=== PATIENT | female | born 1950 | race Caucasian/White ===

== ENCOUNTER 2017-03-13 02:26 | Inpatient (IN) ==
[2017-03-13] MEDS ORDERED: *HR* Labetalol 20 MG/4 ML SYRINGE IVP ONE (03:21)
[2017-03-13] MEDS ORDERED: 0.9 % Sodium Chloride 2,000 ML ONE (04:29)
[2017-03-13] MEDS ORDERED: Insulin Human Regular 10 UNIT in 0.9 % Sodium Chloride 10 ML IV ONE (06:40)
[2017-03-13 06:48] LABS: Activated Partial Thrombo Time 33.1 Seconds (26.0-36.0); Hematocrit 42.7 % (35.3-44.9); Immature Granulocytes % 0.3 % (0-4); Lymphocytes # 1.2 K/mcL (0.6-4.6); Lymphocytes % 32.6 %; Mean Corpuscular HGB Conc 32.8 g/dL (31.6-35.5); Mean Corpuscular Hemoglobin 26.9 pg (28.0-33.3); Mean Platelet Volume 9.3 fL (9.4-12.4); Monocytes # 0.3 K/mcL (0.0-1.3); Monocytes % 8.4 %; Neutrophils # 2.2 K/mcL (1.6-8.9); Platelet Count 154 K/mcL (140-400); Prothrombin Time 11.1 Seconds (9.4-12.1); Red Blood Count 5.21 M/mcL (3.82-4.97); Red Cell Distribution Width 12.8 % (11.5-14.5); Segmented Neutrophils % 58.7 %
[2017-03-13] MEDS ORDERED: Naloxone 0.4 MG/ML INJ IVP PRN (07:32)
[2017-03-13] MEDS ORDERED: Acetaminophen 325 MG TABLET PO PRN (07:32)
[2017-03-13] MEDS ORDERED: Ondansetron ODT 4 MG TAB.RAPDIS SL PRN (07:32)
[2017-03-13] MEDS ORDERED: *HR* HYDROcodone/Acet 5/325 mg TABLET PO PRN (07:32)
[2017-03-13 07:52] LABS: Bilirubin,Urine Negative (Negative); Blood,Urine Large (Negative); Clarity,Urine Cloudy (Clear); Color,Urine Yellow (Yellow); Glucose,Urine (UA) >=1000 mg/dL (Normal); Ketones,Urine Negative (Negative)
[2017-03-13 07:53] LABS: Leukocyte Esterase,Urine Trace (Negative); Nitrite,Urine Negative (Negative); Protein,Urine 30 mg/dL (Neg-Trace); RBC,Urine TNTC per hpf (0-3); Urobilinogen,Urine Normal (Normal); WBC,Urine 0-3 per hpf (0-3)
[2017-03-13 07:54] LABS: Squamous Epithelial Cell,Urine Few per lpf (None-Few)
[2017-03-13] MEDS ORDERED: hydrALAZINE 25 MG TABLET PO PRN (08:08)
[2017-03-13] MEDS ORDERED: D5% in Water 1,000 ML IVC PRN (08:09)
[2017-03-13] MEDS ORDERED: *HR* Dextrose 50 % in Water (Syg) 50 ML SYRINGE IVP PRN (08:09)
[2017-03-13] MEDS ORDERED: Dextrose Gel 15 GM PO PRN ×2 (08:09)
--- NOTE | 2017-03-13 08:12 | Internal Med History&Physical ---
Date of Encounter: 03/13/17 Time of Encounter: 07:45 Assessment and Plan (1) Acute ischemic stroke Current visit: Yes Status: Suspected By midnight, her woke her up while she was sleeping on her recliner and told her to go to bed. Patient noticed her right side of her body was weak and she was unable to stand up on her own. Her helped her and she walked to her kitchen. She was very wobbly and unsteady. Her daughter noticed some slurred speech and left-sided facial droop. Her symptoms started to improve an hour after arriving to our ED. At this time, she reports mild right-sided weakness. CT head showed no acute intracranial process, chronic small vessel ischemic changes. CTA of neck and head showed no acute vascular abnormality, moderate to severe multilevel cervical spondylosis, left thyroid lobe 1 cm nodule. High suspicion for acute ischemic stroke given presentation. Check MRI brain, lipid profile and echocardiogram. Consult neurology. Neurovascular assessment per protocol. Fall precautions. Patient reports an allergy to aspirin. Start Plavix and Lipitor. Better control of blood sugars. Permissive high blood pressure, will treat blood pressure if systolic blood pressure above 240 and diastolic blood pressure above 120. Consult PT and OT (2) Hypertensive urgency Current visit: Yes Status: Acute Permissive high blood pressure, will treat blood pressure if systolic blood pressure above 240 and diastolic blood pressure above 120 (3) Diabetes mellitus Current visit: Yes Status: Chronic Check A1c. Patient reports blood sugars levels are in the 300 range home. Start Levemir 10 units twice a day. Insulin sliding scale. Diabetic diet. Qualifiers: Diabetes mellitus type: type 2 Diabetes mellitus complication status: with hyperglycemia Diabetes mellitus terminal worker insulin use: without terminal worker use Qualified Code(s): E11.65 - Type 2 diabetes mellitus with hyperglycemia (4) Hypothyroidism Current visit: Yes Status: Chronic Check TSH, free T4. Resume home dose of levothyroxine. Qualifiers: Hypothyroidism type: unspecified Qualified Code(s): E03.9 - Hypothyroidism , unspecified Internal Medicine - H&P: HPI Chief complaint: Right-sided weakness since midnight Admitted From: Home Plans for Post Hospital Care: Home History of present illness: Ms. Walter is a 67 year old female with past medical history hypertension, poorly controlled diabetes mellitus and prior ophthalmic shingles. Patient reports dealing with some epigastric discomfort for the past few weeks due to an adverse reaction from Ciprofloxacillin and Januvia. Yesterday, she was some epigastric discomfort for in the afternoon but this resolved and she continued working without any issues. By midnight, her woke her up while she was sleeping on her recliner and told her to go to bed. She noticed her right side of her body was weak and she was unable to stand up on her own. Her helped her and she walked to her kitchen. She was very wobbly and unsteady. Her daughter noticed some slurred speech and left-sided facial droop. Her symptoms started to improve an hour after arriving to our ED. At this time, she reports mild right-sided weakness. No chest pain, no headache, no syncope, no shortness of breath, no fever, no abdominal pain, no cough, no upper respiratory symptoms, no change in bowel movements, no lower extremity edema. She reports episodes of hematuria for the past few days. No dysuria or frequency. Unable to review records from ED due to technical issues with our EMR system [employer] 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 She had intraocular injection to her right eye last week at [facility] and she developed conjunctival hemorrhage. She had an MRI 3 years ago for a right shoulder fracture. Family medical history: Mother had brain aneurysm. Past Med Surg Social Fam HX - Past Medical History Medical history: arthritis, diabetes, hypertension - Social History Smoking Status: Never smoker Smokeless Tobacco Status: No Alcohol use: none Drug use: none - Family History Mother History Unknown: Yes Family Member Ethnicity: Non- Twin of Family Member: Yes, Fraternal Living Status: Hx Family Cardiac Disorders: Yes Hx Family Neurologic Disorders: Yes Internal Medicine - H&P: Meds Acetaminophen [Tylenol] 1,000 mg PO Q6HR PRN 03/13/17 [History] Bisoprolol Fumarate [Zebeta] 10 mg PO DAILY 03/13/17 [History] Calcium Carb,Cit/D3/Phytostrol [Citracal D + Heart Health Tab] 1 tab PO DAILY [History] Fexofenadine HCl 60 mg PO HS 03/13/17 [History] Levothyroxine Sodium [Levoxyl] 75 mcg PO DAILY 03/13/17 [History] Vit#98/Ferrous Fum/FA [Kpn Tablet] 1 tab PO DAILY 03/13/17 [ History] Tramadol HCl [Ultram] 50 mg PO TID PRN 03/13/17 [History] Valsartan [Diovan] 80 mg PO DAILY 03/13/17 [History] cloNIDine HCl [Clonidine HCl] 0.2 mg PO BID 03/13/17 [History] clonazePAM [Klonopin] 0.5 mg PO BID 03/13/17 [History] Allergies Erythromycin Base Allergy (Verified 12/08/16 12:23) Nausea levofloxacin [From Levaquin] Allergy (Verified 12/08/16 12:23) Nausea All Systems PM: A 10-system review of systems was performed and is negative for pertinent findings except as documented above in the HPI. - Constitutional Vitals: Temp Pulse Resp BP Pulse Ox 98.1 F 82 18 185/95 97 03/13/17 07:25 03/13/17 07:25 03/13/17 07:25 03/13/17 07:25 03/13/17 07:25 General appearance: Present: A&O X 3, pleasant, no acute distress, answers questions appropriately - Eye Eye exam: Present: conjunctival injection (right eye), PERRL - Respiratory Respiratory exam: Present: CTAB - Cardiovascular Cardiovascular exam: Present: RRR - GI/Abdominal GI/Abdominal exam: Present: normal bowel sounds, soft. Absent: distended, tenderness - Extremities Exam Extremities exam: Absent: pedal edema - Back Exam Back exam: Absent: CVA tenderness (L), CVA tenderness (R) - Neurological Exam Neurological exam: Present: alert, CN II-XII intact, oriented X3. Absent: strengths equal and symetr throughout (strenght is 4/5 on right leg, rest is 5/ 5. patient is able to stand up but she feels very unsteady. Not able to perform toe or heel standing or ambulation. ), pronater drift, facial droop, speech deficit - Skin Skin exam: Present: rash (there are small macular lesions on her chest, chronic for the past few days) Internal Med - H&P Results - Labs CBC & Chem 7: 03/13/17 02:55
[2017-03-13 08:37] LABS: Alanine Aminotransferase 14 Units/L (0-55); Albumin 4.1 g/dL (3.5-5.0); Alkaline Phosphatase 86 Units/L (38-126); Aspartate Amino Transferase 15 Units/L (5-34); BUN/Creatinine Ratio 15 (6-26); Bilirubin,Total 0.8 mg/dL (0.2-1.2); Blood Urea Nitrogen 15 mg/dL (7-20); Calcium 9.8 mg/dL (8.6-10.8); Carbon Dioxide 25 mEq/L (19-29); Chloride 99 mEq/L (98-109); Globulin 4.2 g/dL (2.4-3.5); Glucose 497 mg/dL (70-99); Osmolality,Calculated 303 (280-300); Potassium 4.5 mEq/L (3.5-4.5); Sodium 135 mEq/L (136-145); Total Protein 8.3 g/dL (6.0-8.3); eGFR For African Americans > 60 (> 60); eGFR For Non-African Americans 57 (> 60)
[2017-03-13 08:58] LABS: Beta-Hydroxybutyric Acid 0.33 mmol/L (0.02-0.27)
[2017-03-13] MEDS ORDERED: Insulin DETEMIR 100 UNIT/ML X5UNITS SQ SCH (09:00)
[2017-03-13] MEDS: Pantoprazole 40 MG VIAL IVP SCH (12:19)
[2017-03-13] MEDS: Insulin LISPRO 300 UNITS/3 ML VIAL SQ SCH ×3 (12:20→21:42)
[2017-03-13] MEDS: BISOPROLOL 10 MG PO SCH (15:42)
[2017-03-13] MEDS: *HR* Heparin 5,000 UNIT/ML VIAL SQ SCH (17:42)
--- NOTE | 2017-03-13 17:48 | Neurology - Consult Note ---
Date of Encounter: 03/13/17 Time of Encounter: 17:33 Assessment and Plan (1) Acute ischemic stroke Current Visit: Yes Status: Suspected Small lacunar pure motor thalamic infarct, likely secondary to small vessel etiology. Stroke work up is essentially complete. CTA of brain and neck echocardiography completed. No significant pathology noted. Agree with Plavix 75mg daily and continue statin therapy. PT/OT evaluation. Will sign off at this time, please call if any questions History of Present Illness Chief complaint: left sided weakness HPI: Ms. Walter is a 67 year old female 67 year old woman with PH significant for HTN, DM and hyperlipidemia who developed acute onset of left sided weakness. Onset of symptoms likely before 10pm last night. she was watching TV i sitting position and then fall asleep. After waking up by her she was found to have weakness to her right side, unable to walk. The right sided weakness gradually improved by the time she went to ER. MRI of brain showed acute left thalamic infarct, no edema and no midline shift noted. Currently, patient is feeling better, able to feed her self. The right sided weakness is still present but much improved. CTA of neck and brain, echocardiography all completed and showed no significant pathology. Echo showed normal LVEF 60%, no regional wall motion abnormality, no PFO and valvular disease found. Patient has no prior history of atrial fribrillation Past Med Surg Social Fam HX - Past Medical History Medical history: arthritis, diabetes, hypertension - Social History Smoking Status: Never smoker Smokeless Tobacco Status: No Alcohol use: none Drug use: none - Family History Mother History Unknown: Yes Family Member Ethnicity: Non- Twin of Family Member: Yes, Fraternal Living Status: Hx Family Cardiac Disorders: Yes Hx Family Neurologic Disorders: Yes Medications and Allergies Acetaminophen [Tylenol] 1,000 mg PO Q6HR PRN 03/13/17 [History] Bisoprolol Fumarate [Zebeta] 10 mg PO DAILY 03/13/17 [History] Calcium Carb,Cit/D3/Phytostrol [Citracal D + Heart Health Tab] 1 tab PO DAILY [History] Fexofenadine HCl 60 mg PO HS 03/13/17 [History] Levothyroxine Sodium [Levoxyl] 75 mcg PO DAILY 03/13/17 [History] Vit#98/Ferrous Fum/FA [Kpn Tablet] 1 tab PO DAILY 03/13/17 [ History] Tramadol HCl [Ultram] 50 mg PO TID PRN 03/13/17 [History] Valsartan [Diovan] 80 mg PO DAILY 03/13/17 [History] cloNIDine HCl [Clonidine HCl] 0.2 mg PO BID 03/13/17 [History] clonazePAM [Klonopin] 0.5 mg PO BID 03/13/17 [History] Allergies Erythromycin Base Allergy (Verified 12/08/16 12:23) Nausea levofloxacin [From Levaquin] Allergy (Verified 12/08/16 12:23) Nausea All Systems: A 10-system review of systems was performed and is negative for pertinent findings except as documented above in the HPI. Physical Examination - Vital Signs Vital Signs: Initial Vital Signs Temp Pulse Resp BP Pulse Ox 98.1 F 82 18 185/95 97 03/13/17 07:25 03/13/17 07:25 03/13/17 07:25 03/13/17 07:25 03/13/17 07:25 - Constitutional General appearance: comfortable - Neurologic Sensorimotor examination: intact Detailed motor examination: other (Mild right pronator drift noted. Hand custodian athletic equipment are strong) Motor examination - right side: 4/5: deltoids, biceps, triceps, wrist flexion, wrist extension, museum guide, hip flexors, tibialis Anterior, quadriceps, toe extension (EHL), plantarflexion Motor examination - left side: 5/5: deltoids, biceps, triceps, wrist flexion, wrist extension, hip flexors, museum guide, quadriceps, tibialis Anterior, toe extension (EHL), plantarflexion Detailed sensory examination: intact Posture: other (None) Reflexes: Biceps: 1+, Triceps: 1+, Brachioradialis: 1+, Patella: 1+, Achilles: 1 + Mental Status Examination: awake, alert, oriented to person, oriented to place, oriented to time, follows commands appropriately, answers questions appropriately, no agnosia, no aphasia, no aproxia Cranial nerve examination: PERRL, EOMI, visual rueda intact (Unable to test, due to left eye cataract), corneal reflexes brisk symmetrically, sensory to face intact, mastication intact, no facial asymmetry is present, no dysarthria, hearing is intact symmetrically, soft palate elevates bilaterally upon phonation , gag reflex intact, flexes SCM and trapezius muscles symmetrically with full power, tongue protrudes midline Results - Laboratory Findings CBC and BMP: 03/13/17 02:55 03/13/17 02:55 Abnormal lab findings: Abnormal lab results WBC 3.7 K/mcL (4.3-11.1) L 03/13/17 02:55 RBC 5.21 M/mcL (3.82-4.97) H 03/13/17 02:55 MCV 82.0 fL (83.0-100.0) L 03/13/17 02:55 MCH 26.9 pg (28.0-33.3) L 03/13/17 02:55 MPV 9.3 fL (9.4-12.4) L 03/13/17 02:55 Sodium 135 mEq/L (136-145) L 03/13/17 02:55 Est GFR (Non-Af Amer) 57 (> 60) L 03/13/17 02:55 Glucose 497 mg/dL (70-99) H 03/13/17 02:55 POC Glucose 270 (58-89) H 03/13/17 08:13 Calculated Osmolality 303 (280-300) H 03/13/17 02:55 Globulin 4.2 g/dL (2.4-3.5) H 03/13/17 02:55 Albumin/Globulin Ratio 1.0 (1.1-2.2) L 03/13/17 02:55 Beta-Hydroxybutyric Acd 0.33 mmol/L (0.02-0.27) H 03/13/17 02:55 Urine Clarity Cloudy (Clear) A 03/13/17 02:55 Urine Protein 30 mg/dL (Neg-Trace) H 03/13/17 02:55 Urine Glucose (UA) >=1000 mg/dL (Normal) H 03/13/17 02:55 Urine Blood Large (Negative) H 03/13/17 02:55 Ur Leukocyte Esterase Trace (Negative) H 03/13/17 02:55 Urine Microscopic RBC TNTC per hpf (0-3) H 03/13/17 02:55 Ur Culture Indicated? YES (NO) A 03/13/17 02:55 Consult Discharge Plan - Plan Referrals: Willam Mckeon DO [Primary Care Provider] - 03/26/17 12:30 pm
[2017-03-13] MEDS ORDERED: ALPRAZolam 0.25 MG TABLET PO SCH (21:00)
[2017-03-13] MEDS: clonazePAM 0.5 MG TABLET PO PRN (23:21)
[2017-03-14] MEDS: *HR* Heparin 5,000 UNIT/ML VIAL SQ SCH ×2 (05:25→18:13)
[2017-03-14] MEDS ORDERED: Loratadine 10 MG TABLET PO ONE (05:53)
[2017-03-14 06:04] LABS: Hematocrit 40.8 % (35.3-44.9); Hemoglobin 13.4 g/dL (11.5-15.4); Immature Granulocytes % 0.3 % (0-4); Lymphocytes # 1.8 K/mcL (0.6-4.6); Lymphocytes % 48.1 %; Mean Corpuscular HGB Conc 32.8 g/dL (31.6-35.5); Mean Corpuscular Hemoglobin 27.3 pg (28.0-33.3); Mean Corpuscular Volume 83.1 fL (83.0-100.0); Mean Platelet Volume 10.1 fL (9.4-12.4); Monocytes # 0.3 K/mcL (0.0-1.3); Neutrophils # 1.6 K/mcL (1.6-8.9); Platelet Count 165 K/mcL (140-400); Red Blood Count 4.91 M/mcL (3.82-4.97); Red Cell Distribution Width 12.9 % (11.5-14.5); Segmented Neutrophils % 42.6 %
[2017-03-14 06:14] LABS: Hemoglobin A1C 11.6 %
[2017-03-14 06:18] LABS: BUN/Creatinine Ratio 15 (6-26); Blood Urea Nitrogen 12 mg/dL (7-20); Calcium 9.4 mg/dL (8.6-10.8); Carbon Dioxide 29 mEq/L (19-29); Chloride 102 mEq/L (98-109); Chol/HDL Ratio 7.4 (0-4.9); Cholesterol 244 mg/dL (< 200); Glucose 315 mg/dL (70-99); HDL Cholesterol 33 mg/dL (40-59); Magnesium 1.9 mg/dL (1.6-2.6); Osmolality,Calculated 296 (280-300); Potassium 3.6 mEq/L (3.5-4.5); Sodium 137 mEq/L (136-145); Triglycerides 586 mg/dL (< 150); eGFR For African Americans > 60 (> 60); eGFR For Non-African Americans > 60 (> 60)
[2017-03-14] MEDS: Insulin LISPRO 300 UNITS/3 ML VIAL SQ SCH ×4 (08:25→21:08)
[2017-03-14] MEDS: cloNIDine HCl 0.1 MG TABLET PO SCH (08:25)
[2017-03-14] MEDS: BISOPROLOL 10 MG PO SCH (08:25)
[2017-03-14] MEDS: Pantoprazole 40 MG VIAL IVP SCH (08:25)
[2017-03-14] MEDS ORDERED: Loratadine 10 MG TABLET PO SCH (09:00)
[2017-03-14] MEDS: Insulin DETEMIR 100 UNIT/ML X5UNITS SQ SCH ×2 (09:01→21:08)
[2017-03-14] MEDS: Valsartan 80 MG TABLET PO SCH (09:01)
--- NOTE | 2017-03-14 11:49 | Internal Med Progress Note ---
Date of Encounter: 03/14/17 Time of Encounter: 11:15 - Assessment and plan (1) Acute ischemic stroke Current Visit: Yes Status: Acute Assessment and plan: The night of admission, her woke her up while she was sleeping on her recliner and told her to go to bed. Patient noticed her right side of her body was weak and she was unable to stand up on her own. Her helped her and she walked to her kitchen. She was very wobbly and unsteady. Her daughter noticed some slurred speech and left-sided facial droop. Her symptoms started to improve an hour after arriving to our ED. At this time, she reports mild right-sided weakness. CT head showed no acute intracranial process, chronic small vessel ischemic changes. CTA of neck and head showed no acute vascular abnormality, moderate to severe multilevel cervical spondylosis, left thyroid lobe 1 cm nodule. MRI brain showed Small acute infarct within the left thalamus. Echocardiogram showed LVEF 65%, mild concentric LVH, mild LV diastolic dysfunction, moderately dilated left atrium, no intracardiac shunting, no significant valvular dysfunction. Lipid profile showed triglycerides 586 and LDL TNP. Hemoglobin A1c is 11.6. Appreciate neurology input. Patient reports an allergy to aspirin. continue Plavix. Patient is thinking about starting on Lipitor. PT and OT consulted. Resume home dose of valsartan and change home dose of clonidine to 0.1 mg daily. Close monitor of blood pressure and glucose levels. (2) Hypertensive emergency Current Visit: Yes Status: Acute Assessment and plan: Resume home dose of valsartan, decrease home dose of clonidine, continue bisoprolol. close monitor. (3) Diabetes mellitus Current Visit: Yes Status: Chronic Assessment and plan: Poorly controlled diabetes mellitus with a hemoglobin A1c of 11.6. Patient admits glucose levels runs in the 300s at home. Increase Levemir to 12 units twice a day. Continue insulin sliding scale. Diabetic diet. Qualifiers: Diabetes mellitus type: type 2 Diabetes mellitus complication status: with hyperglycemia Diabetes mellitus custodial insulin use: without custodial use Qualified Code(s): E11.65 - Type 2 diabetes mellitus with hyperglycemia (4) Hypothyroidism Current Visit: Yes Status: Chronic Qualifiers: Hypothyroidism type: unspecified Qualified Code(s): E03.9 - Hypothyroidism , unspecified - Subjective Interval history: patient denies any headaches or shortness of breath. she has mild lightheadedness. - Constitutional Vitals: Temp Pulse Resp BP Pulse Ox 98.6 F 73 16 159/91 96 03/14/17 07:49 03/14/17 08:00 03/14/17 07:49 03/14/17 07:49 03/14/17 08:00 General appearance: Present: cooperative, A&O X 3, pleasant, no acute distress, answers questions appropriately - Neck Neck exam general surgery: Present: supple, trachea midline. Absent: lymphadenopathy - Respiratory Respiratory exam: Present: CTAB - Cardiovascular Cardiovascular exam: Present: RRR - GI/Abdominal GI/Abdominal exam: Present: normal bowel sounds, soft. Absent: distended, tenderness - Back Exam Back exam: Absent: CVA tenderness (L), CVA tenderness (R) - Neurological Exam Neurological exam: Present: alert, oriented X3. Absent: strengths equal and symetr throughout (rigth leg strength is 4/5, rest is 5/5.), facial droop, speech deficit - Skin Skin exam: Absent: rash Internal Medicine: Result - Labs CBC & Chem 7: 03/14/17 05:28 03/14/17 05:28 Labs: Short CBC 03/14/17 Range/Units 05:28 WBC 3.8 L (4.3-11.1) K/mcL Hgb 13.4 (11.5-15.4) g/dL Hct 40.8 (35.3-44.9) % Plt Count 165 (140-400) K/mcL Neutrophils # 1.6 (1.6-8.9) K/mcL BMP 03/14/17 05:28 Sodium 137 Potassium 3.6 Chloride 102 Carbon Dioxide 29 BUN 12 Creatinine 0.78 Glucose 315 H Calcium 9.4 - ABG Interpretation ABG results: PT/INR, D-dimer PT 11.1 Seconds (9.4-12.1) 03/13/17 02:55 Consult Discharge Plan - Plan Referrals: Willam Mckeon DO [Primary Care Provider] - 03/26/17 12:30 pm
[2017-03-14] MEDS: amLODIPine 5 MG TABLET PO SCH (12:08)
--- NOTE | 2017-03-14 13:07 | Neurology Progress Note ---
Date of Encounter: 03/14/17 Time of Encounter: 13:05 Assessment and Plan (1) Acute ischemic stroke Current Visit: Yes Status: Acute Pure motor lacunar infarct involving the left thalamus. Likely small vessel etiology. Stroke work up completed. no source of emboli and no evidence of carotid artery disease or intracranial atherosclerosis. Will continue plavix 75mg and treat hyperlipidemia accordingly. PT may benefit. Will sign off and please call if any questions Subjective Principal diagnosis: CVA Interval history: Patient seen and examined. She is feeling well, right sided weakness also improved. No speech difficulty. CTA neck and head showed no acute vascular abnormality. Echocardiogrpaphy showed normal LVEF, no valvular dysfunction, no PFO or shunting. Patient is taking Plavix 75mg daily. On statin therapy. Objective - Constitutional Vitals: Temp Pulse Resp BP Pulse Ox 97.9 F 81 16 177/91 97 03/14/17 11:50 03/14/17 11:50 03/14/17 11:50 03/14/17 11:50 03/14/17 11:50 - Neurological Exam Sensorimotor examination: Present: intact Motor Examination: Present: other (Mild right pronator drift noted. Hand x ray nurse are strong) Motor examination - right side: 4/5: deltoids, biceps, triceps, wrist flexion, wrist extension, supply chain specialist, hip flexors, tibialis Anterior, quadriceps, toe extension (EHL), plantarflexion Motor examination - left side: 5/5: deltoids, biceps, triceps, wrist flexion, wrist extension, hip flexors, supply chain specialist, quadriceps, tibialis Anterior, toe extension (EHL), plantarflexion Sensation intact: Present: intact Posture: Present: other (None) Mental Status Examination: Present: awake, alert, oriented to person, oriented to place, oriented to time, follows commands appropriately, answers questions appropriately, no agnosia, no aphasia, no aproxia Cranial nerve examination: Present: PERRL, EOMI, visual rueda intact (Unable to test, due to left eye cataract), corneal reflexes brisk symmetrically, sensory to face intact, mastication intact, no facial asymmetry is present, no dysarthria, hearing is intact symmetrically, soft palate elevates bilaterally upon phonation, gag reflex intact, flexes SCM and trapezius muscles symmetrically with full power, tongue protrudes midline Results - Laboratory Findings CBC and BMP: 03/14/17 05:28 03/14/17 05:28 Abnormal lab findings: Abnormal lab results WBC 3.8 K/mcL (4.3-11.1) L 03/14/17 05:28 MCH 27.3 pg (28.0-33.3) L 03/14/17 05:28 Glucose 315 mg/dL (70-99) H 03/14/17 05:28 POC Glucose 273 (58-89) H 03/13/17 20:44 Hemoglobin A1c 11.6 % (-5.6) H 03/14/17 05:28 B-Natriuretic Peptide 153 pg/mL (0-100) H 03/14/17 05:28 Globulin 4.2 g/dL (2.4-3.5) H 03/13/17 02:55 Albumin/Globulin Ratio 1.0 (1.1-2.2) L 03/13/17 02:55 Triglycerides 586 mg/dL (< 150) H 03/14/17 05:28 Cholesterol 244 mg/dL (< 200) H 03/14/17 05:28 HDL Cholesterol 33 mg/dL (40-59) L 03/14/17 05:28 Cholesterol/HDL Ratio 7.4 (0-4.9) H 03/14/17 05:28 Beta-Hydroxybutyric Acd 0.33 mmol/L (0.02-0.27) H 03/13/17 02:55 Urine Clarity Cloudy (Clear) A 03/13/17 02:55 Urine Protein 30 mg/dL (Neg-Trace) H 03/13/17 02:55 Urine Glucose (UA) >=1000 mg/dL (Normal) H 03/13/17 02:55 Urine Blood Large (Negative) H 03/13/17 02:55 Ur Leukocyte Esterase Trace (Negative) H 03/13/17 02:55 Urine Microscopic RBC TNTC per hpf (0-3) H 03/13/17 02:55 Ur Culture Indicated? YES (NO) A 03/13/17 02:55 Consult Discharge Plan - Plan Referrals: Willam Mckeon DO [Primary Care Provider] - 03/26/17 12:30 pm
[2017-03-14] MEDS ORDERED: hydrALAZINE 25 MG TABLET PO PRN (15:15)
[2017-03-14] MEDS: clonazePAM 0.5 MG TABLET PO PRN (23:37)
[2017-03-15 05:12] LABS: Hematocrit 41.9 % (35.3-44.9); Hemoglobin 13.3 g/dL (11.5-15.4); Immature Granulocytes % 0.3 % (0-4); Lymphocytes # 1.9 K/mcL (0.6-4.6); Mean Corpuscular HGB Conc 31.7 g/dL (31.6-35.5); Mean Corpuscular Hemoglobin 26.6 pg (28.0-33.3); Mean Corpuscular Volume 83.8 fL (83.0-100.0); Mean Platelet Volume 10.1 fL (9.4-12.4); Monocytes # 0.4 K/mcL (0.0-1.3); Monocytes % 9.3 %; Neutrophils # 1.6 K/mcL (1.6-8.9); Platelet Count 172 K/mcL (140-400); Red Cell Distribution Width 12.7 % (11.5-14.5); Segmented Neutrophils % 41.4 %
[2017-03-15 05:25] LABS: BUN/Creatinine Ratio 21 (6-26); Blood Urea Nitrogen 15 mg/dL (7-20); Calcium 9.5 mg/dL (8.6-10.8); Carbon Dioxide 28 mEq/L (19-29); Chloride 101 mEq/L (98-109); Glucose 250 mg/dL (70-99); Osmolality,Calculated 293 (280-300); Potassium 4.2 mEq/L (3.5-4.5); Sodium 137 mEq/L (136-145); eGFR For African Americans > 60 (> 60); eGFR For Non-African Americans > 60 (> 60)
[2017-03-15] MEDS: *HR* Heparin 5,000 UNIT/ML VIAL SQ SCH (05:56)
[2017-03-15 07:49] VITALS: BP 145/97
[2017-03-15] MEDS: Insulin LISPRO 300 UNITS/3 ML VIAL SQ SCH (08:00)
--- NOTE | 2017-03-15 08:13 | Discharge Summary ---
Date of Encounter: 03/15/17 Time of Encounter: 08:12 - Discharge Diagnosis (1) Acute ischemic stroke Priority: Primary Status: Acute (2) Hypertensive emergency Priority: Primary Status: Acute (3) Diabetes mellitus Priority: Primary Status: Acute Qualifiers: Diabetes mellitus type: type 2 Diabetes mellitus complication status: with hyperglycemia Diabetes mellitus skilled nursing insulin use: without terminal press operator use Qualified Code(s): E11.65 - Type 2 diabetes mellitus with hyperglycemia (4) Hypothyroidism Priority: Secondary Status: Chronic Qualifiers: Hypothyroidism type: unspecified Qualified Code(s): E03.9 - Hypothyroidism , unspecified - Discharge Medications Prescriptions: amLODIPine [Norvasc] 10 mg PO DAILY #30 tab Atorvastatin [Lipitor] 40 mg PO HS #30 tab Blood Pressure Test Kit [Blood Pressure Monitor] 1 each [facility] BID #1 kit Blood Sugar Diagnostic [Glucose Test Strip] 1 each [facility] ACHS #120 strip Blood-Glucose Meter [Blood Glucose Monitoring] 1 each MC ACHS #1 each Clopidogrel [Plavix] 75 mg PO DAILY #30 tab GlipiZIDE [Glipizide ER] 5 mg PO DAILY #30 tab.er.24 Insulin Glargine [Lantus] 15 unit SQ QPM #6 mls Lancets [Blood Lancets] 1 each ACHS #120 each Home Medications: Acetaminophen [Tylenol] 1,000 mg PO Q6HR PRN 03/13/17 [History] Bisoprolol Fumarate [Zebeta] 10 mg PO DAILY 03/13/17 [History] Calcium Carb,Cit/D3/Phytostrol [Citracal D + Heart Health Tab] 1 tab PO DAILY [History] Fexofenadine HCl 60 mg PO HS 03/13/17 [History] Levothyroxine Sodium [Levoxyl] 75 mcg PO DAILY 03/13/17 [History] Vit#98/Ferrous Fum/FA [Kpn Tablet] 1 tab PO DAILY 03/13/17 [ History] Tramadol HCl [Ultram] 50 mg PO TID PRN 03/13/17 [History] Valsartan [Diovan] 80 mg PO DAILY 03/13/17 [History] Atorvastatin [Lipitor] 40 mg PO HS #30 tab 03/15/17 [Rx] Blood Pressure Test Kit [Blood Pressure Monitor] 1 each MC BID #1 kit 03/15/17 [ Rx] Blood Sugar Diagnostic [Glucose Test Strip] 1 each [facility] #120 strip 03/15/17 [ Rx] Blood-Glucose Meter [Blood Glucose Monitoring] 1 each [facility] #1 each 03/15/17 [ Rx] Clopidogrel [Plavix] 75 mg PO DAILY #30 tab 03/15/17 [Rx] GlipiZIDE [Glipizide ER] 5 mg PO DAILY #30 tab.er.24 03/15/17 [Rx] Insulin Glargine [Lantus] 15 unit SQ QPM #6 mls 03/15/17 [Rx] Lancets [Blood Lancets] 1 each [facility] #120 each 03/15/17 [Rx] amLODIPine [Norvasc] 10 mg PO DAILY #30 tab 03/15/17 [Rx] cloNIDine HCl [CloNIDine HCl] 0.1 mg PO DAILY tab 03/15/17 [Rx] clonazePAM [Klonopin] 0.5 mg PO BID PRN #0 03/15/17 [Rx] Allergies/Adverse Reactions: Allergies Erythromycin Base Allergy (Verified 12/08/16 12:23) Nausea levofloxacin [From Levaquin] Allergy (Verified 12/08/16 12:23) Nausea Date of admission: 03/13/17 15:59 Primary care physician: Willam Mckeon, - Patient Status Disposition: Home, Self-Care Condition: Good Functional capacity at discharge: uses cane/walker Overall status at discharge: patient is progressing back to baseline - Ambulatory Orders Ambulatory Orders: Consult to Physical Therapy [CONS] Time Frame: 03/17/17, Facility: [facility], Location: [facility] - Discharge Instructions Instructions: Insulin Glargine (Injection), Diabetes Mellitus Type 2 in Adults (DC), Ischemic Stroke (DC), Chronic Hypertension (DC) Follow Up With: Willam Mckeon, [Primary Care Provider] - 03/26/17 12:30 pm Additional Instructions: Check your blood pressure twice daily, same time in the morning and in the evening. write down the numbers and bring record to doctor's appointment. Check your blood sugars before meals and at bedtime. write down the numbers and bring record to doctor's appointment. Follow-up with her primary care physician next week. - Diet and Activity Activity: as per physical therapy Diet: diabetic diet, low salt diet Interval History: patient has no complaints. she is eager to go home. Hospital course: Ms. Walter is a 67 year old female with past medical history of DM, HTN and hypothyroidism who presents with right-sided hemiparesis. CT head showed no acute intracranial process, chronic small vessel ischemic changes. CTA of neck and head showed no acute vascular abnormality, moderate to severe multilevel cervical spondylosis, left thyroid lobe 1 cm nodule. MRI brain showed Small acute infarct within the left thalamus. Echocardiogram showed LVEF 65%, mild concentric LVH, mild LV diastolic dysfunction, moderately dilated left atrium, no intracardiac shunting, no significant valvular dysfunction. Lipid profile showed triglycerides 586 and LDL TNP. Hemoglobin A1c is 11.6. PLAN: Plavix, lipitor. PT and OT as outpatient. daily monitor of blood pressure and glucose levels. - Time Spent with Patient Total time spent providing and/or coordinating discharge services: - Constitutional Vitals: Temp Pulse Resp BP Pulse Ox 98.0 F 81 84 145/97 97 03/15/17 07:40 03/15/17 07:40 03/15/17 07:53 03/15/17 07:53 03/15/17 07:53 General appearance: Present: cooperative, A&O X 3, pleasant, no acute distress, answers questions appropriately - Eye Eye exam: Present: PERRL, sclera anicteric - Neck Neck exam general surgery: Present: supple, trachea midline. Absent: lymphadenopathy - Respiratory Respiratory exam: Present: CTAB - GI/Abdominal GI/Abdominal exam: Present: normal bowel sounds, soft. Absent: distended, tenderness - Extremities Exam Extremities exam: Absent: pedal edema - Back Exam Back exam: Absent: CVA tenderness (L), CVA tenderness (R) - Neurological Exam Neurological exam: Present: alert, oriented X3, no focal deficits, strengths equal and symetr throughout. Absent: facial droop, speech deficit - Skin Skin exam: Absent: rash
[2017-03-15] MEDS: amLODIPine 5 MG TABLET PO SCH (09:29)
[2017-03-15] MEDS: Valsartan 80 MG TABLET PO SCH (09:29)
[2017-03-15] MEDS: cloNIDine HCl 0.1 MG TABLET PO SCH (09:30)
[2017-03-15] MEDS: Insulin DETEMIR 100 UNIT/ML X5UNITS SQ SCH (09:30)
[2017-03-15] MEDS: BISOPROLOL 10 MG PO SCH (09:31)
[2017-03-15] MEDS: Pantoprazole 40 MG VIAL IVP SCH (09:31)
== END 2017-03-15 12:01 | disposition home or self-care (01) | DRG 65 ==
LOC: 2NNU 05:08 → EMEROO 05:08 → 2NNU 07:05
PROVIDERS: ADMIT Internal Medicine; ATTEND Internal Medicine

== ENCOUNTER 2018-01-27 06:09 | Inpatient (IN) ==
[2018-01-27] MEDS: Ringers Solution, Lactated 1,000 ML IVC SCH ×2 (06:45→10:04)
[2018-01-27] MEDS ORDERED: Clindamycin 900 MG/50 ML 900 MG/50 ML IV.SOLN IVPB ONE (06:56)
--- NOTE | 2018-01-27 06:56 | Anesthesia Evaluation PreOp ---
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 ANALYST History: TIA, Other (Anxiety) Other Medical History: Diabetes Type II, Thyroid (Hypo) Anesthesia History: No Prior Anesthetic Complications, Past Anesthesia (LIZETTE, D&C , EGD/Colonoscopy) : No (LIZETTE) Alcohol Use: none Drug use: none Medications and Allergies Bisoprolol Fumarate [Zebeta] 10 mg PO DAILY 03/13/17 [History] Levothyroxine Sodium [Levoxyl] 75 mcg PO DAILY 03/13/17 [History] Aspirin [Lo-Dose Aspirin EC] 81 mg PO DAILY 10/25/17 [History] Insulin Glargine,Hum.rec.anlog [Lantus Solostar] 15 unit SQ HS 10/25/17 [History ] Valsartan [Diovan] 80 mg PO DAILY 10/25/17 [History] cloNIDine HCl [CloNIDine HCl] 0.2 mg PO DAILY 10/25/17 [History] clonazePAM [Klonopin] 0.5 - 1 mg PO HS 10/25/17 [History] Citalopram [CeleXA] 20 mg PO DAILY 30 Days #30 tablet 10/27/17 [Rx] traZODone [TraZODone] 50 mg PO HS 11/17/17 [History] amLODIPine [Norvasc] 10 mg PO HS 01/27/18 [History] 3 Allergy/AdvReac Type Severity Reaction Status Date / Time bacitracin Allergy See Verified 01/27/18 07:22 [From Triple Antibiotic] Comments ciprofloxacin AdvReac Mild Gastrointestinal Verified 01/27/18 07:22 Upset acetaminophen AdvReac Confusion Verified 01/27/18 07:22 [From Darvocet-N] codeine AdvReac Nightmare Verified 01/27/18 07:22 Erythromycin Base AdvReac Nausea Verified 01/27/18 07:22 glipizide AdvReac Nausea Verified 01/27/18 07:22 levofloxacin [From Levaquin] AdvReac Nausea Verified 01/27/18 07:22 Neomycin AdvReac See Verified 01/27/18 07:22 [From Triple Antibiotic] Comments Oxycodone [From Percocet] AdvReac Gastrointestinal Verified 01/27/18 07:22 Upset Penicillins [PCN] AdvReac See Verified 01/27/18 07:22 Comments polymyxin B AdvReac See Verified 01/27/18 07:22 [From Triple Antibiotic] Comments propoxyphene AdvReac Confusion Verified 01/27/18 07:22 [From Darvocet-N] Sulfa (Sulfonamide AdvReac Nausea Verified 01/27/18 07:22 Antibiotics) - Meds/Allergy Pre-op Review Medications Reviewed: Yes Allergies Reviewed: Yes Beta Blockers on Current Med List: Yes If Beta Blockers taken, Date/Time (Last Dose taken): 05:00 01/27/2018 Anesthesia Results - Labs Laboratory Tests 10/25/17 01/02/18 01/02/18 00:48 13:18 13:18 WBC 3.9 L Hgb Hct 31.4 L Plt Count 126 L INR 1.0 Sodium 139 Potassium 4.0 Chloride 104 Carbon Dioxide 30 H BUN 15 Creatinine 0.48 L 01/08/18 14:20 WBC Hgb 9.4 L Hct Plt Count INR Sodium Potassium Chloride Carbon Dioxide BUN Creatinine Echo with Saline Contrast Name: Yris Walter Date of Study: 10/26/2017 [id number]^ProVation^FT^PDF EV/EV echocardiogram Impressions: LVEF 55%. Mild concentric left ventricular hypertrophy. Mild left ventricular diastolic dysfunction. Normal right ventricular structure and function. Mild mitral regurgitation. No evidence of PFO with agitated saline contrast. No pulmonary hypertension. - Imaging EKG: report reviewed (SR) Anesthesia Exam O2 Sat Height 1.55 m Height 1.55 m Weight 61.235 kg Weight 61.235 kg O2 Sat by Pulse Oximetry 100 Vital Signs Temp Pulse Resp BP Pulse Ox 98.4 F 70 18 152/73 100 01/27/18 06:41 01/27/18 06:41 01/27/18 06:41 01/27/18 06:41 01/27/18 06:41 NPO (# of Hours): > 8 hrs Pain Scale: 0 Pain Scale Used: Numeric (1 - 10) - HEENT Pupil (Motor): Pupils equal, EOMI Mallampati: III Teeth: Normal Oral Opening: Greater than 3 - MATERIALS ANALYST LOC: Oriented MATERIALS ANALYST Motor: Normal RUE, Normal LUE, Normal RLE, Normal LLE, Normal Face MATERIALS ANALYST Sensory: Normal: RUE, LUE, RLE, LLE, Face - Cardiac Rhythm: Regular Murmur: None JVD: No Carotid Bruit: No - Pulmonary Breath Sounds: bilateral Clear Respiratory Effort: Symmetrical Anesthesia Assess/Plan ASA Score: 3 Modified Christelle Scale for Level of Consciousness: Cooperative, oriented, and tranquil Anesthetic Plan: General, Regional (Duramorph Spinal for pain control) Autologous Blood: Yes Monitoring Plan: Standard Monitors Recovery Plan: PACU
[2018-01-27] MEDS ORDERED: Lidocaine -MPF 4% 5 ML AMPUL ONE (07:04)
[2018-01-27] MEDS ORDERED: Dexamethasone 4 MG/ML VIAL ONE (07:04)
[2018-01-27] MEDS ORDERED: Ondansetron 4 MG/2 ML VIAL ONE (07:04)
[2018-01-27] MEDS ORDERED: *HR* Rocuronium Bromide 50 MG/5 ML VIAL ONE (07:04)
[2018-01-27] MEDS ORDERED: Lidocaine -MPF 2% 2 ML VIAL ONE (07:04)
[2018-01-27] MEDS ORDERED: *HR* Midazolam HCl 2 MG/2 ML VIAL ONE (07:06)
[2018-01-27] MEDS ORDERED: *HR* FentaNYL (PF) 100 MCG/2 ML VIAL ONE (07:06)
[2018-01-27] MEDS ORDERED: *HR* Propofol 200 MG/20 ML VIAL IVP ONE (07:06)
--- NOTE | 2018-01-27 07:23 | History & Physical Report ---
Date of Encounter: 01/27/18 Time of Encounter: 07:21 24 Hour HP Update - Instructions Instructions: If the History and Physical is less than 30 days old and was completed prior to A.M. admission and or procedure and has NOT been updated on calendar day of procedure please complete this update prior to performing procedure. - Update Patient reports changes in Medical Condition: No Changes in examination, assessment, or condition: No Changes in Medication: No Preop tests/diagnostics Reviewed: Yes Surgery Remains Indicated: Yes Consent for Planned Operative Procedure(s) Verified: Yes Additions to current History and Physical: proceed with ureter stent placement. dw pt - Pre-Operative Checklist Preoperative Checklist Indicated: Yes Prophylactic Antibiotic Ordered: Yes Home Medications Include Beta Rohit: Yes Beta Rohit Taken Today (Day of Surgery): Yes Beta Rohit Taken Yesterday (Day Prior to Surgery): Yes Is VTE Prophylaxis Indicated?: Yes
--- NOTE | 2018-01-27 07:32 | History & Physical Report ---
Date of Encounter: 01/27/18 Time of Encounter: 07:31 24 Hour HP Update - Instructions Instructions: If the History and Physical is less than 30 days old and was completed prior to A.M. admission and or procedure and has NOT been updated on calendar day of procedure please complete this update prior to performing procedure. - Update Patient reports changes in Medical Condition: No Changes in examination, assessment, or condition: No Changes in Medication: No Preop tests/diagnostics Reviewed: Yes Pre-Op MRSA Screen: Negative Surgery Remains Indicated: Yes Consent for Planned Operative Procedure(s) Verified: Yes - Pre-Operative Checklist Preoperative Checklist Indicated: No Prophylactic Antibiotic Ordered: Yes Home Medications Include Beta Rohit: No Beta Rohit Taken Today (Day of Surgery): No Beta Rohit Taken Yesterday (Day Prior to Surgery): No Is VTE Prophylaxis Indicated?: NO
[2018-01-27] MEDS ORDERED: Bupivacaine/EPI 1:200k 0.5%PF 10 ML VIAL ONE (07:34)
[2018-01-27] MEDS ORDERED: Morphine Sulfate/PF 5mg/10mL Vial ONE (07:44)
[2018-01-27] MEDS ORDERED: Water for inj. (sterile) 10 ML IV ONE (07:49)
[2018-01-27] MEDS ORDERED: *HR* Succinylcholine 200 MG/10 ML VIAL IVP ONE (07:50)
[2018-01-27] MEDS ORDERED: Lacri-Lube 3.5 GM TUBE ONE (08:16)
[2018-01-27] MEDS ORDERED: Acetaminophen IV 1,000 MG/100 ML INFUS..BTL ONE (08:52)
--- NOTE | 2018-01-27 08:59 | Anesthesia Procedures ---
Date of Encounter: 01/27/18 Time of Encounter: 07:56 Procedures: Anesthesia - Epidural/Spinal Patient ID/Chart reviewed: Yes Patient examined: Yes Consent Obtained: Yes Supplemental Oxygen: None/Room Air Sedation: Versed (mg): 2 (documented on anesthesia record) Site Prep: Sterile prep and drape, Povidone-Iodine 1% Patient position: upright Local Anesthetic: Lidocaine 1% Amount of Local Anesthetic used: 2 (cc to L3-4) Loading Dose: Other: 250mcg duramorph in 1cc sterile water Interspace Used: L3-L4 CSF: Yes (clear, free flow) Paresthesia: No Spinal Needle Gauge: 22 Spinal Dose: 1.5cc total volume Procedure: pt tolerated well, naac. GETA to follow.
[2018-01-27] MEDS ORDERED: Dexamethasone 4 MG/ML VIAL IVP ONE (09:01)
[2018-01-27] MEDS ORDERED: *HR* Labetalol 20 MG/4 ML SYRINGE IVP PRN (09:01)
[2018-01-27] MEDS ORDERED: Naloxone 0.4 MG/ML INJ IVP PRN ×2 (09:01→13:10)
[2018-01-27] MEDS ORDERED: *HR* Promethazine 25 MG/ML VIAL IVP PRN (09:01)
[2018-01-27] MEDS ORDERED: Ondansetron 4 MG/2 ML VIAL IVP ONE (09:01)
[2018-01-27] MEDS ORDERED: *HR* Morphine 2 MG/ML SYRINGE IVP PRN (09:01)
--- NOTE | 2018-01-27 09:24 | Operative Note ---
Date of procedure: 01/27/18 Pre-op diagnosis: need for stents for low anterior resection. Post-op diagnosis: same Procedure: cystoscopy with placement of bilateral temporary ureteral stents. Anesthesia: GETA Surgeon: Neel Harris Was there an occupational therapist assistant present: No Estimated blood loss (cc): 0 Specimen: none Condition: stable Disposition: PACU Procedure in Detail: PROCEDURE IN DETAIL: Patient was taken back to the operating room, positioned supine on the operating table. Anesthesia was applied without complication. They were moved into dorsal lithotomy. Careful attention was maintained to cushion all pressure points for patient's safety. They were prepped and draped in sterile fashion. Time-out was performed with the proper patient and procedure. A 21-Ukrainian rigid cystoscope was inserted into the bladder without difficulty. Systematic examination of bladder revealed no abnormalities. The left ureteral orifice was cannulated first using a 5-Ukrainian ureteral Catheter and it passed without resistance. The same was performed on the right side. Ureteral stent passed without resistance. I placed a Vann catheter and threaded the ends of the ureteral catheters into the Vann tubing using the adapter. The procedure was turned back over to Dr. Madrid.
[2018-01-27] MEDS ORDERED: Neostigmine Methylsulfate 3 MG/3 ML SYRINGE ONE ×2 (09:47→12:18)
[2018-01-27] MEDS ORDERED: Ketorolac 30 MG/ML VIAL ONE (09:47)
[2018-01-27] MEDS ORDERED: Albumin Human 5% 25.0 GM/500 ML VIAL ONE (10:26)
[2018-01-27] MEDS ORDERED: EPHEDrine 50 MG/ML VIAL ONE (10:39)
--- NOTE | 2018-01-27 12:25 | Operative Note ---
Date of procedure: 01/27/18 Pre-op diagnosis: Recto-sigmoid cancer Post-op diagnosis: same Procedure: 1. Low anterior resection 2. Appendectomy Anesthesia: GETA Surgeon: Kenneth Madrid Was there an visitor services assistant present: Yes Sew Out Operator: Yamile Parson Estimated blood loss (cc): 1,000 Specimen: appendix, recto-sigmoid, anastomotic rings Condition: stable Disposition: PACU Procedure in Detail: Date of surgery: 01/27/18 After properly identifying the patient, the patient was noted to be intubated from her prior procedure (ureteral stent placement). A timeout has already been performed noting the patient's name and type of procedure to be performed. A 10 blade scalpel was used to make an incision several centimeters above the level of the umbilicus extending inferiorly along the midline down to the pubic symphysis. Bovie cauterization was used to dissected the subcutaneous tissue until the rectus fascia was encountered and opened along the course of the midline incision. There were noted adhesions to the abdominal wall in the pelvis mainly consisting of omentum which were taken down with a combination of Bovie cauterization and utilization of the handheld LigaSure. Once this was performed further dissection along the lateral aspects of the inner abdominal wall were performed to free the adhesions to allow for placement of a Bookwalter. Once this was performed omental adhesions were dissected free and there was evidence of small bowel and the right colon adherent to the deep pelvis. The small bowel adhesions were taken down sharply with Metzenbaum scissors and inspection demonstrated no evidence of a serosal injury. The appendix was also adherent to the pelvis and was taken down with a combination of Bovie cauterization and sharp dissection. Once this was dissected free the appendix appeared to be somewhat thickened and the decision was made to go ahead and perform an appendectomy to prevent any issues in the future. The base of the appendix was dissected away from the mesentery of the appendix and a KARISHMA stapler was used to transect across the appendix. The mesentery was transected with a handheld LigaSure and this was submitted to pathology. The sigmoid colon was identified and the sidewall attachments were transected with Bovie cauterization and blunt dissection this dissection was carried up superiorly up towards the splenic flexure and the splenic flexure was likewise taken down with Bovie cauterization and sharp dissection. This allowed for further lengthening of the descending colon. The sigmoid colon was then transected with a KARISHMA stapler and the mesentery was dissected with a handheld LigaSure down to the sacral prominence. Dissection was then carried down posteriorly around the rectosigmoid. There was a significant amount of scarring and thickening in this region secondary to the patient's previous pelvic radiation. Careful dissection with Bovie cauterization and utilization of the handheld LigaSure was performed. The right and left ureters were easily identified due to the stents placed and were spared. Further dissection was made to carefully remove the left ureter away from the dissection field. Further dissection was then carried posteriorly around the rectum where a large mass and thickness was noted. This thickness was also noted anteriorly along the rectum. This made further dissection very challenging. The peritoneum was scored on the left and right side of the rectum well below the location of the bladder in the region of the presumed vaginal cuff. An attempt at further retraction was performed circumferentially but again dense adhesions were present making identification of normal structures challenging. Dissection with Bovie cauterization and Metzenbaum scissors were performed. There was also oozing/bleeding that was carefully controlled with Bovie cauterization as well as placement of sponges. At one point a 3-0 silk suture was used to maintain hemostasis within the pelvis. Careful teasing of the rectum along the left and right lateral sides were attempted bluntly and with further sharp dissection. The anterior surface of the peritoneum was further dissected and retracted but there was evidence of what appeared to be a near perforation or perforation with possible tumor present. Additionally, there was an inability to identify normal rectum below the level of the tumor or mass involvement. All of this was secondary to the thickening of the pelvis and scar tissue because of radiation therapy. There was some spillage of the remaining/residual colonic contents from area of perforation which was immediately suctioned. There was no evidence of enlarged lymph nodes or other masses or peritoneal studding anywhere within the pelvis or the abdomen. Further retraction and dissection did finally identify the region of what appeared to be thickened but normal bowel below the level of the palpated mass. A contour stapler was then placed along this region of the rectum and the rectum was then transected and placed on a separate field. The pelvis was irrigated and the descending colon staple line was transected with Bovie cauterization. Sizers were then placed and a 29-Nicaraguan EEA stapler was brought onto the operative field. The anvil was placed through the opening after a 2-0 Prolene suture was used to create a pursestring. The pursestring was then tied on the anvil without difficulty. The EEA stapler was then placed through the anus from below and the male and was extruded above the rectal staple line. The anvil was then connected to the male hub and the anvil was retracted to the EEA stapler followed by completion of the staple line. Two intact anastomotic rings were identified and the pelvis was filled with normal saline solution. Air was placed in the rectum after the distal colon above the level of the anastomosis was clamped by hand; with evidence of "bubbling" noted consistent with a leak. The fluid was then suctioned and the location of this leak was identified. Interrupted 3-0 silk sutures were used to imbricate the staple line along the posterior and right lateral side. Repeat insufflation demonstrated no evidence of bubbling and the pelvis and abdomen were irrigated with normal saline solution. Once this was performed a 19-Nicaraguan Yuri drain was placed within the pelvis and secured with a 2-0 nylon suture and the retractors were then removed without difficulty. Seprafilm was placed within the abdomen and the midline incision was reapproximated with a running #1 looped PDS suture 2. The subcutaneous tissue was reapproximated with 2-0 Vicryl sutures and the epidermal and dermal layers were reapproximated with luis. Needle, sponge, and instrument counts were correct 2 and the incision was covered with 4 x 4's. The patient was aroused from IV sedation, extubated in the operating room without complication, and transported to the recovery room stable condition.
--- NOTE | 2018-01-27 13:02 | Anesthesia Evaluation Post Op ---
Date of Encounter: 01/27/18 Time of Encounter: 13:01 - Vital Signs Vital Signs: Vital Signs/O2 Sat, Most Current Temp Pulse Resp BP Pulse Ox 97.1 F L 60 14 108/60 94 01/27/18 12:29 01/27/18 12:49 01/27/18 12:49 01/27/18 12:49 01/27/18 12:49 - Lungs Lungs: Clear Ascult./Percussion - Airway Airway: Non-obstructed - Cardiovascular Regular Rate - Mental Status Mental Status: Alert & Oriented, Answers Appropriately - Pain Pain Scale: 0 Pain Scale used: Numeric (1 - 10) - Nausea Vomiting Nausea Vomiting: Not Present - Hydration Hydration: NPO, Vann catheter - Discharge PostOp Status: Transfer Patient to floor
[2018-01-27] MEDS: 0.9 % Sodium Chloride 1,000 ML IVC SCH ×2 (14:12→23:50)
[2018-01-27] MEDS: MetroNIDAZOLE 500 MG/100 ML 500 MG/100 ML BAG IVPB SCH ×2 (15:51→23:51)
[2018-01-27] MEDS: Ketorolac 15 MG/ML VIAL IVP SCH ×2 (17:33→23:51)
[2018-01-27] MEDS: Ondansetron 4 MG/2 ML VIAL IVP PRN (17:33)
[2018-01-27] MEDS ORDERED: Dextrose Gel 15 GM/37.5 ML TUBE PO PRN ×2 (20:36)
[2018-01-27] MEDS ORDERED: D5% in Water 1,000 ML IVC PRN (20:36)
[2018-01-27] MEDS ORDERED: *HR* Dextrose 50 % in Water (Syg) 50 ML SYRINGE IVP PRN (20:36)
[2018-01-28] MEDS: Insulin LISPRO 300 UNITS/3 ML VIAL SQ SCH ×4 (00:01→18:18)
[2018-01-28] MEDS: Ketorolac 15 MG/ML VIAL IVP SCH ×3 (05:15→20:52)
[2018-01-28 06:28] LABS: Basophils % 0.1 %; Hematocrit 25.3 % (35.3-44.9); Hemoglobin 7.8 g/dL (11.5-15.4); Immature Granulocytes % 0.4 % (0-4); Lymphocytes # 0.7 K/mcL (0.6-4.6); Lymphocytes % 7.2 %; Mean Corpuscular HGB Conc 30.8 g/dL (31.6-35.5); Mean Corpuscular Hemoglobin 24.9 pg (28.0-33.3); Mean Corpuscular Volume 80.8 fL (83.0-100.0); Mean Platelet Volume 9.2 fL (9.4-12.4); Monocytes # 0.7 K/mcL (0.0-1.3); Monocytes % 7.2 %; Neutrophils # 8.2 K/mcL (1.6-8.9); Platelet Count 138 K/mcL (140-400); Red Blood Count 3.13 M/mcL (3.82-4.97); Red Cell Distribution Width 16.2 % (11.5-14.5); Segmented Neutrophils % 85.1 %
[2018-01-28 06:45] LABS: BUN/Creatinine Ratio 27 (6-26); Blood Urea Nitrogen 24 mg/dL (8-23); Calcium 7.9 mg/dL (8.6-10.3); Carbon Dioxide 24 mEq/L (23-29); Chloride 110 mEq/L (98-107); Glucose 159 mg/dL (70-105); Magnesium 1.7 mg/dL (1.6-2.6); Osmolality,Calculated 297 (280-300); Sodium 140 mEq/L (136-145); eGFR For African Americans > 60 (> 60); eGFR For Non-African Americans > 60 (> 60)
[2018-01-28] MEDS: OXYCODONE Oral CONC 10 MG/0.5 ML ORAL.SYG SL PRN ×2 (07:50→13:51)
--- NOTE | 2018-01-28 07:53 | General Surgery Progress Note ---
Date of Encounter: 01/28/18 Time of Encounter: 07:53 - Assessment and Plan (1) Rectal cancer Current Visit: No Status: Chronic Patient is status post low anterior resection postop day 1. Will and he with NG tube decompression. Patient written for pain medication as her spinal will start tomorrow this afternoon. Up and out of bed to chair. Continue with Vann catheter for accurate I's and O's given her intraoperative blood loss. Hemoglobin is 7.8. We will watch closely. (2) Anemia Current Visit: Yes Status: Acute 7.8. Noted blood loss of approximately 1 L. Patient is order see the blood transfusion (2 units of packed red blood cells in (. Her preoperative hemoglobin was approximately 9. We will watch closely. Qualifiers: Anemia type: other cause Other causes of anemia: acute posthemorrhagic Qualified Code(s): D62 - Acute posthemorrhagic anemia Subjective Patient reports: no new complaints (Patient admits to a BM. No flatus. No abdominal pain. No nausea or vomiting. NGT in place.) Objective Vital Signs - Last 8 Hours Temp Pulse Resp BP Pulse Ox 01/28/18 07:11 98.5 F 82 16 104/62 94 01/28/18 05:11 98.8 F 85 16 106/62 92 01/27/18 23:48 98.5 F 79 16 107/60 97 Intake and Output 01/27/18 01/27/18 01/28/18 15:59 23:59 07:59 Intake Total 1500 / 1500 1160 / 1160 150 / 150 Output Total 1325 / 1325 295 / 295 430 / 430 Balance 175 / 175 865 / 865 -280 / -280 Intake: IV Fluids 1500 / 1500 1100 / 1100 100 / 100 0.9 % Sodium Chloride 1,000 ML 200 / 200 1000 / 1000 @ 110 mls/hr IVC .Q9H6M [facility] Rx# :[id number] Lactated Ringers 1,000 ML @ 25 1000 / 1000 mls/hr IVC .Q24H [facility] Rx#: [id number] Cleocin Premix 900 MG/50 ML 900 50 / 50 mg In 50 ml @ 100 mls/hr IVPB PREOP ONE Rx#:[id number] Flagyl Premix 500 MG/100 ML 500 100 / 100 100 / 100 mg In 100 ml @ 100 mls/hr IVPB Q8HR [facility] Rx#:[id number] Vancocin 1,000 MG In 0.9 % 250 / 250 Sodium Chloride 250 ML @ 167 mls/hr IVPB ONCE ONE Rx#: [id number] Oral 0 / 0 60 / 60 50 / 50 Output: Gastric Tube Lavage Amount 250 / 250 Left Nare 250 / 250 Estimated Blood Loss 1000 / 1000 Urine Amount (Catheter) 175 / 175 Catheter 150 / 150 100 / 100 Wound Drainage 150 / 150 145 / 145 80 / 80 Right Lower Abdomen 100 / 100 145 / 145 80 / 80 Other: Stool Size Copious Stool Consistency soft Stool Characteristics Pasty Stool Color Brown Black Blood Glucose* 232 256 230 - General physical appearance well nourished, no distress - Respiratory normal expansion, normal respiratory effort - Abdomen Abdomen: Present: soft, non tender (No bowel sounds. Dressing CDI. ) - Labs 01/29/18 05:47 01/29/18 05:47 Diabetes panel 01/28/18 Range/Units 06:02 Sodium 140 (136-145) mEq/L Potassium 4.0 (3.5-5.1) mEq/L Chloride 110 H (98-107) mEq/L Carbon Dioxide 24 (23-29) mEq/L BUN 24 H (8-23) mg/dL Creatinine 0.88 (0.60-1.20) mg/dL Glucose 159 H (70-105) mg/dL Calcium 7.9 L (8.6-10.3) mg/dL Calcium panel 01/28/18 Range/Units 06:02 Calcium 7.9 L (8.6-10.3) mg/dL Pituitary panel 01/28/18 Range/Units 06:02 Sodium 140 (136-145) mEq/L Potassium 4.0 (3.5-5.1) mEq/L Chloride 110 H (98-107) mEq/L Carbon Dioxide 24 (23-29) mEq/L BUN 24 H (8-23) mg/dL Creatinine 0.88 (0.60-1.20) mg/dL Glucose 159 H (70-105) mg/dL Calcium 7.9 L (8.6-10.3) mg/dL Adrenal panel 01/28/18 Range/Units 06:02 Sodium 140 (136-145) mEq/L Potassium 4.0 (3.5-5.1) mEq/L Chloride 110 H (98-107) mEq/L Carbon Dioxide 24 (23-29) mEq/L BUN 24 H (8-23) mg/dL Creatinine 0.88 (0.60-1.20) mg/dL Glucose 159 H (70-105) mg/dL Calcium 7.9 L (8.6-10.3) mg/dL - Stroke Is the patient on any antithrombotics?: Yes Are there any contradictions to antithrombotics?: No Onset of Symptoms Date: 01/28/18 - VTE Documentation of Mechanical Device: Intermittent pneumatic compression device Consult Discharge Plan - Plan Referrals: Kenneth Madrid MD [Partnered Physician] - 02/11/18 11:40 am
[2018-01-28] MEDS: Pantoprazole 40 MG VIAL IVP SCH (07:55)
[2018-01-28] MEDS: MetroNIDAZOLE 500 MG/100 ML 500 MG/100 ML BAG IVPB SCH ×2 (07:58→16:43)
[2018-01-28] MEDS: *HR* LORazepam 2 MG/ML VIAL IVP PRN ×2 (13:48→21:03)
[2018-01-28] MEDS: 0.9 % Sodium Chloride 1,000 ML IVC SCH ×2 (13:50→23:51)
[2018-01-28] MEDS: *HR* Heparin 5,000 UNIT/ML VIAL SQ SCH ×2 (13:56→23:46)
[2018-01-28] MEDS: Ondansetron 4 MG/2 ML VIAL IVP PRN (15:35)
[2018-01-29] MEDS: Ketorolac 15 MG/ML VIAL IVP SCH ×4 (00:58→18:35)
[2018-01-29] MEDS: Ondansetron 4 MG/2 ML VIAL IVP PRN ×2 (01:09→06:12)
[2018-01-29] MEDS: Insulin LISPRO 300 UNITS/3 ML VIAL SQ SCH ×4 (01:21→18:34)
[2018-01-29] MEDS: OXYCODONE Oral CONC 10 MG/0.5 ML ORAL.SYG SL PRN ×2 (03:57→10:01)
[2018-01-29] MEDS: *HR* LORazepam 2 MG/ML VIAL IVP PRN (05:39)
[2018-01-29] MEDS: *HR* Heparin 5,000 UNIT/ML VIAL SQ SCH ×2 (06:25→18:35)
[2018-01-29 06:41] LABS: Hematocrit 24.6 % (35.3-44.9); Hemoglobin 7.5 g/dL (11.5-15.4); Lymphocytes # 0.6 K/mcL (0.6-4.6); Mean Corpuscular HGB Conc 30.5 g/dL (31.6-35.5); Mean Corpuscular Hemoglobin 24.8 pg (28.0-33.3); Mean Corpuscular Volume 81.5 fL (83.0-100.0); Mean Platelet Volume 10.2 fL (9.4-12.4); Monocytes # 0.6 K/mcL (0.0-1.3); Monocytes % 5.6 %; Neutrophils # 8.9 K/mcL (1.6-8.9); Platelet Count 189 K/mcL (140-400); Red Blood Count 3.02 M/mcL (3.82-4.97); Red Cell Distribution Width 16.7 % (11.5-14.5); Segmented Neutrophils % 87.4 %
[2018-01-29 06:51] LABS: BUN/Creatinine Ratio 62 (6-26); Blood Urea Nitrogen 28 mg/dL (8-23); Calcium 8.1 mg/dL (8.6-10.3); Carbon Dioxide 20 mEq/L (23-29); Chloride 112 mEq/L (98-107); Glucose 136 mg/dL (70-105); Osmolality,Calculated 302 (280-300); Potassium 3.8 mEq/L (3.5-5.1); Sodium 142 mEq/L (136-145); eGFR For African Americans > 60 (> 60); eGFR For Non-African Americans > 60 (> 60)
[2018-01-29] MEDS ORDERED: *HR* Promethazine 25 MG/ML VIAL IVP ONE (09:07)
[2018-01-29] MEDS ORDERED: Scopolamine Patch 1.5 MG PATCH.TD72 TD SCH (09:15)
[2018-01-29] MEDS: 0.9 % Sodium Chloride 1,000 ML IVC SCH (09:47)
[2018-01-29] MEDS: Pantoprazole 40 MG VIAL IVP SCH (09:47)
--- NOTE | 2018-01-29 10:16 | General Surgery Progress Note ---
<Gabriela Chand - Last Filed: 01/29/18 11:24> Date of Encounter: 01/29/18 Time of Encounter: 10:16 - Assessment and Plan (1) Rectal cancer Current Visit: Yes Status: Acute Date of procedure: 01/27/18 Pre-op diagnosis: Recto-sigmoid cancer Post-op diagnosis: same Procedure: 1. Low anterior resection; 2. Appendectomy Anesthesia: GETA Surgeon: Kenneth Madrid Estimated blood loss 1,000 ml POD#2 as above. Pathology pending. Pt reports BMs x2 today, but has increased nausea. She reports significant nausea reaction to pain medications. She has been medicated with Oxycodone and has scheduled Toradol. She has not been out of bed. Her NG has been advanced and is noted to have correct placement at this time. We will attempt to control her nausea. Plan: continue supportive care and discomfort management -stop Oxycodone, add fentanyl IV Q4 hours PRN for breakthrough pain -continue scheduled Toradol -add scopolamine patch and Phenergan x1 dose -Increase Zofran to Q4H -continue G.I. and DVT prophylaxis -out of bed to chair and ambulate at least TID. May clamp IV fluids and NG for ambulation. -Continue NG to low intermittent wall suction given that patient was vomiting this a.m. If we are able to get her nausea under control, will consider clamping NG and advancing to clear liquids. -Continue Mcguire catheter -continue pulmonary toileting -wound and CHATO care per orders. -Repeat a.m. labs (2) Fluid overload Current Visit: Yes Status: Acute Pt with JVD, S3, bounding pulse, and BL crackles. Net positive 2L this admission. Will decrease fluids and treat with IV furosemide x1 dose. Continue mcguire in the interm. Qualifiers: Hypervolemia type: unspecified Qualified Code(s): E87.70 - Fluid overload, unspecified (3) Nausea Current Visit: Yes Status: Acute See a/p above (4) Anemia Current Visit: Yes Status: Acute No overt sigs of bleeding. hgb stable at 7.5 (down from 7.8 yesterday). s/p transfusion 2 UPRBCs. Vss. slightly hypertensive (see fluid overload above). Bedside RN reports no evidence of bloody BMs. Will continue to closely monitor. Qualifiers: Anemia type: other cause Other causes of anemia: acute posthemorrhagic Qualified Code(s): D62 - Acute posthemorrhagic anemia (5) Diabetes mellitus Current Visit: No Status: Chronic Continue SSI and NPO Qualifiers: Diabetes mellitus type: type 2 Diabetes mellitus superintendent terminal insulin use: without superintendent terminal use Diabetes mellitus complication status: with hyperglycemia Qualified Code(s): E11.65 - Type 2 diabetes mellitus with hyperglycemia Subjective Patient reports: still having pain, voiding w/o difficulty (per mcguire), flatus, bowel movement, afebrile Narrative: Yris reports feeling nauseated and vomiting, but requests liquids to drink. She endores BMs and flatus. She denies worsening discomfort, SOB, wound drainage, or fever. She has not gotten out of bed. Her family is at bedside and has no complaints. Objective Vital Signs - Last 8 Hours Temp Pulse Resp BP Pulse Ox 01/29/18 07:41 98.3 F 87 18 154/74 94 01/29/18 03:55 99.3 F 90 16 133/72 91 Intake and Output 01/28/18 01/29/18 01/29/18 23:59 07:59 15:59 Intake Total 1100 / 1100 60 / 60 1000 / 1000 Output Total 610 / 610 1050 / 1050 Balance 490 / 490 -990 / -990 1000 / 1000 Intake: IV Fluids 1100 / 1100 1000 / 1000 0.9 % Sodium Chloride 1,000 ML 1000 / 1000 1000 / 1000 @ 110 mls/hr IVC .Q9H6M [facility] Rx# :[id number] Flagyl Premix 500 MG/100 ML 500 100 / 100 mg In 100 ml @ 100 mls/hr IVPB Q8HR [facility] Rx#:[id number] Oral 0 / 0 60 / 60 0 / 0 Output: Catheter 500 / 500 850 / 850 Gastric Drainage 150 / 150 Wound Drainage 110 / 110 50 / 50 Right Lower Abdomen 110 / 110 50 / 50 Other: Meal NPO Breakfast Stool Size Small Moderate Stool Consistency soft soft Stool Color Brown Brown # Bowel Movement Diapers 1 Weight 60.95 kg Blood Glucose* 160 153 Patient Weight 01/29/18 23:59 Weight 60.95 kg VITAL SIGNS: Reviewed. See [facility] GENERAL: In no apparent distress. She is drowsy S/P promethazine administration HEENT: Normocephalic, atraumatic, pupils are equal and reactive, extraocular motions intact, oropharynx is pink and moist, there is no neck adenopathy noted. There is some JVD noted. CHEST/RESPIRATORY: The thorax is free from signs of trauma. Lung sounds: decreased inspiratory effort. Bilateral basilar crackles. CARDIAC: Regular rate and rhythm. Normal S1 and S2, S3 is noted (likely d/t fluid overload) 2/6 systolic murmur RSB. VASCULAR: No Edema. bounding peripheral pulses. ABDOMEN: Soft, expected postoperative tenderness, hypoactive bowel sounds. NG in place advanced. LIWS INCISION: Surgical incision is clean, dry, and intact. There are no signs of cellulitis or infection noted. WOUNDS/DRAINS: RLQ CHATO site grossly WNL. small amount of SS drainage. MUSCULOSKELETAL: Good range of motion of all major joints. Extremities without clubbing, cyanosis or edema. NEUROLOGIC EXAM: Alert and oriented x 3. Speech normal. Follows commands. PSYCHIATRIC: Mood normal. SKIN: No rash or lesions. - Labs 01/29/18 05:47 01/29/18 05:47 Diabetes panel 01/29/18 Range/Units 05:47 Sodium 142 (136-145) mEq/L Potassium 3.8 (3.5-5.1) mEq/L Chloride 112 H (98-107) mEq/L Carbon Dioxide 20 L (23-29) mEq/L BUN 28 H (8-23) mg/dL Creatinine 0.45 L (0.60-1.20) mg/dL Glucose 136 H (70-105) mg/dL Calcium 8.1 L (8.6-10.3) mg/dL Calcium panel 01/29/18 Range/Units 05:47 Calcium 8.1 L (8.6-10.3) mg/dL Pituitary panel 01/29/18 Range/Units 05:47 Sodium 142 (136-145) mEq/L Potassium 3.8 (3.5-5.1) mEq/L Chloride 112 H (98-107) mEq/L Carbon Dioxide 20 L (23-29) mEq/L BUN 28 H (8-23) mg/dL Creatinine 0.45 L (0.60-1.20) mg/dL Glucose 136 H (70-105) mg/dL Calcium 8.1 L (8.6-10.3) mg/dL Adrenal panel 01/29/18 Range/Units 05:47 Sodium 142 (136-145) mEq/L Potassium 3.8 (3.5-5.1) mEq/L Chloride 112 H (98-107) mEq/L Carbon Dioxide 20 L (23-29) mEq/L BUN 28 H (8-23) mg/dL Creatinine 0.45 L (0.60-1.20) mg/dL Glucose 136 H (70-105) mg/dL Calcium 8.1 L (8.6-10.3) mg/dL - Stroke Is the patient on any antithrombotics?: Yes Are there any contradictions to antithrombotics?: Yes Contraindication Antithromb by Day Two: Not Indicated - Due to Bleeding Disorder or Risk of Bleeding - VTE Documentation of Mechanical Device: Intermittent pneumatic compression device Consult Discharge Plan - Plan Referrals: Kenneth Madrid MD [Partnered Physician] - 02/11/18 11:40 am <Kenneth Madrid - Last Filed: 01/30/18 06:46> Date of Encounter: 01/29/18 - Assessment and Plan (1) Rectal cancer Current Visit: Yes Status: Acute (2) Anemia Current Visit: Yes Status: Acute Qualifiers: Anemia type: other cause Other causes of anemia: acute posthemorrhagic Qualified Code(s): D62 - Acute posthemorrhagic anemia Objective Vital Signs - Last 8 Hours Temp Pulse Resp BP Pulse Ox 01/30/18 02:34 98.9 F 97 16 153/81 95 Intake and Output 01/29/18 01/29/18 01/30/18 15:59 23:59 07:59 Intake Total 1100 / 1100 0 / 0 1130 / 1130 Output Total 2580 / 2580 600 / 600 290 / 290 Balance -1480 / -1480 -600 / -600 840 / 840 Intake: IV Fluids 1100 / 1100 1100 / 1100 0.9 % Sodium Chloride 1,000 ML 1000 / 1000 @ 110 mls/hr IVC .Q9H6M [facility] Rx# :[id number] Ofirmev 1,000 mg/100 ml 1,000 100 / 100 100 / 100 mg In 100 ml @ 400 mls/hr IVPB Q6H [facility] Rx#:[id number] Oral 0 / 0 0 / 0 30 / 30 Output: Catheter 2550 / 2550 600 / 600 200 / 200 Wound Drainage Right Lower Abdomen Other: Meal NPO Lunch NPO Percent of Meal Consumed 0% Stool Size Moderate Small Stool Consistency soft formed Stool Color Brown Brown # Bowel Movements 2 0 # Bowel Movement Diapers 1 Weight 61.4 kg Blood Glucose* 248 167 113 Patient Weight 01/30/18 23:59 Weight 61.4 kg - Labs 01/30/18 05:01 01/30/18 05:01 Diabetes panel 01/29/18 01/30/18 Range/Units 05:47 05:01 Sodium 142 142 (136-145) mEq/L Potassium 3.8 3.4 L (3.5-5.1) mEq/L Chloride 112 H 108 H (98-107) mEq/L Carbon Dioxide 20 L 19 L (23-29) mEq/L BUN 28 H 20 (8-23) mg/dL Creatinine 0.45 L 0.79 (0.60-1.20) mg/dL Glucose 136 H 196 H (70-105) mg/dL Calcium 8.1 L 8.6 (8.6-10.3) mg/dL Calcium panel 01/29/18 01/30/18 Range/Units 05:47 05:01 Calcium 8.1 L 8.6 (8.6-10.3) mg/dL Phosphorus 2.1 L (2.7-4.5) mg/dL Pituitary panel 01/29/18 01/30/18 Range/Units 05:47 05:01 Sodium 142 142 (136-145) mEq/L Potassium 3.8 3.4 L (3.5-5.1) mEq/L Chloride 112 H 108 H (98-107) mEq/L Carbon Dioxide 20 L 19 L (23-29) mEq/L BUN 28 H 20 (8-23) mg/dL Creatinine 0.45 L 0.79 (0.60-1.20) mg/dL Glucose 136 H 196 H (70-105) mg/dL Calcium 8.1 L 8.6 (8.6-10.3) mg/dL Adrenal panel 01/29/18 01/30/18 Range/Units 05:47 05:01 Sodium 142 142 (136-145) mEq/L Potassium 3.8 3.4 L (3.5-5.1) mEq/L Chloride 112 H 108 H (98-107) mEq/L Carbon Dioxide 20 L 19 L (23-29) mEq/L BUN 28 H 20 (8-23) mg/dL Creatinine 0.45 L 0.79 (0.60-1.20) mg/dL Glucose 136 H 196 H (70-105) mg/dL Calcium 8.1 L 8.6 (8.6-10.3) mg/dL - Attending Attestation I have personally performed a face to face evaluation on this patient. I have reviewed and agree with the care plan. History and Exam by me shows: I reviewed the above assessment and evaluation and agree with the above plan. Will start sips of liquids and keep NG tube for now due to the patient's nausea. Will address nausea 05 and repeating some for medications and possibly adding phenytoin and a scopolamine patch. Start dressing changes today.
[2018-01-29] MEDS ORDERED: Furosemide 20 MG/2 ML VIAL IVP ONE (10:31)
[2018-01-29] MEDS ORDERED: *HR* FentaNYL (PF) 100 MCG/2 ML VIAL IVP PRN (10:43)
[2018-01-29] MEDS ORDERED: Metoclopramide 10 MG/2 ML VIAL IVP SCH (12:00)
[2018-01-29] MEDS: Ondansetron 4 MG/2 ML VIAL IVP SCH ×3 (12:01→20:55)
[2018-01-29] MEDS: Acetaminophen IV 1,000 MG/100 ML INFUS..BTL IVPB SCH ×2 (14:55→21:22)
[2018-01-30] MEDS: Ondansetron 4 MG/2 ML VIAL IVP SCH ×5 (00:51→17:20)
[2018-01-30] MEDS: Ketorolac 15 MG/ML VIAL IVP SCH ×4 (00:55→20:19)
[2018-01-30] MEDS: 0.9 % Sodium Chloride 1,000 ML IVC SCH ×2 (02:05→09:57)
[2018-01-30] MEDS: Insulin LISPRO 300 UNITS/3 ML VIAL SQ SCH ×4 (02:06→14:50)
[2018-01-30] MEDS: Acetaminophen IV 1,000 MG/100 ML INFUS..BTL IVPB SCH ×4 (02:28→23:53)
[2018-01-30] MEDS ORDERED: *HR* Promethazine 25 MG/ML VIAL IVP ONE (02:52)
[2018-01-30] MEDS: *HR* Heparin 5,000 UNIT/ML VIAL SQ SCH ×2 (05:18→20:28)
[2018-01-30 05:20] LABS: Basophils % 0.1 %; Hematocrit 26.4 % (35.3-44.9); Immature Granulocytes % 1.2 % (0-4); Lymphocytes # 0.4 K/mcL (0.6-4.6); Lymphocytes % 3.7 %; Mean Corpuscular HGB Conc 30.3 g/dL (31.6-35.5); Mean Corpuscular Hemoglobin 24.3 pg (28.0-33.3); Mean Corpuscular Volume 80.2 fL (83.0-100.0); Mean Platelet Volume 9.1 fL (9.4-12.4); Monocytes # 0.4 K/mcL (0.0-1.3); Monocytes % 4.5 %; Neutrophils # 8.5 K/mcL (1.6-8.9); Platelet Count 192 K/mcL (140-400); Red Blood Count 3.29 M/mcL (3.82-4.97); Red Cell Distribution Width 16.4 % (11.5-14.5); Segmented Neutrophils % 90.5 %
[2018-01-30 05:40] LABS: BUN/Creatinine Ratio 25 (6-26); Blood Urea Nitrogen 20 mg/dL (8-23); Calcium 8.6 mg/dL (8.6-10.3); Carbon Dioxide 19 mEq/L (23-29); Chloride 108 mEq/L (98-107); Glucose 196 mg/dL (70-105); Magnesium 1.9 mg/dL (1.6-2.6); Osmolality,Calculated 302 (280-300); Phosphorous 2.1 mg/dL (2.7-4.5); Potassium 3.4 mEq/L (3.5-5.1); Sodium 142 mEq/L (136-145); eGFR For African Americans > 60 (> 60); eGFR For Non-African Americans > 60 (> 60)
[2018-01-30] MEDS: Pantoprazole 40 MG VIAL IVP SCH (09:58)
--- NOTE | 2018-01-30 11:05 | General Surgery Progress Note ---
<Anusha Wick Brian - Last Filed: 01/30/18 11:03> Date of Encounter: 01/30/18 Time of Encounter: 10:30 - Assessment and Plan (1) Rectal cancer Current Visit: Yes Status: Acute POD #3 LAR and appendectomy with Dr. Madrid Pathology pending NPO NG tube to LIWS Consider PICC and TPN IV fluids Add antibiotics- Zosyn Supportive care and pain control CHATO drain with brown succous noted today- Dr. Madrid aware and will await assessment for recommendations PPI therapy daily Incentive Spirometer every 1 hour while awake Continue mcguire catheter for strict I&Os Repeat am labs (2) Anemia Current Visit: Yes Status: Acute Hgb- 7.8>7.5>8.0 Stable 2 Units PRBC transfused 01/27/18 Continue to monitor Hgb/Hct Qualifiers: Anemia type: other cause Other causes of anemia: acute posthemorrhagic Qualified Code(s): D62 - Acute posthemorrhagic anemia (3) Essential (primary) hypertension Current Visit: No Status: Chronic Add Metoprolol 5mg IV every 6 hours Will continue to monitor and adjust as necessary (4) Diabetes mellitus Current Visit: No Status: Chronic Blood sugar 206 this morning Will change to High scale every 4 hours Continue to monitor and adjust as necessary Qualifiers: Diabetes mellitus type: type 2 Diabetes mellitus mcfp insulin use: without longshore equipment operator use Diabetes mellitus complication status: with hyperglycemia Qualified Code(s): E11.65 - Type 2 diabetes mellitus with hyperglycemia (5) Hypothyroidism Current Visit: No Status: Chronic Start IV levothyroxine Qualifiers: Hypothyroidism type: unspecified Qualified Code(s): E03.9 - Hypothyroidism , unspecified (6) DVT prophylaxis Current Visit: Yes Status: Acute Continue heparin 5,000 units SQ twice daily for DVT prophylaxis Subjective Patient reports: still having pain (unchanged), no flatus, bowel movement, nausea (uncontrolled with medications), afebrile, other (Patient states that if we do not allow her to eat or drink that she will be leaving to go home today) Objective Vital Signs - Last 8 Hours Temp Pulse Resp BP Pulse Ox 01/30/18 07:06 98.3 F 95 14 167/79 93 Intake and Output 01/29/18 01/30/18 01/30/18 23:59 07:59 15:59 Intake Total 0 / 0 1130 / 1130 460 / 460 Output Total 600 / 600 1080 / 1080 200 / 200 Balance -600 / -600 50 / 50 260 / 260 Intake: IV Fluids 1100 / 1100 100 / 100 Ofirmev 1,000 mg/100 ml 1,000 100 / 100 100 / 100 mg In 100 ml @ 400 mls/hr IVPB Q6H [facility] Rx#:[id number] Oral 0 / 0 30 / 30 360 / 360 Output: Urine 200 / 200 Catheter 600 / 600 850 / 850 Gastric Drainage 100 / 100 Wound Drainage 130 / 130 Right Lower Abdomen 130 / 130 Other: Meal NPO NPO BREAKFAST Percent of Meal Consumed 0% 100% Stool Size Small Stool Consistency formed Stool Color Brown # Bowel Movements 0 # Bowel Movement Diapers 1 Weight 61.4 kg Blood Glucose* 167 206 Patient Weight 01/30/18 23:59 Weight 61.4 kg - General physical appearance well developed, moderate distress, moderate pain - Eyes normal ocular movement - ENT dry mucosa, atraumatic, normocephalic - Neck Neck exam: trachea midline - Respiratory normal respiratory effort, clear to auscultation, other (dimiminished bibasilar bases) - Cardiovascular Cardiovascular exam: Present: RRR - Abdomen Abdomen: Present: soft, tender (expected post-operative tenderness), wound (CHATO drain to bulb suction with brown succous noted (155ml noted since midnight); NG tube to LIWS with minimal drainage noted) - Incision Incision: Present: clean and dry, intact - Genitourinary other (mcguire catheter to SD with clear, yellow urine noted) - Neurologic CN 2-12 grossly intact - Psychiatric oriented to time, oriented to person, oriented to place, speech is normal, memory intact, other (Patient is agitated today) - Labs 01/30/18 05:01 01/30/18 05:01 Diabetes panel 01/30/18 Range/Units 05:01 Sodium 142 (136-145) mEq/L Potassium 3.4 L (3.5-5.1) mEq/L Chloride 108 H (98-107) mEq/L Carbon Dioxide 19 L (23-29) mEq/L BUN 20 (8-23) mg/dL Creatinine 0.79 (0.60-1.20) mg/dL Glucose 196 H (70-105) mg/dL Calcium 8.6 (8.6-10.3) mg/dL Calcium panel 01/30/18 Range/Units 05:01 Calcium 8.6 (8.6-10.3) mg/dL Phosphorus 2.1 L (2.7-4.5) mg/dL Pituitary panel 01/30/18 Range/Units 05:01 Sodium 142 (136-145) mEq/L Potassium 3.4 L (3.5-5.1) mEq/L Chloride 108 H (98-107) mEq/L Carbon Dioxide 19 L (23-29) mEq/L BUN 20 (8-23) mg/dL Creatinine 0.79 (0.60-1.20) mg/dL Glucose 196 H (70-105) mg/dL Calcium 8.6 (8.6-10.3) mg/dL Adrenal panel 01/30/18 Range/Units 05:01 Sodium 142 (136-145) mEq/L Potassium 3.4 L (3.5-5.1) mEq/L Chloride 108 H (98-107) mEq/L Carbon Dioxide 19 L (23-29) mEq/L BUN 20 (8-23) mg/dL Creatinine 0.79 (0.60-1.20) mg/dL Glucose 196 H (70-105) mg/dL Calcium 8.6 (8.6-10.3) mg/dL - Stroke Contraindication Antithromb by Day Two: Not Indicated - Due to Bleeding Disorder or Risk of Bleeding - VTE Documentation of Mechanical Device: Intermittent pneumatic compression device Consult Discharge Plan - Plan Referrals: Kenneth Madrid MD [Partnered Physician] - 02/11/18 11:40 am - Attending Attestation For this encounter, I have reviewed the MECHANICAL TEST ENGINEER or PA documentation, treatment plan, and medical decision making; and I have had face to face time with this patient. <Kenneth Madrid - Last Filed: 02/03/18 07:00> Date of Encounter: 01/30/18 - Assessment and Plan (1) Rectal cancer Current Visit: Yes Status: Acute (2) Anemia Current Visit: Yes Status: Acute Qualifiers: Anemia type: other cause Other causes of anemia: acute posthemorrhagic Qualified Code(s): D62 - Acute posthemorrhagic anemia Objective Vital Signs - Last 8 Hours Temp Pulse Resp BP Pulse Ox 02/03/18 04:00 99.7 F H 121 22 133/71 98 06/05/18 03:36 98.4 F 02/03/18 02:00 108 16 97 02/03/18 00:00 98 24 140/86 98 02/02/18 23:15 90 20 140/96 96 Intake and Output 02/02/18 02/02/18 02/03/18 15:59 23:59 07:59 Intake Total 200 / 200 2700 / 2700 450 / 450 Output Total 390 / 390 410 / 410 620 / 620 Balance -190 / -190 2290 / 2290 -170 / -170 Intake: IV Fluids 200 / 200 1810 / 1810 450 / 450 Clinimix E 5%-15% SOLUTION 2, 1000 / 1000 000 ML @ 70 mls/hr IVC .Q24H [facility] with M.v.i. Adult 10 ml Rx# :[id number] Ofirmev 1,000 mg/100 ml 1,000 100 / 100 200 / 200 100 / 100 mg In 100 ml @ 400 mls/hr IVPB Q6H [facility] Rx#:[id number] Intralipid 20% 250 ML @ 21 mls/ 250 / 250 hr IVPB DAILY@1700 [facility] Rx#: [id number] Flagyl Premix 500 MG/100 ML 500 100 / 100 100 / 100 mg In 100 ml @ 100 mls/hr IVPB Q8HR [facility] Rx#:[id number] Zosyn 3.375 GM In 0.9 % Sodium 100 / 100 Chloride (Mini-Bag +) 100 ML @ 25 mls/hr IVPB Q8HR [facility] Rx#: [id number] Potassium Phosphate 44 MEQ In 0 260 / 260 .9 % Sodium Chloride 250 ML @ 40 mls/hr IVPB Q10H [facility] Rx#: [id number] Vancocin 1,250 MG In 0.9 % 250 / 250 Sodium Chloride 250 ML @ 166. 667 mls/hr IVPB Q12H [facility] Rx#: [id number] Oral 240 / 240 Blood Product 0 / 0 650 / 650 Rbcs Leuko Poor As-1 Unit 300 / 300 [id number] Rbcs Leuko Poor As-1 Unit 0 / 0 350 / 350 [id number] Output: Stool 0 / 0 0 / 0 0 / 0 Catheter 300 / 300 350 / 350 550 / 550 Gastric Drainage 0 / 0 0 / 0 0 / 0 Wound Drainage 90 / 60 / 60 70 / 70 Right Lower Abdomen 90 / 90 60 / 60 70 / 70 Other: Meal Dinner Weight 65.7 kg Blood Glucose* 191 203 133 Patient Weight 02/03/18 23:59 Weight 65.7 kg - Labs 02/03/18 03:15 02/03/18 03:15 Diabetes panel 02/02/18 02/02/18 02/03/18 Range/Units 06:22 19:45 03:15 Sodium 135 L 132 L 131 L (136-145) mEq/L Potassium 3.9 3.9 3.8 (3.5-5.1) mEq/L Chloride 105 102 101 (98-107) mEq/L Carbon Dioxide 26 24 26 (23-29) mEq/L BUN 18 13 11 (8-23) mg/dL Creatinine 0.29 L 0.34 L 0.32 L (0.60-1.20) mg/dL Glucose 188 H 193 H 151 H (70-105) mg/dL Calcium 7.5 L 7.1 L 7.1 L (8.6-10.3) mg/dL Triglycerides 140 (< 150) mg/dL Calcium panel 02/02/18 02/02/18 02/03/18 Range/Units 06:22 19:45 03:15 Calcium 7.5 L 7.1 L 7.1 L (8.6-10.3) mg/dL Phosphorus 1.8 L 2.1 L (2.7-4.5) mg/dL Pituitary panel 02/02/18 02/02/18 02/03/18 Range/Units 06:22 19:45 03:15 Sodium 135 L 132 L 131 L (136-145) mEq/L Potassium 3.9 3.9 3.8 (3.5-5.1) mEq/L Chloride 105 102 101 (98-107) mEq/L Carbon Dioxide 26 24 26 (23-29) mEq/L BUN 18 13 11 (8-23) mg/dL Creatinine 0.29 L 0.34 L 0.32 L (0.60-1.20) mg/dL Glucose 188 H 193 H 151 H (70-105) mg/dL Calcium 7.5 L 7.1 L 7.1 L (8.6-10.3) mg/dL Adrenal panel 02/02/18 02/02/18 02/03/18 Range/Units 06:22 19:45 03:15 Sodium 135 L 132 L 131 L (136-145) mEq/L Potassium 3.9 3.9 3.8 (3.5-5.1) mEq/L Chloride 105 102 101 (98-107) mEq/L Carbon Dioxide 26 24 26 (23-29) mEq/L BUN 18 13 11 (8-23) mg/dL Creatinine 0.29 L 0.34 L 0.32 L (0.60-1.20) mg/dL Glucose 188 H 193 H 151 H (70-105) mg/dL Calcium 7.5 L 7.1 L 7.1 L (8.6-10.3) mg/dL - Stroke Is the patient on any antithrombotics?: Yes - Attending Attestation Review the above assessment and evaluation. Noted brown material with a CHATO drain concerning for anastomotic leak. Discussed with patient and family that we will need to perform an exploration and possible transection of the anastomosis this afternoon. I am not certain whether or not we will be able to do a reanastomosis versus performing a colostomy. Patient and family agree with the above plan.
[2018-01-30] MEDS ORDERED: Lidocaine -MPF 1% 5 ML AMPUL INFILT ONE (11:38)
[2018-01-30] MEDS ORDERED: 0.9 % Sodium Chloride 1,000 ML IVC SCH (11:41)
[2018-01-30] MEDS ORDERED: Levothyroxine Sodium 100 MCG VIAL IVP SCH (11:45)
[2018-01-30] MEDS: *HR* Metoprolol 5 MG/5 ML VIAL IVP SCH ×3 (12:42→23:59)
[2018-01-30] MEDS ORDERED: D10% in Water 500 ML IVC PRN ×2 (13:22→20:33)
[2018-01-30] MEDS ORDERED: Ondansetron 4 MG/2 ML VIAL ONE (14:51)
[2018-01-30] MEDS ORDERED: Dexamethasone 4 MG/ML VIAL ONE (14:51)
[2018-01-30] MEDS ORDERED: *HR* Midazolam HCl 2 MG/2 ML VIAL ONE ×2 (14:51→17:09)
[2018-01-30] MEDS ORDERED: *HR* FentaNYL (PF) 100 MCG/2 ML VIAL ONE ×2 (14:51→17:10)
[2018-01-30] MEDS ORDERED: Lidocaine -MPF 2% 2 ML VIAL ONE (14:51)
[2018-01-30] MEDS ORDERED: *HR* Propofol 200 MG/20 ML VIAL IVP ONE (14:51)
[2018-01-30] MEDS ORDERED: *HR* Rocuronium Bromide 50 MG/5 ML VIAL ONE (14:51)
[2018-01-30] MEDS ORDERED: Lidocaine -MPF 4% 5 ML AMPUL ONE (14:57)
[2018-01-30] MEDS ORDERED: CefOXitin 1,000 MG VIAL ONE (15:09)
[2018-01-30] MEDS ORDERED: MetroNIDAZOLE 500 MG/100 ML 500 MG/100 ML BAG IVPB ONE (16:22)
[2018-01-30] MEDS ORDERED: Vancomycin 1,000 MG VIAL ONE (16:22)
[2018-01-30] MEDS ORDERED: 0.9 % Sodium Chloride 250 ML ONE (16:26)
[2018-01-30] MEDS ORDERED: Clinimix E 5%-15% SOLUTION 2,000 ML with MVI, adult with vitamin K 10 ML IVC SCH ×2 (17:00→20:33)
[2018-01-30] MEDS ORDERED: Albuterol 2.5 MG/3 ML NEBULIZER IH PRN ×2 (17:35→20:33)
[2018-01-30] MEDS ORDERED: *HR* Promethazine 25 MG/ML VIAL IVP PRN (17:35)
[2018-01-30] MEDS ORDERED: *HR* HYDROmorphone (PF) 1 MG/ML SYRINGE IVP PRN (17:35)
[2018-01-30] MEDS ORDERED: Neostigmine Methylsulfate 3 MG/3 ML SYRINGE ONE (18:00)
--- NOTE | 2018-01-30 18:26 | Operative Note ---
Date of procedure: 01/30/18 Pre-op diagnosis: Anastamotic leak Post-op diagnosis: same Procedure: 1. Exploratory celiotomy. 2. Takedown of procto-colo anastamosis with colostomy. Anesthesia: MINAL Surgeon: Kenneth Madrid Was there an certified medical technician assistant present: No Estimated blood loss (cc): 10 Specimen: anastamosis Condition: stable Disposition: PACU Procedure in Detail: Date of surgery: 01/30/18 After properly identifying the patient, the patient was brought to the operating room and placed in the supine position. After proper IV sedation was achieved followed by general endotracheal the patient the patient was placed in a low lithotomy position and the patient's abdomen and perineum were prepped and draped in a normal sterile fashion. A timeout was performed noting the patient's name and type of procedure to be performed. Brody from the midline incision were removed as well as the sutures. The abdomen was opened along the course of its previous midline incision and a Bookwalter was brought to the operative field. There was some evidence of a film like substance that was consistent with the evidence of anastomotic leak and the CHATO bulb. The small bowel was examined and run from the ligament of Treitz down to the right colon and there was no evidence of a leak . Of note there was a segment of the small bowel within the pelvis which was bluntly dissected away from that position and examined which showed no evidence of an injury. The small bowel was retracted superiorly and the anastomosis was then examined. There was no gross evidence of an abscess collection or fluid collection within the pelvis. The CHATO drain was noted in pelvis as well. The CHATO bulb was cut and removed from the operative field. The pelvis was filled with normal saline solution above the level of the staple line and the distal/ descending colon was clamped by hand. Air was insufflated from below through the anus with evidence of bubbling noted, consistent with a leak. Further retraction of the pelvis was performed and visualization did show evidence of stool near the anastomosis consistent with a leak. This was suctioned but the stool was thick and pasty and the descending colon was noted to be filled with the same type of thickened semisolid material/stool. 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 This is likely due to inadequate prep and also inability to evacuate all of the stool because of the near obstructing colon mass/cancer. A 3-0 silk suture was placed along the area of the leak to help control the spillage and the decision was then made to go ahead and transect at the level of the anastomosis with a contour stapler. This was performed and the descending colonic stump was retracted out of the pelvis. The stump was transected with a KARISHMA stapler and the "anastomosis" was submitted to pathology. The pelvis was copiously irrigated with normal saline solution and the decision was made to irrigate the rectum or rectal stump with Betadine to see if there is any evidence of further leak. During this maneuver there was a small area of bubbling near the staple line which was imbricated with interrupted 2-0 Vicryl suture. The decision was made not to perform any type of re-anastomosis/loop ileostomy diversion. The plan was to go ahead and perform a colostomy do to the copious amount of stool still present within the colon for fear of another anastomotic leak. A 2-0 Prolene suture was used to tag the rectal stump for possible future re- anastomosis. The pelvis was again irrigated with normal saline solution and the left side of the abdominal wall fascia was examined for eventual colostomy placement. The epidermis in this vicinity near the level of the umbilicus was examined and transected with a 10 blade scalpel. Bovie cauterization was used to dissect the subcutaneous tissue and remove this area and the rectus fascia was incised with Bovie cauterization. The rectus abdominis muscles were split with a Freya clamp and the posterior sheath was opened with Bovie cauterization. The descending colonic stump was then extruded through this opening without difficulty. Seprafilm was placed within the abdomen after the abdomen was once again copiously irrigated with normal saline solution and the abdominal wall fascia was reapproximated with looped PDS sutures 2. Subcutaneous tissue was used to reapproximate the deep subcutaneous tissue and brody were used to close portions of the epidermal and dermal layer leaving 5 areas open for packing. The wound was packed with 1 inch plain Nu Gauze and cover with a towel. The ostomy was then matured by transecting the staple line with Bovie cauterization and maturing at the level of the dermis with 3-0 Vicryl sutures. Needle, sponge, instrument counts were correct 2 and the midline incision was covered with 4 x 4's and an ostomy appliance was placed over the ostomy. The patient was aroused IV sedation, extubated in the operating room without complication, and transported to the recovery room in stable condition.
[2018-01-30] MEDS ORDERED: Dextrose Gel 15 GM/37.5 ML TUBE PO PRN ×2 (20:33)
[2018-01-30] MEDS ORDERED: *HR* Dextrose 50 % in Water (Syg) 50 ML SYRINGE IVP PRN (20:33)
[2018-01-30] MEDS ORDERED: D5% in Water 1,000 ML IVC PRN (20:33)
[2018-01-30] MEDS ORDERED: Naloxone 0.4 MG/ML INJ IVP PRN (20:33)
[2018-01-30] MEDS: *HR* LORazepam 2 MG/ML VIAL IVP PRN (23:56)
[2018-01-31] MEDS: MetroNIDAZOLE 500 MG/100 ML 500 MG/100 ML BAG IVPB SCH ×3 (00:07→16:49)
[2018-01-31] MEDS: Insulin LISPRO 300 UNITS/3 ML VIAL SQ SCH ×7 (03:27→21:09)
[2018-01-31] MEDS: Acetaminophen IV 1,000 MG/100 ML INFUS..BTL IVPB SCH ×4 (03:29→21:31)
[2018-01-31] MEDS: Ondansetron 4 MG/2 ML VIAL IVP SCH ×7 (03:50→21:08)
[2018-01-31 05:36] LABS: Basophils % 0.1 %; Hematocrit 24.7 % (35.3-44.9); Hemoglobin 7.6 g/dL (11.5-15.4); Immature Granulocytes % 0.4 % (0-4); Lymphocytes # 0.2 K/mcL (0.6-4.6); Lymphocytes % 2.2 %; Mean Corpuscular HGB Conc 30.8 g/dL (31.6-35.5); Mean Corpuscular Hemoglobin 25.1 pg (28.0-33.3); Mean Corpuscular Volume 81.5 fL (83.0-100.0); Mean Platelet Volume 10.2 fL (9.4-12.4); Monocytes # 0.5 K/mcL (0.0-1.3); Monocytes % 5.6 %; Neutrophils # 8.1 K/mcL (1.6-8.9); Platelet Count 204 K/mcL (140-400); Red Blood Count 3.03 M/mcL (3.82-4.97); Red Cell Distribution Width 16.5 % (11.5-14.5); Segmented Neutrophils % 91.7 %
[2018-01-31 05:55] LABS: BUN/Creatinine Ratio 38 (6-26); Blood Urea Nitrogen 18 mg/dL (8-23); Calcium 8.4 mg/dL (8.6-10.3); Carbon Dioxide 20 mEq/L (23-29); Chloride 107 mEq/L (98-107); Glucose 313 mg/dL (70-105); Magnesium 1.7 mg/dL (1.6-2.6); Osmolality,Calculated 300 (280-300); Phosphorous 2.2 mg/dL (2.7-4.5); Potassium 3.3 mEq/L (3.5-5.1); Sodium 138 mEq/L (136-145); eGFR For African Americans > 60 (> 60); eGFR For Non-African Americans > 60 (> 60)
[2018-01-31] MEDS ORDERED: Pantoprazole 40 MG VIAL IVP SCH (06:30)
[2018-01-31] MEDS: *HR* Metoprolol 5 MG/5 ML VIAL IVP SCH ×3 (06:38→16:42)
[2018-01-31] MEDS: *HR* FentaNYL (PF) 100 MCG/2 ML VIAL IVP PRN ×4 (08:32→21:09)
[2018-01-31] MEDS ORDERED: Levothyroxine Sodium 100 MCG VIAL IVP SCH (09:00)
[2018-01-31] MEDS: *HR* LORazepam 2 MG/ML VIAL IVP PRN (12:41)
[2018-01-31] MEDS ORDERED: Potassium Chloride 40 MEQ, Lidocaine 1% 2 ML in D5% in Water 500 ML IVPB ONE (12:48)
--- NOTE | 2018-01-31 12:59 | General Surgery Progress Note ---
Date of Encounter: 01/31/18 Time of Encounter: 08:50 - Assessment and Plan (1) Rectal cancer Current Visit: Yes Status: Acute POD # 1 s/p exploratory celiotomy and takedown of procto-colo anastamosis with colostomy secondary to anastamotic leak. POD # 4 low anterior resection and appendectomy secondary to recto-sigmoid cancer. WBC dropped from 9.4 down to 8.9 since yesterday. Hgb dropped from 8 to 7.6. Total input of 675. Urinary output from catheter of 2375. 375 ml gastric drainage. 317 from wound drainage. Creatinine at 0.47. - Pathology pending. - Continue clear liquids. - NG tube to LIWS. - Supportive and pain control. - PPI therapy daily. - Incentive Spirometer every 1 hour while awake - Continue mcguire catheter for strict I&Os - Continue vancomycin - Repeat am labs (2) Anemia Current Visit: Yes Status: Acute Hemoglobin dropped from 8 yesterday down to 7.6. 2 Units PRBC transfused 01/27/18 - Continue to trend H/H. Qualifiers: Anemia type: other cause Other causes of anemia: acute posthemorrhagic Qualified Code(s): D62 - Acute posthemorrhagic anemia (3) Colostomy in place Current Visit: Yes Status: Acute (4) Essential (primary) hypertension Current Visit: No Status: Chronic (5) Diabetes mellitus Current Visit: No Status: Chronic Blood sugar 313 today (was 196 yesterday). Patient normally takes 15 U levemir BID at home. - Continue high dose sliding scale insulin. - Added 10 U Levemir BID to. 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 (7) Hypophosphatemia Current Visit: Yes Status: Acute Phosphorus at 2.2. - Given 1 pack of K-phos. (8) Hypothyroidism Current Visit: No Status: Chronic - Continue IV levothyroxine. Qualifiers: Hypothyroidism type: unspecified Qualified Code(s): E03.9 - Hypothyroidism , unspecified (9) DVT prophylaxis Current Visit: Yes Status: Acute Continue heparin 5,000 units SQ twice daily for DVT prophylaxis Subjective Narrative: Patient still complains of weakness, however she attests that it has been better since yesterday. Her nausea has also decreased from yesterday. She denies any vomiting. She denies any fever or chills. Denies any chest pain or shortness of breath. Objective VITAL SIGNS: Reviewed. See [facility] GENERAL: no apparent distress. HEENT: [Normocephalic, PER, EOMi, oropharynx pink/moist, no JVD noted.] CV: b/l rad pulses 2+, RRR, no murmurs or gallops, no JVD RESPIRATORY: CTAB without wheezes, rales, or rhonchi ABD: soft, minor tenderness with deep palpation, no rebound/guarding/rigidity, no peritoneal signs. Normal bowel sounds. INCISION: clean, dry, intact without purulence/bleeding/edema/rubor/calor. Minor serosanguinous drainage. OSTOMY: fecal output evident. DRAINS: R CHATO site without signs of infection; bulb contains sersosanguinous fluid. EXTREMITY: grossly normal motor function, no pedal edema, peripheral pulses 2+ b /l NEUROLOGIC EXAM: AOx3, obeys commands, no speech deficits. PSYCHIATRIC: normal mood and affect SKIN: no gross lesions, rashes, or skin changes Vital Signs - Last 8 Hours Temp Pulse Resp BP Pulse Ox 01/31/18 10:58 98.6 F 92 16 171/74 98 01/31/18 07:30 98.7 F 89 16 174/76 98 Intake and Output 01/30/18 01/31/18 01/31/18 23:59 07:59 15:59 Intake Total 735 / 735 0 / 0 Output Total 153 / 153 1862 / 1862 805 / 805 Balance -153 / -153 -1127 / -1127 -805 / -805 Intake: IV Fluids 555 / 555 Ofirmev 1,000 mg/100 ml 1,000 200 / 200 mg In 100 ml @ 400 mls/hr IVPB Q6H RUTHY Rx#:[id number] Flagyl Premix 500 MG/100 ML 500 100 / 100 mg In 100 ml @ 100 mls/hr IVPB Q8HR RUTHY Rx#:[id number] Potassium Phosphate 22 MEQ In 0 255 / 255 .9 % Sodium Chloride 250 ML @ 40 mls/hr IVPB ONCE ONE Rx#: [id number] Oral 180 / 180 0 / 0 Output: Stool 0 / 0 0 / 0 Estimated Blood Loss Catheter 1675 / 1675 300 / 300 Gastric Drainage 375 / 375 Wound Drainage 143 / 143 187 / 187 130 / 130 Right Lower Abdomen 143 / 143 187 / 187 130 / 130 Other: Meal ice chips NPO Weight 64.1 kg Blood Glucose* 158 284 Patient Weight 01/31/18 23:59 Weight 64.1 kg - Labs 01/31/18 04:00 01/31/18 04:00 Diabetes panel 01/31/18 Range/Units 04:00 Sodium 138 (136-145) mEq/L Potassium 3.3 L (3.5-5.1) mEq/L Chloride 107 (98-107) mEq/L Carbon Dioxide 20 L (23-29) mEq/L BUN 18 (8-23) mg/dL Creatinine 0.47 L (0.60-1.20) mg/dL Glucose 313 H (70-105) mg/dL Calcium 8.4 L (8.6-10.3) mg/dL Calcium panel 01/31/18 Range/Units 04:00 Calcium 8.4 L (8.6-10.3) mg/dL Phosphorus 2.2 L (2.7-4.5) mg/dL Pituitary panel 01/31/18 Range/Units 04:00 Sodium 138 (136-145) mEq/L Potassium 3.3 L (3.5-5.1) mEq/L Chloride 107 (98-107) mEq/L Carbon Dioxide 20 L (23-29) mEq/L BUN 18 (8-23) mg/dL Creatinine 0.47 L (0.60-1.20) mg/dL Glucose 313 H (70-105) mg/dL Calcium 8.4 L (8.6-10.3) mg/dL Adrenal panel 01/31/18 Range/Units 04:00 Sodium 138 (136-145) mEq/L Potassium 3.3 L (3.5-5.1) mEq/L Chloride 107 (98-107) mEq/L Carbon Dioxide 20 L (23-29) mEq/L BUN 18 (8-23) mg/dL Creatinine 0.47 L (0.60-1.20) mg/dL Glucose 313 H (70-105) mg/dL Calcium 8.4 L (8.6-10.3) mg/dL - Stroke Is the patient on any antithrombotics?: Yes Contraindication Antithromb by Day Two: Not Indicated - Due to Bleeding Disorder or Risk of Bleeding - VTE Documentation of Mechanical Device: Intermittent pneumatic compression device Consult Discharge Plan - Plan Referrals: Kenneth Madrid MD [Partnered Physician] - 02/11/18 11:40 am
[2018-01-31] MEDS ORDERED: Insulin DETEMIR 100 UNIT/ML X5UNITS SQ SCH (13:00)
[2018-01-31] MEDS ORDERED: Clinimix E 5%-15% SOLUTION 2,000 ML with MVI, adult with vitamin K 10 ML IVC SCH ×3 (17:00→19:38)
[2018-01-31] MEDS ORDERED: *HR* Heparin 5,000 UNIT/ML VIAL SQ SCH (18:00)
--- NOTE | 2018-01-31 18:36 | Event Note ---
Date of Encounter: 01/31/18 Time of Encounter: 17:00 Patient suddenly began to develop heart palpitations. Heart rate was around 160. EKG was ordered which showed A-Fib RVR. I gave her 5 mg lopressor and patient continued to be in A-fib RVR. I next gave her 15 mg of cardizem IV push. She temporarily began to convert back to a NSR but eventually came back to A-Fib RVR. I will now place the patient on a cardizem drip starting at 5 mg/ hr. Attempted to transfer patient to where they could start drip, however 2N was full. Will transfer patient temporarily to the ICU until a bed can become free at . I also put in a consult order to medicine to manage the patient's A- Fib RVR. Spoke to hospitalist Dr. Heard who agreed to see the patient.
[2018-01-31] MEDS ORDERED: Dextrose Gel 15 GM/37.5 ML TUBE PO PRN ×2 (19:38)
[2018-01-31] MEDS ORDERED: D5% in Water 1,000 ML IVC PRN (19:38)
[2018-01-31] MEDS ORDERED: Naloxone 0.4 MG/ML INJ IVP PRN (19:38)
[2018-01-31] MEDS ORDERED: D10% in Water 500 ML IVC PRN (19:38)
[2018-01-31] MEDS ORDERED: Albuterol 2.5 MG/3 ML NEBULIZER IH PRN (19:38)
[2018-01-31] MEDS ORDERED: *HR* Dextrose 50 % in Water (Syg) 50 ML SYRINGE IVP PRN (19:38)
[2018-01-31] MEDS ORDERED: *HR* LORazepam 2 MG/ML VIAL IVP ONE (19:40)
--- NOTE | 2018-01-31 19:46 | Internal Medicine Consult Note ---
Date of Encounter: 01/31/18 Time of Encounter: 19:43 - Assessment and plan (1) Atrial fibrillation with RVR Current Visit: Yes Status: Acute Assessment and plan: Patient was started on a Cardizem drip. I see that her electrolytes are abnormal from the morning. Some of those were repleted. I will repeat her labs including TSH and magnesium and phosphorus and replete what needs to be repleted. We will monitor the patient throughout the night. She is not the best candidate for anticoagulation and I would not start that now as she is postop and is anemic. If her blood pressure becomes an issue we will switch to amiodarone drip. An echo done back in October showed an EF of 55%, mild diastolic dysfunction, with no valvular abnormalities. (2) Hypokalemia Current Visit: Yes Status: Acute Assessment and plan: Plan will be as above. We will put the patient on electrolytes protocol. (3) Hypophosphatemia Current Visit: Yes Status: Acute Assessment and plan: Plan will be as above. We will put the patient on electrolytes protocol. (4) Anemia Current Visit: Yes Status: Acute Assessment and plan: Acute blood loss anemia postoperatively. Hemoglobin 7.6. We will transfuse if less than 7. Repeating a CBC. Qualifiers: Anemia type: other cause Other causes of anemia: acute posthemorrhagic Qualified Code(s): D62 - Acute posthemorrhagic anemia (5) Rectal cancer Current Visit: Yes Status: Acute Assessment and plan: Status post resection and anastomosis. Patient is on TPN. NG tube is in place. Management per primary team. (6) Diabetes mellitus Current Visit: No Status: Chronic Assessment and plan: Continue with insulin sliding scale. Continue with basal insulin 10 units of Levemir twice a day. Accu-Cheks. 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 (8) DVT prophylaxis Current Visit: Yes Status: Acute Assessment and plan: Heparin subcutaneous - Time Spent With Patient Total time spent is greater than 50% in coordination of care (as documented) at patient's floor/unit and/or counseling patient: Internal Medicine - CN: HPI - Data of Consult Patient: known to practice within the last 3 years Requesting Physician: Kenneth Madrid MD - Consult Narrative Reason for consult: Atrial fibrillation History of present illness: Ms. Walter is a 67 year old female with history of diabetes mellitus, hypertension , hypothyroidism, anxiety disorder, TIA who is status post a couple of surgeries by the surgery team for rectal cancer and ended up with a colostomy. Her last surgery for colostomy was yesterday. She is been admitted since 01/27. Was diagnosed with rectal cancer earlier this year and finished chemotherapy. Today she went into atrial fibrillation with RVR with rates up to the 160s. She was given IV Cardizem as well as IV Lopressor and she went into sinus for only a brief period before converting back to atrial fibrillation. She was transferred to the ICU by the surgery team has a 2 N overflow. I went and evaluated the patient and she is very anxious and has no history of atrial fibrillation. She was hemodynamically stable other than the heart rate. She remains nothing by mouth with only ice chips allowed. She has an NG tube. Denies any fever, chills, vomiting, chest pain, shortness of breath, abdominal pain, urinary symptoms, or neurological symptoms. Past Med Surg Social Fam HX - Past Medical History Medical history: arthritis, diabetes, hypertension, TIA Additional medical history: Rectal Cancer-chemotherapy. Ocular shingles. PRBC transfusion 2 weeks ago Psychiatric history: anxiety - Past Surgical History Surgical History: other Additional surgical history: D&C, hysterectomy - Social History Smoking Status: Former smoker Smokeless Tobacco Status: No Alcohol use: none Drug use: none - Family History Mother Family Member Ethnicity: Non- Twin of Family Member: Yes, Fraternal Living Status: Hx Family Cardiac Disorders: Yes Hx Family Neurologic Disorders: Yes Review of systems: All systems reviewed are negative except as mentioned above Internal Medicine - CN: Meds Bisoprolol Fumarate [Zebeta] 10 mg PO DAILY 03/13/17 [History] Levothyroxine Sodium [Levoxyl] 75 mcg PO DAILY 03/13/17 [History] Aspirin [Lo-Dose Aspirin EC] 81 mg PO DAILY 10/25/17 [History] Insulin Glargine,Hum.rec.anlog [Lantus Solostar] 15 unit SQ HS 10/25/17 [History ] Valsartan [Diovan] 80 mg PO DAILY 10/25/17 [History] cloNIDine HCl [CloNIDine HCl] 0.2 mg PO DAILY 10/25/17 [History] clonazePAM [Klonopin] 0.5 - 1 mg PO HS 10/25/17 [History] Citalopram [CeleXA] 20 mg PO DAILY 30 Days #30 tablet 10/27/17 [Rx] traZODone [TraZODone] 50 mg PO HS 11/17/17 [History] amLODIPine [Norvasc] 10 mg PO HS 01/27/18 [History] 3 Allergy/AdvReac Type Severity Reaction Status Date / Time bacitracin Allergy See Verified 01/27/18 07:22 [From Triple Antibiotic] Comments ciprofloxacin AdvReac Mild Gastrointestinal Verified 01/27/18 07:22 Upset codeine AdvReac Nightmare Verified 01/27/18 07:22 Erythromycin Base AdvReac Nausea Verified 01/27/18 07:22 glipizide AdvReac Nausea Verified 01/27/18 07:22 levofloxacin [From Levaquin] AdvReac Nausea Verified 01/27/18 07:22 Neomycin AdvReac See Verified 01/27/18 07:22 [From Triple Antibiotic] Comments polymyxin B AdvReac See Verified 01/27/18 07:22 [From Triple Antibiotic] Comments Sulfa (Sulfonamide AdvReac Nausea Verified 01/27/18 07:22 Antibiotics) Internal Medicine - CN: Exam - Constitutional Vitals: Temp Pulse Resp BP Pulse Ox 99.0 F 160 18 152/73 100 01/31/18 18:50 01/31/18 16:03 01/31/18 16:03 01/31/18 16:03 01/31/18 16:03 Exam: GEN: NAD HEENT: AT, NC, No cyanosis, oral mucosa is moist, No JVD Lymphatics: No lymphadenoapthy Eyes: Extrocular muscles intact, anicteric CVS: Tachycardic and irregular. S1, S2, No m/r/g RESP: CTAB ABD: Soft, NT, ND, hypoactive bowel sounds, colostomy noted EXT: No edema, No rashes, 2+ DP NEURO: Nonfocal, CN II-XII intact, No focal motor or sensory deficits Psych: Cooperative, Not anxious or depressed Internal Medicine - CN: Reslt - Labs CBC & Chem 7: 01/31/18 04:00 01/31/18 04:00 Labs: Short CBC 01/31/18 Range/Units 04:00 WBC 8.9 (4.3-11.1) K/mcL Hgb 7.6 L (11.5-15.4) g/dL Hct 24.7 L (35.3-44.9) % Plt Count 204 (140-400) K/mcL Neutrophils # 8.1 (1.6-8.9) K/mcL BMP 01/31/18 04:00 Sodium 138 Potassium 3.3 L Chloride 107 Carbon Dioxide 20 L BUN 18 Creatinine 0.47 L Glucose 313 H Calcium 8.4 L - Impressions Impressions KUB X-Ray 01/29/18 10:40 IMPRESSION: Enteric tube has been advanced. The tip projects over the left lower quadrant and may still be within the gastric body. The proximal side port appears to be projected over the stomach. D/ / 01/29/2018 11:54:00 Mary Landers MD / Dorene Vaz Interpreting Provider: Mary Landers MD Consult Discharge Plan - Plan Referrals: Kenneth Madrid MD [Partnered Physician] - 02/11/18 11:40 am
[2018-01-31 20:36] LABS: VBG Ionized Calcium 1.19 mmol/L (1.15-1.35)
[2018-01-31 20:44] LABS: Hemoglobin 7.5 g/dL (11.5-15.4); Immature Granulocytes % 0.6 % (0-4); Lymphocytes # 0.4 K/mcL (0.6-4.6); Lymphocytes % 4.3 %; Mean Corpuscular HGB Conc 31.3 g/dL (31.6-35.5); Mean Corpuscular Hemoglobin 25.1 pg (28.0-33.3); Mean Corpuscular Volume 80.3 fL (83.0-100.0); Mean Platelet Volume 10.1 fL (9.4-12.4); Monocytes # 0.7 K/mcL (0.0-1.3); Monocytes % 6.7 %; Neutrophils # 8.6 K/mcL (1.6-8.9); Platelet Count 202 K/mcL (140-400); Red Blood Count 2.99 M/mcL (3.82-4.97); Red Cell Distribution Width 16.2 % (11.5-14.5); Segmented Neutrophils % 88.4 %
[2018-01-31 21:11] LABS: BUN/Creatinine Ratio 41 (6-26); Blood Urea Nitrogen 16 mg/dL (8-23); Calcium 8.2 mg/dL (8.6-10.3); Carbon Dioxide 26 mEq/L (23-29); Chloride 106 mEq/L (98-107); Glucose 272 mg/dL (70-105); Magnesium 1.6 mg/dL (1.6-2.6); Osmolality,Calculated 295 (280-300); Potassium 3.4 mEq/L (3.5-5.1); Sodium 137 mEq/L (136-145); eGFR For African Americans > 60 (> 60); eGFR For Non-African Americans > 60 (> 60)
[2018-01-31] MEDS: Insulin DETEMIR 100 UNIT/ML X5UNITS SQ SCH (21:11)
[2018-01-31 21:15] LABS: Thyroid Stimulating Hormone 0.644 mcIU/mL (0.340-5.600)
[2018-01-31] MEDS: Potassium Chloride 40 MEQ/200 ML BAG IVPB PRN (21:25)
[2018-01-31] MEDS: Potassium Phosphate 44 MEQ in 0.9 % Sodium Chloride 250 ML IVPB PRN (21:44)
[2018-02-01] MEDS: MetroNIDAZOLE 500 MG/100 ML 500 MG/100 ML BAG IVPB SCH ×4 (00:44→23:08)
[2018-02-01] MEDS: Ondansetron 4 MG/2 ML VIAL IVP SCH ×6 (00:45→21:49)
[2018-02-01] MEDS: *HR* Metoprolol 5 MG/5 ML VIAL IVP SCH ×5 (00:46→23:09)
[2018-02-01] MEDS: Insulin LISPRO 300 UNITS/3 ML VIAL SQ SCH ×6 (00:46→21:52)
[2018-02-01] MEDS: Acetaminophen IV 1,000 MG/100 ML INFUS..BTL IVPB SCH ×4 (03:49→21:49)
[2018-02-01 04:08] LABS: VBG Ionized Calcium 1.15 mmol/L (1.15-1.35)
[2018-02-01 04:23] LABS: BUN/Creatinine Ratio 48 (6-26); Blood Urea Nitrogen 16 mg/dL (8-23); Carbon Dioxide 26 mEq/L (23-29); Chloride 109 mEq/L (98-107); Glucose 212 mg/dL (70-105); Magnesium 1.9 mg/dL (1.6-2.6); Osmolality,Calculated 295 (280-300); Phosphorous 2.2 mg/dL (2.7-4.5); Potassium 3.9 mEq/L (3.5-5.1); Sodium 139 mEq/L (136-145); eGFR For African Americans > 60 (> 60); eGFR For Non-African Americans > 60 (> 60)
[2018-02-01] MEDS: Pantoprazole 40 MG VIAL IVP SCH (05:05)
[2018-02-01] MEDS: *HR* Heparin 5,000 UNIT/ML VIAL SQ SCH ×2 (05:05→17:02)
[2018-02-01] MEDS: Potassium Phosphate 44 MEQ in 0.9 % Sodium Chloride 250 ML IVPB PRN (05:18)
[2018-02-01] MEDS: Levothyroxine Sodium 100 MCG VIAL IVP SCH (07:46)
[2018-02-01] MEDS: Scopolamine Patch 1.5 MG PATCH.TD72 TD SCH (07:47)
[2018-02-01] MEDS: Insulin DETEMIR 100 UNIT/ML X5UNITS SQ SCH ×2 (07:52→21:51)
[2018-02-01 08:05] LABS: Hematocrit 23.2 % (35.3-44.9); Hemoglobin 6.9 g/dL (11.5-15.4); Immature Granulocytes % 0.5 % (0-4); Lymphocytes # 0.5 K/mcL (0.6-4.6); Lymphocytes % 5.5 %; Mean Corpuscular HGB Conc 29.7 g/dL (31.6-35.5); Mean Corpuscular Hemoglobin 24.1 pg (28.0-33.3); Mean Corpuscular Volume 81.1 fL (83.0-100.0); Mean Platelet Volume 10.4 fL (9.4-12.4); Monocytes # 0.5 K/mcL (0.0-1.3); Neutrophils # 8.3 K/mcL (1.6-8.9); Platelet Count 183 K/mcL (140-400); Red Blood Count 2.86 M/mcL (3.82-4.97); Red Cell Distribution Width 16.6 % (11.5-14.5)
[2018-02-01] MEDS: *HR* LORazepam 2 MG/ML VIAL IVP PRN ×3 (08:12→22:17)
[2018-02-01] MEDS ORDERED: Scopolamine Patch 1.5 MG PATCH.TD72 TD SCH (09:15)
--- NOTE | 2018-02-01 09:44 | General Surgery Progress Note ---
Date of Encounter: 02/01/18 Time of Encounter: 07:00 - Assessment and Plan (1) Atrial fibrillation with RVR Current Visit: Yes Status: Acute Patient current has atrial fibrillation. Rate controlled at 89. She had irregular heart rhythm on exam. Patient was given 5 mg metoprolol yesterday for which she was unresponsive. Given 15 mg cardizem IV push which was unsuccessful. Patient was put on a cardizem drip protocol starting at 5 mg. Blood pressure is currently stable at 136/83. An echo done back in October showed an EF of 55%, mild diastolic dysfunction, with no valvular abnormalities. CHADSVASC2 score of 4. A consult to medicine was put in to manage her atrial fibrillation. - Per management of internal medicine team. - On cardizem drip. (2) Rectal cancer Current Visit: Yes Status: Acute POD # 2 s/p exploratory celiotomy and takedown of procto-colo anastamosis with colostomy secondary to anastamotic leak. POD # 5 low anterior resection and appendectomy secondary to recto-sigmoid cancer. WBC at 9.4 (yesterday at 9.8). Hgb dropped from 7.5 to 6.9. . Total input of 635 yesterday and 485 today so far. Urinary output from catheter of 2475 yesterday and 375 today so far. 392 from L CHATO yesterday and 150 today so far. 375 ml of gastric drainage yesterday and 150 ml today so far. Creatinine at 0.33. - Pathology pending. - Continue clear liquids. - NG tube to gravity. - Supportive and pain control. - PPI therapy daily. - Incentive Spirometer every 1 hour while awake - Continue mcguire catheter for strict I&Os - Continue vancomycin - Repeat am labs (3) Anemia Current Visit: Yes Status: Acute Hemoglobin dropped from 7.5 yesterday down to 6.9. 2 Units PRBC transfused - Continue to trend H/H. - Ordered 1 unit PRBC. Qualifiers: Anemia type: other cause Other causes of anemia: acute posthemorrhagic Qualified Code(s): D62 - Acute posthemorrhagic anemia (4) Colostomy in place Current Visit: Yes Status: Acute (5) Essential (primary) hypertension Current Visit: Yes Status: Chronic (6) Diabetes mellitus Current Visit: Yes Status: Chronic Blood sugar 212 today (was 272 yesterday). Patient normally takes 15 U levemir BID at home. - Continue high dose sliding scale insulin. - Continue 10 U Levemir BID to. Qualifiers: Diabetes mellitus type: type 2 Diabetes mellitus fpc insulin use: without fpc use Diabetes mellitus complication status: with hyperglycemia Qualified Code(s): E11.65 - Type 2 diabetes mellitus with hyperglycemia (7) Hypophosphatemia Current Visit: Yes Status: Acute Phosphorus at 2.2. - PRN potassium chloride IV. (8) Hypothyroidism Current Visit: No Status: Chronic - Continue IV levothyroxine. Qualifiers: Hypothyroidism type: unspecified Qualified Code(s): E03.9 - Hypothyroidism , unspecified (9) DVT prophylaxis Current Visit: Yes Status: Acute Continue heparin 5,000 units SQ twice daily for DVT prophylaxis Subjective Narrative: Patient currently denies any heart palpitations. She denies any chest pain or shortness of breath. Denies any nausea or vomiting. Denies any fever or chills. She says she continues to feel RUQ pressure but says this has been a chronic issue for the past year. Objective VITAL SIGNS: Reviewed. See [facility] GENERAL: no apparent distress. HEENT: [Normocephalic, PER, EOMI, oropharynx pink/moist, no JVD noted.] CV: b/l rad pulses 2+, irregular rhythm, no murmurs or gallops, no JVD RESPIRATORY: CTAB without wheezes, rales, or rhonchi ABD: soft, non-tender, no rebound/guarding/rigidity, no peritoneal signs INCISION: clean, dry, intact without purulence/bleeding/edema/rubor/calor. Minor serosanguinous drainage. DRAINS: CHATO site without signs of infection; bulb contains serosanguinous fluid. OSTOMY: Fecal output evident. Ostomy pink, moist, with no evidence of bleeding, pus, or infection. EXTREMITY: grossly normal motor function, no pedal edema, peripheral pulses 2+ b /l NEUROLOGIC EXAM: AOx3, obeys commands, no speech deficits. PSYCHIATRIC: normal mood and affect SKIN: no gross lesions, rashes, or skin changes Vital Signs - Last 8 Hours Temp Pulse Resp BP Pulse Ox 02/01/18 07:29 90 12 136/83 100 02/01/18 06:00 89 18 143/86 98 02/01/18 05:00 105 14 140/84 97 02/01/18 04:00 98 14 119/78 98 02/01/18 03:56 99.0 F 02/01/18 03:00 79 14 136/82 99 02/01/18 02:00 96 14 110/62 98 Intake and Output 01/31/18 02/01/18 02/01/18 23:59 07:59 15:59 Intake Total 900 / 900 485 / 485 Output Total 555 / 555 675 / 675 Balance 345 / 345 -190 / -190 Intake: IV Fluids 900 / 900 485 / 485 Cardizem 125 MG In 0.9 % Sodium 125 / 125 Chloride 100 ML @ 5 MG/HR 5 mls/hr IVC .Q24H [facility] Rx#: [id number] Ofirmev 1,000 mg/100 ml 1,000 300 / 300 mg In 100 ml @ 400 mls/hr IVPB Q6H [facility] Rx#:[id number] Magnesium Sulfate Premix 2gm/ 50 / 50 50mL 2 gm In 50 ml @ 50 mls/hr IVPB Q6H PRN Rx#:[id number] Flagyl Premix 500 MG/100 ML 500 100 / 100 100 / 100 mg In 100 ml @ 100 mls/hr IVPB Q8HR [facility] Rx#:[id number] Potassium Chloride 20 mEq/100 200 / 200 mL 40 meq In 200 ml @ 100 mls/ hr IVPB Q1H PRN Rx#:[id number] Potassium Phosphate 44 MEQ In 0 260 / 260 .9 % Sodium Chloride 250 ML @ 40 mls/hr IVPB Q10H PRN Rx#: [id number] Vancocin 1,000 MG In 0.9 % 250 / 250 Sodium Chloride 250 ML @ 167 mls/hr IVPB Q12H [facility] Rx#: [id number] Oral 0 / 0 Output: Stool 0 / 0 Catheter 500 / 500 375 / 375 Gastric Drainage 150 / 150 Wound Drainage 55 / 55 150 / 150 Right Lower Abdomen 55 / 55 150 / 150 Other: Meal Dinner Percent of Meal Consumed 0% Stool Consistency liquid Stool Color Brown Weight 59 kg 60.2 kg Blood Glucose* 297 214 Patient Weight 02/01/18 23:59 Weight 60.2 kg - Labs 02/01/18 07:02 02/01/18 03:45 Diabetes panel 01/31/18 02/01/18 Range/Units 19:39 03:45 Sodium 137 139 (136-145) mEq/L Potassium 3.4 L 3.9 (3.5-5.1) mEq/L Chloride 106 109 H (98-107) mEq/L Carbon Dioxide 26 26 (23-29) mEq/L BUN 16 16 (8-23) mg/dL Creatinine 0.39 L 0.33 L (0.60-1.20) mg/dL Glucose 272 H 212 H (70-105) mg/dL Calcium 8.2 L 8.0 L (8.6-10.3) mg/dL Thyroid panel 01/31/18 Range/Units 19:39 TSH 0.644 (0.340-5.600) mcIU/mL Calcium panel 01/31/18 02/01/18 Range/Units 19:39 03:45 Calcium 8.2 L 8.0 L (8.6-10.3) mg/dL Phosphorus 1.0 L* 2.2 L (2.7-4.5) mg/dL Pituitary panel 01/31/18 02/01/18 Range/Units 19:39 03:45 Sodium 137 139 (136-145) mEq/L Potassium 3.4 L 3.9 (3.5-5.1) mEq/L Chloride 106 109 H (98-107) mEq/L Carbon Dioxide 26 26 (23-29) mEq/L BUN 16 16 (8-23) mg/dL Creatinine 0.39 L 0.33 L (0.60-1.20) mg/dL Glucose 272 H 212 H (70-105) mg/dL Calcium 8.2 L 8.0 L (8.6-10.3) mg/dL TSH 0.644 (0.340-5.600) mcIU/mL Adrenal panel 01/31/18 02/01/18 Range/Units 19:39 03:45 Sodium 137 139 (136-145) mEq/L Potassium 3.4 L 3.9 (3.5-5.1) mEq/L Chloride 106 109 H (98-107) mEq/L Carbon Dioxide 26 26 (23-29) mEq/L BUN 16 16 (8-23) mg/dL Creatinine 0.39 L 0.33 L (0.60-1.20) mg/dL Glucose 272 H 212 H (70-105) mg/dL Calcium 8.2 L 8.0 L (8.6-10.3) mg/dL - Stroke Is the patient on any antithrombotics?: Yes Contraindication Antithromb by Day Two: Not Indicated - Due to Bleeding Disorder or Risk of Bleeding - VTE Documentation of Mechanical Device: Intermittent pneumatic compression device Consult Discharge Plan - Plan Referrals: Kenneth Madrid MD [Partnered Physician] - 02/11/18 11:40 am
--- NOTE | 2018-02-01 11:40 | Internal Med Progress Note ---
Date of Encounter: 02/01/18 Time of Encounter: 11:37 - Assessment and plan (1) Atrial fibrillation with RVR Current Visit: Yes Status: Acute Assessment and plan: Doing well now on cardizem drip; will continue for now and monitor closely. Electrolytes improved this AM; will defer management to primary. Hgb lower this AM; will defer transfusion to primary team. I do think improvement of Hgb would help treat Afib. She is not the best candidate for anticoagulation at this time because she is postop and anemic. BP improved today. If her blood pressure becomes an issue, we will switch to amiodarone drip. An ECHO done back in October showed an EF of 55%, mild diastolic dysfunction, with no valvular abnormalities. (2) Anemia Current Visit: Yes Status: Acute Assessment and plan: Acute blood loss anemia postoperatively. Hemoglobin 6.9. Will defer transfusion to primary team at this time. Repeat CBC in AM. Qualifiers: Anemia type: other cause Other causes of anemia: acute posthemorrhagic Qualified Code(s): D62 - Acute posthemorrhagic anemia (3) Rectal cancer Current Visit: Yes Status: Acute Assessment and plan: Status post resection and anastomosis. Patient is on TPN. NG tube is in place. Management per primary team. (4) Diabetes mellitus Current Visit: Yes Status: Chronic Assessment and plan: Continue with insulin sliding scale. Continue with basal insulin 10 units of Levemir twice a day. Accu-Cheks. Qualifiers: Diabetes mellitus type: type 2 Diabetes mellitus customer service advisor insulin use: without fci use Diabetes mellitus complication status: with hyperglycemia Qualified Code(s): E11.65 - Type 2 diabetes mellitus with hyperglycemia (5) Essential (primary) hypertension Current Visit: Yes Status: Chronic Assessment and plan: Hypotension improved today. Continue to hold antihypertensives for now as her blood pressure is borderline after starting the Cardizem drip. (6) Hypokalemia Current Visit: Yes Status: Resolved Assessment and plan: Resolved. We will continue on electrolytes protocol. Recheck BMP in AM. (7) Hypophosphatemia Current Visit: Yes Status: Acute Assessment and plan: Improved. Continue on electrolytes protocol. (8) DVT prophylaxis Current Visit: Yes Status: Acute Assessment and plan: Continue SQ heparin. - Time Spent With Patient Total time spent is greater than 50% in coordination of care (as documented) at patient's floor/unit and/or counseling patient: - Subjective Interval history: Patient had no acute events overnight. She states that she feels "good" at this time. Daughter is in room and we discussed plan of care. Some anemia this AM; will defer transfusion to primary team. HR is in high 90s/low 100s and NSR on telemetry while I'm in room today. She is currently on 10 of cardizem drip at this time. She denies chest pain, SOB, or palpitations at this time. She denies fever, chills, nausea, vomiting, or abdominal. She has no complaints at this time. - Constitutional Vitals: Temp Pulse Resp BP Pulse Ox 99.0 F 100 12 135/78 100 02/01/18 03:56 02/01/18 09:46 02/01/18 09:46 02/01/18 09:46 02/01/18 09:46 General appearance: Present: cooperative, A&O X 3, pleasant, no acute distress, answers questions appropriately - Respiratory Respiratory exam: Present: CTAB. Absent: accessory muscle use, rales, rhonchi, wheezes Additional comments: Normal WOB - Cardiovascular Cardiovascular exam: Present: RRR, +S1, +S2. Absent: diastolic murmur, gallop, rubs, systolic murmur Additional comments: No BLE edema - GI/Abdominal GI/Abdominal exam: Present: normal bowel sounds, soft, tenderness (mild TTP diffusely across abdomen). Absent: distended, hepatomegaly, mass, splenomegaly - Psychiatric Psychiatric exam: Present: normal affect, normal mood. Absent: agitated, anxious, depressed - Skin Skin exam: Present: dry, intact, warm. Absent: cyanosis, rash Internal Medicine: Result - Labs CBC & Chem 7: 02/01/18 07:02 02/01/18 03:45 Labs: Short CBC 01/31/18 02/01/18 Range/Units 19:40 07:02 WBC 9.8 9.4 (4.3-11.1) K/mcL Hgb 7.5 L 6.9 L (11.5-15.4) g/dL Hct 24.0 L 23.2 L (35.3-44.9) % Plt Count 202 183 (140-400) K/mcL Neutrophils # 8.6 8.3 (1.6-8.9) K/mcL BMP 01/31/18 02/01/18 19:39 03:45 Sodium 137 139 Potassium 3.4 L 3.9 Chloride 106 109 H Carbon Dioxide 26 26 BUN 16 16 Creatinine 0.39 L 0.33 L Glucose 272 H 212 H Calcium 8.2 L 8.0 L - Stroke Is the patient on any antithrombotics?: No Are there any contradictions to antithrombotics?: Yes Contraindication Antithromb by Day Two: Not Indicated - Due to Bleeding Disorder or Risk of Bleeding Consult Discharge Plan - Plan Referrals: Kenneth Madrid MD [Partnered Physician] - 02/11/18 11:40 am
[2018-02-01] MEDS: *HR* FentaNYL (PF) 100 MCG/2 ML VIAL IVP PRN ×2 (15:42→22:17)
[2018-02-01] MEDS: Clinimix E 5%-15% SOLUTION 2,000 ML with MVI, adult with vitamin K 10 ML IVC SCH (16:58)
[2018-02-01] MEDS ORDERED: Clinimix E 5%-15% SOLUTION 2,000 ML with MVI, adult with vitamin K 10 ML IVC SCH ×2 (17:00)
[2018-02-01 21:08] LABS: BUN/Creatinine Ratio 56 (6-26); Blood Urea Nitrogen 19 mg/dL (8-23); Calcium 7.8 mg/dL (8.6-10.3); Carbon Dioxide 26 mEq/L (23-29); Chloride 105 mEq/L (98-107); Glucose 223 mg/dL (70-105); Osmolality,Calculated 291 (280-300); Potassium 3.5 mEq/L (3.5-5.1); Sodium 136 mEq/L (136-145); Vancomycin,Trough 8 mcg/mL (5-10); eGFR For African Americans > 60 (> 60); eGFR For Non-African Americans > 60 (> 60)
[2018-02-01] MEDS: Potassium Chloride 40 MEQ/200 ML BAG IVPB PRN (21:51)
[2018-02-01] MEDS ORDERED: 0.9 % Sodium Chloride 250 ML ONE (22:41)
[2018-02-01 23:08] LABS: Magnesium 1.7 mg/dL (1.6-2.6)
[2018-02-02] MEDS: Ondansetron 4 MG/2 ML VIAL IVP SCH ×7 (00:50→23:53)
[2018-02-02] MEDS: Insulin LISPRO 300 UNITS/3 ML VIAL SQ SCH ×7 (00:50→23:53)
[2018-02-02] MEDS: Acetaminophen IV 1,000 MG/100 ML INFUS..BTL IVPB SCH ×4 (03:51→21:23)
[2018-02-02] MEDS: Pantoprazole 40 MG VIAL IVP SCH (05:20)
[2018-02-02] MEDS: *HR* Heparin 5,000 UNIT/ML VIAL SQ SCH ×2 (05:20→16:30)
[2018-02-02] MEDS: *HR* Metoprolol 5 MG/5 ML VIAL IVP SCH ×4 (05:20→23:16)
[2018-02-02] MEDS: *HR* FentaNYL (PF) 100 MCG/2 ML VIAL IVP PRN ×4 (05:20→23:06)
[2018-02-02] MEDS: *HR* LORazepam 2 MG/ML VIAL IVP PRN ×3 (05:20→23:06)
[2018-02-02 05:27] LABS: Basophils % 0.1 %; Hematocrit 25.4 % (35.3-44.9); Hemoglobin 7.1 g/dL (11.5-15.4); Immature Granulocytes % 1.2 % (0-4); Lymphocytes # 0.6 K/mcL (0.6-4.6); Lymphocytes % 7.7 %; Mean Corpuscular Hemoglobin 24.7 pg (28.0-33.3); Mean Corpuscular Volume 88.2 fL (83.0-100.0); Mean Platelet Volume 10.5 fL (9.4-12.4); Monocytes # 0.4 K/mcL (0.0-1.3); Monocytes % 5.3 %; Platelet Count 154 K/mcL (140-400); Red Blood Count 2.88 M/mcL (3.82-4.97); Red Cell Distribution Width 17.7 % (11.5-14.5); Segmented Neutrophils % 85.7 %
[2018-02-02 05:29] LABS: Neutrophils # 6.4 K/mcL (1.6-8.9)
[2018-02-02 05:57] LABS: Anisocytosis 1+ (Not Present); Hypochromasia Present (Not Present); Platelet Estimate Normal (Normal)
[2018-02-02] MEDS ORDERED: Aminoglycoside Consult 1 EACH MC ONE (07:06)
[2018-02-02 07:11] LABS: BUN/Creatinine Ratio 62 (6-26); Blood Urea Nitrogen 18 mg/dL (8-23); Calcium 7.5 mg/dL (8.6-10.3); Carbon Dioxide 26 mEq/L (23-29); Chloride 105 mEq/L (98-107); Glucose 188 mg/dL (70-105); Osmolality,Calculated 287 (280-300); Potassium 3.9 mEq/L (3.5-5.1); Sodium 135 mEq/L (136-145); eGFR For African Americans > 60 (> 60); eGFR For Non-African Americans > 60 (> 60)
[2018-02-02 07:24] LABS: Magnesium 2.1 mg/dL (1.6-2.6); Phosphorous 1.8 mg/dL (2.7-4.5)
[2018-02-02] MEDS: Levothyroxine Sodium 100 MCG VIAL IVP SCH (08:45)
[2018-02-02] MEDS: MetroNIDAZOLE 500 MG/100 ML 500 MG/100 ML BAG IVPB SCH ×2 (08:46→16:27)
[2018-02-02] MEDS: Insulin DETEMIR 100 UNIT/ML X5UNITS SQ SCH ×2 (08:48→21:17)
[2018-02-02] MEDS ORDERED: Furosemide 20 MG/2 ML VIAL IVP ONE (09:21)
--- NOTE | 2018-02-02 09:26 | General Surgery Progress Note ---
<Al Mckeon - Last Filed: 02/02/18 12:26> Date of Encounter: 02/02/18 Time of Encounter: 09:24 - Assessment and Plan (1) Atrial fibrillation with RVR Current Visit: Yes Status: Acute Continued A. fib with RVR - HR is 110's this AM on Cardizem drip No prior history of A. fib TTE in Oct with EF 55%, mild diastolic dysfunction Ideally would be on IV cardizem - ok to trial PO cardizem while NG tube is clamped - if NG unclamped, need to transition back to IV cardizem CHADSVASc = 4 (age, HTN, DM, female) - will need anticoagulation in the future once more stable (2) Rectal cancer Current Visit: Yes Status: Acute POD #3 s/p exploratory celiotomy and takedown of procto-colo anastomosis with colostomy secondary to anastomatic leak POD #6 low anterior resection and appendectomy secondary to recto-sigmoid cancer I/O's: -245ml yesterday, +180ml today. CHATO drain -450ml yesterday and -70 ml today. Gastric -350ml yesterday Pathology without lymph node involvement - final report still pending Continue clears as tolerated and TPN NG tube - clamp now, check residual tomorrow - if develops N/V, may unclamp and section as needed Continue PPI, pain control, and supportive therapy Continue mcguire, strict I&O's, and electrolyte replacement Continue vancomycin - day #4 Repeat AM labs Wound consult for osteomy teaching PT/OT consult (3) Anemia Current Visit: Yes Status: Acute Hgb 7.1 this AM after 1 U PRBCs yesterday - transfuse 2 U today with Lasix Resolution of anemia will also help with her A. fib Recheck H/H after transfusion Qualifiers: Anemia type: other cause Other causes of anemia: acute posthemorrhagic Qualified Code(s): D62 - Acute posthemorrhagic anemia (4) Colostomy in place Current Visit: Yes Status: Acute (5) Hypophosphatemia Current Visit: Yes Status: Acute Replacement protocol (6) Essential (primary) hypertension Current Visit: Yes Status: Chronic (7) Diabetes mellitus Current Visit: Yes Status: Chronic Continue Levemir 10 U BID and High dose SS - on 15 U BID at home Blood sugar has been 136-331 - continue to monitor and may need to increase dose Qualifiers: Diabetes mellitus type: type 2 Diabetes mellitus terminal carman insulin use: without senior care use Diabetes mellitus complication status: with hyperglycemia Qualified Code(s): E11.65 - Type 2 diabetes mellitus with hyperglycemia (8) Hypothyroidism Current Visit: Yes Status: Chronic Heparin Qualifiers: Hypothyroidism type: unspecified Qualified Code(s): E03.9 - Hypothyroidism , unspecified (9) DVT prophylaxis Current Visit: Yes Status: Acute ICDs Subjective Narrative: Patient reports mild abdominal soreness, but states it is improving. Denies N/ V. Denies chest pain, palpitations, dyspnea, or chills. Objective Vital Signs - Last 8 Hours Temp Pulse Resp BP Pulse Ox 02/02/18 09:05 97.8 F 02/02/18 05:00 89 14 129/87 97 02/02/18 04:00 106 02/02/18 03:50 106 16 128/70 97 02/02/18 03:20 98.9 F 02/02/18 01:30 98.8 F 98 16 123/74 93 Intake and Output 02/01/18 02/02/18 02/02/18 23:59 07:59 15:59 Intake Total 645 / 645 600 / 600 Output Total 735 / 735 220 / 220 200 / 200 Balance -90 / -90 380 / 380 -200 / -200 Intake: IV Fluids 525 / 525 250 / 250 Cardizem 125 MG In 0.9 % Sodium 125 / 125 Chloride 100 ML @ 5 MG/HR 5 mls/hr IVC .Q24H [facility] Rx#: [id number] Ofirmev 1,000 mg/100 ml 1,000 100 / 100 100 / 100 mg In 100 ml @ 400 mls/hr IVPB Q6H [facility] Rx#:[id number] Magnesium Sulfate Premix 2gm/ 50 / 50 50mL 2 gm In 50 ml @ 50 mls/hr IVPB Q6H PRN Rx#:[id number] Flagyl Premix 500 MG/100 ML 500 100 / 100 100 / 100 mg In 100 ml @ 100 mls/hr IVPB Q8HR [facility] Rx#:[id number] Potassium Chloride 20 mEq/100 200 / 200 mL 40 meq In 200 ml @ 100 mls/ hr IVPB Q1H PRN Rx#:[id number] Oral 120 / 120 Blood Product 0 / 0 350 / 350 Rbcs Leuko Poor As-1 Unit 0 / 0 350 / 350 [id number] Output: Stool 0 / 0 0 / 0 0 / 0 Catheter 525 / 525 200 / 200 150 / 150 Gastric Drainage 50 / 50 0 / 0 0 / 0 Wound Drainage 160 / 160 20 / 20 50 / 50 Right Lower Abdomen 160 / 160 20 / 20 50 / 50 Other: Weight 61.4 kg Blood Glucose* 261 219 192 - Additional Exam VITAL SIGNS: [facility]ed. [facility] GENERAL: no apparent distress. HEENT: Normocephalic, PER, EOMI, oropharynx pink/moist, no JVD noted. CV: b/l rad pulses 2+, irregular rhythm, no murmurs or gallops RESPIRATORY: CTAB without wheezes, rales, or rhonchi ABD: soft, non-tender, no rebound/guarding/rigidity, no peritoneal signs INCISION: bandage clean, dry, intact without purulence/bleeding/edema/rubor/ calor DRAINS: CHATO site without signs of infection; bulb contains serosanguinous fluid. OSTOMY: Fecal output evident. Ostomy pink, moist, with no evidence of bleeding, pus, or infection. EXTREMITY: grossly normal motor function, no pedal edema, peripheral pulses 2+ b /l NEUROLOGIC EXAM: AOx3, obeys commands, no speech deficits. PSYCHIATRIC: normal mood and affect SKIN: no gross lesions, rashes, or skin changes - Labs 02/02/18 05:10 02/02/18 06:22 Diabetes panel 02/01/18 02/02/18 Range/Units 19:45 06:22 Sodium 136 135 L (136-145) mEq/L Potassium 3.5 3.9 (3.5-5.1) mEq/L Chloride 105 105 (98-107) mEq/L Carbon Dioxide 26 26 (23-29) mEq/L BUN 19 18 (8-23) mg/dL Creatinine 0.34 L 0.29 L (0.60-1.20) mg/dL Glucose 223 H 188 H (70-105) mg/dL Calcium 7.8 L 7.5 L (8.6-10.3) mg/dL Calcium panel 02/01/18 02/02/18 Range/Units 19:45 06:22 Calcium 7.8 L 7.5 L (8.6-10.3) mg/dL Phosphorus 1.8 L (2.7-4.5) mg/dL Pituitary panel 02/01/18 02/02/18 Range/Units 19:45 06:22 Sodium 136 135 L (136-145) mEq/L Potassium 3.5 3.9 (3.5-5.1) mEq/L Chloride 105 105 (98-107) mEq/L Carbon Dioxide 26 26 (23-29) mEq/L BUN 19 18 (8-23) mg/dL Creatinine 0.34 L 0.29 L (0.60-1.20) mg/dL Glucose 223 H 188 H (70-105) mg/dL Calcium 7.8 L 7.5 L (8.6-10.3) mg/dL Adrenal panel 18 02/02/18 Range/Units 19:45 06:22 Sodium 136 135 L (136-145) mEq/L Potassium 3.5 3.9 (3.5-5.1) mEq/L Chloride 105 105 (98-107) mEq/L Carbon Dioxide 26 26 (23-29) mEq/L BUN 19 18 (8-23) mg/dL Creatinine 0.34 L 0.29 L (0.60-1.20) mg/dL Glucose 223 H 188 H (70-105) mg/dL Calcium 7.8 L 7.5 L (8.6-10.3) mg/dL - Stroke Is the patient on any antithrombotics?: No Are there any contradictions to antithrombotics?: Yes Contraindication Antithromb by Day Two: Not Indicated - Due to Bleeding Disorder or Risk of Bleeding - VTE Documentation of Mechanical Device: Intermittent pneumatic compression device Consult Discharge Plan - Plan Referrals: Kenneth Madrid MD [Partnered Physician] - 02/11/18 11:40 am <Kenneth Madrid - Last Filed: 02/03/18 06:56> Date of Encounter: 02/02/18 - Assessment and Plan (1) Rectal cancer Current Visit: Yes Status: Acute (2) Anemia Current Visit: Yes Status: Acute Qualifiers: Anemia type: other cause Other causes of anemia: acute posthemorrhagic Qualified Code(s): D62 - Acute posthemorrhagic anemia Objective Vital Signs - Last 8 Hours Temp Pulse Resp BP Pulse Ox 02/03/18 04:00 99.7 F H 121 22 133/71 98 02/03/18 03:36 98.4 F 02/03/18 02:00 108 16 97 02/03/18 00:00 98 24 140/86 98 02/02/18 23:15 90 20 140/96 96 Intake and Output 02/02/18 02/02/18 02/03/18 15:59 23:59 07:59 Intake Total 200 / 200 2700 / 2700 450 / 450 Output Total 390 / 390 410 / 410 620 / 620 Balance -190 / -190 2290 / 2290 -170 / -170 Intake: IV Fluids 200 / 200 1810 / 1810 450 / 450 Clinimix E 5%-15% SOLUTION 2, 1000 / 1000 000 ML @ 70 mls/hr IVC .Q24H [facility] with M.v.i. Adult 10 ml Rx# :[id number] Ofirmev 1,000 mg/100 ml 1,000 100 / 100 200 / 200 100 / 100 mg In 100 ml @ 400 mls/hr IVPB Q6H [facility] Rx#:[id number] Intralipid 20% 250 ML @ 21 mls/ 250 / 250 hr IVPB DAILY@1700 [facility] Rx#: [id number] Flagyl Premix 500 MG/100 ML 500 100 / 100 100 / 100 mg In 100 ml @ 100 mls/hr IVPB Q8HR [facility] Rx#:[id number] Zosyn 3.375 GM In 0.9 % Sodium 100 / 100 Chloride (Mini-Bag +) 100 ML @ 25 mls/hr IVPB Q8HR [facility] Rx#: [id number] Potassium Phosphate 44 MEQ In 0 260 / 260 .9 % Sodium Chloride 250 ML @ 40 mls/hr IVPB Q10H [facility]N Rx#: [id number] Vancocin 1,250 MG In 0.9 % 250 / 250 Sodium Chloride 250 ML @ 166. 667 mls/hr IVPB Q12H [facility] Rx#: [id number] Oral 240 / 240 Blood Product 0 / 0 650 / 650 Rbcs Leuko Poor As-1 Unit 300 / 300 [id number] Rbcs Leuko Poor As-1 Unit 0 / 0 350 / 350 [id number] Output: Stool 0 / 0 0 / 0 0 / 0 Catheter 300 / 300 350 / 350 550 / 550 Gastric Drainage 0 / 0 0 / 0 0 / 0 Wound Drainage 90 / 90 60 / 60 70 / 70 Right Lower Abdomen 90 / 90 60 / 60 70 / 70 Other: Meal Dinner Weight 65.7 kg Blood Glucose* 191 203 133 Patient Weight 02/03/18 23:59 Weight 65.7 kg - Labs 02/03/18 03:15 02/03/18 03:15 Diabetes panel 02/02/18 02/02/18 02/03/18 Range/Units 06:22 19:45 03:15 Sodium 135 L 132 L 131 L (136-145) mEq/L Potassium 3.9 3.9 3.8 (3.5-5.1) mEq/L Chloride 105 102 101 (98-107) mEq/L Carbon Dioxide 26 24 26 (23-29) mEq/L BUN 18 13 11 (8-23) mg/dL Creatinine 0.29 L 0.34 L 0.32 L (0.60-1.20) mg/dL Glucose 188 H 193 H 151 H (70-105) mg/dL Calcium 7.5 L 7.1 L 7.1 L (8.6-10.3) mg/dL Triglycerides 140 (< 150) mg/dL Calcium panel 02/02/18 02/02/18 02/03/18 Range/Units 06:22 19:45 03:15 Calcium 7.5 L 7.1 L 7.1 L (8.6-10.3) mg/dL Phosphorus 1.8 L 2.1 L (2.7-4.5) mg/dL Pituitary panel 02/02/18 02/02/18 02/03/18 Range/Units 06:22 19:45 03:15 Sodium 135 L 132 L 131 L (136-145) mEq/L Potassium 3.9 3.9 3.8 (3.5-5.1) mEq/L Chloride 105 102 101 (98-107) mEq/L Carbon Dioxide 26 24 26 (23-29) mEq/L BUN 18 13 11 (8-23) mg/dL Creatinine 0.29 L 0.34 L 0.32 L (0.60-1.20) mg/dL Glucose 188 H 193 H 151 H (70-105) mg/dL Calcium 7.5 L 7.1 L 7.1 L (8.6-10.3) mg/dL Adrenal panel 02/02/18 02/02/18 02/03/18 Range/Units 06:22 19:45 03:15 Sodium 135 L 132 L 131 L (136-145) mEq/L Potassium 3.9 3.9 3.8 (3.5-5.1) mEq/L Chloride 105 102 101 (98-107) mEq/L Carbon Dioxide 26 24 26 (23-29) mEq/L BUN 18 13 11 (8-23) mg/dL Creatinine 0.29 L 0.34 L 0.32 L (0.60-1.20) mg/dL Glucose 188 H 193 H 151 H (70-105) mg/dL Calcium 7.5 L 7.1 L 7.1 L (8.6-10.3) mg/dL - Attending Attestation I examined this patient and my medical decision-making was reviewed with the Resident Physician. I agree with the documented findings, disposition and treatment plan as described except to the extent set forth below. I reviewed the above assessment and evaluation and agree with the above plan. Will adjust antibiotics now that the allergies have been updated. We will likely change to Zosyn and DC Vanco and Flagyl.
--- NOTE | 2018-02-02 12:12 | Internal Med Progress Note ---
Date of Encounter: 02/02/18 Time of Encounter: 12:09 - Assessment and plan (1) Atrial fibrillation with RVR Current Visit: Yes Status: Acute Assessment and plan: Doing well now on cardizem drip; has now been tapered down to rate of 5 per nursing staff. Pharmacist recommends switching to PO cardizem as IV cardizem is on shortage. I am agreeable with this since she has responded well to cardizem drip with wean; now with HR high 90s/low 100s while I'm in room. Spoke with Gabriela with surgery, they are planning to clamp NG tube today. If she is tolerating PO medication after this, we will discontinue IV cardizem and start cardizem 30 mg PO Q6H. Electrolytes improved this AM; will defer management to primary. Hgb about the same this AM; primary team transfusing 2 units PRBC. I do think improvement of Hgb would help with Afib. She is on prophylactic heparin; will defer discontinuation to surgery since still anemic. BP improved again today. An ECHO done back in October showed an EF of 55%, mild diastolic dysfunction, with no valvular abnormalities. (2) Anemia Current Visit: Yes Status: Acute Assessment and plan: Acute blood loss anemia postoperatively. Hemoglobin 7.1. Primary team transfusing 2 units PRBC today. Repeat CBC in AM. Consider holding prophylactic heparin if dropping. Qualifiers: Anemia type: other cause Other causes of anemia: acute posthemorrhagic Qualified Code(s): D62 - Acute posthemorrhagic anemia (3) Rectal cancer Current Visit: Yes Status: Acute Assessment and plan: Status post resection and anastomosis. Patient is on TPN. NG tube is in place. Management per primary team. (4) Diabetes mellitus Current Visit: Yes Status: Chronic Assessment and plan: Continue with insulin sliding scale. Continue with basal insulin 10 units of Levemir twice a day. Accu-Cheks. 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 Continue to hold antihypertensives for now as her blood pressure is borderline with cardizem. (6) Hypokalemia Current Visit: Yes Status: Resolved Assessment and plan: Resolved. We will continue on electrolytes protocol. Recheck BMP in AM. (7) Hypophosphatemia Current Visit: Yes Status: Acute Assessment and plan: Down slightly today. Continue on electrolytes protocol. Recheck phosphorous in AM. (8) DVT prophylaxis Current Visit: Yes Status: Acute Assessment and plan: Continue SQ heparin. - Time Spent With Patient Total time spent is greater than 50% in coordination of care (as documented) at patient's floor/unit and/or counseling patient: - Subjective Interval history: Patient had no acute events overnight. She states that she is doing "OK." She still has significant abdominal tenderness. She denies any chest pain, SOB, or palpitations. Some anemia again this AM; she received 1 unit PRBC yesterday and primary team is transfusing 2 more units of PRBC today. HR is in high 90s/ low 100s and NSR on telemetry while I'm in room today on 5 of cardizem drip. Nursing staff reports that IV cardizem is in shortage, so pharmacist wondering if we can try PO cardizem. She denies fever, chills, nausea, vomiting, or abdominal. She has no other complaints at this time. - Constitutional Vitals: Temp Pulse Resp BP Pulse Ox 97.8 F 112 20 133/71 99 02/02/18 09:05 02/02/18 08:42 02/02/18 08:42 02/02/18 08:42 02/02/18 08:42 General appearance: Present: cooperative, A&O X 3, pleasant, no acute distress, answers questions appropriately - Respiratory Respiratory exam: Present: CTAB. Absent: accessory muscle use, rales, rhonchi, wheezes Additional comments: Normal WOB - Cardiovascular Cardiovascular exam: Present: RRR, +S1, +S2. Absent: diastolic murmur, gallop, rubs, systolic murmur Additional comments: No BLE edema - GI/Abdominal GI/Abdominal exam: Present: hypoactive bowel sounds, soft, tenderness ( significant TTP diffusely across abdomen). Absent: distended, hepatomegaly, mass, splenomegaly - Psychiatric Psychiatric exam: Present: normal affect, normal mood. Absent: agitated, anxious, depressed - Skin Skin exam: Present: dry, warm. Absent: cyanosis, erythema, rash Internal Medicine: Result - Labs CBC & Chem 7: 02/02/18 05:10 02/02/18 06:22 Labs: Short CBC 02/02/18 Range/Units 05:10 WBC 7.5 (4.3-11.1) K/mcL Hgb 7.1 L (11.5-15.4) g/dL Hct 25.4 L (35.3-44.9) % Plt Count 154 (140-400) K/mcL Neutrophils # 6.4 (1.6-8.9) K/mcL BMP 02/01/18 02/02/18 19:45 06:22 Sodium 136 135 L Potassium 3.5 3.9 Chloride 105 105 Carbon Dioxide 26 26 BUN 19 18 Creatinine 0.34 L 0.29 L Glucose 223 H 188 H Calcium 7.8 L 7.5 L - Stroke Is the patient on any antithrombotics?: No Are there any contradictions to antithrombotics?: Yes Contraindication Antithromb by Day Two: Not Indicated - Due to Bleeding Disorder or Risk of Bleeding Consult Discharge Plan - Plan Referrals: Kenneth Madrid MD [Partnered Physician] - 02/11/18 11:40 am
[2018-02-02] MEDS ORDERED: 0.9 % Sodium Chloride 500 ML ONE (14:21)
[2018-02-02] MEDS ORDERED: Clinimix E 5%-15% SOLUTION 2,000 ML with MVI, adult with vitamin K 10 ML IVC SCH (17:00)
[2018-02-02] MEDS: Clinimix E 5%-15% SOLUTION 2,000 ML with MVI, adult with vitamin K 10 ML IVC SCH (17:31)
[2018-02-02] MEDS: Piperacillin/Tazobactam 3.375 GM in 0.9 % Sodium Chloride Mini Bag 100 ML IVPB SCH (23:15)
[2018-02-02 23:22] LABS: BUN/Creatinine Ratio 38 (6-26); Blood Urea Nitrogen 13 mg/dL (8-23); Calcium 7.1 mg/dL (8.6-10.3); Carbon Dioxide 24 mEq/L (23-29); Chloride 102 mEq/L (98-107); Glucose 193 mg/dL (70-105); Osmolality,Calculated 279 (280-300); Potassium 3.9 mEq/L (3.5-5.1); Sodium 132 mEq/L (136-145); eGFR For African Americans > 60 (> 60); eGFR For Non-African Americans > 60 (> 60)
[2018-02-03] MEDS: Acetaminophen IV 1,000 MG/100 ML INFUS..BTL IVPB SCH ×4 (02:52→21:08)
[2018-02-03] MEDS: Ondansetron 4 MG/2 ML VIAL IVP SCH ×5 (02:55→21:07)
[2018-02-03] MEDS: *HR* FentaNYL (PF) 100 MCG/2 ML VIAL IVP PRN ×5 (02:56→20:49)
[2018-02-03 03:34] LABS: Basophils % 0.1 %; Hematocrit 31.9 % (35.3-44.9); Immature Granulocytes % 2.5 % (0-4); Lymphocytes # 0.7 K/mcL (0.6-4.6); Lymphocytes % 8.4 %; Mean Corpuscular HGB Conc 33.2 g/dL (31.6-35.5); Mean Corpuscular Hemoglobin 26.8 pg (28.0-33.3); Mean Platelet Volume 10.2 fL (9.4-12.4); Monocytes # 0.6 K/mcL (0.0-1.3); Monocytes % 6.7 %; Platelet Count 149 K/mcL (140-400); Red Blood Count 3.96 M/mcL (3.82-4.97); Segmented Neutrophils % 82.3 %
[2018-02-03 03:38] LABS: VBG Ionized Calcium 1.02 mmol/L (1.15-1.35)
[2018-02-03 03:49] LABS: Hemoglobin 10.6 g/dL (11.5-15.4); Mean Corpuscular Volume 80.6 fL (83.0-100.0)
[2018-02-03 03:52] LABS: BUN/Creatinine Ratio 34 (6-26); Blood Urea Nitrogen 11 mg/dL (8-23); Calcium 7.1 mg/dL (8.6-10.3); Carbon Dioxide 26 mEq/L (23-29); Chloride 101 mEq/L (98-107); Glucose 151 mg/dL (70-105); Osmolality,Calculated 274 (280-300); Phosphorous 2.1 mg/dL (2.7-4.5); Potassium 3.8 mEq/L (3.5-5.1); Sodium 131 mEq/L (136-145); Triglycerides 140 mg/dL (< 150); eGFR For African Americans > 60 (> 60); eGFR For Non-African Americans > 60 (> 60)
[2018-02-03] MEDS: Insulin LISPRO 300 UNITS/3 ML VIAL SQ SCH ×5 (03:52→21:07)
[2018-02-03 04:36] LABS: Magnesium 1.8 mg/dL (1.6-2.6)
[2018-02-03] MEDS: Potassium Chloride 40 MEQ/200 ML BAG IVPB PRN (04:36)
[2018-02-03] MEDS: Potassium Phosphate 44 MEQ in 0.9 % Sodium Chloride 250 ML IVPB PRN (04:46)
[2018-02-03] MEDS: Pantoprazole 40 MG VIAL IVP SCH (05:26)
[2018-02-03] MEDS: *HR* Metoprolol 5 MG/5 ML VIAL IVP SCH ×4 (05:28→17:05)
[2018-02-03] MEDS: *HR* Heparin 5,000 UNIT/ML VIAL SQ SCH ×2 (05:31→17:06)
[2018-02-03] MEDS: Piperacillin/Tazobactam 3.375 GM in 0.9 % Sodium Chloride Mini Bag 100 ML IVPB SCH ×2 (08:27→17:05)
[2018-02-03] MEDS: Levothyroxine Sodium 100 MCG VIAL IVP SCH (08:27)
[2018-02-03] MEDS: Insulin DETEMIR 100 UNIT/ML X5UNITS SQ SCH ×2 (10:04→21:08)
--- NOTE | 2018-02-03 10:18 | General Surgery Progress Note ---
<Al Mckeon - Last Filed: 02/03/18 16:37> Date of Encounter: 02/03/18 Time of Encounter: 10:16 - Assessment and Plan (1) Atrial fibrillation with RVR Current Visit: Yes Status: Acute Continued A. fib with RVR - HR is 90-121 on Cardizem PO No prior history of A. fib TTE in Fe with EF 55%, mild diastolic dysfunction Ideally would be on IV cardizem - ok to trial PO cardizem while NG tube is clamped - if NG unclamped, need to transition back to IV cardizem CHADSVASc = 4 (age, HTN, DM, female) - will need anticoagulation in the future once more stable (2) Rectal cancer Current Visit: Yes Status: Acute POD #4 s/p exploratory celiotomy and takedown of procto-colo anastomosis with colostomy secondary to anastomatic leak POD #7 low anterior resection and appendectomy secondary to recto-sigmoid cancer Pathology stage IIA without lymph node involvement I/O's: +2730 ml yesterday, - 795 ml today. CHATO drain -450ml yesterday and -70 ml today. Gastric -350ml yesterday, clamped today Continue clears as tolerated and TPN until adequate calorie intake - only 1.2 of 2L given due to refeeding - PO4 increased in TPN. Appreciate Dietary assistance NG tube - was clamped, developed some nausea, unclamped briefly with 10ml out - place to suction to check residual - about 200 ml out, will continue with NG tube Continue PPI, pain control, and supportive therapy Continue mcguire, strict I&O's, and electrolyte replacement ATB switched to Zosyn Repeat AM labs Wound consult for osteomy teaching PT/OT consult (3) Anemia Current Visit: Yes Status: Acute Hgb 10.6 this AM after transfusion - 5U total this admission Resolution of anemia will also hopefully help with her A. fib Continue to monitor Qualifiers: Anemia type: other cause Other causes of anemia: acute posthemorrhagic Qualified Code(s): D62 - Acute posthemorrhagic anemia (4) Colostomy in place Current Visit: Yes Status: Acute Wound consult for ostomy teaching (5) Hypophosphatemia Current Visit: Yes Status: Acute Replaced this AM - continue to monitor (6) Essential (primary) hypertension Current Visit: Yes Status: Chronic (7) Diabetes mellitus Current Visit: Yes Status: Chronic Continue Levemir 10 U BID and High dose SS - on 15 U BID at home Blood sugar has been 150-251 - continue to monitor and may need to increase dose in the future Qualifiers: Diabetes mellitus type: type 2 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 She did have a low grad temp to 100.1 this AM. No concerning signs or symptoms. Reports abdominal pain continues to improve. No N/V, chest pain, dyspnea, or dysuria. Objective Vital Signs - Last 8 Hours Temp Pulse Resp BP Pulse Ox 02/03/18 10:08 98.0 F 93 16 106/79 95 02/03/18 07:05 100.1 F H 105 18 129/92 95 02/03/18 04:00 99.7 F H 121 22 133/71 98 02/03/18 03:36 98.4 F Intake and Output 02/02/18 02/03/18 02/03/18 23:59 07:59 15:59 Intake Total 2700 / 2700 450 / 450 Output Total 410 / 410 620 / 620 50 / 50 Balance 2290 / 2290 -170 / -170 -50 / -50 Intake: IV Fluids 1810 / 1810 450 / 450 Clinimix E 5%-15% SOLUTION 2, 1000 / 1000 000 ML @ 70 mls/hr IVC .Q24H [facility] with M.v.i. Adult 10 ml Rx# :[id number] Ofirmev 1,000 mg/100 ml 1,000 200 / 200 100 / 100 mg In 100 ml @ 400 mls/hr IVPB Q6H [facility] Rx#:[id number] Intralipid 20% 250 ML @ 21 mls/ 250 / 250 hr IVPB DAILY@1700 [facility] Rx#: [id number] Flagyl Premix 500 MG/100 ML 500 100 / 100 mg In 100 ml @ 100 mls/hr IVPB Q8HR [facility] Rx#:[id number] Zosyn 3.375 GM In 0.9 % Sodium 100 / 100 Chloride (Mini-Bag +) 100 ML @ 25 mls/hr IVPB Q8HR [facility] Rx#: [id number] Potassium Phosphate 44 MEQ In 0 260 / 260 .9 % Sodium Chloride 250 ML @ 40 mls/hr IVPB Q10H PRN Rx#: [id number] Vancocin 1,250 MG In 0.9 % 250 / 250 Sodium Chloride 250 ML @ 166. 667 mls/hr IVPB Q12H [facility] Rx#: [id number] Oral 240 / 240 Blood Product 650 / 650 Rbcs Leuko Poor As-1 Unit 300 / 300 [id number] Rbcs Leuko Poor As-1 Unit 350 / 350 [id number] Output: Stool 0 / 0 0 / 0 Catheter 350 / 350 550 / 550 Gastric Drainage 0 / 0 0 / 0 Wound Drainage 60 / 60 70 / 70 50 / 50 Right Lower Abdomen 60 / 60 70 / 70 50 / 50 Other: Meal Dinner Weight 66.3 kg Blood Glucose* 203 133 212 Patient Weight 02/03/18 23:59 Weight 66.3 kg - Additional Exam VITAL SIGNS: [facility]. [facility] GENERAL: No apparent distress. HEENT: Normocephalic, PER, EOMI, oropharynx pink/moist, no JVD noted. CV: b/l rad pulses 2+, irregular rhythm, no murmurs or gallops RESPIRATORY: CTAB without wheezes, rales, or rhonchi ABD: soft, non-tender, no rebound/guarding/rigidity, no peritoneal signs INCISION: bandage clean, dry, intact without purulence/bleeding/edema/rubor/ calor DRAINS: CHATO site without signs of infection; bulb contains serosanguinous fluid OSTOMY: Fecal output evident, pink tinged colored. Ostomy pink, moist, with no evidence of pus, or infection EXTREMITY: grossly normal motor function, no pedal edema, peripheral pulses 2+ b /l NEUROLOGIC EXAM: AOx3, obeys commands, no speech deficits. PSYCHIATRIC: normal mood and affect SKIN: no gross lesions, rashes, or skin changes - Labs 02/03/18 03:15 02/03/18 03:15 Diabetes panel 02/02/18 02/03/18 Range/Units 19:45 03:15 Sodium 132 L 131 L (136-145) mEq/L Potassium 3.9 3.8 (3.5-5.1) mEq/L Chloride 102 101 (98-107) mEq/L Carbon Dioxide 24 26 (23-29) mEq/L BUN 13 11 (8-23) mg/dL Creatinine 0.34 L 0.32 L (0.60-1.20) mg/dL Glucose 193 H 151 H (70-105) mg/dL Calcium 7.1 L 7.1 L (8.6-10.3) mg/dL Triglycerides 140 (< 150) mg/dL Calcium panel 02/02/18 02/03/18 Range/Units 19:45 03:15 Calcium 7.1 L 7.1 L (8.6-10.3) mg/dL Phosphorus 2.1 L (2.7-4.5) mg/dL Pituitary panel 02/02/18 02/03/18 Range/Units 19:45 03:15 Sodium 132 L 131 L (136-145) mEq/L Potassium 3.9 3.8 (3.5-5.1) mEq/L Chloride 102 101 (98-107) mEq/L Carbon Dioxide 24 26 (23-29) mEq/L BUN 13 11 (8-23) mg/dL Creatinine 0.34 L 0.32 L (0.60-1.20) mg/dL Glucose 193 H 151 H (70-105) mg/dL Calcium 7.1 L 7.1 L (8.6-10.3) mg/dL Adrenal panel 02/02/18 02/03/18 Range/Units 19:45 03:15 Sodium 132 L 131 L (136-145) mEq/L Potassium 3.9 3.8 (3.5-5.1) mEq/L Chloride 102 101 (98-107) mEq/L Carbon Dioxide 24 26 (23-29) mEq/L BUN 13 11 (8-23) mg/dL Creatinine 0.34 L 0.32 L (0.60-1.20) mg/dL Glucose 193 H 151 H (70-105) mg/dL Calcium 7.1 L 7.1 L (8.6-10.3) mg/dL - Stroke Is the patient on any antithrombotics?: No Are there any contradictions to antithrombotics?: Yes Contraindication Antithromb by Day Two: Not Indicated - Due to Bleeding Disorder or Risk of Bleeding - VTE Documentation of Mechanical Device: Intermittent pneumatic compression device Consult Discharge Plan - Plan Referrals: Kenneth Madrid MD [Partnered Physician] - 02/11/18 11:40 am Ngoc Gil CNP [Advanced Practice Nurse] - 02/13/18 1:30 pm <Kenneth Madrid - Last Filed: 02/04/18 06:46> Date of Encounter: 02/03/18 - Assessment and Plan (1) Rectal cancer Current Visit: Yes Status: Acute (2) Anemia Current Visit: Yes Status: Acute Qualifiers: Anemia type: other cause Other causes of anemia: acute posthemorrhagic Qualified Code(s): D62 - Acute posthemorrhagic anemia Objective Vital Signs - Last 8 Hours Temp Pulse Resp BP Pulse Ox 02/04/18 03:12 99.3 F 145 16 118/86 94 02/04/18 00:04 100.4 F H 156 18 122/92 90 Intake and Output 02/03/18 02/03/18 02/04/18 15:59 23:59 07:59 Intake Total 200 / 200 200 / 200 200 / 200 Output Total 845 / 845 350 / 350 450 / 450 Balance -645 / -645 -150 / -150 -250 / -250 Intake: IV Fluids 200 / 200 200 / 200 200 / 200 Amiodarone Drip Premix 360mg/ 200 / 200 200mL 360 mg In 200 ml @ 1 MG/ MIN 33.333 mls/hr IVC ONCE ONE Rx#:[id number] Ofirmev 1,000 mg/100 ml 1,000 100 / 100 100 / 100 mg In 100 ml @ 400 mls/hr IVPB Q6H [facility] Rx#:[id number] Zosyn 3.375 GM In 0.9 % Sodium 100 / 100 100 / 100 Chloride (Mini-Bag +) 100 ML @ 25 mls/hr IVPB Q8HR [facility] Rx#: [id number] Oral 0 / 0 Output: Urine 575 / 575 0 / 0 Gastric Tube Lavage Amount 250 / 250 0 / 0 Left Nare 250 / 250 0 / 0 Catheter 220 / 220 0 / 0 450 / 450 Urethral (Mcguire) 0 / 0 0 / 0 Wound Drainage 50 / 50 100 / 100 0 / 0 Right Lower Abdomen 50 / 50 100 / 100 0 / 0 Other: Weight 70.6 kg Blood Glucose* 212 227 281 Patient Weight 02/04/18 23:59 Weight 70.6 kg - Labs 02/04/18 06:00 02/04/18 06:00 Diabetes panel 02/04/18 Range/Units 06:00 Sodium 130 L (136-145) mEq/L Potassium 4.3 (3.5-5.1) mEq/L Chloride 99 (98-107) mEq/L Carbon Dioxide 27 (23-29) mEq/L BUN 13 (8-23) mg/dL Creatinine 0.36 L (0.60-1.20) mg/dL Glucose 303 H (70-105) mg/dL Calcium 7.1 L (8.6-10.3) mg/dL Calcium panel 02/04/18 Range/Units 06:00 Calcium 7.1 L (8.6-10.3) mg/dL Phosphorus 2.7 (2.7-4.5) mg/dL Pituitary panel 02/04/18 Range/Units 06:00 Sodium 130 L (136-145) mEq/L Potassium 4.3 (3.5-5.1) mEq/L Chloride 99 (98-107) mEq/L Carbon Dioxide 27 (23-29) mEq/L BUN 13 (8-23) mg/dL Creatinine 0.36 L (0.60-1.20) mg/dL Glucose 303 H (70-105) mg/dL Calcium 7.1 L (8.6-10.3) mg/dL Adrenal panel 02/04/18 Range/Units 06:00 Sodium 130 L (136-145) mEq/L Potassium 4.3 (3.5-5.1) mEq/L Chloride 99 (98-107) mEq/L Carbon Dioxide 27 (23-29) mEq/L BUN 13 (8-23) mg/dL Creatinine 0.36 L (0.60-1.20) mg/dL Glucose 303 H (70-105) mg/dL Calcium 7.1 L (8.6-10.3) mg/dL - Attending Attestation I examined this patient and my medical decision-making was reviewed with the Resident Physician. I agree with the documented findings, disposition and treatment plan as described except to the extent set forth below. I reviewed the above assessment and evaluation agree with the above plan. NG tube has been connected back to suction due to no true ostomy output and still present nausea. Awaiting for return of bowel.. Monitor drainage output. Urine color seems to be clearing up some and will continue to monitor. Continue with strict I's and O's and Mcguire catheterization. Continue with TPN.
[2018-02-03] MEDS ORDERED: D10% in Water 500 ML IVC PRN (11:49)
[2018-02-03] MEDS ORDERED: *HR* Metoprolol 5 MG/5 ML VIAL IVP PRN (14:49)
[2018-02-03] MEDS: Metoclopramide 10 MG/2 ML VIAL IVP SCH ×2 (15:00→20:42)
--- NOTE | 2018-02-03 15:23 | Internal Med Progress Note ---
Date of Encounter: 02/03/18 Time of Encounter: 15:18 - Assessment and plan (1) Atrial fibrillation with RVR Current Visit: Yes Status: Acute Assessment and plan: Doing well now on cardizem drip; has now been tapered down to rate of 5 per nursing staff. Pharmacist recommends switching to PO cardizem as IV cardizem is on shortage. I am agreeable with this since she has responded well to cardizem drip with wean; now with HR high 90s/low 100s while I'm in room. Spoke with Gabriela with surgery, they are planning to clamp NG tube today. If she is tolerating PO medication after this, we will discontinue IV cardizem and start cardizem 30 mg PO Q6H. Electrolytes improved this AM; will defer management to primary. Hgb about the same this AM; primary team transfusing 2 units PRBC. I do think improvement of Hgb would help with Afib. She is on prophylactic heparin; will defer discontinuation to surgery since still anemic. BP improved again today. An ECHO done back in October showed an EF of 55%, mild diastolic dysfunction, with no valvular abnormalities. 02/03: HR still increased 110-140s range. Increase Cardizem PO to 60 mg Q8H and monitor. (2) Rectal cancer Current Visit: Yes Status: Acute Assessment and plan: Status post resection and anastomosis. Patient is on TPN. NG tube is in place. Management per primary team. (3) Diabetes mellitus Current Visit: Yes Status: Chronic Assessment and plan: Continue with insulin sliding scale. Continue with basal insulin 10 units of Levemir twice a day. 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 Hemoglobin 7.1. Repeat CBC in AM. Consider holding prophylactic heparin if dropping. Managemewnt per primary team Qualifiers: Anemia type: other cause Other causes of anemia: acute posthemorrhagic Qualified Code(s): D62 - Acute posthemorrhagic anemia (5) Essential (primary) hypertension Current Visit: Yes Status: Chronic Assessment and plan: Hypotension improved. May continue Cardizem PO for rate control, BP now ranging 113-133/71-91 (6) DVT prophylaxis Current Visit: Yes Status: Acute Assessment and plan: Continue SQ heparin. (7) Hypokalemia Current Visit: Yes Status: Resolved Assessment and plan: Continue electrolyte protocol (8) Hypophosphatemia Current Visit: Yes Status: Acute Assessment and plan: on electrolyte protocol - Time Spent With Patient Total time spent is greater than 50% in coordination of care (as documented) at patient's floor/unit and/or counseling patient: - Subjective Interval history: Patient denies chest pain, SOB, palpitations. She has required NG to be tried on low intermittent suction. HR today has been as high as 140s - Constitutional Vitals: Temp Pulse Resp BP Pulse Ox 98.0 F 143 16 113/91 95 02/03/18 10:08 02/03/18 15:03 02/03/18 10:08 02/03/18 15:03 02/03/18 10:08 General appearance: Present: cooperative, A&O X 3, pleasant, no acute distress, answers questions appropriately Exam: - Respiratory Respiratory exam: Present: CTAB. Absent: accessory muscle use, rales, rhonchi, wheezes - Cardiovascular Cardiovascular exam: Present: tachycardic, +S1, +S2. Absent: diastolic murmur, gallop, rubs, systolic murmur - GI/Abdominal GI/Abdominal exam: Present: hypoactive bowel sounds, soft, tenderness. Absent: distended, hepatomegaly, mass, splenomegaly - Psychiatric Psychiatric exam: Present: normal affect, normal mood. Absent: agitated, anxious, depressed - Skin Skin exam: Present: dry, warm. Absent: cyanosis, erythema, rash NG tube in place. Internal Medicine: Result - Labs CBC & Chem 7: 02/03/18 03:15 02/03/18 03:15 Labs: Short CBC 02/03/18 Range/Units 03:15 WBC 8.5 (4.3-11.1) K/mcL Hgb 10.6 L D (11.5-15.4) g/dL Hct 31.9 L (35.3-44.9) % Plt Count 149 (140-400) K/mcL Neutrophils # 7.0 (1.6-8.9) K/mcL BMP 02/02/18 02/03/18 19:45 03:15 Sodium 132 L 131 L Potassium 3.9 3.8 Chloride 102 101 Carbon Dioxide 24 26 BUN 13 11 Creatinine 0.34 L 0.32 L Glucose 193 H 151 H Calcium 7.1 L 7.1 L - Stroke Is the patient on any antithrombotics?: No Are there any contradictions to antithrombotics?: No Contraindication Antithromb by Day Two: Not Indicated - Due to Bleeding Disorder or Risk of Bleeding (Please disregard these questions. EMR not allowing to skip this section.) Reason for No Antithrombin at DC: Not Indicated - Due to Bleeding Disorder or Risk of Bleeding Reason for No Anticoagulant at DC: Not Indicated - Due to Bleeding Disorder or Risk of Bleeding - VTE Documentation of Mechanical Device: Intermittent pneumatic compression device Consult Discharge Plan - Plan Referrals: Kenneth Madrid MD [Partnered Physician] - 02/11/18 11:40 am Ngoc Gil CNP [Advanced Practice Nurse] - 02/13/18 1:30 pm
--- NOTE | 2018-02-03 16:45 | Electrocardiograph Report ---
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
[2018-02-03] MEDS ORDERED: Clinimix E 5%-15% SOLUTION 2,000 ML with MVI, adult with vitamin K 10 ML, Sodium Phos... IVC SCH (17:00)
[2018-02-03] MEDS: Amiodarone Premix 360 MG/200 ML BAG IVC ONE (20:04)
[2018-02-03] MEDS: *HR* LORazepam 2 MG/ML VIAL IVP PRN (20:42)
[2018-02-04] MEDS: Insulin LISPRO 300 UNITS/3 ML VIAL SQ SCH ×6 (00:11→20:48)
[2018-02-04] MEDS: *HR* Metoprolol 5 MG/5 ML VIAL IVP SCH ×3 (00:12→12:06)
[2018-02-04] MEDS: Ondansetron 4 MG/2 ML VIAL IVP SCH ×6 (00:13→20:33)
[2018-02-04] MEDS: Piperacillin/Tazobactam 3.375 GM in 0.9 % Sodium Chloride Mini Bag 100 ML IVPB SCH ×3 (00:26→15:43)
[2018-02-04] MEDS: *HR* FentaNYL (PF) 100 MCG/2 ML VIAL IVP PRN ×2 (00:27→06:06)
[2018-02-04] MEDS ORDERED: Amiodarone Premix 360 MG/200 ML BAG IVC ONE ×3 (00:35→10:43)
[2018-02-04] MEDS: Amiodarone Premix 360 MG/200 ML BAG IVC ONE ×2 (02:10→10:16)
[2018-02-04] MEDS: *HR* LORazepam 2 MG/ML VIAL IVP PRN ×3 (03:44→20:33)
[2018-02-04] MEDS: Pantoprazole 40 MG VIAL IVP SCH (03:44)
[2018-02-04] MEDS: *HR* Heparin 5,000 UNIT/ML VIAL SQ SCH (03:44)
[2018-02-04] MEDS: Acetaminophen IV 1,000 MG/100 ML INFUS..BTL IVPB SCH ×4 (04:09→20:33)
[2018-02-04 06:12] LABS: Hematocrit 32.4 % (35.3-44.9); Hemoglobin 10.2 g/dL (11.5-15.4); Mean Corpuscular HGB Conc 31.5 g/dL (31.6-35.5); Mean Corpuscular Hemoglobin 25.4 pg (28.0-33.3); Mean Corpuscular Volume 80.6 fL (83.0-100.0); Mean Platelet Volume 10.8 fL (9.4-12.4); Platelet Count 173 K/mcL (140-400); Red Blood Count 4.02 M/mcL (3.82-4.97); Red Cell Distribution Width 16.5 % (11.5-14.5)
[2018-02-04 06:32] LABS: BUN/Creatinine Ratio 36 (6-26); Blood Urea Nitrogen 13 mg/dL (8-23); Calcium 7.1 mg/dL (8.6-10.3); Carbon Dioxide 27 mEq/L (23-29); Chloride 99 mEq/L (98-107); Glucose 303 mg/dL (70-105); Magnesium 2.1 mg/dL (1.6-2.6); Osmolality,Calculated 281 (280-300); Phosphorous 2.7 mg/dL (2.7-4.5); Potassium 4.3 mEq/L (3.5-5.1); Sodium 130 mEq/L (136-145); eGFR For African Americans > 60 (> 60); eGFR For Non-African Americans > 60 (> 60)
[2018-02-04] MEDS ORDERED: Insulin DETEMIR 100 UNIT/ML X5UNITS SQ ONE (08:14)
--- NOTE | 2018-02-04 09:06 | General Surgery Progress Note ---
<Al Mckeon - Last Filed: 02/04/18 09:03> Date of Encounter: 02/04/18 Time of Encounter: 09:03 - Assessment and Plan (1) Atrial fibrillation with RVR Current Visit: Yes Status: Acute Continued A. fib with RVR - switched to Amio last night. Cardio to evaluate today No prior history of A. fib TTE in Oct with EF 55%, mild diastolic dysfunction CHADSVASc = 4 (age, HTN, DM, female) - will need anticoagulation in the future once more stable (2) Rectal cancer Current Visit: Yes Status: Acute POD #5 s/p exploratory celiotomy and takedown of procto-colo anastomosis with colostomy secondary to anastomatic leak POD #8 low anterior resection and appendectomy secondary to recto-sigmoid cancer Pathology stage IIA without lymph node involvement I/O's: -855 ml yesterday, -190 ml today. CHATO drain 220ml yesterday. Gastric 250ml yesterday & 60ml today so far Monitor for return of bowel function - improvement today with flatus and abdominal cramping Continue TPN until adequate calorie intake - PO4 increased in TPN. Appreciate Dietary assistance NG tube currently on suction - final recommendations pending attending evaluation - Reassess diet pending attending evaluation Continue PPI, pain control, and supportive therapy. Continue Reglan Continue mcguire, strict I&O's, and electrolyte replacement Continue Zosyn Repeat AM labs (3) Anemia Current Visit: Yes Status: Acute Hgb stable 10.2 - 5U total this admission Continue to monitor Qualifiers: Anemia type: other cause Other causes of anemia: acute posthemorrhagic Qualified Code(s): D62 - Acute posthemorrhagic anemia (4) Colostomy in place Current Visit: Yes Status: Acute Wound consult for ostomy teaching (5) Hypophosphatemia Current Visit: Yes Status: Acute Monitor and replace as needed (6) Essential (primary) hypertension Current Visit: Yes Status: Chronic (7) Diabetes mellitus Current Visit: Yes Status: Chronic Continue Levemir 10 U BID and High dose SS - on 15 U BID at home Blood sugar has been 150-303 - continue to monitor and may need to increase dose in the future Qualifiers: Diabetes mellitus type: type 2 Diabetes mellitus custodial insulin use: without custodial use Diabetes mellitus complication status: with hyperglycemia Qualified Code(s): E11.65 - Type 2 diabetes mellitus with hyperglycemia (8) Hypothyroidism Current Visit: Yes Status: Chronic Heparin Qualifiers: Hypothyroidism type: unspecified Qualified Code(s): E03.9 - Hypothyroidism , unspecified (9) DVT prophylaxis Current Visit: Yes Status: Acute ICDs Subjective Patient reports: no new complaints Narrative: Patient continues with mild improvement. Today reporting some crampy abdominal pain and flatus. Still on minimal liquid in colostomy bag and no obvious gas present. Reporting some mild nausea. Denies vomiting, chest pain, dyspnea, or dysuria. Low grad fever overnight up to 100.6, but now normal. No new concerning symptoms. Objective Vital Signs - Last 8 Hours Temp Pulse Resp BP Pulse Ox 02/04/18 07:54 99.9 F H 127 18 111/63 94 02/04/18 06:00 101 112/78 02/04/18 05:00 103 139/77 02/04/18 04:00 97 115/72 02/04/18 03:12 99.3 F 145 16 118/86 94 02/04/18 03:00 108 81/64 02/04/18 02:00 95 96/66 Intake and Output 02/03/18 02/04/18 02/04/18 23:59 07:59 15:59 Intake Total 200 / 200 200 / 200 60 / 60 Output Total 350 / 350 450 / 450 Balance -150 / -150 -250 / -250 60 / 60 Intake: IV Fluids 200 / 200 200 / 200 Amiodarone Drip Premix 360mg/ 200 / 200 200mL 360 mg In 200 ml @ 1 MG/ MIN 33.333 mls/hr IVC ONCE ONE Rx#:[id number] Ofirmev 1,000 mg/100 ml 1,000 100 / 100 mg In 100 ml @ 400 mls/hr IVPB Q6H [facility] Rx#:[id number] Zosyn 3.375 GM In 0.9 % Sodium 100 / 100 Chloride (Mini-Bag +) 100 ML @ 25 mls/hr IVPB Q8HR [facility] Rx#: [id number] Oral 0 / 0 60 / 60 Output: Urine 0 / 0 Gastric Tube Lavage Amount 250 / 250 0 / 0 Left Nare 250 / 250 0 / 0 Catheter 0 / 0 450 / 450 Urethral (Mcguire) 0 / 0 0 / 0 Wound Drainage 100 / 100 0 / 0 Right Lower Abdomen 100 / 100 0 / 0 Other: Meal Breakfast Percent of Meal Consumed 20% Weight 70.6 kg Blood Glucose* 227 284 Patient Weight 02/04/18 23:59 Weight 70.6 kg - Additional Exam VITAL SIGNS: Reviewed. See [facility] GENERAL: No apparent distress. HEENT: Normocephalic, PER, EOMI, oropharynx pink/moist, no JVD noted. CV: b/l rad pulses 2+, irregular rhythm, no murmurs or gallops RESPIRATORY: CTAB without wheezes, rales, or rhonchi ABD: soft, non-tender, no rebound/guarding/rigidity, no peritoneal signs. Hypoactive bowel sounds present INCISION: bandage clean, dry, intact without purulence/bleeding/edema/rubor/ calor DRAINS: CHATO site without signs of infection; bulb contains serosanguinous fluid OSTOMY: Minimal liquid present. Ostomy pink, moist, with no evidence of pus, or infection EXTREMITY: grossly normal motor function, no pedal edema, peripheral pulses 2+ b /l NEUROLOGIC EXAM: AOx3, obeys commands, no speech deficits. PSYCHIATRIC: normal mood and affect SKIN: no gross lesions, rashes, or skin changes - Labs 02/04/18 06:00 02/04/18 06:00 Diabetes panel 02/04/18 Range/Units 06:00 Sodium 130 L (136-145) mEq/L Potassium 4.3 (3.5-5.1) mEq/L Chloride 99 (98-107) mEq/L Carbon Dioxide 27 (23-29) mEq/L BUN 13 (8-23) mg/dL Creatinine 0.36 L (0.60-1.20) mg/dL Glucose 303 H (70-105) mg/dL Calcium 7.1 L (8.6-10.3) mg/dL Calcium panel 02/04/18 Range/Units 06:00 Calcium 7.1 L (8.6-10.3) mg/dL Phosphorus 2.7 (2.7-4.5) mg/dL Pituitary panel 02/04/18 Range/Units 06:00 Sodium 130 L (136-145) mEq/L Potassium 4.3 (3.5-5.1) mEq/L Chloride 99 (98-107) mEq/L Carbon Dioxide 27 (23-29) mEq/L BUN 13 (8-23) mg/dL Creatinine 0.36 L (0.60-1.20) mg/dL Glucose 303 H (70-105) mg/dL Calcium 7.1 L (8.6-10.3) mg/dL Adrenal panel 02/04/18 Range/Units 06:00 Sodium 130 L (136-145) mEq/L Potassium 4.3 (3.5-5.1) mEq/L Chloride 99 (98-107) mEq/L Carbon Dioxide 27 (23-29) mEq/L BUN 13 (8-23) mg/dL Creatinine 0.36 L (0.60-1.20) mg/dL Glucose 303 H (70-105) mg/dL Calcium 7.1 L (8.6-10.3) mg/dL - Stroke Is the patient on any antithrombotics?: No Are there any contradictions to antithrombotics?: Yes Contraindication Antithromb by Day Two: Not Indicated - Due to Bleeding Disorder or Risk of Bleeding Reason for No Antithrombin at DC: Not Indicated - Due to Bleeding Disorder or Risk of Bleeding Reason for No Anticoagulant at DC: Not Indicated - Due to Bleeding Disorder or Risk of Bleeding - VTE Documentation of Mechanical Device: Intermittent pneumatic compression device Consult Discharge Plan - Plan Referrals: Kenneth Madrid MD [Partnered Physician] - 02/11/18 11:40 am Ngoc Gil CNP [Advanced Practice Nurse] - 02/13/18 1:30 pm <Kenneth Madrid - Last Filed: 02/05/18 17:43> Date of Encounter: 02/04/18 - Assessment and Plan (1) Rectal cancer Current Visit: Yes Status: Acute (2) Anemia Current Visit: Yes Status: Chronic Qualifiers: Anemia type: other cause Other causes of anemia: acute posthemorrhagic Qualified Code(s): D62 - Acute posthemorrhagic anemia Objective Vital Signs - Last 8 Hours Temp Pulse Resp BP Pulse Ox 02/05/18 16:04 99.0 F 126 20 107/79 97 02/05/18 12:40 99.6 F 105 17 109/62 98 02/05/18 11:17 99.6 F 105 17 109/62 98 Intake and Output 02/05/18 02/05/18 02/05/18 07:59 15:59 23:59 Intake Total 840 / 840 1520 / 1520 100 / 100 Output Total 1450 / 1450 940 / 940 770 / 770 Balance -610 / -610 580 / 580 -670 / -670 Intake: IV Fluids 600 / 600 760 / 760 100 / 100 Amiodarone Drip Premix 360mg/ 200 / 200 200mL 360 mg In 200 ml @ 0.5 MG /MIN 16.667 mls/hr IVC CONT RUTHY Rx#:[id number] Heparin 25,000 UNIT/500 ML D5W 150 / 150 160 / 160 25,000 unit In 500 ml @ 12 UNIT /KG/HR 16.944 mls/hr IVC .Q24H [facility] Rx#:[id number] Ofirmev 1,000 mg/100 ml 1,000 100 / 100 100 / 100 100 / 100 mg In 100 ml @ 400 mls/hr IVPB Q6H [facility] Rx#:[id number] Intralipid 20% 250 ML @ 21 mls/ 250 / 250 hr IVPB DAILY@1700 [facility] Rx#: [id number] Zosyn 3.375 GM In 0.9 % Sodium 100 / 100 100 / 100 Chloride (Mini-Bag +) 100 ML @ 25 mls/hr IVPB Q8HR [facility] Rx#: [id number] Potassium Chloride 20 mEq/100 200 / 200 mL 40 meq In 200 ml @ 100 mls/ hr IVPB Q1H PRN Rx#:[id number] Oral 240 / 240 760 / 760 Output: Stool 100 / 100 200 / 200 Catheter 1450 / 1450 810 / 810 520 / 520 Urethral (Mcguire) 300 / 300 Wound Drainage 30 / 30 50 / 50 Right Lower Abdomen 30 / 30 50 / 50 Other: Meal Lunch Stool Consistency loose loose liquid Stool Characteristics Normal for Patient Stool Color Brown Brown Weight 71.8 kg Blood Glucose* 183 215 214 Patient Weight 02/05/18 23:59 Weight 71.8 kg - Labs 02/05/18 14:00 02/05/18 14:00 Diabetes panel 02/05/18 02/05/18 Range/Units 04:20 14:00 Sodium 133 L (136-145) mEq/L Potassium 3.8 4.5 (3.5-5.1) mEq/L Chloride 97 L (98-107) mEq/L Carbon Dioxide 27 (23-29) mEq/L BUN 12 (8-23) mg/dL Creatinine 0.34 L (0.60-1.20) mg/dL Glucose 334 H (70-105) mg/dL Calcium 6.8 L (8.6-10.3) mg/dL Calcium panel 02/05/18 Range/Units 04:20 Calcium 6.8 L (8.6-10.3) mg/dL Phosphorus 2.7 (2.7-4.5) mg/dL Pituitary panel 02/05/18 02/05/18 Range/Units 04:20 14:00 Sodium 133 L (136-145) mEq/L Potassium 3.8 4.5 (3.5-5.1) mEq/L Chloride 97 L (98-107) mEq/L Carbon Dioxide 27 (23-29) mEq/L BUN 12 (8-23) mg/dL Creatinine 0.34 L (0.60-1.20) mg/dL Glucose 334 H (70-105) mg/dL Calcium 6.8 L (8.6-10.3) mg/dL Adrenal panel 02/05/18 02/05/18 Range/Units 04:20 14:00 Sodium 133 L (136-145) mEq/L Potassium 3.8 4.5 (3.5-5.1) mEq/L Chloride 97 L (98-107) mEq/L Carbon Dioxide 27 (23-29) mEq/L BUN 12 (8-23) mg/dL Creatinine 0.34 L (0.60-1.20) mg/dL Glucose 334 H (70-105) mg/dL Calcium 6.8 L (8.6-10.3) mg/dL - Attending Attestation I examined this patient and my medical decision-making was reviewed with the Resident Physician. I agree with the documented findings, disposition and treatment plan as described except to the extent set forth below. I reviewed the above and agree with the above-mentioned plan.
--- NOTE | 2018-02-04 09:35 | Cardiology Consult Note ---
Date of Encounter: 02/04/18 Time of Encounter: 09:35 Assessment and Plan (1) Atrial fibrillation with RVR Current Visit: Yes Status: Acute - AFib RVR on EKG likely secondary to increased stress as well as anemia following surgery - No prior history of arrythmia or cardiac disease however does have a Hx of DM2 , CVA, HTN - Has been getting metoprolol 5 mg IV RUTHY and 5 mg PRN in addition to amiodarone gtt - Hr most recently 127 on chart - CHADVASC 6 (age, sex, CVA, DM2, HTN), HASBLED 2 - Pt not on AC due to recent surgery Plan - Recommend starting oral BB once able to take medications by surgery - Start Metrpolol Tartarate 25 mg Qday with 5mg IV PRN - Attempt to transition to oral and wean amiodarone gtt as able. - Plan to increase BB as BP tolerates. - Will likely need AC pending approval from surgery standpoint given CHADVASC with Hx of CVA - Also recommend restarting home ASA. (2) History of CVA (cerebrovascular accident) Current Visit: Yes Status: Chronic - Recommend restart home ASA, anticoagulation as above. -Carotid studies in October 26 show minimal non stenotic plaque (3) Anemia Current Visit: Yes Status: Chronic - H/H stable at 10.2/32.4 - S/p 5 units PRBC - Possible etiology of AFib - Further management per surgery and primary team Qualifiers: Anemia type: other cause Other causes of anemia: acute posthemorrhagic Qualified Code(s): D62 - Acute posthemorrhagic anemia (4) Diabetes mellitus Current Visit: Yes Status: Chronic - Uncontrolled - further management per primary Qualifiers: Diabetes mellitus type: type 2 Diabetes mellitus nursing home insulin use: without manager long term care use Diabetes mellitus complication status: with hyperglycemia Qualified Code(s): E11.65 - Type 2 diabetes mellitus with hyperglycemia (5) Essential (primary) hypertension Current Visit: Yes Status: Chronic - Well controlled at 111/63 - Increase BB as tolerated. Discussion w patient/family: The assessment and plan as outlined above was discussed with the patient and/or family members who expressed understanding and agreement. All questions were answered. Thank you for involving us in the care of your patient. Please call with any questions. History of Present Illness Consult date: 02/04/18 Requesting physician: Amita Mars Consult reason: AFib RVR Chief complaint: Rectal cancer History of present illness: Ms. Walter is a 67 year old female with a PMhx of Anemia, HTN, CVA, DM2, Hypothyroidism, and rectal cancer s/p resection. She presented to hospital with a for surgical resection of known rectal cancer. She is POD #4 for low anterior resection and reanastamosis wth appendectomy. Cardiology was consulted during course of recovery for new onset AFib with RVR. Patient reports no previous history of arrythmia but is familiar with AFib as her father had AFib. She also reports no previous cardiac history including CAD, chest pain, CHF, vascular disease (aside from known CVA in thalamus found on MRI on 03/17/17). Patient has had post op complication of anemia requiring transfusion of 5 units PRBCs. Lowest Hgb of 6.9. Patient states she is asymptomatic at this time with no complaints of palpitations, chest pain, SOB, nausea, vomiting, fevers, chills. Previous cardiac workup includes echocardiogram on 10/26/17 showing EF 55% with mild diastolic dysfunction. Carotid US at that time showed minimal plaque. Reports no previous stress test or LHC. Past Med Surg Social Fam HX - Past Medical History Medical history: arthritis, diabetes, hypertension, TIA Additional medical history: Rectal Cancer-chemotherapy. Ocular shingles. PRBC transfusion 2 weeks ago Psychiatric history: anxiety - Past Surgical History Surgical History: other Additional surgical history: D&C, hysterectomy - Social History Smoking Status: Former smoker Smokeless Tobacco Status: No Alcohol use: none Drug use: none - Family History Mother Family Member Ethnicity: Non- Twin of Family Member: Yes, Fraternal Living Status: Hx Family Cardiac Disorders: Yes Hx Family Neurologic Disorders: Yes Medications and Allergies Bisoprolol Fumarate [Zebeta] 10 mg PO DAILY 03/13/17 [History] Levothyroxine Sodium [Levoxyl] 75 mcg PO DAILY 03/13/17 [History] Aspirin [Lo-Dose Aspirin EC] 81 mg PO DAILY 10/25/17 [History] Insulin Glargine,Hum.rec.anlog [Lantus Solostar] 15 unit SQ HS 10/25/17 [History ] Valsartan [Diovan] 80 mg PO DAILY 10/25/17 [History] cloNIDine HCl [CloNIDine HCl] 0.2 mg PO DAILY 10/25/17 [History] clonazePAM [Klonopin] 0.5 - 1 mg PO HS 10/25/17 [History] Citalopram [CeleXA] 20 mg PO DAILY 30 Days #30 tablet 10/27/17 [Rx] traZODone [TraZODone] 50 mg PO HS 11/17/17 [History] amLODIPine [Norvasc] 10 mg PO HS 01/27/18 [History] 3 Allergy/AdvReac Type Severity Reaction Status Date / Time bacitracin Allergy See Verified 01/27/18 07:22 [From Triple Antibiotic] Comments ciprofloxacin AdvReac Mild Gastrointestinal Verified 01/27/18 07:22 Upset codeine AdvReac Nightmare Verified 01/27/18 07:22 Erythromycin Base AdvReac Nausea Verified 01/27/18 07:22 glipizide AdvReac Nausea Verified 01/27/18 07:22 levofloxacin [From Levaquin] AdvReac Nausea Verified 01/27/18 07:22 Neomycin AdvReac See Verified 01/27/18 07:22 [From Triple Antibiotic] Comments polymyxin B AdvReac See Verified 01/27/18 07:22 [From Triple Antibiotic] Comments Sulfa (Sulfonamide AdvReac Nausea Verified 01/27/18 07:22 Antibiotics) All Systems Review: The remainder of the systems were reviewed and are negative - Constitutional Constitutional: no chills, no fatigue, no fever(s) - Cardiovascular Cardiovascular: as per HPI, no chest pain at rest, no chest pain with exertion, no diaphoresis, no dyspnea at rest, no dyspnea on exertion, no irregular heart rhythm, no lightheadedness, no palpitations - Respiratory Respiratory: no cough, no dyspnea, no hemoptysis, no wheezing - Gastrointestinal Gastrointestinal: other (post operative pain) - Neurological Neurological: no abnormal speech, no focal weakness Physical Examination Vital Signs, Last 4 Hours Temp Pulse Resp BP Pulse Ox 02/04/18 07:54 99.9 F H 127 18 111/63 94 02/04/18 06:00 101 112/78 General: Conversant, No Apparent Distress HEENT: Atraumatic, Normocephaly, Mucus Membranes Moist Neck: No JVD, Normal carotid pulses Cardiac: Normal S1 and S2, No Murmur, Other (Irregular rhythm, tachycardic ) Lungs: Normal Breath Sounds, No Wheeze, Rales, Rhonchi, Other Neuro: Alert and responsive, No focal deficits noted Skin: No rashes noted on visualized skin Musculoskeletal: No Chest Wall Tenderness Extremities: No Clubbing, No Cyanosis, No Edema, Normal Pulses Results 02/04/18 06:00 02/04/18 06:00 Lab Results 02/04/18 02/04/18 06:00 06:00 WBC 9.8 Hgb 10.2 L Hct 32.4 L Plt Count 173 Sodium 130 L Potassium 4.3 Chloride 99 Carbon Dioxide 27 BUN 13 Creatinine 0.36 L Glucose 303 H Calcium 7.1 L Magnesium 2.1 Consult Discharge Plan - Plan Referrals: Kenneth Madrid MD [Partnered Physician] - 02/11/18 11:40 am Ngoc Gil CNP [Advanced Practice Nurse] - 02/13/18 1:30 pm
[2018-02-04] MEDS: Levothyroxine Sodium 100 MCG VIAL IVP SCH (09:36)
[2018-02-04] MEDS: Scopolamine Patch 1.5 MG PATCH.TD72 TD SCH (09:36)
[2018-02-04] MEDS: Metoclopramide 10 MG/2 ML VIAL IVP SCH ×4 (09:37→22:16)
[2018-02-04] MEDS: Insulin DETEMIR 100 UNIT/ML X5UNITS SQ SCH ×2 (09:52→20:34)
--- NOTE | 2018-02-04 10:29 | Internal Med Progress Note ---
Date of Encounter: 02/04/18 Time of Encounter: 10:28 - Assessment and plan (1) Atrial fibrillation with RVR Current Visit: Yes Status: Acute Assessment and plan: Doing well now on cardizem drip; has now been tapered down to rate of 5 per nursing staff. Pharmacist recommends switching to PO cardizem as IV cardizem is on shortage. I am agreeable with this since she has responded well to cardizem drip with wean; now with HR high 90s/low 100s while I'm in room. Spoke with Gabriela with surgery, they are planning to clamp NG tube today. If she is tolerating PO medication after this, we will discontinue IV cardizem and start cardizem 30 mg PO Q6H. Electrolytes improved this AM; will defer management to primary. Hgb about the same this AM; primary team transfusing 2 units PRBC. I do think improvement of Hgb would help with Afib. She is on prophylactic heparin; will defer discontinuation to surgery since still anemic. BP improved again today. An ECHO done back in October showed an EF of 55%, mild diastolic dysfunction, with no valvular abnormalities. 02/03: HR still increased 110-140s range. Was started on amiodarone drip and cardiology consulted 02/04: Patient HR fluctuating 90s-120s, for me 110-120s at bedside. Cardiology making final recommendations, will follow-up. NG tube out, and she is bring tried on diet. (2) Diabetes mellitus Current Visit: Yes Status: Chronic Assessment and plan: Insulin overnight was temporarily held but glucose increased as patient is on TPN Will resume Levemir 10 units SQ BID Continue ISS Qualifiers: Diabetes mellitus type: type 2 Diabetes mellitus bus steward insulin use: without bus steward use Diabetes mellitus complication status: with hyperglycemia Qualified Code(s): E11.65 - Type 2 diabetes mellitus with hyperglycemia (3) Anemia Current Visit: Yes Status: Acute Assessment and plan: Acute blood loss anemia postoperatively. Now stable. Management per primary team Qualifiers: Anemia type: other cause Other causes of anemia: acute posthemorrhagic Qualified Code(s): D62 - Acute posthemorrhagic anemia (4) Essential (primary) hypertension Current Visit: Yes Status: Chronic Assessment and plan: Hypotension improved. Withheld Cardizem drip yesterday and went with amiodarone to avoid further hypotensive episodes. Today is normotensive. (5) History of CVA (cerebrovascular accident) Current Visit: Yes Status: Acute - Time Spent With Patient Total time spent is greater than 50% in coordination of care (as documented) at patient's floor/unit and/or counseling patient: - Subjective Interval history: Patient denies chest pain, SOB, palpitations. NG tube out today. Her diet is being advanced. - Constitutional Vitals: Temp Pulse Resp BP Pulse Ox 99.9 F H 127 18 111/63 94 02/04/18 07:54 02/04/18 07:54 02/04/18 07:54 02/04/18 07:54 02/04/18 07:54 General appearance: Present: cooperative, A&O X 3, pleasant, no acute distress, answers questions appropriately - Respiratory Respiratory exam: Present: CTAB. Absent: accessory muscle use, rales, rhonchi, wheezes - Cardiovascular Cardiovascular exam: Present: irregular rhythm, +S1, +S2, tachycardia - GI/Abdominal GI/Abdominal exam: Present: normal bowel sounds, soft, no peritoneal signs. Absent: distended, tenderness - Skin Skin exam: Present: dry, intact Internal Medicine: Result - Labs CBC & Chem 7: 02/04/18 06:00 02/04/18 06:00 Labs: Short CBC 02/04/18 Range/Units 06:00 WBC 9.8 (4.3-11.1) K/mcL Hgb 10.2 L (11.5-15.4) g/dL Hct 32.4 L (35.3-44.9) % Plt Count 173 (140-400) K/mcL BMP 02/04/18 06:00 Sodium 130 L Potassium 4.3 Chloride 99 Carbon Dioxide 27 BUN 13 Creatinine 0.36 L Glucose 303 H Calcium 7.1 L - Stroke Is the patient on any antithrombotics?: No Are there any contradictions to antithrombotics?: Yes Contraindication Antithromb by Day Two: Not Indicated - Due to Bleeding Disorder or Risk of Bleeding Reason for No Antithrombin at DC: Not Indicated - Due to Bleeding Disorder or Risk of Bleeding Reason for No Anticoagulant at DC: Not Indicated - Due to Bleeding Disorder or Risk of Bleeding - VTE Documentation of Mechanical Device: Intermittent pneumatic compression device Consult Discharge Plan - Plan Referrals: Kenneth Madrid MD [Partnered Physician] - 02/11/18 11:40 am Ngoc Gil, REINSTATEMENT CLERK [Advanced Practice Nurse] - 02/13/18 1:30 pm
[2018-02-04] MEDS ORDERED: *HR* Metoprolol 5 MG/5 ML VIAL IVP ONE (11:36)
[2018-02-04] MEDS: Metoprolol XL (24 HR) Succ 25 MG TAB.ER.24H PO SCH (12:02)
[2018-02-04] MEDS ORDERED: *HR* Heparin 5,000 UNIT/ML VIAL IVP PRN (13:09)
[2018-02-04] MEDS ORDERED: *HR* Heparin 5,000 UNIT/ML VIAL IVP ONE (13:09)
--- NOTE | 2018-02-04 13:13 | Event Note ---
Date of Encounter: 02/04/18 Time of Encounter: 13:11 Spoke with surgery team regarding anticoagulation as patient is in AFib with a CHADVASC score of 6. Surgery team is OK for aspirin and/or anticoagulation at this time. We will start a low dose heparin gtt and transition to oral anticoagulation if H/H remains stable. Will continue to monitor with daily labs.
[2018-02-04 14:53] LABS: INR 1.1
[2018-02-04] MEDS: Amiodarone Premix 360 MG/200 ML BAG IVC SCH ×2 (15:45→20:32)
[2018-02-04] MEDS: Heparin 25,000 UNIT/500 ML D5W 25,000 UNIT/500 ML BAG IVC SCH (15:46)
[2018-02-04] MEDS ORDERED: Clinimix E 5%-15% SOLUTION 2,000 ML with MVI, adult with vitamin K 10 ML IVC SCH (17:00)
[2018-02-05] MEDS: Piperacillin/Tazobactam 3.375 GM in 0.9 % Sodium Chloride Mini Bag 100 ML IVPB SCH ×3 (00:45→16:00)
[2018-02-05] MEDS: Ondansetron 4 MG/2 ML VIAL IVP SCH ×6 (00:46→20:38)
[2018-02-05] MEDS: *HR* Heparin 5,000 UNIT/ML VIAL IVP PRN ×2 (00:46→19:05)
[2018-02-05] MEDS: Insulin LISPRO 300 UNITS/3 ML VIAL SQ SCH ×6 (00:51→20:40)
[2018-02-05] MEDS: Acetaminophen IV 1,000 MG/100 ML INFUS..BTL IVPB SCH ×4 (04:17→20:39)
[2018-02-05] MEDS: *HR* LORazepam 2 MG/ML VIAL IVP PRN ×3 (04:36→18:03)
[2018-02-05 04:50] LABS: Hematocrit 28.5 % (35.3-44.9); Hemoglobin 8.9 g/dL (11.5-15.4); Mean Corpuscular HGB Conc 31.2 g/dL (31.6-35.5); Mean Corpuscular Hemoglobin 25.2 pg (28.0-33.3); Mean Corpuscular Volume 80.7 fL (83.0-100.0); Platelet Count 179 K/mcL (140-400); Red Blood Count 3.53 M/mcL (3.82-4.97); Red Cell Distribution Width 16.5 % (11.5-14.5)
[2018-02-05 05:10] LABS: BUN/Creatinine Ratio 35 (6-26); Blood Urea Nitrogen 12 mg/dL (8-23); Calcium 6.8 mg/dL (8.6-10.3); Carbon Dioxide 27 mEq/L (23-29); Chloride 97 mEq/L (98-107); Glucose 334 mg/dL (70-105); Magnesium 2.1 mg/dL (1.6-2.6); Osmolality,Calculated 289 (280-300); Phosphorous 2.7 mg/dL (2.7-4.5); Potassium 3.8 mEq/L (3.5-5.1); Sodium 133 mEq/L (136-145); eGFR For African Americans > 60 (> 60); eGFR For Non-African Americans > 60 (> 60)
[2018-02-05] MEDS: Pantoprazole 40 MG VIAL IVP SCH (06:49)
[2018-02-05] MEDS: Metoclopramide 10 MG/2 ML VIAL IVP SCH ×4 (06:49→20:38)
[2018-02-05] MEDS: Amiodarone Premix 360 MG/200 ML BAG IVC SCH ×2 (08:46→20:39)
[2018-02-05] MEDS: Levothyroxine Sodium 100 MCG VIAL IVP SCH (08:49)
[2018-02-05] MEDS: Potassium Chloride 40 MEQ/200 ML BAG IVPB PRN (08:49)
[2018-02-05] MEDS: Insulin DETEMIR 100 UNIT/ML X5UNITS SQ SCH ×2 (09:08→20:41)
[2018-02-05] MEDS: Metoprolol XL (24 HR) Succ 25 MG TAB.ER.24H PO SCH ×2 (09:09→12:01)
--- NOTE | 2018-02-05 09:21 | Cardiology Progress Note ---
Date of Encounter: 02/05/18 Time of Encounter: 10:35 Assessment and Plan (1) Atrial fibrillation with RVR Current Visit: Yes Status: Acute - AFib RVR on EKG likely secondary to increased stress as well as anemia following surgery - No prior history of arrythmia or cardiac disease however does have a Hx of DM2 , CVA, HTN - Has been getting metoprolol 5 mg IV RUTHY and 5 mg PRN in addition to amiodarone gtt - Hr most recently 127 on chart - CHADVASC 6 (age, sex, CVA, DM2, HTN), HASBLED 2 - Pt not on AC due to recent surgery Plan - Recommend incerasing metoprolol tartarate from 25 to 50 mg Qday - Start Metrpolol 5mg IV PRN - Attempt to transition to oral and wean amiodarone gtt as able. - Plan to increase BB as BP tolerates. - Started on heparin gtt yesterday for thrombus prophylaxis. H/H mildly decreased from 10.2 to 8.9 - Repeat H/H this afternoon to monitor on anticoagulation (2) History of CVA (cerebrovascular accident) Current Visit: Yes Status: Chronic - Recommend anticoagulation as above. -Carotid studies in October 26 show minimal non stenotic plaque (3) Anemia Current Visit: Yes Status: Chronic - H/H stable at 8.9/28.5 - S/p 5 units PRBC - Possible etiology of Recent surgery - Further management per surgery and primary team - Repeat H/H this afternoon Qualifiers: Anemia type: other cause Other causes of anemia: acute posthemorrhagic Qualified Code(s): D62 - Acute posthemorrhagic anemia (4) Diabetes mellitus Current Visit: Yes Status: Chronic - Uncontrolled - further management per primary Qualifiers: Diabetes mellitus type: type 2 Diabetes mellitus moth exterminator insulin use: without moth exterminator use Diabetes mellitus complication status: with hyperglycemia Qualified Code(s): E11.65 - Type 2 diabetes mellitus with hyperglycemia (5) Essential (primary) hypertension Current Visit: Yes Status: Chronic - Well controlled at 110/61 - Increase BB as tolerated. Discussion w patient/family: The assessment and plan as outlined above was discussed with the patient and/or family members who expressed understanding and agreement. All questions were answered. Thank you for involving us in the care of your patient. Please call with any questions. Subjective Principal diagnosis: Rectal cancer, AFib RVR Interval history: Patient was seen and examined this morning at bedside. She states that overall she is doing well with only complaint of back pain secondary to lying in bed all day. She has no complaints of chest pain, SOB, palpitations, lightheadedness. She also thinks she may have heard bowel sounds this morning but no bowel movements. Objective Vital Signs, Last 4 Hours Temp Pulse Resp BP Pulse Ox 02/05/18 07:54 98.6 F 118 19 110/61 98 02/05/18 06:00 95 112/60 General: Conversant, No Apparent Distress HEENT: Atraumatic, Normocephaly, Mucus Membranes Moist Neck: No JVD, Normal carotid pulses Cardiac: Normal S1 and S2, No Murmur, Other (irregular rhythm, tachycardic) Lungs: Normal Breath Sounds, No Wheeze, Rales, Rhonchi Neuro: Alert and responsive, No focal deficits noted Abdomen: Soft, Other (surgical incision clean and dry) Musculoskeletal: No Chest Wall Tenderness Extremities: No Clubbing, No Cyanosis, No Edema, Normal Pulses Results 02/05/18 04:20 02/05/18 04:20 Lab Results 02/04/18 02/04/18 02/05/18 13:54 22:10 04:20 WBC 8.3 Hgb 8.9 L Hct 28.5 L Plt Count 179 INR 1.1 APTT 29.0 43.8 H D Sodium Potassium Chloride Carbon Dioxide BUN Creatinine Glucose Calcium Magnesium 02/05/18 02/05/18 04:20 06:45 WBC Hgb Hct Plt Count INR APTT 33.1 Sodium 133 L Potassium 3.8 Chloride 97 L Carbon Dioxide 27 BUN 12 Creatinine 0.34 L Glucose 334 H Calcium 6.8 L Magnesium 2.1 - Stroke Is the patient on any antithrombotics?: Yes Contraindication Antithromb by Day Two: Not Indicated - Due to Bleeding Disorder or Risk of Bleeding Reason for No Antithrombin at DC: Not Indicated - Due to Bleeding Disorder or Risk of Bleeding Reason for No Anticoagulant at DC: Not Indicated - Due to Bleeding Disorder or Risk of Bleeding - VTE Documentation of Mechanical Device: Intermittent pneumatic compression device Consult Discharge Plan - Plan Referrals: Kenneth Madrid MD [Partnered Physician] - 02/11/18 11:40 am Ngoc Gil CNP [Advanced Practice Nurse] - 02/13/18 1:30 pm
--- NOTE | 2018-02-05 13:32 | General Surgery Progress Note ---
<MannieGabriela Garland - Last Filed: 02/05/18 14:11> Date of Encounter: 02/05/18 Time of Encounter: 10:30 - Assessment and Plan (1) Rectal cancer Current Visit: Yes Status: Acute Date of procedure: 01/27/18 Pre-op diagnosis: Recto-sigmoid cancer Post-op diagnosis: same Procedure: 1. Low anterior resection; 2. Appendectomy Anesthesia: GETA Surgeon: Kenneth Madrid Estimated blood loss 1,000 ml POD#9 as above. Pathology stage IIA without lymph node involvement POD# 6 s/p exploratory celiotomy and takedown of procto-colo anastomosis with colostomy secondary to anastomotic leak She is having output in her colostomy and reports flatus. She states her abdominal discomfort is improving each day. Midline is overall intact with areas with packing. There is a moderate amount of cloudy malodorous drainage ( smells of yeast). Her abdominal fold is noted to be moist and slightly erythematous. Given that her abdominal incision remains open and has packing this limits the ability to use a topical antifungal. For this reason I will go ahead and initiate systemic antifungal (pending ok with cardiology given amiodarone use). Plan: continue supportive care and discomfort management continue TPN until adequate PO/caloric intake. Continue G.I. and DVT prophylaxis continue Mcguire, strict intake and output, and electrolyte replacement as indicated continue CHATO to bulb suction Hgb 8.9, no overt signs of bleeding. s/p 5u PRBCs this admission; will continue to monitor (2) Nausea Current Visit: Yes Status: Acute See a/p above (3) Anemia Current Visit: Yes Status: Chronic See a/p above Will continue to closely monitor. Qualifiers: Anemia type: other cause Other causes of anemia: acute posthemorrhagic Qualified Code(s): D62 - Acute posthemorrhagic anemia (4) Diabetes mellitus Current Visit: Yes Status: Chronic Continue current management Qualifiers: Diabetes mellitus type: type 2 Diabetes mellitus skilled nursing insulin use: without skilled nursing use Diabetes mellitus complication status: with hyperglycemia Qualified Code(s): E11.65 - Type 2 diabetes mellitus with hyperglycemia (5) Atrial fibrillation with RVR Current Visit: Yes Status: Acute Management per cardiology. Will continue to follow Noted recommendation to transition to p.o. BB and wean amiodarone to po when able. (6) Essential (primary) hypertension Current Visit: Yes Status: Chronic Currently controlled. Will continue to monitor. Subjective Patient reports: no new complaints, feels better, still having pain, pain is less, voiding w/o difficulty (per mcguire), flatus, bowel movement, afebrile Objective Vital Signs - Last 8 Hours Temp Pulse Resp BP Pulse Ox 02/05/18 12:40 99.6 F 105 17 109/62 98 02/05/18 11:17 99.6 F 105 17 109/62 98 02/05/18 08:45 98.6 F 118 19 110/61 98 02/05/18 07:54 98.6 F 118 19 110/61 98 02/05/18 06:00 95 112/60 Intake and Output 02/04/18 02/05/18 02/05/18 23:59 07:59 15:59 Intake Total 400 / 400 590 / 590 1220 / 1220 Output Total 950 / 950 1450 / 1450 940 / 940 Balance -550 / -550 -860 / -860 280 / 280 Intake: IV Fluids 200 / 200 350 / 350 460 / 460 Amiodarone Drip Premix 360mg/ 200 / 200 200mL 360 mg In 200 ml @ 0.5 MG /MIN 16.667 mls/hr IVC CONT RUTHY Rx#:[id number] Heparin 25,000 UNIT/500 ML D5W 150 / 150 160 / 160 25,000 unit In 500 ml @ 12 UNIT /KG/HR 16.944 mls/hr IVC .Q24H RUTHY Rx#:[id number] Ofirmev 1,000 mg/100 ml 1,000 100 / 100 100 / 100 100 / 100 mg In 100 ml @ 400 mls/hr IVPB Q6H RUTHY Rx#:[id number] Zosyn 3.375 GM In 0.9 % Sodium 100 / 100 100 / 100 Chloride (Mini-Bag +) 100 ML @ 25 mls/hr IVPB Q8HR RUTHY Rx#: [id number] Oral 200 / 200 240 / 240 760 / 760 Output: Stool 220 / 220 100 / 100 Catheter 710 / 710 1450 / 1450 810 / 810 Urethral (Mcguire) 150 / 150 300 / 300 Wound Drainage 20 / 20 30 / 30 Right Lower Abdomen 20 / 20 30 / 30 Other: Meal Lunch Stool Consistency liquid loose liquid Stool Color Dark Red Blood Brown Weight 71.8 kg Blood Glucose* 239 183 215 Patient Weight 02/05/18 23:59 Weight 71.8 kg VITAL SIGNS: Reviewed. See [facility] GENERAL: In no apparent distress. HEENT: Normocephalic, atraumatic, pupils are equal and reactive, extraocular motions intact, oropharynx is pink and moist, there is no neck adenopathy or JVD noted. CHEST/RESPIRATORY: The thorax is free from signs of trauma. Lung sounds: clear to auscultation, normal respiratory effort CARDIAC: irregularly irregular. VASCULAR: 2+ peripheral pulses. ABDOMEN: soft, tender, active bowel sounds INCISION: Surgical incision is overall intact. There are areas that are open and with packing noted. There are no signs of cellulitis or infection noted; however, there is increased drainage from the surgical site that is thick and cloudy and is malodorous similar to yeast. WOUNDS/DRAINS: her right lower quadrant CHATO is with lymphatic drainage MUSCULOSKELETAL: generalized weakness noted. PT and OT are following. NEUROLOGIC EXAM: Alert and oriented x 3. Speech normal. Follows commands. PSYCHIATRIC: Mood normal. SKIN: No rash or lesions. - Labs 02/05/18 04:20 02/05/18 04:20 Diabetes panel 02/05/18 Range/Units 04:20 Sodium 133 L (136-145) mEq/L Potassium 3.8 (3.5-5.1) mEq/L Chloride 97 L (98-107) mEq/L Carbon Dioxide 27 (23-29) mEq/L BUN 12 (8-23) mg/dL Creatinine 0.34 L (0.60-1.20) mg/dL Glucose 334 H (70-105) mg/dL Calcium 6.8 L (8.6-10.3) mg/dL Calcium panel 02/05/18 Range/Units 04:20 Calcium 6.8 L (8.6-10.3) mg/dL Phosphorus 2.7 (2.7-4.5) mg/dL Pituitary panel 02/05/18 Range/Units 04:20 Sodium 133 L (136-145) mEq/L Potassium 3.8 (3.5-5.1) mEq/L Chloride 97 L (98-107) mEq/L Carbon Dioxide 27 (23-29) mEq/L BUN 12 (8-23) mg/dL Creatinine 0.34 L (0.60-1.20) mg/dL Glucose 334 H (70-105) mg/dL Calcium 6.8 L (8.6-10.3) mg/dL Adrenal panel 02/05/18 Range/Units 04:20 Sodium 133 L (136-145) mEq/L Potassium 3.8 (3.5-5.1) mEq/L Chloride 97 L (98-107) mEq/L Carbon Dioxide 27 (23-29) mEq/L BUN 12 (8-23) mg/dL Creatinine 0.34 L (0.60-1.20) mg/dL Glucose 334 H (70-105) mg/dL Calcium 6.8 L (8.6-10.3) mg/dL - Stroke Is the patient on any antithrombotics?: Yes Consult Discharge Plan - Plan Referrals: Kenneth Madrid MD [Partnered Physician] - 02/11/18 11:40 am Ngoc Gil CNP [Advanced Practice Nurse] - 02/13/18 1:30 pm <Kenneth Madrid - Last Filed: 02/05/18 17:44> Date of Encounter: 02/05/18 - Assessment and Plan (1) Rectal cancer Current Visit: Yes Status: Acute (2) Anemia Current Visit: Yes Status: Chronic Qualifiers: Anemia type: other cause Other causes of anemia: acute posthemorrhagic Qualified Code(s): D62 - Acute posthemorrhagic anemia Objective Vital Signs - Last 8 Hours Temp Pulse Resp BP Pulse Ox 02/05/18 16:04 99.0 F 126 20 107/79 97 02/05/18 12:40 99.6 F 105 17 109/62 98 02/05/18 11:17 99.6 F 105 17 109/62 98 Intake and Output 02/05/18 02/05/18 02/05/18 07:59 15:59 23:59 Intake Total 840 / 840 1520 / 1520 100 / 100 Output Total 1450 / 1450 940 / 940 770 / 770 Balance -610 / -610 580 / 580 -670 / -670 Intake: IV Fluids 600 / 600 760 / 760 100 / 100 Amiodarone Drip Premix 360mg/ 200 / 200 200mL 360 mg In 200 ml @ 0.5 MG /MIN 16.667 mls/hr IVC CONT RUTHY Rx#:[id number] Heparin 25,000 UNIT/500 ML D5W 150 / 150 160 / 160 25,000 unit In 500 ml @ 12 UNIT /KG/HR 16.944 mls/hr IVC .Q24H COUNT INCLUDES THE [facility] Rx#:[id number] Ofirmev 1,000 mg/100 ml 1,000 100 / 100 100 / 100 100 / 100 mg In 100 ml @ 400 mls/hr IVPB Q6H RUTHY Rx#:[id number] Intralipid 20% 250 ML @ 21 mls/ 250 / 250 hr IVPB DAILY@1700 COUNT INCLUDES THE [facility] Rx#: [id number] Zosyn 3.375 GM In 0.9 % Sodium 100 / 100 100 / 100 Chloride (Mini-Bag +) 100 ML @ 25 mls/hr IVPB Q8HR COUNT INCLUDES THE [facility] Rx#: [id number] Potassium Chloride 20 mEq/100 200 / 200 mL 40 meq In 200 ml @ 100 mls/ hr IVPB Q1H PRN Rx#:[id number] Oral 240 / 240 760 / 760 Output: Stool 100 / 100 200 / 200 Catheter 1450 / 1450 810 / 810 520 / 520 Urethral (Mcguire) 300 / 300 Wound Drainage 30 / 30 50 / 50 Right Lower Abdomen 30 / 30 50 / 50 Other: Meal Lunch Stool Consistency loose loose liquid Stool Characteristics Normal for Patient Stool Color Brown Brown Weight 71.8 kg Blood Glucose* 183 215 214 Patient Weight 02/05/18 23:59 Weight 71.8 kg - Labs 02/05/18 14:00 02/05/18 14:00 Diabetes panel 02/05/18 02/05/18 Range/Units 04:20 14:00 Sodium 133 L (136-145) mEq/L Potassium 3.8 4.5 (3.5-5.1) mEq/L Chloride 97 L (98-107) mEq/L Carbon Dioxide 27 (23-29) mEq/L BUN 12 (8-23) mg/dL Creatinine 0.34 L (0.60-1.20) mg/dL Glucose 334 H (70-105) mg/dL Calcium 6.8 L (8.6-10.3) mg/dL Calcium panel 02/05/18 Range/Units 04:20 Calcium 6.8 L (8.6-10.3) mg/dL Phosphorus 2.7 (2.7-4.5) mg/dL Pituitary panel 02/05/18 02/05/18 Range/Units 04:20 14:00 Sodium 133 L (136-145) mEq/L Potassium 3.8 4.5 (3.5-5.1) mEq/L Chloride 97 L (98-107) mEq/L Carbon Dioxide 27 (23-29) mEq/L BUN 12 (8-23) mg/dL Creatinine 0.34 L (0.60-1.20) mg/dL Glucose 334 H (70-105) mg/dL Calcium 6.8 L (8.6-10.3) mg/dL Adrenal panel 02/05/18 02/05/18 Range/Units 04:20 14:00 Sodium 133 L (136-145) mEq/L Potassium 3.8 4.5 (3.5-5.1) mEq/L Chloride 97 L (98-107) mEq/L Carbon Dioxide 27 (23-29) mEq/L BUN 12 (8-23) mg/dL Creatinine 0.34 L (0.60-1.20) mg/dL Glucose 334 H (70-105) mg/dL Calcium 6.8 L (8.6-10.3) mg/dL - Attending Attestation I have personally performed a face to face evaluation on this patient. I have reviewed and agree with the care plan. History and Exam by me shows: I reviewed the above assessment and evaluation agree with the above plan. Currently tolerating clear liquids. Likely to start full liquids tomorrow. If she tolerates that we will start to decrease her TPN by 50%.
[2018-02-05 14:15] LABS: Hematocrit 31.3 % (35.3-44.9); Hemoglobin 9.5 g/dL (11.5-15.4)
[2018-02-05 14:15] LABS: VBG Ionized Calcium 1.04 mmol/L (1.15-1.35)
[2018-02-05 14:37] LABS: Magnesium 2.2 mg/dL (1.6-2.6); Potassium 4.5 mEq/L (3.5-5.1)
[2018-02-05] MEDS ORDERED: Fluconazole 200 MG/100 ML 200 MG/100 ML BAG IVPB SCH (14:45)
[2018-02-05] MEDS ORDERED: *HR* Digoxin 0.5 MG/2 ML AMPUL IVP ONE (15:15)
--- NOTE | 2018-02-05 16:02 | Internal Med Progress Note ---
Date of Encounter: 02/05/18 Time of Encounter: 15:54 - Assessment and plan (1) Diabetes mellitus Current Visit: Yes Status: Chronic Assessment and plan: Insulin overnight was temporarily held but glucose increased as patient is on TPN Continue ISS Increase Levemir to 15 units BID Qualifiers: Diabetes mellitus type: type 2 Diabetes mellitus extermination inspector insulin use: without extermination inspector use Diabetes mellitus complication status: with hyperglycemia Qualified Code(s): E11.65 - Type 2 diabetes mellitus with hyperglycemia (2) Anemia Current Visit: Yes Status: Chronic Assessment and plan: Acute blood loss anemia postoperatively. Now stable. Management per primary team Qualifiers: Anemia type: other cause Other causes of anemia: acute posthemorrhagic Qualified Code(s): D62 - Acute posthemorrhagic anemia (3) Essential (primary) hypertension Current Visit: Yes Status: Chronic Assessment and plan: Hypotension improved. Currently on Toprol XL 50 mg daily (4) Atrial fibrillation with RVR Current Visit: Yes Status: Acute Assessment and plan: Doing well now on cardizem drip; has now been tapered down to rate of 5 per nursing staff. Pharmacist recommends switching to PO cardizem as IV cardizem is on shortage. I am agreeable with this since she has responded well to cardizem drip with wean; now with HR high 90s/low 100s while I'm in room. Spoke with Gabriela with surgery, they are planning to clamp NG tube today. If she is tolerating PO medication after this, we will discontinue IV cardizem and start cardizem 30 mg PO Q6H. Electrolytes improved this AM; will defer management to primary. Hgb about the same this AM; primary team transfusing 2 units PRBC. I do think improvement of Hgb would help with Afib. She is on prophylactic heparin; will defer discontinuation to surgery since still anemic. BP improved again today. An ECHO done back in October showed an EF of 55%, mild diastolic dysfunction, with no valvular abnormalities. 02/03: HR still increased 110-140s range. Was started on amiodarone drip and cardiology consulted 02/04: Patient HR fluctuating 90s-120s, for me 110-120s at bedside. Cardiology making final recommendations, will follow-up. NG tube out, and she is bring tried on diet. 02/05: better controlled HR Cardiology on consult, recommendations appreciated. (5) History of CVA (cerebrovascular accident) Current Visit: Yes Status: Chronic - Time Spent With Patient Total time spent is greater than 50% in coordination of care (as documented) at patient's floor/unit and/or counseling patient: - Subjective Interval history: Patient denies chest pain, SOB, palpitations. - Constitutional Vitals: Temp Pulse Resp BP Pulse Ox 99.6 F 105 17 109/62 98 02/05/18 12:40 02/05/18 12:40 02/05/18 12:40 02/05/18 12:40 02/05/18 12:40 General appearance: Present: cooperative, A&O X 3, pleasant, no acute distress, answers questions appropriately - Head Head exam: Present: atraumatic, normocephalic - Eye Eye exam: Present: PERRL, conjuntiva pink, sclera anicteric Pupils: Present: PERRL Additional comments: Left eyelid with edema that is constant, per patient reports. - Neck Neck exam general surgery: Present: supple, trachea midline. Absent: lymphadenopathy - Respiratory Respiratory exam: Present: CTAB, rales. Absent: accessory muscle use, rhonchi, wheezes - Cardiovascular Cardiovascular exam: Present: RRR, +S1, +S2. Absent: diastolic murmur, gallop, rubs, systolic murmur - GI/Abdominal GI/Abdominal exam: Present: normal bowel sounds, soft, no peritoneal signs. Absent: distended, tenderness - Extremities Exam Extremities exam: Present: warm, radial pulses palpable and symmetrical. Absent : calf tenderness, cyanotic, pedal edema - Neurological Exam Neurological exam: Present: CN II-XII intact, oriented X3, no focal deficits. Absent: pronater drift, facial droop, speech deficit - Skin Skin exam: Present: dry, intact Internal Medicine: Result - Labs CBC & Chem 7: 02/05/18 14:00 02/05/18 14:00 Labs: Short CBC 02/05/18 02/05/18 Range/Units 04:20 14:00 WBC 8.3 (4.3-11.1) K/mcL Hgb 8.9 L 9.5 L (11.5-15.4) g/dL Hct 28.5 L 31.3 L (35.3-44.9) % Plt Count 179 (140-400) K/mcL BMP 02/05/18 02/05/18 04:20 14:00 Sodium 133 L Potassium 3.8 4.5 Chloride 97 L Carbon Dioxide 27 BUN 12 Creatinine 0.34 L Glucose 334 H Calcium 6.8 L - ABG Interpretation ABG results: PT/INR, D-dimer PT 12.0 Seconds (9.4-12.1) 02/04/18 13:54 - Stroke Is the patient on any antithrombotics?: No Are there any contradictions to antithrombotics?: No Contraindication Antithromb by Day Two: Not Indicated - Due to Bleeding Disorder or Risk of Bleeding Reason for No Antithrombin at DC: Not Indicated - Due to Bleeding Disorder or Risk of Bleeding Reason for No Anticoagulant at DC: Not Indicated - Due to Bleeding Disorder or Risk of Bleeding - VTE Documentation of Mechanical Device: Intermittent pneumatic compression device Consult Discharge Plan - Plan Referrals: Kenneth Madrid MD [Partnered Physician] - 02/11/18 11:40 am Ngoc Gil CNP [Advanced Practice Nurse] - 02/13/18 1:30 pm
[2018-02-05] MEDS ORDERED: Clinimix E 5%-15% SOLUTION 2,000 ML with MVI, adult with vitamin K 10 ML IVC SCH (17:00)
[2018-02-05] MEDS: Heparin 25,000 UNIT/500 ML D5W 25,000 UNIT/500 ML BAG IVC SCH (18:15)
[2018-02-05] MEDS: *HR* Digoxin 0.5 MG/2 ML AMPUL IVP SCH (20:39)
[2018-02-05] MEDS ORDERED: *HR* LORazepam 2 MG/ML VIAL IVP ONE (21:38)
[2018-02-06] MEDS: Ondansetron 4 MG/2 ML VIAL IVP SCH ×6 (00:22→19:54)
[2018-02-06] MEDS: Piperacillin/Tazobactam 3.375 GM in 0.9 % Sodium Chloride Mini Bag 100 ML IVPB SCH ×3 (00:22→15:54)
[2018-02-06] MEDS: *HR* Digoxin 0.5 MG/2 ML AMPUL IVP SCH ×2 (00:23→05:00)
[2018-02-06] MEDS: Insulin LISPRO 300 UNITS/3 ML VIAL SQ SCH ×6 (00:29→19:55)
[2018-02-06] MEDS: *HR* Heparin 5,000 UNIT/ML VIAL IVP PRN (02:09)
[2018-02-06] MEDS: Acetaminophen IV 1,000 MG/100 ML INFUS..BTL IVPB SCH ×2 (02:10→09:23)
[2018-02-06] MEDS: Metoclopramide 10 MG/2 ML VIAL IVP SCH ×4 (05:00→21:37)
[2018-02-06] MEDS: Pantoprazole 40 MG VIAL IVP SCH (05:00)
[2018-02-06 05:44] LABS: VBG Ionized Calcium 1.05 mmol/L (1.15-1.35)
[2018-02-06 05:47] LABS: Hematocrit 28.1 % (35.3-44.9); Hemoglobin 8.2 g/dL (11.5-15.4); Mean Corpuscular HGB Conc 29.2 g/dL (31.6-35.5); Mean Corpuscular Hemoglobin 25.1 pg (28.0-33.3); Mean Corpuscular Volume 85.9 fL (83.0-100.0); Mean Platelet Volume 11.1 fL (9.4-12.4); Platelet Count 241 K/mcL (140-400); Red Blood Count 3.27 M/mcL (3.82-4.97); Red Cell Distribution Width 16.9 % (11.5-14.5)
[2018-02-06 06:33] LABS: BUN/Creatinine Ratio 23 (6-26); Blood Urea Nitrogen 10 mg/dL (8-23); Carbon Dioxide 26 mEq/L (23-29); Chloride 98 mEq/L (98-107); Glucose 824 mg/dL (70-105); Magnesium 2.4 mg/dL (1.6-2.6); Osmolality,Calculated 309 (280-300); Phosphorous 5.9 mg/dL (2.7-4.5); Potassium 5.5 mEq/L (3.5-5.1); Sodium 130 mEq/L (136-145); eGFR For African Americans > 60 (> 60); eGFR For Non-African Americans > 60 (> 60)
[2018-02-06 07:19] LABS: BUN/Creatinine Ratio 29 (6-26); Blood Urea Nitrogen 10 mg/dL (8-23); Calcium 7.2 mg/dL (8.6-10.3); Carbon Dioxide 28 mEq/L (23-29); Chloride 104 mEq/L (98-107); Glucose 142 mg/dL (70-105); Osmolality,Calculated 283 (280-300); Potassium 3.8 mEq/L (3.5-5.1); Sodium 136 mEq/L (136-145); eGFR For African Americans > 60 (> 60); eGFR For Non-African Americans > 60 (> 60)
[2018-02-06] MEDS: Metoprolol XL (24 HR) Succ 25 MG TAB.ER.24H PO SCH (09:19)
[2018-02-06] MEDS: Amiodarone Premix 360 MG/200 ML BAG IVC SCH (09:20)
[2018-02-06] MEDS: Levothyroxine Sodium 100 MCG VIAL IVP SCH (09:20)
[2018-02-06] MEDS: Fluconazole 100 MG/50 ML 100 MG/50 ML BAG IVPB SCH (09:21)
[2018-02-06] MEDS: Insulin DETEMIR 100 UNIT/ML X5UNITS SQ SCH ×2 (09:23→21:37)
[2018-02-06] MEDS: Potassium Chloride 40 MEQ/200 ML BAG IVPB PRN ×2 (09:26→11:09)
--- NOTE | 2018-02-06 09:53 | General Surgery Progress Note ---
<Al Mckeon R - Last Filed: 02/06/18 14:53> Date of Encounter: 02/06/18 Time of Encounter: 08:45 - Assessment and Plan (1) Rectal cancer Current Visit: Yes Status: Acute POD #7 s/p exploratory celiotomy and takedown of procto-colo anastomosis with colostomy secondary to anastomatic leak POD #10 low anterior resection and appendectomy secondary to recto-sigmoid cancer Pathology stage IIA without lymph node involvement + output in colostomy and + flatus Drainage on bandage, but incision is intact with no erythema or purulence Wean off of TPN as PO intake is improving - Appreciate Dietary assistance Tolerating full liquid diet - increase as tolerated Continue PPI, pain control, and supportive therapy. Continue Reglan Increased dressing changes to BID Discontinue mcguire. Continue to monitor I&O's and electrolyte replacement Continue Zosyn Repeat AM labs Encourage ambulation and up to chair (2) Atrial fibrillation with RVR Current Visit: Yes Status: Acute as per cardiology. Increasing Toprol XL. Starting on Eliquis. Continuing on digoxin PO. Amio stopped (3) Anemia Current Visit: Yes Status: Chronic Hgb stable - 5U total this admission Continue to monitor Qualifiers: Anemia type: other cause Other causes of anemia: other cause, not classified Qualified Code(s): D64.89 - Other specified anemias (4) Diabetes mellitus Current Visit: Yes Status: Chronic Continue Levemir 10 U BID and High dose SS Qualifiers: Diabetes mellitus type: type 2 Diabetes mellitus intermediate frame tender insulin use: without penitentiary use Diabetes mellitus complication status: with hyperglycemia Qualified Code(s): E11.65 - Type 2 diabetes mellitus with hyperglycemia (5) Essential (primary) hypertension Current Visit: Yes Status: Chronic Subjective Patient reports: no new complaints, feels better, still having pain, pain is less, tolerating liquids well, flatus, bowel movement, afebrile Narrative: Patient states her pain continues to slowly improve. Feeling flatus and BM now. Tolerating liquids well. Reports she had some difficulty with digoxin last evening and would not like to take it. Objective Vital Signs - Last 8 Hours Temp Pulse Resp BP Pulse Ox 02/06/18 07:45 99.5 F 105 19 120/56 95 02/06/18 06:00 84 114/64 02/06/18 05:00 99 104/72 02/06/18 04:30 92 02/06/18 03:43 120 16 100/60 94 02/06/18 03:00 93 100/60 02/06/18 02:00 121 Intake and Output 02/05/18 02/06/18 02/06/18 23:59 07:59 15:59 Intake Total 1290 / 1290 750 / 750 360 / 360 Output Total 1530 / 1530 1750 / 1750 Balance -240 / -240 -1000 / -1000 360 / 360 Intake: IV Fluids 1050 / 1050 750 / 750 Amiodarone Drip Premix 360mg/ 200 / 200 200mL 360 mg In 200 ml @ 0.5 MG /MIN 16.667 mls/hr IVC CONT RUTHY Rx#:[id number] Heparin 25,000 UNIT/500 ML D5W 190 / 190 240 / 240 25,000 unit In 500 ml @ 12 UNIT /KG/HR 16.944 mls/hr IVC .Q24H RUTHY Rx#:[id number] Ofirmev 1,000 mg/100 ml 1,000 200 / 200 100 / 100 mg In 100 ml @ 400 mls/hr IVPB Q6H RUTHY Rx#:[id number] Diflucan Premix 200 MG/100 ML 100 / 100 200 mg In 100 ml @ 100 mls/hr IVPB DAILY RUTHY Rx#:[id number] Magnesium Sulfate Premix 2gm/ 50 / 50 50mL 2 gm In 50 ml @ 50 mls/hr IVPB Q6H PRN Rx#:[id number] Zosyn 3.375 GM In 0.9 % Sodium 100 / 100 100 / 100 Chloride (Mini-Bag +) 100 ML @ 25 mls/hr IVPB Q8HR RUTHY Rx#: [id number] Potassium Phosphate 44 MEQ In 0 260 / 260 .9 % Sodium Chloride 250 ML @ 40 mls/hr IVPB Q10H PRN Rx#: [id number] Sodium Phosphate 30 MMOL In 0.9 260 / 260 % Sodium Chloride 250 ML @ 42 mls/hr IVPB Q12H PRN Rx#: [id number] Oral 240 / 240 360 / 360 Output: Stool 450 / 450 Catheter 1020 / 1020 1750 / 1750 Urethral (Mcguire) 700 / 700 Wound Drainage 60 / 60 Right Lower Abdomen 60 / 60 Other: Meal Dinner Breakfast Percent of Meal Consumed 80% 100% Stool Size Moderate Stool Consistency liquid Stool Characteristics Normal for Patient Stool Color Brown Weight 71.3 kg Blood Glucose* 189 136 Patient Weight 02/06/18 23:59 Weight 71.3 kg - General physical appearance well developed, well nourished, no distress - Eyes normal ocular movement - Respiratory normal expansion, normal respiratory effort, clear to auscultation - Cardiovascular Cardiovascular exam: Present: irregular rhythm, no murmurs/rubs/gallops - Abdomen Abdomen: Present: bowel sounds present, soft, tender (appropriately tender) Additional Comments: Drains: Right CHATO drain with lymphatic drainage - Incision Incision: Present: intact, serous (drainage noted on bandage). Absent: swollen , inflamed, erythema, purulent - Integumentary no rash, no growths, no abnormal pigmentation - Neurologic CN 2-12 grossly intact, normal coordination - Psychiatric oriented to time, oriented to person, oriented to place, speech is normal, memory intact - Labs 02/06/18 05:20 02/06/18 06:40 Diabetes panel 02/05/18 02/06/18 02/06/18 Range/Units 14:00 05:20 06:40 Sodium 130 L 136 (136-145) mEq/L Potassium 4.5 5.5 H 3.8 D (3.5-5.1) mEq/L Chloride 98 104 (98-107) mEq/L Carbon Dioxide 26 28 (23-29) mEq/L BUN 10 10 (8-23) mg/dL Creatinine 0.43 L 0.35 L (0.60-1.20) mg/dL Glucose 824 H* 142 H (70-105) mg/dL Calcium 7.0 L 7.2 L (8.6-10.3) mg/dL Calcium panel 02/06/18 02/06/18 Range/Units 05:20 06:40 Calcium 7.0 L 7.2 L (8.6-10.3) mg/dL Phosphorus 5.9 H (2.7-4.5) mg/dL Pituitary panel 02/05/18 02/06/18 02/06/18 Range/Units 14:00 05:20 06:40 Sodium 130 L 136 (136-145) mEq/L Potassium 4.5 5.5 H 3.8 D (3.5-5.1) mEq/L Chloride 98 104 (98-107) mEq/L Carbon Dioxide 26 28 (23-29) mEq/L BUN 10 10 (8-23) mg/dL Creatinine 0.43 L 0.35 L (0.60-1.20) mg/dL Glucose 824 H* 142 H (70-105) mg/dL Calcium 7.0 L 7.2 L (8.6-10.3) mg/dL Adrenal panel 02/05/18 02/06/18 02/06/18 Range/Units 14:00 05:20 06:40 Sodium 130 L 136 (136-145) mEq/L Potassium 4.5 5.5 H 3.8 D (3.5-5.1) mEq/L Chloride 98 104 (98-107) mEq/L Carbon Dioxide 26 28 (23-29) mEq/L BUN 10 10 (8-23) mg/dL Creatinine 0.43 L 0.35 L (0.60-1.20) mg/dL Glucose 824 H* 142 H (70-105) mg/dL Calcium 7.0 L 7.2 L (8.6-10.3) mg/dL - Stroke Is the patient on any antithrombotics?: No Are there any contradictions to antithrombotics?: Yes Contraindication Antithromb by Day Two: Not Indicated - Due to Bleeding Disorder or Risk of Bleeding Reason for No Antithrombin at DC: Not Indicated - Due to Bleeding Disorder or Risk of Bleeding Reason for No Anticoagulant at DC: Not Indicated - Due to Bleeding Disorder or Risk of Bleeding - VTE Documentation of Mechanical Device: Intermittent pneumatic compression device Consult Discharge Plan - Plan Referrals: Kenneth Madrid MD [Partnered Physician] - 02/11/18 11:40 am Ngoc Gil CNP [Advanced Practice Nurse] - 02/13/18 1:30 pm <Kenneth Madrid - Last Filed: 02/06/18 17:01> Date of Encounter: 02/06/18 - Assessment and Plan (1) Rectal cancer Current Visit: Yes Status: Acute (2) Anemia Current Visit: Yes Status: Chronic Qualifiers: Anemia type: other cause Other causes of anemia: other cause, not classified Qualified Code(s): D64.89 - Other specified anemias Objective Vital Signs - Last 8 Hours Temp Pulse Resp BP Pulse Ox 02/06/18 16:15 100.1 F H 109 19 130/64 98 02/06/18 11:00 83 02/06/18 10:37 98.6 F 86 20 135/73 100 02/06/18 09:30 102 Intake and Output 02/06/18 02/06/18 02/06/18 07:59 15:59 23:59 Intake Total 1000 / 1000 3054 / 3054 Output Total 1750 / 1750 361 / 361 Balance -750 / -750 2693 / 2693 Intake: IV Fluids 1000 / 1000 2454 / 2454 Amiodarone Drip Premix 360mg/ 233 / 233 200mL 360 mg In 200 ml @ 0.5 MG /MIN 16.667 mls/hr IVC CONT R[facility]Y Rx#:[id number] Heparin 25,000 UNIT/500 ML D5W 240 / 240 355 / 355 25,000 unit In 500 ml @ 12 UNIT /KG/HR 16.944 mls/hr IVC .Q24H RUTHY Rx#:[id number] Clinimix E 5%-15% SOLUTION 2, 1216 / 1216 000 ML @ 70 mls/hr IVC .Q24H R[facility]Y with M.v.i. Adult 10 ml Rx# :[id number] Ofirmev 1,000 mg/100 ml 1,000 100 / 100 100 / 100 mg In 100 ml @ 400 mls/hr IVPB Q6H R[facility] Rx#:[id number] Calcium Gluconate 1,000 MG In 0 100 / 100 .9 % Sodium Chloride 100 ML @ 220 mls/hr IVPB Q6HR PRN Rx#: [id number] Intralipid 20% 250 ML @ 21 mls/ 250 / 250 hr IVPB DAILY@1700 RUTH[facility] Rx#: [id number] Diflucan 100 MG/50 ML 100 mg In 50 / 50 50 ml @ 50 mls/hr IVPB DAILY R[facility] Rx#:[id number] Magnesium Sulfate Premix 2gm/ 50 / 50 50mL 2 gm In 50 ml @ 50 mls/hr IVPB Q6H PRN Rx#:[id number] Zosyn 3.375 GM In 0.9 % Sodium 100 / 100 100 / 100 Chloride (Mini-Bag +) 100 ML @ 25 mls/hr IVPB Q8HR R[facility] Rx#: [id number] Potassium Chloride 20 mEq/100 300 / 300 mL 40 meq In 200 ml @ 100 mls/ hr IVPB Q1H PRN Rx#:[id number] Potassium Phosphate 44 MEQ In 0 260 / 260 .9 % Sodium Chloride 250 ML @ 40 mls/hr IVPB Q10H PRN Rx#: [id number] Oral 600 / 600 Output: Stool 350 / 350 Catheter 1750 / 1750 Urethral (Mcguire) 700 / 700 Wound Drainage Right Lower Abdomen Other: Meal Lunch Percent of Meal Consumed 100% Stool Consistency liquid Stool Color Brown Weight 71.3 kg Blood Glucose* 136 147 159 Patient Weight 02/06/18 23:59 Weight 71.3 kg - Labs 02/06/18 05:20 02/06/18 06:40 Diabetes panel 02/06/18 02/06/18 Range/Units 05:20 06:40 Sodium 130 L 136 (136-145) mEq/L Potassium 5.5 H 3.8 D (3.5-5.1) mEq/L Chloride 98 104 (98-107) mEq/L Carbon Dioxide 26 28 (23-29) mEq/L BUN 10 10 (8-23) mg/dL Creatinine 0.43 L 0.35 L (0.60-1.20) mg/dL Glucose 824 H* 142 H (70-105) mg/dL Calcium 7.0 L 7.2 L (8.6-10.3) mg/dL Calcium panel 02/06/18 02/06/18 Range/Units 05:20 06:40 Calcium 7.0 L 7.2 L (8.6-10.3) mg/dL Phosphorus 5.9 H (2.7-4.5) mg/dL Pituitary panel 02/06/18 02/06/18 Range/Units 05:20 06:40 Sodium 130 L 136 (136-145) mEq/L Potassium 5.5 H 3.8 D (3.5-5.1) mEq/L Chloride 98 104 (98-107) mEq/L Carbon Dioxide 26 28 (23-29) mEq/L BUN 10 10 (8-23) mg/dL Creatinine 0.43 L 0.35 L (0.60-1.20) mg/dL Glucose 824 H* 142 H (70-105) mg/dL Calcium 7.0 L 7.2 L (8.6-10.3) mg/dL Adrenal panel 02/06/18 02/06/18 Range/Units 05:20 06:40 Sodium 130 L 136 (136-145) mEq/L Potassium 5.5 H 3.8 D (3.5-5.1) mEq/L Chloride 98 104 (98-107) mEq/L Carbon Dioxide 26 28 (23-29) mEq/L BUN 10 10 (8-23) mg/dL Creatinine 0.43 L 0.35 L (0.60-1.20) mg/dL Glucose 824 H* 142 H (70-105) mg/dL Calcium 7.0 L 7.2 L (8.6-10.3) mg/dL - Attending Attestation I examined this patient and my medical decision-making was reviewed with the Resident Physician. I agree with the documented findings, disposition and treatment plan as described except to the extent set forth below. I reviewed the above assessment and evaluation and agree with the above plan. Will advance to soft foods. Continue with packing of the wound and consideration for wound VAC if progression appears to plateau in terms of healing. Overall patient is improving
[2018-02-06] MEDS: *HR* LORazepam 2 MG/ML VIAL IVP PRN ×2 (10:51→17:53)
--- NOTE | 2018-02-06 11:04 | Cardiology Progress Note ---
<Ty Boucher - Last Filed: 02/06/18 14:36> Date of Encounter: 02/06/18 Time of Encounter: 09:00 Assessment and Plan (1) Atrial fibrillation with RVR Current Visit: Yes Status: Acute - AFib RVR on EKG likely secondary to increased stress as well as anemia following surgery - No prior history of arrythmia or cardiac disease however does have a Hx of DM2 , CVA, HTN - Has been getting metoprolol 5 mg IV RUTHY and 5 mg PRN in addition to amiodarone gtt - Hr most recently 100 on chart - CHADVASC 6 (age, sex, CVA, DM2, HTN), HASBLED 2 - Pt not on AC due to recent surgery Plan - Recommend continuing metoprolol succinate 50 mg Qday - Digoxin loaded yesterday, continue PO tomorrow AM - Amio gtt stopped - Started on heparin gtt yesterday for thrombus prophylaxis. H/H mildly decreased from 9.5 to 8.2 - Repeat H/H to monitor on anticoagulation - We did have a discussion with pt about digoxin and her symptoms may be due to loading dose vs alternative etiology. She has not had symptoms with other doses.She is agreeable to continue current regimen. (2) History of CVA (cerebrovascular accident) Current Visit: Yes Status: Chronic - Recommend anticoagulation as above. -Carotid studies in October 26 show minimal non stenotic plaque (3) Anemia Current Visit: Yes Status: Chronic - H/H stable at 8.2/28.1 - S/p 5 units PRBC following surgery - Possible etiology of Recent surgery - Further management per surgery and primary team - Continue AC due to high stroke risk Qualifiers: Anemia type: other cause Other causes of anemia: other cause, not classified Qualified Code(s): D64.89 - Other specified anemias (4) Diabetes mellitus Current Visit: Yes Status: Chronic - Uncontrolled - further management per primary Qualifiers: Diabetes mellitus type: type 2 Diabetes mellitus extermination supervisor insulin use: without prison use Diabetes mellitus complication status: with hyperglycemia Qualified Code(s): E11.65 - Type 2 diabetes mellitus with hyperglycemia (5) Essential (primary) hypertension Current Visit: Yes Status: Chronic - Well controlled at 120/56 - Increase BB as tolerated. Discussion w patient/family: The assessment and plan as outlined above was discussed with the patient and/or family members who expressed understanding and agreement. All questions were answered. Thank you for involving us in the care of your patient. Please call with any questions. Subjective Principal diagnosis: Rectal cancer, AFib RVR Interval history: Patient was seen and examined this morning at bedside. She states that overall she is feeling better but did have an episode last night which she believes was attributed to the addition of digoxin. She states she became nauseous, felt palpitations, which has resided since. She did not have a reaction to the other doses that she has received. Is having flatus and bowel movements. Objective Vital Signs, Last 4 Hours Temp Pulse Resp BP Pulse Ox 02/06/18 10:37 98.6 F 86 20 135/73 100 02/06/18 09:30 102 02/06/18 07:45 99.5 F 105 19 120/56 95 General: Conversant, No Apparent Distress HEENT: Atraumatic, Normocephaly, Mucus Membranes Moist Neck: No JVD, Normal carotid pulses Cardiac: Normal S1 and S2, No Murmur, Other (irregular rhythm, mildly tachycardic) Lungs: Normal Breath Sounds, No Wheeze, Rales, Rhonchi Neuro: Alert and responsive, No focal deficits noted Abdomen: Soft, Other (BS+) Skin: No rashes noted on visualized skin Musculoskeletal: No Chest Wall Tenderness Extremities: No Clubbing, No Cyanosis, No Edema Results 02/06/18 05:20 02/06/18 06:40 Lab Results 02/05/18 02/05/18 02/05/18 14:00 14:00 14:00 WBC Hgb 9.5 L Hct 31.3 L Plt Count APTT 50.1 H D Sodium Potassium 4.5 Chloride Carbon Dioxide BUN Creatinine Glucose Calcium Magnesium 2.2 02/05/18 02/06/18 02/06/18 18:15 00:30 05:20 WBC 7.3 Hgb 8.2 L Hct 28.1 L Plt Count 241 APTT 37.0 H 50.1 H Sodium Potassium Chloride Carbon Dioxide BUN Creatinine Glucose Calcium Magnesium 02/06/18 02/06/18 02/06/18 05:20 06:40 08:15 WBC Hgb Hct Plt Count APTT 37.7 H Sodium 130 L 136 Potassium 5.5 H 3.8 D Chloride 98 104 Carbon Dioxide 26 28 BUN 10 10 Creatinine 0.43 L 0.35 L Glucose 824 H* 142 H Calcium 7.0 L 7.2 L Magnesium 2.4 - Stroke Is the patient on any antithrombotics?: Yes Contraindication Antithromb by Day Two: Not Indicated - Due to Bleeding Disorder or Risk of Bleeding Reason for No Antithrombin at DC: Not Indicated - Due to Bleeding Disorder or Risk of Bleeding Reason for No Anticoagulant at DC: Not Indicated - Due to Bleeding Disorder or Risk of Bleeding - VTE Documentation of Mechanical Device: Intermittent pneumatic compression device Consult Discharge Plan - Plan Instructions: Colostomy Care (DC), Ricardo-Wallace Drain Care (DC), Anemia (DC), Negative Pressure Wound Therapy (DC) Additional Instructions: Wound Vac: Maintain wound vac to 125 mmHg. Black foam dressing to midline incision changes Friday/Friday/Friday (next due 02/11/2018). CHATO: Maintain CHATO bulb to suction. Cover CHATO site with split gauze daily. Do not let the CHATO dangle from the body. If you are up, suspend the CHATO to a lanyard or safety pin to your clothing. You may shower daily however the CHATO must be suspended as previously described. Record your output daily on the form provided and bring this with you to your appointment with Dr. Madrid. Venofer: Infuse 200 mg Venofer, IV daily for 3 days (02/11,, & ). May d /c PICC line after last Venofer infusion. General Surgical Discharge Instructions 1. No pushing, pulling, or lifting greater than 15 lbs for 6 weeks (or until cleared by your surgeon). 2. You may shower beginning today, but no tub baths, soaking, or swimming. Do not shower immediately after wound vac changes. 3. You may resume driving when you are off narcotics and are safe to react in a car. 4. Take ibuprofen every 8 hours for discomfort. If this does not relieve discomfort, you may take the as needed Percocet. Take narcotics only as directed. Do not take more narcotics then directed and do not share your narcotics with any other person. Do not drink alcohol while on narcotics. 5. Take stool softeners (Colace) or a water based laxative (Miralax) while taking narcotics. You may hold for loose stools. 6. Report any fevers greater than 100.5F, increase abdominal discomfort, drainage that looks like pus, increased redness or pain at the surgical site, or any vomiting. 7. Report any pain in the calves, shortness of breath, or rapid heartbeat. 8. Follow-up in the office as directed. 9. If you were prescribed antibiotics, do not stop them without talking to your provider. Referrals: Bashir Hodges MD [Partnered Physician] - (2 weeks. Per cardiology office, Jazlyn, will call you to schedule appoinment.) Kenneth Madrid MD [Partnered Physician] - 02/18/18 9:00 am Ngoc Gli CNP [Advanced Practice Nurse] - 02/13/18 1:30 pm Prescriptions: OxyCODONE/APAP 5/325 [Percocet 5/325 MG] 1 each PO Q4HR PRN 7 Days #28 tablet PRN Reason: moderate pain Amoxicillin/Clavulanate [Augmentin] 875 mg PO BIDWM #20 tablet Apixaban [Eliquis] 5 mg PO BID #60 tablet Digoxin [Lanoxin] 0.125 mg PO DAILY #30 tablet Fluconazole [Diflucan] 100 mg PO DAILY #7 tablet Iron SUCROSE Complex [Venofer] 200 mg IV DAILY 3 Days #3 each Metoclopramide [Reglan] 10 mg PO BID #16 [id number] Metoprolol Succinate [Toprol Xl] 50 mg PO DAILY #30 tab.er.24h Metoprolol XL (24 HR) Succ [Toprol XL] 25 mg PO DAILY #30 tab.er.24h Omeprazole [PriLOSEC] 40 mg PO DAILY@0730 #30 capsule. <Chaim James J - Last Filed: 02/10/18 12:42> Date of Encounter: 02/06/18 Time of Encounter: 15:00 Assessment and Plan Discussion w patient/family: The assessment and plan as outlined above was discussed with the patient and/or family members who expressed understanding and agreement. All questions were answered. Thank you for involving us in the care of your patient. Please call with any questions. Objective Vital Signs, Last 4 Hours Temp Pulse Resp BP Pulse Ox 02/10/18 10:52 98.7 F 83 20 134/80 99 Results 02/10/18 03:20 02/09/18 04:30 Lab Results 02/10/18 03:20 WBC 6.4 Hgb 10.4 L D Hct 33.3 L Plt Count 306 - Attending Attestation I examined this patient and my medical decision-making was reviewed with the Resident Physician. I agree with the documented findings, disposition and treatment plan as described except to the extent set forth below. CC: Nausea, palpitations Pt reports heart was racing and pounding last pm following several of her medications, not sure which medication was associated with the event, although believes it may have been the IV dig, She did not have any symptoms following subsequent doses of dig. ROS: Reviewed PMH: Reviewed PE: Pt seen and examined, up in chair, agree with findings as documented. IMP:Plan 1. A fib with RVR: Ventrticular response rate better controlled, will DC IV amiodarone, continue po metoprolol, continue dig, PO rather than IV, monitor for symptoms with po intake, long conversation with pt and her family, understand nausea may not have been directly related to IV dig, and may have different symptoms with po dosing, are willing to try po dig as appears to be helping control heart rate response.
[2018-02-06] MEDS: Heparin 25,000 UNIT/500 ML D5W 25,000 UNIT/500 ML BAG IVC SCH (11:17)
[2018-02-06] MEDS ORDERED: Metoprolol XL (24 HR) Succ 25 MG TAB.ER.24H PO ONE (13:15)
--- NOTE | 2018-02-06 13:15 | Event Note ---
Date of Encounter: 02/06/18 Time of Encounter: 13:15 - Cardiology Event Note Current heart rates A. fib in the 100s. Systolic blood pressure stable in the 120s to 130s. Will increase Toprol XL to 75 mg by mouth daily. Patient being started on Eliquis with first dose now and will discontinue IV heparin drip. Will check CBC in a.m. We will discontinue IV Lopressor when necessary to effectively monitor for rate control.
[2018-02-06] MEDS: Apixaban 5 MG TABLET PO SCH ×2 (15:54→21:37)
[2018-02-06] MEDS: Acetaminophen 325 MG TABLET PO PRN (15:54)
--- NOTE | 2018-02-06 16:19 | Internal Med Progress Note ---
Date of Encounter: 02/06/18 Time of Encounter: 16:15 - Assessment and plan (1) Diabetes mellitus Current Visit: Yes Status: Chronic Assessment and plan: Insulin overnight was temporarily held but glucose increased as patient is on TPN Continue ISS Levemir was increased to 15 units BID Currently in acceptable limits. Diet is being advanced today per primary Will adjust insulin accordingly Qualifiers: Diabetes mellitus type: type 2 Diabetes mellitus prison insulin use: without keno terminal operator use Diabetes mellitus complication status: with hyperglycemia Qualified Code(s): E11.65 - Type 2 diabetes mellitus with hyperglycemia (2) Anemia Current Visit: Yes Status: Chronic Assessment and plan: Acute blood loss anemia postoperatively. Now stable. Management per primary team Qualifiers: Anemia type: other cause Other causes of anemia: other cause, not classified Qualified Code(s): D64.89 - Other specified anemias (3) Essential (primary) hypertension Current Visit: Yes Status: Chronic Assessment and plan: Hypotension improved. Currently on Toprol XL 50 mg daily (4) Atrial fibrillation with RVR Current Visit: Yes Status: Acute Assessment and plan: Doing well now on cardizem drip; has now been tapered down to rate of 5 per nursing staff. Pharmacist recommends switching to PO cardizem as IV cardizem is on shortage. I am agreeable with this since she has responded well to cardizem drip with wean; now with HR high 90s/low 100s while I'm in room. Spoke with Gabriela with surgery, they are planning to clamp NG tube today. If she is tolerating PO medication after this, we will discontinue IV cardizem and start cardizem 30 mg PO Q6H. Electrolytes improved this AM; will defer management to primary. Hgb about the same this AM; primary team transfusing 2 units PRBC. I do think improvement of Hgb would help with Afib. She is on prophylactic heparin; will defer discontinuation to surgery since still anemic. BP improved again today. An ECHO done back in October showed an EF of 55%, mild diastolic dysfunction, with no valvular abnormalities. - Cardiology following, recommendations appreciated. - On Digoxin, Toprol XL. Lopressor IV prn. - Continue Eliquis - Patient did have questions on anticoagulation. We had extensive discussion of risks and benefits of anticoagulation. She opts to continue Eliquis. Her questions have been addressed as of now, and agrees to ask if any further questions come up. (5) History of CVA (cerebrovascular accident) Current Visit: Yes Status: Chronic (6) Colostomy in place Current Visit: Yes Status: Acute (7) Rectal cancer Current Visit: Yes Status: Acute (8) Hypothyroidism Current Visit: Yes Status: Chronic Qualifiers: Hypothyroidism type: unspecified Qualified Code(s): E03.9 - Hypothyroidism , unspecified (9) Hypokalemia Current Visit: Yes Status: Resolved - Time Spent With Patient Total time spent is greater than 50% in coordination of care (as documented) at patient's floor/unit and/or counseling patient: - Subjective Interval history: Patient denies chest pain, SOB, palpitations. She admits to weakness but is working with PT/OT - Constitutional Vitals: Temp Pulse Resp BP Pulse Ox 98.6 F 83 20 135/73 100 02/06/18 10:37 02/06/18 11:00 02/06/18 10:37 02/06/18 10:37 02/06/18 10:37 General appearance: Present: cooperative, A&O X 3, pleasant, no acute distress, answers questions appropriately Exam: - Head Head exam: Present: atraumatic, normocephalic - Eye Eye exam: Present: PERRL, conjuntiva pink, sclera anicteric Pupils: Present: PERRL Additional comments: Left eyelid with edema that is constant, per patient reports. - Neck Neck exam general surgery: Present: supple, trachea midline. Absent: lymphadenopathy - Respiratory Respiratory exam: Present: CTAB, rales. Absent: accessory muscle use, rhonchi, wheezes - Cardiovascular Cardiovascular exam: Present: RRR, +S1, +S2. Absent: diastolic murmur, gallop, rubs, systolic murmur - GI/Abdominal GI/Abdominal exam: Present: normal bowel sounds, soft, no peritoneal signs. Absent: distended, tenderness - Extremities Exam Extremities exam: Present: warm, radial pulses palpable and symmetrical. Absent : calf tenderness, cyanotic, pedal edema - Neurological Exam Neurological exam: Present: CN II-XII intact, oriented X3, no focal deficits. Absent: pronater drift, facial droop, speech deficit - Skin Skin exam: Present: dry, intact Internal Medicine: Result - Labs CBC & Chem 7: 02/06/18 05:20 02/06/18 06:40 Labs: Short CBC 02/06/18 Range/Units 05:20 WBC 7.3 (4.3-11.1) K/mcL Hgb 8.2 L (11.5-15.4) g/dL Hct 28.1 L (35.3-44.9) % Plt Count 241 (140-400) K/mcL BMP 02/06/18 02/06/18 05:20 06:40 Sodium 130 L 136 Potassium 5.5 H 3.8 D Chloride 98 104 Carbon Dioxide 26 28 BUN 10 10 Creatinine 0.43 L 0.35 L Glucose 824 H* 142 H Calcium 7.0 L 7.2 L - ABG Interpretation ABG results: PT/INR, D-dimer PT 12.0 Seconds (9.4-12.1) 02/04/18 13:54 - Stroke Is the patient on any antithrombotics?: No Are there any contradictions to antithrombotics?: No Contraindication Antithromb by Day Two: Not Indicated - Due to Bleeding Disorder or Risk of Bleeding Reason for No Antithrombin at DC: Not Indicated - Due to Bleeding Disorder or Risk of Bleeding Reason for No Anticoagulant at DC: Not Indicated - Due to Bleeding Disorder or Risk of Bleeding - VTE Documentation of Mechanical Device: Intermittent pneumatic compression device Consult Discharge Plan - Plan Referrals: Kenneth Madrid MD [Partnered Physician] - 02/11/18 11:40 am Ngoc Gil CNP [Advanced Practice Nurse] - 02/13/18 1:30 pm
[2018-02-06] MEDS: Magic Mouthwash 10 ML UD Cup PO PRN (17:53)
--- NOTE | 2018-02-06 18:12 | Electrocardiograph Report ---
[place] [id number] Test Date: 2018-02-06 Pat Name: Yris Walter Department: 110 Room: 08 Gender: F English Instructor: KIRIT : 1950 Requested By: Ty Boucher Order Number: [id number] Reading MD: Bashir Hodges Measurements Intervals [place] Rate: 81 P: AL: 0 QRS: -15 QRSD: 88 T: 69 QT: 350 QTc: 387 Interpretive Statements ATRIAL FIBRILLATION MINIMAL VOLTAGE CRITERIA FOR LVH, CONSIDER NORMAL VARIANT Poor R wave progression Electronically Signed On 02-06-2018 18:10:43 EDT by Bashir Hodges
[2018-02-06 20:08] LABS: VBG Ionized Calcium 1.07 mmol/L (1.15-1.35)
[2018-02-06] MEDS ORDERED: Apixaban 5 MG TABLET PO SCH (21:00)
[2018-02-07] MEDS: *HR* LORazepam 2 MG/ML VIAL IVP PRN ×3 (00:16→19:35)
[2018-02-07] MEDS: Acetaminophen 325 MG TABLET PO PRN ×2 (00:16→06:45)
[2018-02-07] MEDS: Piperacillin/Tazobactam 3.375 GM in 0.9 % Sodium Chloride Mini Bag 100 ML IVPB SCH ×3 (00:16→16:09)
[2018-02-07] MEDS: Ondansetron 4 MG/2 ML VIAL IVP SCH ×6 (00:17→20:03)
[2018-02-07] MEDS: Insulin LISPRO 300 UNITS/3 ML VIAL SQ SCH ×6 (00:18→19:37)
[2018-02-07 04:15] LABS: VBG Ionized Calcium 1.09 mmol/L (1.15-1.35)
[2018-02-07 04:19] LABS: Hematocrit 29.8 % (35.3-44.9); Hemoglobin 9.1 g/dL (11.5-15.4); Mean Corpuscular HGB Conc 30.5 g/dL (31.6-35.5); Mean Corpuscular Hemoglobin 25.2 pg (28.0-33.3); Mean Corpuscular Volume 82.5 fL (83.0-100.0); Mean Platelet Volume 10.4 fL (9.4-12.4); Platelet Count 316 K/mcL (140-400); Red Blood Count 3.61 M/mcL (3.82-4.97); Red Cell Distribution Width 16.6 % (11.5-14.5)
[2018-02-07 04:40] LABS: BUN/Creatinine Ratio 22 (6-26); Blood Urea Nitrogen 8 mg/dL (8-23); Calcium 7.7 mg/dL (8.6-10.3); Carbon Dioxide 29 mEq/L (23-29); Chloride 104 mEq/L (98-107); Glucose 76 mg/dL (70-105); Magnesium 2.2 mg/dL (1.6-2.6); Osmolality,Calculated 279 (280-300); Phosphorous 2.5 mg/dL (2.7-4.5); Potassium 4.4 mEq/L (3.5-5.1); Sodium 136 mEq/L (136-145); eGFR For African Americans > 60 (> 60); eGFR For Non-African Americans > 60 (> 60)
[2018-02-07] MEDS: Pantoprazole 40 MG VIAL IVP SCH (05:40)
[2018-02-07] MEDS: Levothyroxine Sodium 100 MCG VIAL IVP SCH (08:25)
[2018-02-07] MEDS: Metoclopramide 10 MG/2 ML VIAL IVP SCH ×2 (08:25→11:46)
[2018-02-07] MEDS: Apixaban 5 MG TABLET PO SCH ×2 (08:27→19:57)
[2018-02-07] MEDS: *HR* Digoxin 0.125 MG TABLET PO SCH (08:27)
[2018-02-07] MEDS: Fluconazole 100 MG/50 ML 100 MG/50 ML BAG IVPB SCH (08:36)
[2018-02-07] MEDS: Insulin DETEMIR 100 UNIT/ML X5UNITS SQ SCH ×2 (08:37→20:47)
--- NOTE | 2018-02-07 08:46 | Cardiology Progress Note ---
Date of Encounter: 02/07/18 Time of Encounter: 08:30 Assessment and Plan (1) Atrial fibrillation with RVR Current Visit: Yes Status: Acute Per Cardiology: AFib RVR on EKG likely secondary to increased stress as well as anemia following surgery. No prior history of arrythmia or cardiac disease however does have a Hx of DM2, CVA, HTN. Remains A. fib with average heart rate the past 12 hours 100. Systolic blood pressures 110s to 140s. Off amiodarone drip. Received IV digoxin load. Now on digoxin 0.125 mg by mouth daily, Toprol -XL 75 mg by mouth daily. We will increase Toprol to to 100 mg by mouth daily and recommend continue to titrate as needed and as BP will tolerate. Regarding long-term anticoagulation, now taking Eliquis 5mg PO BID. CBC stable. Kidney function stable. Denies any bleeding or blood loss. Discussion w patient/family: The assessment and plan as outlined above was discussed with the patient who expressed understanding and agreement. All questions were answered. Thank you for involving us in the care of your patient. Please call with any questions. Subjective Principal diagnosis: Rectal cancer, AFib RVR Interval history: Patient denies any concerns over night other than reports awakened for low oxygen levels by nurse. She denies any chest pain, shortness of breath, palpitations. Denies any active bleeding or blood loss Objective Vital Signs, Last 4 Hours Temp Pulse Resp BP Pulse Ox 02/07/18 08:22 104 18 96 02/07/18 07:24 99.1 F 103 20 117/69 96 General: Conversant, No Apparent Distress HEENT: Atraumatic, Normocephaly, Mucus Membranes Moist Cardiac: No Murmur, Other (Irregularly irregular) Lungs: Normal Breath Sounds, No Wheeze, Rales, Rhonchi Neuro: Alert and responsive, No focal deficits noted Extremities: No Edema Results 02/07/18 04:00 02/07/18 04:00 Lab Results Laboratory Tests 02/07/18 02/07/18 04:00 04:00 Hgb 9.1 L Hct 29.8 L Creatinine 0.36 L Est GFR (Non-Af Amer) > 60 Magnesium 2.2 ITS Impressions Abdomen X-Ray 01/29/18 09:06 IMPRESSION: 1. The nasogastric tube proximal side port is at or just below the GE junction. Further advancement is recommended. 2. Small amount of postsurgical pneumoperitoneum. 3. Nonobstructive bowel gas pattern. Results verbally communicated to the patient's nurse, Lucille Pichardo, at 9:56 a.m. on 01/29/2018 by the [facility]. D/ / 01/29/2018 10:35:12 Ty Wilson MD / Dorene Vaz Interpreting Provider: Ty Wilson MD X-Ray 01/29/18 10:40 IMPRESSION: Enteric tube has been advanced. The tip projects over the left lower quadrant and may still be within the gastric body. The proximal side port appears to be projected over the stomach. D/ / 01/29/2018 11:54:00 Mary Landers MD / Dorene Vaz Interpreting Provider: Mary Landers MD Intake & Output 02/04/18 02/05/18 02/06/18 02/07/18 23:59 23:59 23:59 23:59 Intake Total 1320 / 1320 3760 / 3760 4614 / 4614 100 / 100 Output Total 2009 3920 / 3920 3821 / 3821 2500 / 2500 Balance -690 / -690 -160 / -160 793 / 793 -2400 / -2400 Weight 70.6 kg 71.8 kg 71.3 kg Active Medications Acetaminophen (Tylenol) 650 mg PO Q6HR PRN PRN Reason: Mild Pain Stop: 08/08/18 15:18 Last Admin: 02/07/18 06:45 Dose: 650 mg Albuterol Sulfate (Proventil Neb) 2.5 mg IH ONCE PRN; Protocol PRN Reason: Shortness Of Breath/Wheezing Stop: 08/01/18 17:36 Apixaban (Eliquis) 5 mg PO BID [facility] Stop: 08/08/18 13:16 Last Admin: 02/07/18 08:27 Dose: 5 mg Citalopram Hydrobromide (Celexa) 20 mg PO DAILY RUTHY Stop: 08/09/18 09:01 Clonazepam (Klonopin) 0.5 mg PO HS RUTHY Stop: 08/09/18 21:01 Dextrose/Water (Dextrose 50% (Syg)) 25 ml IVP AD PRN PRN Reason: Hypoglycemia Stop: 07/29/18 20:37 Digoxin (Lanoxin) 0.125 mg PO DAILY RUTHY Stop: 08/09/18 09:01 Last Admin: 02/07/18 08:27 Dose: 0.125 mg Diphenhydramine HCl (Benadryl) 12.5 mg IVP ONCE PRN PRN Reason: if itching occurs Glucagon (Glucagen) 1 mg IM ONCE PRN PRN Reason: Hypoglycemia Stop: 07/29/18 20:37 Glucose (Gluctose) 15 gm PO ONCE PRN PRN Reason: Hypoglycemia Stop: 07/29/18 20:37 Glucose (Gluctose) 30 gm PO ONCE PRN PRN Reason: Hypoglycemia Stop: 07/29/18 20:37 Dextrose (Dextrose 10% Water 500 Ml Ivbag) 500 mls @ 50 mls/hr IVC .Q10H PRN PRN Reason: TPN delayed or interrupted Stop: 08/01/18 13:23 Dextrose (Dextrose 5%) 1,000 mls @ 100 mls/hr IVC .Q10H PRN PRN Reason: HYPOGLYCEMIA Stop: 07/29/18 20:37 Calcium Gluconate 1,000 mg/ (Sodium Chloride) 110 mls @ 220 mls/hr IVPB Q6HR PRN PRN Reason: Hypocalcemia Stop: 08/02/18 19:39 Last Admin: 02/07/18 06:46 Dose: 220 mls/hr Magnesium Sulfate (Magnesium Sulfate Premix 2gm/50ml) 2 gm in 50 mls @ 50 mls/ hr IVPB Q6H PRN PRN Reason: Hypomagnesemia Stop: 08/02/18 19:39 Last Infusion: 02/06/18 05:48 Dose: Infused Potassium Chloride (Potassium Chloride 10 Meq/100ml) 10 meq in 100 mls @ 100 mls/hr IVPB Q1H PRN PRN Reason: Potassium less than 4 Stop: 08/02/18 19:39 Potassium Chloride (Potassium Chloride 20 Meq/100 Ml) 40 meq in 200 mls @ 100 mls/hr IVPB Q1H PRN PRN Reason: Potassium less than 4 Stop: 08/02/18 19:39 Last Infusion: 02/06/18 13:10 Dose: Infused Potassium Phosphate 44 meq/ (Sodium Chloride) 260 mls @ 40 mls/hr IVPB Q10H PRN PRN Reason: Phosphate less than 3 Stop: 08/02/18 19:39 Last Infusion: 02/06/18 05:48 Dose: Infused Sodium Phosphate 30 mmol/ (Sodium Chloride) 260 mls @ 42 mls/hr IVPB Q12H PRN PRN Reason: Hypophosphatemia Stop: 08/02/18 19:39 Last Infusion: 02/05/18 18:50 Dose: Infused Piperacillin Sod/Tazobactam (Sod 3.375 gm/ Sodium Chloride) 100 mls @ 25 mls/ hr IVPB Q8HR [facility] Stop: 08/05/18 00:01 Last Admin: 02/07/18 08:26 Dose: 25 mls/hr Dextrose (Dextrose 10% Water 500 Ml Ivbag) 500 mls @ 50 mls/hr IVC .Q10H PRN PRN Reason: TPN delayed or interrupted Stop: 08/05/18 11:50 Fluconazole (Diflucan 100 Mg/50 Ml) 100 mg in 50 mls @ 50 mls/hr IVPB DAILY [facility] Stop: 02/10/18 09:01 Last Infusion: 02/06/18 11:55 Dose: Infused Insulin Detemir (Levemir) 15 unit SQ BID [facility] Stop: 08/07/18 21:01 Last Admin: 02/06/18 21:37 Dose: 15 unit Insulin Human Lispro (Humalog) 0 units SQ Q4HR [facility]Y PRN Reason: Protocol Stop: 08/01/18 23:33 Last Admin: 02/07/18 08:00 Dose: Not Given Levothyroxine Sodium (Synthroid) 37 mcg IVP DAILY [facility] Stop: 08/01/18 11:46 Last Admin: 02/07/18 08:25 Dose: 37 mcg Lidocaine HCl (Lidoderm 5% Patch) 1 each TP DAILY [facility] Stop: 07/31/18 10:46 Last Admin: 02/07/18 08:26 Dose: 1 each Lorazepam (Ativan) 0.5 mg IVP Q6HR PRN PRN Reason: Anxiety Stop: 07/29/18 13:11 Last Admin: 02/07/18 00:16 Dose: 0.5 mg Metoclopramide HCl (Reglan) 10 mg IVP QIDAC [facility] Stop: 08/05/18 16:31 Last Admin: 02/07/18 08:25 Dose: 10 mg Metoprolol Succinate (Toprol Xl) 75 mg PO DAILY [facility] Stop: 08/09/18 09:01 Last Admin: 02/07/18 08:27 Dose: 75 mg Multi-Ingredient Mouthwash/Gargle (Magic Mouthwash) 10 ml PO TID PRN PRN Reason: mouth pain Stop: 08/08/18 15:46 Last Admin: 02/06/18 17:53 Dose: 10 ml Naloxone HCl (Narcan) 0.4 mg IVP Q2MIN PRN PRN Reason: Opioid Reversal Stop: 07/29/18 13:11 Ondansetron HCl (Zofran) 4 mg IVP Q4HR [facility] Stop: 07/31/18 12:01 Last Admin: 02/07/18 05:40 Dose: 4 mg Pantoprazole Sodium (Protonix) 40 mg IVP 0630 [facility] Stop: 08/02/18 06:31 Last Admin: 02/07/18 05:40 Dose: 40 mg - EKG Interpretation EKG results cardiology: other (Telemetry reviewed with average heart rate the past 12 hours 100, atrial fibrillation) - Stroke Is the patient on any antithrombotics?: Yes Contraindication Antithromb by Day Two: Not Indicated - Due to Bleeding Disorder or Risk of Bleeding Reason for No Antithrombin at DC: Not Indicated - Due to Bleeding Disorder or Risk of Bleeding Reason for No Anticoagulant at DC: Not Indicated - Due to Bleeding Disorder or Risk of Bleeding - VTE Documentation of Mechanical Device: Intermittent pneumatic compression device Consult Discharge Plan - Plan Referrals: Kenneth Madrid MD [Partnered Physician] - 02/11/18 11:40 am Ngoc Gil CNP [Advanced Practice Nurse] - 02/13/18 1:30 pm
[2018-02-07] MEDS ORDERED: Metoprolol XL (24 HR) Succ 25 MG TAB.ER.24H PO ONE (08:48)
[2018-02-07] MEDS ORDERED: Metoprolol XL (24 HR) Succ 25 MG TAB.ER.24H PO SCH (09:00)
--- NOTE | 2018-02-07 11:15 | General Surgery Progress Note ---
<MikeAl R - Last Filed: 02/07/18 13:58> Date of Encounter: 02/07/18 Time of Encounter: 08:00 - Assessment and Plan (1) Rectal cancer Current Visit: Yes Status: Acute POD #8 s/p exploratory celiotomy and takedown of procto-colo anastomosis with colostomy secondary to anastomatic leak POD #11 low anterior resection and appendectomy secondary to recto-sigmoid cancer Pathology stage IIA without lymph node involvement + output in colostomy and + flatus PLAN: Tolerating regular diet Continue PPI, pain control, and supportive therapy Decrease Reglan to BID Continue dressing changes BID Monitor I&O's and electrolyte replacement Continue Zosyn Repeat AM labs Encourage ambulation and up to chair (2) Anemia Current Visit: Yes Status: Chronic Hgb stable - 5U total this admission Continue to monitor Qualifiers: Anemia type: other cause Other causes of anemia: other cause, not classified Qualified Code(s): D64.89 - Other specified anemias (3) Atrial fibrillation with RVR Current Visit: Yes Status: Acute as per cardiology. Increasing Toprol XL. Continue Eliquis and Digoxin (4) Diabetes mellitus Current Visit: Yes Status: Chronic Continue current regiment Qualifiers: Diabetes mellitus type: type 2 Diabetes mellitus retirement insulin use: without retirement use Diabetes mellitus complication status: with hyperglycemia Qualified Code(s): E11.65 - Type 2 diabetes mellitus with hyperglycemia Subjective Patient reports: no new complaints, feels better, still having pain, pain is less, tolerating a regular diet (soft diet), flatus, bowel movement Narrative: Continue to improve. Feeling much better this AM. Objective Vital Signs - Last 8 Hours Temp Pulse Resp BP Pulse Ox 02/07/18 09:09 103 02/07/18 08:22 104 18 96 02/07/18 07:24 99.1 F 103 20 117/69 96 02/07/18 03:41 98.8 F 98 20 137/66 97 Intake and Output 02/06/18 02/07/18 02/07/18 23:59 07:59 15:59 Intake Total 560 / 560 100 / 100 360 / 360 Output Total 1710 / 1710 2500 / 2500 Balance -1150 / -1150 -2400 / -2400 360 / 360 Intake: IV Fluids 320 / 320 100 / 100 Clinimix E 5%-15% SOLUTION 2, 110 / 110 000 ML @ 70 mls/hr IVC .Q24H RUTHY with M.v.i. Adult 10 ml Rx# :[id number] Calcium Gluconate 1,000 MG In 0 110 / 110 .9 % Sodium Chloride 100 ML @ 220 mls/hr IVPB Q6HR PRN Rx#: [id number] Zosyn 3.375 GM In 0.9 % Sodium 100 / 100 100 / 100 Chloride (Mini-Bag +) 100 ML @ 25 mls/hr IVPB Q8HR [facility] Rx#: [id number] Oral 240 / 240 360 / 360 Output: Urine 2400 / 2400 Stool 250 / 250 100 / 100 Catheter 1450 / 1450 Wound Drainage Right Lower Abdomen Other: Meal Dinner Breakfast Percent of Meal Consumed 85% 95% Blood Glucose* 121 73 - General physical appearance well developed, well nourished, no distress - Eyes normal ocular movement - Respiratory normal respiratory effort, clear to auscultation - Cardiovascular Cardiovascular exam: Present: irregular rhythm, no murmurs/rubs/gallops - Abdomen Abdomen: Present: bowel sounds present, soft, tender (appropriately tender) Additional Comments: Right CHATO drain with lymphatic drainage - Incision Incision: Present: clean and dry, intact. Absent: swollen, erythema, purulent - Integumentary no rash, no growths, no abnormal pigmentation - Neurologic CN 2-12 grossly intact, normal coordination - Psychiatric oriented to time, oriented to person, oriented to place, speech is normal, memory intact - Labs 02/07/18 04:00 02/07/18 04:00 Diabetes panel 02/06/18 02/07/18 Range/Units 17:30 04:00 Sodium 136 (136-145) mEq/L Potassium 4.2 4.4 (3.5-5.1) mEq/L Chloride 104 (98-107) mEq/L Carbon Dioxide 29 (23-29) mEq/L BUN 8 (8-23) mg/dL Creatinine 0.36 L (0.60-1.20) mg/dL Glucose 76 (70-105) mg/dL Calcium 7.7 L (8.6-10.3) mg/dL Calcium panel 02/07/18 Range/Units 04:00 Calcium 7.7 L (8.6-10.3) mg/dL Phosphorus 2.5 L (2.7-4.5) mg/dL Pituitary panel 02/06/18 02/07/18 Range/Units 17:30 04:00 Sodium 136 (136-145) mEq/L Potassium 4.2 4.4 (3.5-5.1) mEq/L Chloride 104 (98-107) mEq/L Carbon Dioxide 29 (23-29) mEq/L BUN 8 (8-23) mg/dL Creatinine 0.36 L (0.60-1.20) mg/dL Glucose 76 (70-105) mg/dL Calcium 7.7 L (8.6-10.3) mg/dL Adrenal panel 02/06/18 02/07/18 Range/Units 17:30 04:00 Sodium 136 (136-145) mEq/L Potassium 4.2 4.4 (3.5-5.1) mEq/L Chloride 104 (98-107) mEq/L Carbon Dioxide 29 (23-29) mEq/L BUN 8 (8-23) mg/dL Creatinine 0.36 L (0.60-1.20) mg/dL Glucose 76 (70-105) mg/dL Calcium 7.7 L (8.6-10.3) mg/dL - Stroke Is the patient on any antithrombotics?: No Are there any contradictions to antithrombotics?: Yes Contraindication Antithromb by Day Two: Not Indicated - Due to Bleeding Disorder or Risk of Bleeding Reason for No Antithrombin at DC: Not Indicated - Due to Bleeding Disorder or Risk of Bleeding Reason for No Anticoagulant at DC: Not Indicated - Due to Bleeding Disorder or Risk of Bleeding - VTE Documentation of Mechanical Device: Intermittent pneumatic compression device Consult Discharge Plan - Plan Referrals: Kenneth Madrid MD [Partnered Physician] - 02/11/18 11:40 am Ngoc Gil CNP [Advanced Practice Nurse] - 02/13/18 1:30 pm <Kenneth Madrid - Last Filed: 02/08/18 13:57> Date of Encounter: 02/07/18 - Assessment and Plan (1) Rectal cancer Current Visit: Yes Status: Acute (2) Anemia Current Visit: Yes Status: Chronic Qualifiers: Anemia type: other cause Other causes of anemia: other cause, not classified Qualified Code(s): D64.89 - Other specified anemias Objective Vital Signs - Last 8 Hours Temp Pulse Resp BP Pulse Ox 02/08/18 13:03 91 02/08/18 12:49 96 20 92 02/08/18 11:36 98.9 F 102 18 109/72 98 02/08/18 10:42 85 02/08/18 10:38 86 16 97 02/08/18 07:55 98.2 F 102 20 111/64 95 Intake and Output 02/07/18 02/08/18 02/08/18 23:59 07:59 15:59 Intake Total 440 / 440 100 / 100 240 / 240 Output Total 575 / 575 450 / 450 575 / 575 Balance -135 / -135 -350 / -350 -335 / -335 Intake: IV Fluids 100 / 100 100 / 100 Zosyn 3.375 GM In 0.9 % Sodium 100 / 100 100 / 100 Chloride (Mini-Bag +) 100 ML @ 25 mls/hr IVPB Q8HR [facility] Rx#: [id number] Oral 340 / 340 240 / 240 Output: Urine 575 / 575 450 / 450 575 / 575 Wound Drainage 0 / 0 Right Lower Abdomen 0 / 0 Other: Meal Dinner Lunch Percent of Meal Consumed 50% 90% Stool Size Small Small Stool Consistency liquid liquid Stool Color Brown Brown Yellow Yellow # Bowel Movements 1 Weight 71.8 kg Blood Glucose* 143 90 129 Patient Weight 02/08/18 23:59 Weight 71.8 kg - Labs 02/08/18 04:30 02/08/18 04:00 Diabetes panel 02/08/18 Range/Units 04:00 Sodium 136 (136-145) mEq/L Potassium 4.3 (3.5-5.1) mEq/L Chloride 102 (98-107) mEq/L Carbon Dioxide 30 H (23-29) mEq/L BUN 9 (8-23) mg/dL Creatinine 0.75 (0.60-1.20) mg/dL Glucose 87 (70-105) mg/dL Calcium 7.7 L (8.6-10.3) mg/dL Calcium panel 02/07/18 02/08/18 Range/Units 11:54 04:00 Calcium 7.7 L (8.6-10.3) mg/dL Phosphorus 3.2 4.1 (2.7-4.5) mg/dL Pituitary panel 02/08/18 Range/Units 04:00 Sodium 136 (136-145) mEq/L Potassium 4.3 (3.5-5.1) mEq/L Chloride 102 (98-107) mEq/L Carbon Dioxide 30 H (23-29) mEq/L BUN 9 (8-23) mg/dL Creatinine 0.75 (0.60-1.20) mg/dL Glucose 87 (70-105) mg/dL Calcium 7.7 L (8.6-10.3) mg/dL Adrenal panel 02/08/18 Range/Units 04:00 Sodium 136 (136-145) mEq/L Potassium 4.3 (3.5-5.1) mEq/L Chloride 102 (98-107) mEq/L Carbon Dioxide 30 H (23-29) mEq/L BUN 9 (8-23) mg/dL Creatinine 0.75 (0.60-1.20) mg/dL Glucose 87 (70-105) mg/dL Calcium 7.7 L (8.6-10.3) mg/dL - Attending Attestation I examined this patient and my medical decision-making was reviewed with the Resident Physician. I agree with the documented findings, disposition and treatment plan as described except to the extent set forth below. I reviewed the above and agree with the above-mentioned plan.
--- NOTE | 2018-02-07 11:53 | Event Note ---
Date of Encounter: 02/07/18 Time of Encounter: 11:50 - Cardiology Event Note Patient reevaluated and current blood pressure 124/75 and heart rates in the 90s. Discussed and reviewed with Dr. Hodges, cardiology will sign off, reconsult as needed, follow-up arranged. All questions answered.
[2018-02-07 12:23] LABS: VBG Ionized Calcium 1.09 mmol/L (1.15-1.35)
[2018-02-07] MEDS: Magic Mouthwash 10 ML UD Cup PO PRN (13:07)
[2018-02-07] MEDS ORDERED: Potassium Phosphate 44 MEQ in 0.9 % Sodium Chloride 250 ML IVPB ONE (13:57)
--- NOTE | 2018-02-07 15:01 | Internal Med Progress Note ---
Date of Encounter: 02/07/18 Time of Encounter: 15:30 - Assessment and plan (1) Diabetes mellitus Current Visit: Yes Status: Chronic Assessment and plan: Off TPN Continue ISS Tolerating diet Will adjust levemir accordingly Qualifiers: Diabetes mellitus type: type 2 Diabetes mellitus intermediate frame tender insulin use: without fci use Diabetes mellitus complication status: with hyperglycemia Qualified Code(s): E11.65 - Type 2 diabetes mellitus with hyperglycemia (2) Atrial fibrillation with RVR Current Visit: Yes Status: Acute Assessment and plan: Doing well now on cardizem drip; has now been tapered down to rate of 5 per nursing staff. Pharmacist recommends switching to PO cardizem as IV cardizem is on shortage. I am agreeable with this since she has responded well to cardizem drip with wean; now with HR high 90s/low 100s while I'm in room. Spoke with Gabriela with surgery, they are planning to clamp NG tube today. If she is tolerating PO medication after this, we will discontinue IV cardizem and start cardizem 30 mg PO Q6H. Electrolytes improved this AM; will defer management to primary. Hgb about the same this AM; primary team transfusing 2 units PRBC. I do think improvement of Hgb would help with Afib. She is on prophylactic heparin; will defer discontinuation to surgery since still anemic. BP improved again today. An ECHO done back in October showed an EF of 55%, mild diastolic dysfunction, with no valvular abnormalities. - Cardiology following, recommendations appreciated. - On Digoxin 0.125 mg daily , Toprol XL 100 mg PO daily. Lopressor IV prn. - Continue Eliquis for anticoagulation (3) Anemia Current Visit: Yes Status: Chronic Assessment and plan: Acute blood loss anemia postoperatively. Now stable. Management per primary team Qualifiers: Anemia type: other cause Other causes of anemia: other cause, not classified Qualified Code(s): D64.89 - Other specified anemias (4) Essential (primary) hypertension Current Visit: Yes Status: Chronic Assessment and plan: Hypotension improved. Currently on Toprol XL 100 mg daily BP within normal limits (5) History of CVA (cerebrovascular accident) Current Visit: Yes Status: Chronic (6) Colostomy in place Current Visit: Yes Status: Acute (7) Rectal cancer Current Visit: Yes Status: Acute Assessment and plan: Status post resection and anastomosis. Patient is on TPN. NG tube is in place. Management per primary team. (8) Hypothyroidism Current Visit: Yes Status: Chronic Qualifiers: Hypothyroidism type: unspecified Qualified Code(s): E03.9 - Hypothyroidism , unspecified (9) Hypokalemia Current Visit: Yes Status: Resolved Assessment and plan: Continue electrolyte protocol - Time Spent With Patient Total time spent is greater than 50% in coordination of care (as documented) at patient's floor/unit and/or counseling patient: - Subjective Interval history: She admits to weakness but is working with PT/OT Currently tolerating diet - Constitutional Vitals: Temp Pulse Resp BP Pulse Ox 99.1 F 83 20 124/75 94 02/07/18 07:24 02/07/18 13:04 02/07/18 13:02 02/07/18 11:59 02/07/18 13:02 General appearance: Present: cooperative, A&O X 3, pleasant, no acute distress, answers questions appropriately Exam: CVS: irregularly irregular rate/rhythm Lungs: ctab Abd: nt/nd Ext: no edema Internal Medicine: Result - Labs CBC & Chem 7: 02/07/18 04:00 02/07/18 04:00 Labs: Short CBC 02/07/18 Range/Units 04:00 WBC 9.9 (4.3-11.1) K/mcL Hgb 9.1 L (11.5-15.4) g/dL Hct 29.8 L (35.3-44.9) % Plt Count 316 (140-400) K/mcL BMP 02/06/18 02/07/18 17:30 04:00 Sodium 136 Potassium 4.2 4.4 Chloride 104 Carbon Dioxide 29 BUN 8 Creatinine 0.36 L Glucose 76 Calcium 7.7 L - ABG Interpretation ABG results: PT/INR, D-dimer PT 12.0 Seconds (9.4-12.1) 02/04/18 13:54 - Stroke Is the patient on any antithrombotics?: No Are there any contradictions to antithrombotics?: Yes Contraindication Antithromb by Day Two: Not Indicated - Due to Bleeding Disorder or Risk of Bleeding Reason for No Antithrombin at DC: Not Indicated - Due to Bleeding Disorder or Risk of Bleeding Reason for No Anticoagulant at DC: Not Indicated - Due to Bleeding Disorder or Risk of Bleeding - VTE Documentation of Mechanical Device: Intermittent pneumatic compression device Consult Discharge Plan - Plan Referrals: Kenneth Madrid MD [Partnered Physician] - 02/11/18 11:40 am Ngoc Gil CNP [Advanced Practice Nurse] - 02/13/18 1:30 pm
[2018-02-07] MEDS ORDERED: *HR* OxyCODONE Immed Rel 5 MG TABLET PO PRN (19:44)
[2018-02-07] MEDS ORDERED: MORPHINE SUL Oral CONC 10 MG/0.5 ML ORAL.SYG SL PRN (19:45)
[2018-02-07] MEDS: clonazePAM 0.5 MG TABLET PO SCH (19:56)
[2018-02-07] MEDS: Metoclopramide 10 MG/10 ML UD.LIQ PO SCH (19:56)
[2018-02-07] MEDS ORDERED: Insulin DETEMIR 100 UNIT/ML X5UNITS SQ SCH (21:00)
[2018-02-08] MEDS: Piperacillin/Tazobactam 3.375 GM in 0.9 % Sodium Chloride Mini Bag 100 ML IVPB SCH ×3 (00:04→16:10)
[2018-02-08] MEDS: Insulin LISPRO 300 UNITS/3 ML VIAL SQ SCH ×7 (00:05→23:59)
[2018-02-08] MEDS: Ondansetron 4 MG/2 ML VIAL IVP SCH ×6 (00:05→21:46)
[2018-02-08] MEDS: *HR* LORazepam 2 MG/ML VIAL IVP PRN ×3 (01:40→20:10)
[2018-02-08] MEDS: Acetaminophen 325 MG TABLET PO PRN ×3 (01:40→20:09)
[2018-02-08 04:47] LABS: Hematocrit 27.1 % (35.3-44.9); Hemoglobin 8.3 g/dL (11.5-15.4); Mean Corpuscular HGB Conc 30.6 g/dL (31.6-35.5); Mean Corpuscular Hemoglobin 25.2 pg (28.0-33.3); Mean Corpuscular Volume 82.1 fL (83.0-100.0); Mean Platelet Volume 9.9 fL (9.4-12.4); Platelet Count 295 K/mcL (140-400); Red Cell Distribution Width 16.7 % (11.5-14.5)
[2018-02-08 04:50] LABS: VBG Ionized Calcium 1.07 mmol/L (1.15-1.35)
[2018-02-08 05:05] LABS: BUN/Creatinine Ratio 12 (6-26); Blood Urea Nitrogen 9 mg/dL (8-23); Calcium 7.7 mg/dL (8.6-10.3); Carbon Dioxide 30 mEq/L (23-29); Chloride 102 mEq/L (98-107); Glucose 87 mg/dL (70-105); Osmolality,Calculated 280 (280-300); Phosphorous 4.1 mg/dL (2.7-4.5); Potassium 4.3 mEq/L (3.5-5.1); Sodium 136 mEq/L (136-145); eGFR For African Americans > 60 (> 60); eGFR For Non-African Americans > 60 (> 60)
[2018-02-08] MEDS: Pantoprazole 40 MG VIAL IVP SCH (05:26)
[2018-02-08] MEDS: *HR* Digoxin 0.125 MG TABLET PO SCH (08:54)
[2018-02-08] MEDS: Metoprolol XL (24 HR) Succ 25 MG TAB.ER.24H PO SCH (08:54)
[2018-02-08] MEDS: Levothyroxine Sodium 100 MCG VIAL IVP SCH (08:54)
[2018-02-08] MEDS: Metoclopramide 10 MG/10 ML UD.LIQ PO SCH ×2 (08:54→20:09)
[2018-02-08] MEDS: Apixaban 5 MG TABLET PO SCH ×2 (08:54→20:10)
[2018-02-08] MEDS: Fluconazole 100 MG/50 ML 100 MG/50 ML BAG IVPB SCH (08:55)
[2018-02-08] MEDS: Insulin DETEMIR 100 UNIT/ML X5UNITS SQ SCH ×2 (08:56→21:50)
--- NOTE | 2018-02-08 09:32 | General Surgery Progress Note ---
<MikeAl R - Last Filed: 02/08/18 12:19> Date of Encounter: 02/08/18 Time of Encounter: 08:25 - Assessment and Plan (1) Rectal cancer Current Visit: Yes Status: Acute POD #9 s/p exploratory celiotomy and takedown of procto-colo anastomosis with colostomy secondary to anastomatic leak POD #12 low anterior resection and appendectomy secondary to recto-sigmoid cancer Pathology stage IIA without lymph node involvement + output in colostomy and + flatus PLAN: Tolerating regular diet Continue PPI, pain control, and supportive therapy Continue Reglan to BID Continue dressing changes BID - consider wound vac placement Monitor I&O's and electrolyte replacement Continue Zosyn Repeat AM labs Encourage ambulation and up to chair (2) Anemia Current Visit: Yes Status: Chronic Hgb stable - 8-9 Continue to monitor Check Iron Profile Qualifiers: Anemia type: other cause Other causes of anemia: other cause, not classified Qualified Code(s): D64.89 - Other specified anemias (3) Atrial fibrillation with RVR Current Visit: Yes Status: Acute as per cardiology. Toprol XL, Eliquis and Digoxin (4) Diabetes mellitus Current Visit: Yes Status: Chronic Continue current regimen Qualifiers: Diabetes mellitus type: type 2 Diabetes mellitus penitentiary insulin use: without termite exterminator use Diabetes mellitus complication status: with hyperglycemia Qualified Code(s): E11.65 - Type 2 diabetes mellitus with hyperglycemia Subjective Patient reports: no new complaints, feels better, still having pain, tolerating a regular diet, voiding w/o difficulty, flatus, bowel movement, afebrile Narrative: Reports continued improvement. One episode of some nausea last night, but otherwise is tolerating a regular diet well. No vomiting. Ambulating well. No CP or dyspnea. Objective Vital Signs - Last 8 Hours Temp Pulse Resp BP Pulse Ox 02/08/18 07:55 98.2 F 102 20 111/64 95 02/08/18 03:20 99 F 95 18 104/56 95 Intake and Output 02/07/18 02/08/18 02/08/18 23:59 07:59 15:59 Intake Total 440 / 440 100 / 100 240 / 240 Output Total 575 / 575 450 / 450 300 / 300 Balance -135 / -135 -350 / -350 -60 / -60 Intake: IV Fluids 100 / 100 100 / 100 Zosyn 3.375 GM In 0.9 % Sodium 100 / 100 100 / 100 Chloride (Mini-Bag +) 100 ML @ 25 mls/hr IVPB Q8HR [facility] Rx#: [id number] Oral 340 / 340 240 / 240 Output: Urine 575 / 575 450 / 450 300 / 300 Wound Drainage 0 / 0 Right Lower Abdomen 0 / 0 Other: Meal Dinner Breakfast Percent of Meal Consumed 50% 50% Stool Size Small Small Stool Consistency liquid liquid Stool Color Brown Brown Yellow Yellow # Bowel Movements 1 Weight 71.8 kg Blood Glucose* 143 90 Patient Weight 02/08/18 23:59 Weight 71.8 kg - General physical appearance well developed, well nourished, no distress - Eyes normal ocular movement - Respiratory normal expansion, normal respiratory effort, clear to auscultation - Cardiovascular Cardiovascular exam: Present: tachycardia, irregular rhythm, no murmurs/rubs/ gallops - Abdomen Abdomen: Present: bowel sounds present, soft, tender (appropriately tender). Absent: distended, rebound, rigid - Incision Incision: Present: intact, serosanguinous (mild). Absent: swollen, erythema, purulent - Integumentary no rash, no growths, no abnormal pigmentation - Neurologic CN 2-12 grossly intact - Psychiatric oriented to time, oriented to person, oriented to place, speech is normal, memory intact - Labs 02/08/18 04:30 02/08/18 04:00 Diabetes panel 02/08/18 Range/Units 04:00 Sodium 136 (136-145) mEq/L Potassium 4.3 (3.5-5.1) mEq/L Chloride 102 (98-107) mEq/L Carbon Dioxide 30 H (23-29) mEq/L BUN 9 (8-23) mg/dL Creatinine 0.75 (0.60-1.20) mg/dL Glucose 87 (70-105) mg/dL Calcium 7.7 L (8.6-10.3) mg/dL Calcium panel 02/07/18 02/08/18 Range/Units 11:54 04:00 Calcium 7.7 L (8.6-10.3) mg/dL Phosphorus 3.2 4.1 (2.7-4.5) mg/dL Pituitary panel 02/08/18 Range/Units 04:00 Sodium 136 (136-145) mEq/L Potassium 4.3 (3.5-5.1) mEq/L Chloride 102 (98-107) mEq/L Carbon Dioxide 30 H (23-29) mEq/L BUN 9 (8-23) mg/dL Creatinine 0.75 (0.60-1.20) mg/dL Glucose 87 (70-105) mg/dL Calcium 7.7 L (8.6-10.3) mg/dL Adrenal panel 02/08/18 Range/Units 04:00 Sodium 136 (136-145) mEq/L Potassium 4.3 (3.5-5.1) mEq/L Chloride 102 (98-107) mEq/L Carbon Dioxide 30 H (23-29) mEq/L BUN 9 (8-23) mg/dL Creatinine 0.75 (0.60-1.20) mg/dL Glucose 87 (70-105) mg/dL Calcium 7.7 L (8.6-10.3) mg/dL - Stroke Is the patient on any antithrombotics?: No Are there any contradictions to antithrombotics?: Yes Contraindication Antithromb by Day Two: Not Indicated - Due to Bleeding Disorder or Risk of Bleeding Reason for No Antithrombin at DC: Not Indicated - Due to Bleeding Disorder or Risk of Bleeding Reason for No Anticoagulant at DC: Not Indicated - Due to Bleeding Disorder or Risk of Bleeding - VTE Documentation of Mechanical Device: Intermittent pneumatic compression device Consult Discharge Plan - Plan Referrals: Kenneth Madrid MD [Partnered Physician] - 02/11/18 11:40 am Ngoc Gil CNP [Advanced Practice Nurse] - 02/13/18 1:30 pm <Kenneth Madrid - Last Filed: 02/08/18 13:59> Date of Encounter: 02/08/18 - Assessment and Plan (1) Rectal cancer Current Visit: Yes Status: Acute (2) Anemia Current Visit: Yes Status: Chronic Qualifiers: Anemia type: other cause Other causes of anemia: other cause, not classified Qualified Code(s): D64.89 - Other specified anemias Objective Vital Signs - Last 8 Hours Temp Pulse Resp BP Pulse Ox 02/08/18 13:03 91 02/08/18 12:49 96 20 92 02/08/18 11:36 98.9 F 102 18 109/72 98 02/08/18 10:42 85 02/08/18 10:38 86 16 97 02/08/18 07:55 98.2 F 102 20 111/64 95 Intake and Output 02/07/18 02/08/18 02/08/18 23:59 07:59 15:59 Intake Total 440 / 440 100 / 100 240 / 240 Output Total 575 / 575 450 / 450 575 / 575 Balance -135 / -135 -350 / -350 -335 / -335 Intake: IV Fluids 100 / 100 100 / 100 Zosyn 3.375 GM In 0.9 % Sodium 100 / 100 100 / 100 Chloride (Mini-Bag +) 100 ML @ 25 mls/hr IVPB Q8HR [facility] Rx#: [id number] Oral 340 / 340 240 / 240 Output: Urine 575 / 575 450 / 450 575 / 575 Wound Drainage 0 / 0 Right Lower Abdomen 0 / 0 Other: Meal Dinner Lunch Percent of Meal Consumed 50% 90% Stool Size Small Small Stool Consistency liquid liquid Stool Color Brown Brown Yellow Yellow # Bowel Movements 1 Weight 71.8 kg Blood Glucose* 143 90 129 Patient Weight 02/08/18 23:59 Weight 71.8 kg - Labs 02/08/18 04:30 02/08/18 04:00 Diabetes panel 02/08/18 Range/Units 04:00 Sodium 136 (136-145) mEq/L Potassium 4.3 (3.5-5.1) mEq/L Chloride 102 (98-107) mEq/L Carbon Dioxide 30 H (23-29) mEq/L BUN 9 (8-23) mg/dL Creatinine 0.75 (0.60-1.20) mg/dL Glucose 87 (70-105) mg/dL Calcium 7.7 L (8.6-10.3) mg/dL Calcium panel 02/07/18 02/08/18 Range/Units 11:54 04:00 Calcium 7.7 L (8.6-10.3) mg/dL Phosphorus 3.2 4.1 (2.7-4.5) mg/dL Pituitary panel 02/08/18 Range/Units 04:00 Sodium 136 (136-145) mEq/L Potassium 4.3 (3.5-5.1) mEq/L Chloride 102 (98-107) mEq/L Carbon Dioxide 30 H (23-29) mEq/L BUN 9 (8-23) mg/dL Creatinine 0.75 (0.60-1.20) mg/dL Glucose 87 (70-105) mg/dL Calcium 7.7 L (8.6-10.3) mg/dL Adrenal panel 02/08/18 Range/Units 04:00 Sodium 136 (136-145) mEq/L Potassium 4.3 (3.5-5.1) mEq/L Chloride 102 (98-107) mEq/L Carbon Dioxide 30 H (23-29) mEq/L BUN 9 (8-23) mg/dL Creatinine 0.75 (0.60-1.20) mg/dL Glucose 87 (70-105) mg/dL Calcium 7.7 L (8.6-10.3) mg/dL - Attending Attestation I examined this patient and my medical decision-making was reviewed with the Resident Physician. I agree with the documented findings, disposition and treatment plan as described except to the extent set forth below. The above assessment and evaluation and agree with the above plan. Drainage noted on dressing which was changed at 5 AM this morning. Dressing changes are twice a day. Patient may very well benefit from wound VAC. Will reassess in a.m. Tolerating soft food. Also of note patient has continued anemia. Will check iron profile decision would benefit from supplemental iron.
--- NOTE | 2018-02-08 16:05 | Internal Med Progress Note ---
Date of Encounter: 02/08/18 Time of Encounter: 16:05 - Assessment and plan (1) Diabetes mellitus Current Visit: Yes Status: Chronic Assessment and plan: Off TPN Continue ISS Tolerating diet Will adjust levemir accordingly Qualifiers: Diabetes mellitus type: type 2 Diabetes mellitus terminal clerk insulin use: without snf use Diabetes mellitus complication status: with hyperglycemia Qualified Code(s): E11.65 - Type 2 diabetes mellitus with hyperglycemia (2) Atrial fibrillation with RVR Current Visit: Yes Status: Acute Assessment and plan: Doing well now on cardizem drip; has now been tapered down to rate of 5 per nursing staff. Pharmacist recommends switching to PO cardizem as IV cardizem is on shortage. I am agreeable with this since she has responded well to cardizem drip with wean; now with HR high 90s/low 100s while I'm in room. Spoke with Gabriela with surgery, they are planning to clamp NG tube today. If she is tolerating PO medication after this, we will discontinue IV cardizem and start cardizem 30 mg PO Q6H. Electrolytes improved this AM; will defer management to primary. Hgb about the same this AM; primary team transfusing 2 units PRBC. I do think improvement of Hgb would help with Afib. She is on prophylactic heparin; will defer discontinuation to surgery since still anemic. BP improved again today. An ECHO done back in October showed an EF of 55%, mild diastolic dysfunction, with no valvular abnormalities. - Cardiology following, recommendations appreciated. - On Digoxin 0.125 mg daily , Toprol XL 100 mg PO daily. Lopressor IV prn. - Continue Eliquis for anticoagulation (3) Anemia Current Visit: Yes Status: Chronic Assessment and plan: Acute blood loss anemia postoperatively. Now stable. Management per primary team Qualifiers: Anemia type: other cause Other causes of anemia: other cause, not classified Qualified Code(s): D64.89 - Other specified anemias (4) Essential (primary) hypertension Current Visit: Yes Status: Chronic Assessment and plan: Hypotension improved. Currently on Toprol XL 100 mg daily BP within normal limits (5) History of CVA (cerebrovascular accident) Current Visit: Yes Status: Chronic (6) Colostomy in place Current Visit: Yes Status: Acute (7) Rectal cancer Current Visit: Yes Status: Acute Assessment and plan: Status post resection and anastomosis. Patient is on TPN. NG tube is in place. Management per primary team. (8) Hypothyroidism Current Visit: Yes Status: Chronic Qualifiers: Hypothyroidism type: unspecified Qualified Code(s): E03.9 - Hypothyroidism , unspecified (9) Hypokalemia Current Visit: Yes Status: Resolved Assessment and plan: Continue electrolyte protocol - Time Spent With Patient Total time spent is greater than 50% in coordination of care (as documented) at patient's floor/unit and/or counseling patient: - Subjective Interval history: No complaints, no acute events. - Constitutional Vitals: Temp Pulse Resp BP Pulse Ox 98.9 F 89 16 109/72 92 02/08/18 11:36 02/08/18 14:45 02/08/18 14:45 02/08/18 11:36 02/08/18 14:45 General appearance: Present: cooperative, A&O X 3, pleasant, no acute distress, answers questions appropriately Exam: CVS: irregularly irregular rate/rhythm Lungs: ctab Abd: nt/nd Ext: no edema Internal Medicine: Result - Labs CBC & Chem 7: 02/08/18 04:30 02/08/18 04:00 Labs: Short CBC 02/08/18 Range/Units 04:30 WBC 8.2 (4.3-11.1) K/mcL Hgb 8.3 L (11.5-15.4) g/dL Hct 27.1 L (35.3-44.9) % Plt Count 295 (140-400) K/mcL BMP 02/08/18 04:00 Sodium 136 Potassium 4.3 Chloride 102 Carbon Dioxide 30 H BUN 9 Creatinine 0.75 Glucose 87 Calcium 7.7 L - ABG Interpretation ABG results: PT/INR, D-dimer PT 12.0 Seconds (9.4-12.1) 02/04/18 13:54 - Stroke Is the patient on any antithrombotics?: No Are there any contradictions to antithrombotics?: No Contraindication Antithromb by Day Two: Not Indicated - Due to Bleeding Disorder or Risk of Bleeding Reason for No Antithrombin at DC: Not Indicated - Due to Bleeding Disorder or Risk of Bleeding Reason for No Anticoagulant at DC: Not Indicated - Due to Bleeding Disorder or Risk of Bleeding - VTE Documentation of Mechanical Device: Intermittent pneumatic compression device Consult Discharge Plan - Plan Referrals: Kenneth Madrid MD [Partnered Physician] - 02/11/18 11:40 am Ngoc Gil CNP [Advanced Practice Nurse] - 02/13/18 1:30 pm
[2018-02-08] MEDS: clonazePAM 0.5 MG TABLET PO SCH (20:10)
[2018-02-08 21:44] LABS: VBG Ionized Calcium 1.07 mmol/L (1.15-1.35)
[2018-02-09 04:50] LABS: Hematocrit 24.4 % (35.3-44.9); Hemoglobin 7.3 g/dL (11.5-15.4); Mean Corpuscular HGB Conc 29.9 g/dL (31.6-35.5); Mean Corpuscular Hemoglobin 25.1 pg (28.0-33.3); Mean Corpuscular Volume 83.8 fL (83.0-100.0); Mean Platelet Volume 9.5 fL (9.4-12.4); Platelet Count 295 K/mcL (140-400); Red Blood Count 2.91 M/mcL (3.82-4.97); Red Cell Distribution Width 16.9 % (11.5-14.5)
[2018-02-09 04:52] LABS: VBG Ionized Calcium 0.99 mmol/L (1.15-1.35)
[2018-02-09 05:22] LABS: BUN/Creatinine Ratio 12 (6-26); Blood Urea Nitrogen 9 mg/dL (8-23); Calcium 7.3 mg/dL (8.6-10.3); Carbon Dioxide 27 mEq/L (23-29); Chloride 105 mEq/L (98-107); Glucose 100 mg/dL (70-105); Iron < 10 mcg/dL (50-170); Osmolality,Calculated 291 (280-300); Phosphorous 4.1 mg/dL (2.7-4.5); Potassium 4.2 mEq/L (3.5-5.1); Sodium 141 mEq/L (136-145); Transferrin 140 mg/dL (203-362); eGFR For African Americans > 60 (> 60); eGFR For Non-African Americans > 60 (> 60)
[2018-02-09] MEDS: Acetaminophen 325 MG TABLET PO PRN ×2 (05:42→20:29)
[2018-02-09] MEDS: *HR* LORazepam 2 MG/ML VIAL IVP PRN ×2 (05:42→20:29)
[2018-02-09] MEDS: Ondansetron 4 MG/2 ML VIAL IVP SCH ×3 (05:48→08:22)
[2018-02-09] MEDS: Insulin LISPRO 300 UNITS/3 ML VIAL SQ SCH ×4 (08:14→22:22)
[2018-02-09] MEDS: *HR* Digoxin 0.125 MG TABLET PO SCH (08:15)
[2018-02-09] MEDS: Apixaban 5 MG TABLET PO SCH ×2 (08:15→20:30)
[2018-02-09] MEDS: Levothyroxine Sodium 100 MCG VIAL IVP SCH (08:15)
[2018-02-09] MEDS: Metoclopramide 10 MG/10 ML UD.LIQ PO SCH ×2 (08:15→20:30)
[2018-02-09] MEDS: Metoprolol XL (24 HR) Succ 25 MG TAB.ER.24H PO SCH (08:15)
[2018-02-09] MEDS: Insulin DETEMIR 100 UNIT/ML X5UNITS SQ SCH ×2 (08:22→20:30)
[2018-02-09] MEDS: Fluconazole 100 MG/50 ML 100 MG/50 ML BAG IVPB SCH (08:23)
[2018-02-09] MEDS: Piperacillin/Tazobactam 3.375 GM in 0.9 % Sodium Chloride Mini Bag 100 ML IVPB SCH ×4 (08:24→23:36)
[2018-02-09] MEDS ORDERED: Furosemide 20 MG/2 ML VIAL IVP ONE ×2 (08:32)
[2018-02-09] MEDS: Iron Sucrose Complex 200 MG in 0.9 % Sodium Chloride 100 ML IVPB SCH (09:30)
[2018-02-09] MEDS ORDERED: Ondansetron 4 MG/2 ML VIAL IVP ONE (10:28)
[2018-02-09] MEDS ORDERED: *HR* FentaNYL (PF) 100 MCG/2 ML VIAL IVP STA (10:28)
[2018-02-09] MEDS ORDERED: Ondansetron 4 MG/2 ML VIAL IVP STA (10:31)
[2018-02-09] MEDS ORDERED: 0.9 % Sodium Chloride 250 ML ONE (12:05)
--- NOTE | 2018-02-09 12:36 | General Surgery Progress Note ---
<MannieGabriela Garland - Last Filed: 02/09/18 12:34> Date of Encounter: 02/09/18 Time of Encounter: 11:30 - Assessment and Plan (1) Rectal cancer Current Visit: Yes Status: Acute Date of procedure: 01/27/18 Pre-op diagnosis: Recto-sigmoid cancer Post-op diagnosis: same Procedure: 1. Low anterior resection; 2. Appendectomy Anesthesia: GETA Surgeon: Kenneth Madrid Estimated blood loss 1,000 ml POD#13 as above. Pathology stage IIA without lymph node involvement POD# 10 s/p exploratory celiotomy and takedown of procto-colo anastomosis with colostomy secondary to anastomotic leak +output in colostomy. She states her abdominal discomfort continues improving each day. Midline is overall intact with areas with packing in moderate drainage. A wound VAC is placed today. 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 Likely acute on chronic disease anemia Qualifiers: Anemia type: other cause Other causes of anemia: other cause, not classified Qualified Code(s): D64.89 - Other specified anemias (4) Diabetes mellitus Current Visit: Yes Status: Chronic Continue current management Qualifiers: Diabetes mellitus type: type 2 Diabetes mellitus fpc insulin use: without fpc use Diabetes mellitus complication status: with hyperglycemia Qualified Code(s): E11.65 - Type 2 diabetes mellitus with hyperglycemia (5) Atrial fibrillation with RVR Current Visit: Yes Status: Acute Management per cardiology. Will continue to follow (6) Essential (primary) hypertension Current Visit: Yes Status: Chronic Currently controlled. Will continue to monitor. Subjective Patient reports: no new complaints, feels better, still having pain, tolerating liquids well, voiding w/o difficulty, flatus, bowel movement, afebrile Objective Vital Signs - Last 8 Hours Temp Pulse Resp BP Pulse Ox 02/09/18 12:26 98.2 F 85 18 106/74 93 02/09/18 12:15 98.4 F 91 19 111/75 92 02/09/18 12:11 98.4 F 91 19 111/75 92 02/09/18 11:41 98.4 F 91 19 111/75 92 02/09/18 08:30 99.2 F 98 20 124/82 93 02/09/18 07:52 99.2 F 98 20 124/82 93 Intake and Output 02/08/18 02/09/18 02/09/18 23:59 07:59 15:59 Intake Total 500 / 500 210 / 210 590 / 590 Output Total 430 / 430 970 / 970 565 / 565 Balance 70 / 70 -760 / -760 25 / 25 Intake: IV Fluids 260 / 260 210 / 210 Calcium Gluconate 1,000 MG In 0 110 / 110 110 / 110 .9 % Sodium Chloride 100 ML @ 220 mls/hr IVPB Q6HR PRN Rx#: [id number] Diflucan 100 MG/50 ML 100 mg In 50 / 50 50 ml @ 50 mls/hr IVPB DAILY [facility] Rx#:[id number] Zosyn 3.375 GM In 0.9 % Sodium 100 / 100 100 / 100 Chloride (Mini-Bag +) 100 ML @ 25 mls/hr IVPB Q8HR [facility] Rx#: [id number] Oral 240 / 240 240 / 240 Blood Product 350 / 350 Rbcs Leuko Poor As-1 Unit 350 / 350 [id number] Output: Urine 400 / 400 950 / 950 250 / 250 Stool 25 / 25 300 / 300 Wound Drainage 5 / 5 20 20 15 15 Right Lower Abdomen 5 / 5 Other: Meal Dinner Breakfast Percent of Meal Consumed 50% 80% Stool Consistency liquid loose liquid Stool Color Brown Brown Weight 70.6 kg Blood Glucose* 145 111 123 Patient Weight 02/09/18 23:59 Weight 70.6 kg VITAL SIGNS: Reviewed. See [facility] GENERAL: In no apparent distress. HEENT: Normocephalic, atraumatic, pupils are equal and reactive, extraocular motions intact, oropharynx is pink and moist, there is no neck adenopathy or JVD noted. CHEST/RESPIRATORY: The thorax is free from signs of trauma. Lung sounds: clear to auscultation, normal respiratory effort CARDIAC: irregularly irregular. VASCULAR: No Edema. 2+ peripheral pulses. ABDOMEN: soft, expected postoperative tenderness, active bowel sounds INCISION: Surgical incision intact with the exception of areas with packing that were left during the surgical procedure. There are no signs of cellulitis or infection noted. WOUNDS/DRAINS: colostomy with output. Stoma is pink and moist. CHATO drain in the right lower quadrant site is slightly macerated. There is a moderate amount of thick and cloudy brown output in the CHATO most consistent with purulent material. MUSCULOSKELETAL: Good range of motion of all major joints. Generalized weakness noted. PT and OT are following. NEUROLOGIC EXAM: Alert and oriented x 3. Speech normal. Follows commands. PSYCHIATRIC: Mood normal. SKIN: No rash or lesions. - Labs 02/09/18 04:30 02/09/18 04:30 Diabetes panel 02/09/18 Range/Units 04:30 Sodium 141 (136-145) mEq/L Potassium 4.2 (3.5-5.1) mEq/L Chloride 105 (98-107) mEq/L Carbon Dioxide 27 (23-29) mEq/L BUN 9 (8-23) mg/dL Creatinine 0.76 (0.60-1.20) mg/dL Glucose 100 (70-105) mg/dL Calcium 7.3 L (8.6-10.3) mg/dL Calcium panel 02/09/18 Range/Units 04:30 Calcium 7.3 L (8.6-10.3) mg/dL Phosphorus 4.1 (2.7-4.5) mg/dL Pituitary panel 02/09/18 Range/Units 04:30 Sodium 141 (136-145) mEq/L Potassium 4.2 (3.5-5.1) mEq/L Chloride 105 (98-107) mEq/L Carbon Dioxide 27 (23-29) mEq/L BUN 9 (8-23) mg/dL Creatinine 0.76 (0.60-1.20) mg/dL Glucose 100 (70-105) mg/dL Calcium 7.3 L (8.6-10.3) mg/dL Adrenal panel 02/09/18 Range/Units 04:30 Sodium 141 (136-145) mEq/L Potassium 4.2 (3.5-5.1) mEq/L Chloride 105 (98-107) mEq/L Carbon Dioxide 27 (23-29) mEq/L BUN 9 (8-23) mg/dL Creatinine 0.76 (0.60-1.20) mg/dL Glucose 100 (70-105) mg/dL Calcium 7.3 L (8.6-10.3) mg/dL - Stroke Is the patient on any antithrombotics?: Yes Contraindication Antithromb by Day Two: Not Indicated - Due to Bleeding Disorder or Risk of Bleeding (PATIENT DID NOT HAVE SYMTPOMS OF TIA OR CVA THIS ADMISSION) Reason for No Antithrombin at DC: Not Indicated - Due to Bleeding Disorder or Risk of Bleeding Reason for No Anticoagulant at DC: Not Indicated - Due to Bleeding Disorder or Risk of Bleeding - VTE Documentation of Mechanical Device: Intermittent pneumatic compression device Consult Discharge Plan - Plan Additional Instructions: Wound Vac: Maintain wound vac to 125 mmHg. Black foam dressing to midline incision changes Friday/Friday/Friday (next due 02/11/2018). CHATO: maintain CHATO bulb to suction. Cover CHATO site with split gauze daily. Do not let the CHATO dangle from the body. If you are up, suspend the CHATO to a lanyard or safety pin to your clothing. You may shower daily however the CHATO must be suspended as previously described. General Surgical Discharge Instructions 1. No pushing, pulling, or lifting greater than 15 lbs for 6 weeks (or until cleared by your surgeon). 2. You may shower beginning today, but no tub baths, soaking, or swimming. 3. You may resume driving when you are off narcotics and are safe to react in a car. 4. Take ibuprofen every 8 hours for discomfort. If this does not relieve discomfort, you may take the as needed Percocet. Take narcotics as directed. Do not take more narcotics then directed and do not share your narcotics with any other person. Do not drink alcohol while on narcotics. 5. Take stool softeners (Colace) or a water based laxative (Miralax) while taking narcotics. You may hold for loose stools. 6. Report any fevers greater than 100.5F, increase abdominal discomfort, drainage that looks like pus, increased redness or pain at the surgical site, or any vomiting. 7. Report any pain in the calves, shortness of breath, or rapid heartbeat. 8. Follow-up in the office as directed. 9. If you were prescribed antibiotics, do not stop them without talking to your provider. Referrals: Ngoc Gil CNP [Advanced Practice Nurse] - 02/13/18 1:30 pm Kenneth Madrid MD [Partnered Physician] - 02/18/18 9:00 am <Kenneth Madrid - Last Filed: 02/10/18 06:57> Date of Encounter: 02/09/18 - Assessment and Plan (1) Rectal cancer Current Visit: Yes Status: Acute (2) Anemia Current Visit: Yes Status: Chronic Qualifiers: Anemia type: other cause Other causes of anemia: other cause, not classified Qualified Code(s): D64.89 - Other specified anemias Objective Vital Signs - Last 8 Hours Temp Pulse Resp BP Pulse Ox 02/10/18 04:57 98.0 F 80 16 128/82 95 02/10/18 00:22 98.0 F 81 16 113/76 94 Intake and Output 02/09/18 02/09/18 02/10/18 15:59 23:59 07:59 Intake Total 1770 / 1770 530 / 530 Output Total 865 / 865 1250 / 1250 553 / 553 Balance 905 / 905 -720 / -720 -553 / -553 Intake: IV Fluids 210 / 210 100 / 100 Venofer 200 MG In 0.9 % Sodium 110 / 110 Chloride 100 ML @ 200 mls/hr IVPB DAILY [facility] Rx#:[id number] Zosyn 3.375 GM In 0.9 % Sodium 100 / 100 100 / 100 Chloride (Mini-Bag +) 100 ML @ 25 mls/hr IVPB Q8HR [facility] Rx#: [id number] Oral 540 / 540 120 / 120 Blood Product 1020 / 1020 310 / 310 Rbcs Leuko Poor As-1 Unit 700 / 700 [id number] Rbcs Leuko Poor As-3 2nd Unit 320 / 320 310 / 310 [id number] Output: Urine 550 / 550 1250 / 1250 500 / 500 Stool 300 / 300 Wound Drainage 15 / 15 0 / 0 53 / 53 Abdomen 0 / 0 Right Lower Abdomen 15 / 15 0 / 0 53 / 53 Other: Meal Lunch Dinner Percent of Meal Consumed 100% 40% Stool Consistency loose liquid Stool Color Brown Weight 70.5 kg Blood Glucose* 236 164 Patient Weight 02/10/18 23:59 Weight 70.5 kg - Labs 02/10/18 03:20 02/09/18 04:30 - Attending Attestation I have personally performed a face to face evaluation on this patient. I have reviewed and agree with the care plan. History and Exam by me shows: I reviewed the above assessment and evaluation and agree with the above plan.
[2018-02-09] MEDS ORDERED: Furosemide 40 MG/4 ML VIAL ONE (14:43)
--- NOTE | 2018-02-09 19:14 | Internal Med Progress Note ---
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 Pharmacist recommends switching to PO cardizem as IV cardizem is on shortage. I am agreeable with this since she has responded well to cardizem drip with wean; now with HR high 90s/low 100s while I'm in room. Spoke with Gabriela with surgery, they are planning to clamp NG tube today. If she is tolerating PO medication after this, we will discontinue IV cardizem and start cardizem 30 mg PO Q6H. Electrolytes improved this AM; will defer management to primary. Hgb about the same this AM; primary team transfusing 2 units PRBC. I do think improvement of Hgb would help with Afib. She is on prophylactic heparin; will defer discontinuation to surgery since still anemic. BP improved again today. An ECHO done back in October showed an EF of 55%, mild diastolic dysfunction, with no valvular abnormalities. - Cardiology following, recommendations appreciated. - On Digoxin 0.125 mg daily , Toprol XL 100 mg PO daily. Lopressor IV prn. - Continue Eliquis for anticoagulation (3) Anemia Current Visit: Yes Status: Chronic Assessment and plan: Acute blood loss anemia postoperatively. Now stable. Management per primary team Qualifiers: Anemia type: other cause Other causes of anemia: other cause, not classified Qualified Code(s): D64.89 - Other specified anemias (4) Essential (primary) hypertension Current Visit: Yes Status: Chronic Assessment and plan: Hypotension improved. Currently on Toprol XL 100 mg daily BP within normal limits (5) History of CVA (cerebrovascular accident) Current Visit: Yes Status: Chronic (6) Colostomy in place Current Visit: Yes Status: Acute (7) Rectal cancer Current Visit: Yes Status: Acute Assessment and plan: Status post resection and anastomosis. Patient is on TPN. NG tube is in place. Management per primary team. (8) Hypothyroidism Current Visit: Yes Status: Chronic Qualifiers: Hypothyroidism type: unspecified Qualified Code(s): E03.9 - Hypothyroidism , unspecified (9) Hypokalemia Current Visit: Yes Status: Resolved Assessment and plan: Continue electrolyte protocol - Time Spent With Patient Total time spent is greater than 50% in coordination of care (as documented) at patient's floor/unit and/or counseling patient: - Subjective Interval history: No complaints, no acute events. - Constitutional Vitals: Temp Pulse Resp BP Pulse Ox 98.6 F 76 16 125/79 90 02/09/18 17:00 02/09/18 17:00 02/09/18 17:00 02/09/18 17:00 02/09/18 17:00 General appearance: Present: cooperative, A&O X 3, pleasant, no acute distress, answers questions appropriately Exam: CVS: irregularly irregular rate/rhythm Lungs: ctab Abd: nt/nd Ext: no edema Internal Medicine: Result - Labs CBC & Chem 7: 02/09/18 04:30 02/09/18 04:30 Labs: Short CBC 02/09/18 Range/Units 04:30 WBC 5.7 (4.3-11.1) K/mcL Hgb 7.3 L (11.5-15.4) g/dL Hct 24.4 L (35.3-44.9) % Plt Count 295 (140-400) K/mcL BMP 02/09/18 04:30 Sodium 141 Potassium 4.2 Chloride 105 Carbon Dioxide 27 BUN 9 Creatinine 0.76 Glucose 100 Calcium 7.3 L - ABG Interpretation ABG results: PT/INR, D-dimer PT 12.0 Seconds (9.4-12.1) 02/04/18 13:54 - Stroke Is the patient on any antithrombotics?: No Are there any contradictions to antithrombotics?: No Contraindication Antithromb by Day Two: Not Indicated - Due to Bleeding Disorder or Risk of Bleeding (PATIENT DID NOT HAVE SYMTPOMS OF TIA OR CVA THIS ADMISSION) Reason for No Antithrombin at DC: Not Indicated - Due to Bleeding Disorder or Risk of Bleeding Reason for No Anticoagulant at DC: Not Indicated - Due to Bleeding Disorder or Risk of Bleeding - VTE Documentation of Mechanical Device: Intermittent pneumatic compression device Consult Discharge Plan - Plan Additional Instructions: Wound Vac: Maintain wound vac to 125 mmHg. Black foam dressing to midline incision changes Friday/Friday/Friday (next due 02/11/2018). CHATO: maintain CHATO bulb to suction. Cover CHATO site with split gauze daily. Do not let the CHATO dangle from the body. If you are up, suspend the CHATO to a lanyard or safety pin to your clothing. You may shower daily however the CHATO must be suspended as previously described. General Surgical Discharge Instructions 1. No pushing, pulling, or lifting greater than 15 lbs for 6 weeks (or until cleared by your surgeon). 2. You may shower beginning today, but no tub baths, soaking, or swimming. 3. You may resume driving when you are off narcotics and are safe to react in a car. 4. Take ibuprofen every 8 hours for discomfort. If this does not relieve discomfort, you may take the as needed Percocet. Take narcotics as directed. Do not take more narcotics then directed and do not share your narcotics with any other person. Do not drink alcohol while on narcotics. 5. Take stool softeners (Colace) or a water based laxative (Miralax) while taking narcotics. You may hold for loose stools. 6. Report any fevers greater than 100.5F, increase abdominal discomfort, drainage that looks like pus, increased redness or pain at the surgical site, or any vomiting. 7. Report any pain in the calves, shortness of breath, or rapid heartbeat. 8. Follow-up in the office as directed. 9. If you were prescribed antibiotics, do not stop them without talking to your provider. Referrals: Kenneth Madrid MD [Partnered Physician] - 02/18/18 9:00 am Ngoc Gil CNP [Advanced Practice Nurse] - 02/13/18 1:30 pm
[2018-02-09] MEDS: clonazePAM 0.5 MG TABLET PO SCH (20:36)
[2018-02-10 03:43] LABS: Hematocrit 33.3 % (35.3-44.9); Mean Corpuscular HGB Conc 31.2 g/dL (31.6-35.5); Mean Corpuscular Hemoglobin 25.8 pg (28.0-33.3); Mean Corpuscular Volume 82.6 fL (83.0-100.0); Mean Platelet Volume 9.5 fL (9.4-12.4); Platelet Count 306 K/mcL (140-400); Red Blood Count 4.03 M/mcL (3.82-4.97); Red Cell Distribution Width 16.3 % (11.5-14.5)
[2018-02-10 03:44] LABS: Hemoglobin 10.4 g/dL (11.5-15.4)
[2018-02-10 03:53] LABS: % Iron Saturation 7 % (15-50); Iron 15 mcg/dL (50-170); Transferrin 158 mg/dL (203-362)
[2018-02-10] MEDS: Insulin LISPRO 300 UNITS/3 ML VIAL SQ SCH ×2 (07:48→11:30)
[2018-02-10] MEDS: Metoclopramide 10 MG/10 ML UD.LIQ PO SCH (08:24)
[2018-02-10] MEDS: Metoprolol XL (24 HR) Succ 25 MG TAB.ER.24H PO SCH (08:24)
[2018-02-10] MEDS: *HR* Digoxin 0.125 MG TABLET PO SCH (08:24)
[2018-02-10] MEDS: Piperacillin/Tazobactam 3.375 GM in 0.9 % Sodium Chloride Mini Bag 100 ML IVPB SCH (08:25)
[2018-02-10] MEDS: Apixaban 5 MG TABLET PO SCH (08:25)
[2018-02-10] MEDS ORDERED: Ipratropium/Albuterol Neb 3 ML IH STA (08:42)
[2018-02-10] MEDS ORDERED: *HR* OxyCODONE/APAP 5/325 TABLET PO PRN ×2 (08:45)
[2018-02-10] MEDS: Iron Sucrose Complex 200 MG in 0.9 % Sodium Chloride 100 ML IVPB SCH (08:55)
[2018-02-10] MEDS: Fluconazole 100 MG/50 ML 100 MG/50 ML BAG IVPB SCH (08:56)
--- NOTE | 2018-02-10 09:11 | Discharge Summary ---
- NOTES TO OUTPATIENT PROVIDER Notes to Outpatient Provider: PCP: Patient was discharged on her home lantus dose. She is instructed record her glucose and to follow with you in one week to determine coverage. Cardiology: Patient is given 30 days prescriptions per progress note and instructed to follow-up with you in two weeks after discharge. Per cardiology office, Jazlyn will call patient to schedule follow-up Orders not resulted at time of discharge: Pending orders 02/05/18 14:54 ECG 12 lead ECG [ECG] Routine 02/10/18 08:43 CXR, PA/Lateral [XR chest 2V] [XR] Stat Date of Encounter: 02/10/18 Time of Encounter: 09:00 - Discharge Diagnosis (1) Rectal cancer Priority: Primary Status: Acute (2) Nausea Priority: Secondary Status: Acute (3) Anemia Priority: Secondary Status: Chronic Qualifiers: Anemia type: other cause Other causes of anemia: other cause, not classified Qualified Code(s): D64.89 - Other specified anemias (4) Diabetes mellitus Priority: Secondary Status: Chronic Qualifiers: Diabetes mellitus type: type 2 Diabetes mellitus jail insulin use: without jail use Diabetes mellitus complication status: with hyperglycemia Qualified Code(s): E11.65 - Type 2 diabetes mellitus with hyperglycemia (5) Atrial fibrillation with RVR Priority: Secondary Status: Acute (6) Essential (primary) hypertension Priority: Secondary Status: Chronic General Surgery Exam Initial Vital Signs Temp Pulse Resp BP Pulse Ox 98.4 F 70 18 152/73 100 01/27/18 06:41 01/27/18 06:41 01/27/18 06:41 01/27/18 06:41 01/27/18 06:41 VITAL SIGNS: Reviewed. See [facility] GENERAL: In no apparent distress. HEENT: Normocephalic, atraumatic, pupils are equal and reactive, extraocular motions intact, oropharynx is pink and moist, there is no neck adenopathy or JVD noted. CHEST/RESPIRATORY: The thorax is free from signs of trauma. Lung sounds: bilateral inspiratory wheezes. We did obtain a chest x-ray which is consistent with atelectasis. She was treated with a respiratory treatment and encouraged aggressive pulmonary toileting. CARDIAC: irregularly irregular. VASCULAR: No Edema. 2+ peripheral pulses. ABDOMEN: soft, expected postoperative tenderness, active bowel sounds INCISION: wound VAC in place. There are no signs of cellulitis or infection noted. WOUNDS/DRAINS: colostomy with output. Stoma is pink and moist. CHATO drain in the right lower quadrant site is slightly macerated. There is a moderate amount of thick and cloudy brown output in the CHATO most consistent with purulent material. MUSCULOSKELETAL: Good range of motion of all major joints. Generalized weakness noted. PT and OT are following. NEUROLOGIC EXAM: Alert and oriented x 3. Speech normal. Follows commands. PSYCHIATRIC: Mood normal. SKIN: No rash or lesions. - Hospital Course Hospital course: Ms. Walter is a 67 year old female who presented on 01/27/2018 is a direct admit for an elective low anterior resection, appendectomy, and CHATO drain placement by Dr. Madrid, for known rectosigmoid cancer (final pathology notes appendix negative for malignancy, portions of benign: with mild mucosal epithelial hyperplasia; negative for malignancy at the anastomotic ring). On 01/30/2018 it was noted that the drainage in her CHATO was consistent with suck us and she was taken back to the operating room where she underwent an exploratory celiotomy, takedown of [place] anastomosis with colostomy, by Dr. Madrid, on 2017 (pathology noted interstitial mucosa with focal acute and chronic inflammation, focal acute inflammation). Her abdomen was left with packing at the time of sugery and was eventually transitioned to a wound vac. She was treated with IV antibitocs and antifungals. Her hospital course has been complicated by several factors: 1) postoperative ileus which was treated with bowel rest, and NG tube, and Reglan, which has resolved, 2) new onset atrial fibrillation with RVR which was treated with beta blockers, antiarrhythmic's, digoxin, and she is being discharged on chronic anticoagulation (apixiban) with cardiology to call with follow-up appointment. 3) comorbid conditions such as essential hypertension, diabetes mellitus, history of CVA, and chronic anemia which was treated and followed by internal medicine, 4) acute on chronic anemia which is required 7 units of packed red blood cells and IV venofer This has resolved. PT and OT have been following during this admission and are comfortable with discharged to home with home health. She is ambulating and voiding with out difficulty, with assistance, tolerating a soft diet without nausea or vomiting, vital signs are stable, she is afebrile , and her abdominal discomfort is controlled on the current regimen. We will begin discharge planning to home with home healthcare for [place] changes and IV Venofer (3 days). She wanted require a follow-up with surgery on 02/18 as previously scheduled, cardiology in 2 weeks, her PCP in one week, and follow-up with oncology. Per CM note: Patient is straight medicare so osotomy supplies will need to be provided by the . A prescription for ostomy supplies is in the hard chart. Prior to discharge she was noted to be wheezy. A chest x-ray was obtained which is consistent with atelectasis. She was treated with a respiratory treatment and encouraged aggressive pulmonary toileting. Also noted on the chest x-ray were bilateral pleural effusions which were small. I do expect that the atelectasis and effusions will resolve as she is more active at home and practices aggressive pulmonary toileting. - Time Spent with Patient Total time spent providing and/or coordinating discharge services: Greater than 30 minutes (C, [place], social media developer, prescriptions) - Discharge Medications Prescriptions: OxyCODONE/APAP 5/325 [Percocet 5/325 MG] 1 each PO Q4HR PRN 7 Days #28 tablet PRN Reason: moderate pain Amoxicillin/Clavulanate [Augmentin] 875 mg PO BIDWM #20 tablet Apixaban [Eliquis] 5 mg PO BID #60 tablet Digoxin [Lanoxin] 0.125 mg PO DAILY #30 tablet Fluconazole [Diflucan] 100 mg PO DAILY #7 tablet Iron SUCROSE Complex [Venofer] 200 mg IV DAILY 3 Days #3 each Metoclopramide [Reglan] 10 mg PO BID #16 ud.liq Metoprolol Succinate [Toprol Xl] 50 mg PO DAILY #30 tab.er.24h Metoprolol XL (24 HR) Succ [Toprol XL] 25 mg PO DAILY #30 tab.er.24h Omeprazole [PriLOSEC] 40 mg PO DAILY@0730 #30 capsule.dr Home Medications: Levothyroxine Sodium [Levoxyl] 75 mcg PO DAILY 03/13/17 [History] Aspirin [Lo-Dose Aspirin EC] 81 mg PO DAILY 10/25/17 [History] Insulin Glargine,Hum.rec.anlog [Lantus Solostar] 15 unit SQ HS 10/25/17 [History ] Valsartan [Diovan] 80 mg PO DAILY 10/25/17 [History] clonazePAM [Klonopin] 0.5 - 1 mg PO HS 10/25/17 [History] Citalopram [CeleXA] 20 mg PO DAILY 30 Days #30 tablet 10/27/17 [Rx] traZODone [TraZODone] 50 mg PO HS 11/17/17 [History] Acetaminophen [Tylenol] 650 mg PO Q6HR PRN tablet 02/10/18 [Rx] Amoxicillin/Clavulanate [Augmentin] 875 mg PO BIDWM #20 tablet 02/10/18 [Rx] Apixaban [Eliquis] 5 mg PO BID #60 tablet 02/10/18 [Rx] Digoxin [Lanoxin] 0.125 mg PO DAILY #30 tablet 02/10/18 [Rx] Fluconazole [Diflucan] 100 mg PO DAILY #7 tablet 02/10/18 [Rx] Metoclopramide [Reglan] 10 mg PO BID #16 ud.liq 02/10/18 [Rx] Metoprolol Succinate [Toprol Xl] 50 mg PO DAILY #30 tab.er.24h 02/10/18 [Rx] Metoprolol XL (24 HR) Succ [Toprol XL] 25 mg PO DAILY #30 tab.er.24h 02/10/18 [ Rx] Omeprazole [PriLOSEC] 40 mg PO DAILY@0730 #30 capsule. 02/10/18 [Rx] OxyCODONE/APAP 5/325 [Percocet 5/325 MG] 1 each PO Q4HR PRN 7 Days #28 tablet [Rx] Iron SUCROSE Complex [Venofer] 200 mg IV DAILY 3 Days #3 each 02/11/18 [Rx] Allergies/Adverse Reactions: 3 Allergy/AdvReac Type Severity Reaction Status Date / Time bacitracin Allergy See Verified 01/27/18 07:22 [From Triple Antibiotic] Comments ciprofloxacin AdvReac Mild Gastrointestinal Verified 01/27/18 07:22 Upset codeine AdvReac Nightmare Verified 01/27/18 07:22 Erythromycin Base AdvReac Nausea Verified 01/27/18 07:22 glipizide AdvReac Nausea Verified 01/27/18 07:22 levofloxacin [From Levaquin] AdvReac Nausea Verified 01/27/18 07:22 Neomycin AdvReac See Verified 01/27/18 07:22 [From Triple Antibiotic] Comments polymyxin B AdvReac See Verified 01/27/18 07:22 [From Triple Antibiotic] Comments Sulfa (Sulfonamide AdvReac Nausea Verified 01/27/18 07:22 Antibiotics) Date of admission: 01/27/18 13:33 Primary care physician: Willam Mckeon, Consults: 01/29/18 10:33 Consult to Occupational Therapy [CONS] Routine Comment: Evaluate, develop and implement POC Reason for Consult: Mobilization and DC planning (May clamp NG and fluids for ambulation). Does patient have active BEDREST order?: No Is patient medically & hemodynamically stable?: Yes Patient assessed for mobility or mobilized this visit?: No Consult to Physical Therapy [CONS] Routine Comment: Evaluate, develop and implement POC Reason for Consult: Mobilization and DC planning (May clamp NG and fluids for ambulation). Does patient have active BEDREST order?: No Is patient medically & hemodynamically stable?: Yes Patient assessed for mobility or mobilized this visit?: No 01/30/18 11:39 consult to beach expert [Consult to Nutrition] [CONS] Routine Comment: Total fluid rate will be TPN goal rate Consulting Provider: NUTRITION Reason for Dietary Consult: TPN Start and Manage 01/31/18 18:40 Consult to Hospitalist [CONS] Routine Consulting Provider: Hospitalist Victorino Reason for Consult: A-Fib RVR Time Notified: 18:30 Call Completed: Yes 01/31/18 19:38 Consult to Hospitalist [CONS] Routine Consulting Provider: Hospitalist Tannergemarleni Reason for Consult: Patient in A-fib RVR Time Notified: 18:20 Call Completed: Yes 02/02/18 09:24 Consult to Wound Care [CONS] Routine Reason for Consult: New ostomy education Time Notified: 09:25 Call Completed: Yes 02/03/18 18:32 Consult to Cardiology [CONS] Routine Comment: Consulting Provider: Cardiology Kim Reason for Consult: atrial fibrillation with RVR Call Completed: No 02/09/18 12:32 Consult to Fitter Machinist [CONS] Stat Reason for SW Consult: [place] approval and C for d/c planning likely 02/10/2018 Discharging clinician: Kenneth Madrid (Jennifer Chand) Anticipated date of discharge: 02/10/18 Labs on day of discharge: Labs from last 24 hours 02/10/18 02/10/18 02/09/18 03:20 03:20 19:14 WBC 6.4 RBC 4.03 Hgb 10.4 L D Hct 33.3 L MCV 82.6 L MCH 25.8 L MCHC 31.2 L RDW 16.3 H Plt Count 306 MPV 9.5 POC Glucose 164 H Iron 15 L % Saturation 7 L Transferrin 158 L Blood Type Antibody Screen MTS Gel Crossmatch 02/09/18 02/09/18 02/09/18 16:15 11:43 09:30 WBC RBC Hgb Hct MCV MCH MCHC RDW Plt Count MPV POC Glucose 236 H 169 H Iron % Saturation Transferrin Blood Type O POSITIVE Antibody Screen NEGATIVE MTS Gel Crossmatch See Detail 02/08/18 02/08/18 23:58 20:39 WBC RBC Hgb Hct MCV MCH MCHC RDW Plt Count MPV POC Glucose 145 H 162 H Iron % Saturation Transferrin Blood Type Antibody Screen MTS Gel Crossmatch - Impressions ITS Impressions Abdomen X-Ray 01/29/18 09:06 IMPRESSION: 1. The nasogastric tube proximal side port is at or just below the GE junction. Further advancement is recommended. 2. Small amount of postsurgical pneumoperitoneum. 3. Nonobstructive bowel gas pattern. Results verbally communicated to the patient's nurse, Lucille Pichardo, at 9:56 a.m. on 01/29/2018 by the [facility]. D/ / 01/29/2018 10:35:12 Ty Wilson MD / Dorene Vaz Interpreting Provider: Ty Wilson MD X-Ray 01/29/18 10:40 IMPRESSION: Enteric tube has been advanced. The tip projects over the left lower quadrant and may still be within the gastric body. The proximal side port appears to be projected over the stomach. D/ / 01/29/2018 11:54:00 Mary Landers MD / Dorene Vaz Interpreting Provider: Mray Landers MD Chest X-Ray 02/07/18 15:03 IMPRESSION: Mild bibasilar atelectasis, left greater than right. A developing infiltrate cannot be entirely excluded in the left lung base. Follow up to resolution is suggested. D/ / 02/07/2018 15:55:56 Nilda Anguiano MD / ritchie Interpreting Provider: Nilda Anguiano MD - Patient Status Disposition: Home Health Service Condition: Fair Functional capacity at discharge: independent ambulation Overall status at discharge: patient is not back to baseline - Discharge Instructions Instructions: Colostomy Care (DC), Ricardo-Wallace Drain Care (DC), Anemia (DC), Negative Pressure Wound Therapy (DC) Follow Up With: Kenneth Madrid MD [Partnered Physician] - 02/18/18 9:00 am Ngoc Gil CNP [Advanced Practice Nurse] - 02/13/18 1:30 pm Bashir Hodges MD [Partnered Physician] - (2 weeks. Per cardiology office, Jazlyn, will call you to schedule appoinment.) Additional Instructions: Wound Vac: Maintain wound vac to 125 mmHg. Black foam dressing to midline incision changes Friday/Friday/Friday (next due 02/11/2018). CHATO: Maintain CHATO bulb to suction. Cover CHATO site with split gauze daily. Do not let the CHATO dangle from the body. If you are up, suspend the CHATO to a lanyard or safety pin to your clothing. You may shower daily however the CHATO must be suspended as previously described. Record your output daily on the form provided and bring this with you to your appointment with Dr. Madrid. Venofer: Infuse 200 mg Venofer, IV daily for 3 days (02/11,, & ). May d /c PICC line after last Venofer infusion. General Surgical Discharge Instructions 1. No pushing, pulling, or lifting greater than 15 lbs for 6 weeks (or until cleared by your surgeon). 2. You may shower beginning today, but no tub baths, soaking, or swimming. Do not shower immediately after wound vac changes. 3. You may resume driving when you are off narcotics and are safe to react in a car. 4. Take ibuprofen every 8 hours for discomfort. If this does not relieve discomfort, you may take the as needed Percocet. Take narcotics only as directed. Do not take more narcotics then directed and do not share your narcotics with any other person. Do not drink alcohol while on narcotics. 5. Take stool softeners (Colace) or a water based laxative (Miralax) while taking narcotics. You may hold for loose stools. 6. Report any fevers greater than 100.5F, increase abdominal discomfort, drainage that looks like pus, increased redness or pain at the surgical site, or any vomiting. 7. Report any pain in the calves, shortness of breath, or rapid heartbeat. 8. Follow-up in the office as directed. 9. If you were prescribed antibiotics, do not stop them without talking to your provider. - Diet and Activity Activity: increase activity as tolerated Diet: advance to your usual diet (Soft diet. Drink at least 3 protein supplements daily. )
--- NOTE | 2018-02-10 10:02 | Physician Discharge Referral ---
Home Health/Hosp Referral Info Transfer to: Home Health Attending Provider: Dr. Kenneth Madrid Provider in Charge Post Discharge: Other (Dr. Kenneth Madrid) - Diagnosis (1) Rectal cancer Priority: Primary Status: Acute (2) Nausea Priority: Secondary Status: Acute (3) Anemia Priority: Secondary Status: Chronic (4) Diabetes mellitus Priority: Secondary Status: Chronic (5) Atrial fibrillation with RVR Priority: Secondary Status: Acute (6) Essential (primary) hypertension Priority: Secondary Status: Chronic - Respiratory Orders Smoking Cessation: Smoking cessation has been advised. For more information, call the [place] Tobacco Quit Line at 0-865-MIYE-NOW. - Dressing/Wound Care Site: Midline surgical incision and CHATO Type of Dressing/Treatments w/Frequency: Wound Vac: Maintain wound vac to 125 mmHg. Black foam dressing to midline incision changes Friday/Friday/Friday (next due 02/11/2018). CHATO: Maintain CHATO bulb to suction. Cover CHATO site with split gauze daily. Do not let the CHATO dangle from the body. If you are up, suspend the CHATO to a lanyard or safety pin to your clothing. You may shower daily however the CHATO must be suspended as previously described. Record your output daily on the form provided and bring this with you to your appointment with Dr. Madrid. - Diet/Nutrition Diet/Nutrition Orders: Mechanical Soft - Activity Activity Orders: Up ad hien - Services Needed Following services are medically necessary services: Nursing, Physical Therapy, Occupational Therapy, Home Infusion Other Treatments: Wound Vac: Maintain wound vac to 125 mmHg. Black foam dressing to midline incision changes Friday/Friday/Friday (next due 02/11/2018). CHATO: Maintain CHATO bulb to suction. Cover CHATO site with split gauze daily. Do not let the CHATO dangle from the body. If you are up, suspend the CHATO to a lanyard or safety pin to your clothing. You may shower daily however the CHATO must be suspended as previously described. Record your output daily on the form provided and bring this with you to your appointment with Dr. Madrid. Venofer: Infuse 200 mg Venofer, IV daily for 3 days (02/11,, & ). May d /c PICC line after last Venofer infusion. Per CM note: Patient is straight medicare so osotomy supplies will need to be provided by the . A prescription for ostomy supplies is in the hard chart. General Surgical Discharge Instructions 1. No pushing, pulling, or lifting greater than 15 lbs for 6 weeks (or until cleared by your surgeon). 2. You may shower beginning today, but no tub baths, soaking, or swimming. Do not shower immediately after wound vac changes. 3. You may resume driving when you are off narcotics and are safe to react in a car. 4. Take ibuprofen every 8 hours for discomfort. If this does not relieve discomfort, you may take the as needed Percocet. Take narcotics only as directed. Do not take more narcotics then directed and do not share your narcotics with any other person. Do not drink alcohol while on narcotics. 5. Take stool softeners (Colace) or a water based laxative (Miralax) while taking narcotics. You may hold for loose stools. 6. Report any fevers greater than 100.5F, increase abdominal discomfort, drainage that looks like pus, increased redness or pain at the surgical site, or any vomiting. 7. Report any pain in the calves, shortness of breath, or rapid heartbeat. 8. Follow-up in the office as directed. 9. If you were prescribed antibiotics, do not stop them without talking to your provider. - Transfer Medications Prescriptions: OxyCODONE/APAP 5/325 [Percocet 5/325 MG] 1 each PO Q4HR PRN 7 Days #28 tablet PRN Reason: moderate pain Amoxicillin/Clavulanate [Augmentin] 875 mg PO BIDWM #20 tablet Apixaban [Eliquis] 5 mg PO BID #60 tablet Digoxin [Lanoxin] 0.125 mg PO DAILY #30 tablet Fluconazole [Diflucan] 100 mg PO DAILY #7 tablet Iron SUCROSE Complex [Venofer] 200 mg IV DAILY 3 Days #3 each Metoclopramide [Reglan] 10 mg PO BID #16 ud.liq Metoprolol Succinate [Toprol Xl] 50 mg PO DAILY #30 tab.er.24h Metoprolol XL (24 HR) Succ [Toprol XL] 25 mg PO DAILY #30 tab.er.24h Omeprazole [PriLOSEC] 40 mg PO DAILY@0730 #30 capsule. Home Medications: Levothyroxine Sodium [Levoxyl] 75 mcg PO DAILY 03/13/17 [History] Aspirin [Lo-Dose Aspirin EC] 81 mg PO DAILY 10/25/17 [History] Insulin Glargine,Hum.rec.anlog [Lantus Solostar] 15 unit SQ HS 10/25/17 [History ] Valsartan [Diovan] 80 mg PO DAILY 10/25/17 [History] clonazePAM [Klonopin] 0.5 - 1 mg PO HS 10/25/17 [History] Citalopram [CeleXA] 20 mg PO DAILY 30 Days #30 tablet 10/27/17 [Rx] traZODone [TraZODone] 50 mg PO HS 11/17/17 [History] Acetaminophen [Tylenol] 650 mg PO Q6HR PRN tablet 02/10/18 [Rx] Amoxicillin/Clavulanate [Augmentin] 875 mg PO BIDWM #20 tablet 02/10/18 [Rx] Apixaban [Eliquis] 5 mg PO BID #60 tablet 02/10/18 [Rx] Digoxin [Lanoxin] 0.125 mg PO DAILY #30 tablet 02/10/18 [Rx] Fluconazole [Diflucan] 100 mg PO DAILY #7 tablet 02/10/18 [Rx] Metoclopramide [Reglan] 10 mg PO BID #16 ud.liq 02/10/18 [Rx] Metoprolol Succinate [Toprol Xl] 50 mg PO DAILY #30 tab.er.24h 02/10/18 [Rx] Metoprolol XL (24 HR) Succ [Toprol XL] 25 mg PO DAILY #30 tab.er.24h 02/10/18 [ Rx] Omeprazole [PriLOSEC] 40 mg PO DAILY@0730 #30 evelina. 02/10/18 [Rx] OxyCODONE/APAP 5/325 [Percocet 5/325 MG] 1 each PO Q4HR PRN 7 Days #28 tablet [Rx] Iron SUCROSE Complex [Venofer] 200 mg IV DAILY 3 Days #3 each 02/11/18 [Rx] Allergies/Adverse Reactions: 3 Allergy/AdvReac Type Severity Reaction Status Date / Time bacitracin Allergy See Verified 01/27/18 07:22 [From Triple Antibiotic] Comments ciprofloxacin AdvReac Mild Gastrointestinal Verified 05/29/18 07:22 Upset codeine AdvReac Nightmare Verified 01/27/18 07:22 Erythromycin Base AdvReac Nausea Verified 01/27/18 07:22 glipizide AdvReac Nausea Verified 01/27/18 07:22 levofloxacin [From Levaquin] AdvReac Nausea Verified 01/27/18 07:22 Neomycin AdvReac See Verified 01/27/18 07:22 [From Triple Antibiotic] Comments polymyxin B AdvReac See Verified 01/27/18 07:22 [From Triple Antibiotic] Comments Sulfa (Sulfonamide AdvReac Nausea Verified 01/27/18 07:22 Antibiotics) Certification: Further, I certify that my clinical findings support that this patient is homebound (i.e. absences from home require considerable and taxing effort and are for medical reasons or episcopalian services or infrequently or short duration when for other reasons) because: Homebound Reason: Patient requires assistance of a person or device to safely leave home, Post-surgery restriction and or conditions limit ability to leave home, Leaving home requires considerable and taxing effort due to condition Attestation: My signature below is to certify that this patient is under my care and that I, or nurse practitioner, or a physician's property management assistant working with me, has a face-to -face encounter with this patient.
[2018-02-10] MEDS: Acetaminophen 325 MG TABLET PO PRN (10:18)
[2018-02-10] MEDS: *HR* LORazepam 2 MG/ML VIAL IVP PRN (10:18)
[2018-02-10 10:53] VITALS: BP 134/80
== END 2018-02-10 17:19 | disposition home health service (06) | DRG 330 ==
LOC: SAMDAY 06:09 → 3ANU 13:33 → UNDODISIN 01-31 19:08 → ICNU 01-31 19:27 → 2NENU 02-03 06:42 → 2NNU 02-03 16:02
PROVIDERS: ADMIT Surgery; ATTEND Surgery

== ENCOUNTER 2020-09-23 19:05 | Inpatient (IN) ==
[2020-09-23] MEDS ORDERED: Naloxone 0.4 MG/ML INJ IVP PRN (21:39)
[2020-09-23] MEDS ORDERED: Ketorolac 30 MG/ML VIAL IVP PRN (21:43)
[2020-09-23] MEDS ORDERED: *HR* LORazepam 0.5 MG TABLET PO PRN (23:21)
[2020-09-23] MEDS: Ondansetron 4 MG/2 ML VIAL IVP PRN (23:46)
[2020-09-24] MEDS ORDERED: Dextrose Gel 15 GM/37.5 ML TUBE PO PRN ×4 (01:13→16:04)
[2020-09-24] MEDS ORDERED: D5% in Water 1,000 ML IVC PRN ×2 (01:13→16:04)
[2020-09-24] MEDS ORDERED: *HR* Dextrose 50 % in Water (Vial) 50 ML VIAL IVP PRN ×2 (01:13→16:04)
[2020-09-24 01:46] LABS: Hematocrit 32.3 % (35.3-44.9); Hemoglobin 9.7 g/dL (11.5-15.4); Immature Granulocytes % 0.3 % (0-4); Lymphocytes # 0.5 K/mcL (0.6-4.6); Lymphocytes % 14.1 %; Mean Corpuscular Hemoglobin 23.8 pg (28.0-33.3); Mean Corpuscular Volume 79.4 fL (83.0-100.0); Mean Platelet Volume 9.1 fL (9.4-12.4); Monocytes # 0.3 K/mcL (0.0-1.3); Monocytes % 9.1 %; Neutrophils # 2.5 K/mcL (1.6-8.9); Platelet Count 124 K/mcL (140-400); Red Blood Count 4.07 M/mcL (3.82-4.97); Red Cell Distribution Width 14.4 % (11.5-14.5); Segmented Neutrophils % 76.5 %; White Blood Count 3.2 K/mcL (4.3-11.1)
[2020-09-24 01:47] LABS: INR 1.2; Prothrombin Time 13.7 Seconds (9.4-12.1)
[2020-09-24 02:05] LABS: Alanine Aminotransferase 11 Units/L (7-52); Albumin 3.3 g/dL (3.5-5.7); Alkaline Phosphatase 82 Units/L (34-104); Aspartate Amino Transferase 14 Units/L (13-39); BUN/Creatinine Ratio 25 (6-26); Bilirubin,Total 0.6 mg/dL (0.3-1.0); Blood Urea Nitrogen 14 mg/dL (8-23); Calcium 8.8 mg/dL (8.6-10.3); Carbon Dioxide 26 mEq/L (23-29); Chloride 104 mEq/L (98-107); Globulin 3.2 g/dL (2.4-3.5); Glucose 122 mg/dL (70-105); Magnesium 1.9 mg/dL (1.6-2.6); Osmolality,Calculated 286 (280-300); Phosphorous 3.8 mg/dL (2.7-4.5); Potassium 3.8 mEq/L (3.5-5.1); Sodium 137 mEq/L (136-145); Total Protein 6.5 g/dL (6.4-8.9); Troponin I < 0.03 ng/mL (< 0.04); eGFR For African Americans > 60 (> 60); eGFR For Non-African Americans > 60 (> 60)
[2020-09-24] MEDS: Insulin LISPRO 300 UNITS/3 ML VIAL SUBQ SCH ×3 (06:49→21:56)
[2020-09-24] MEDS ORDERED: ceFAZolin 2,000 MG in Water for inj. (sterile) 20 ML IVP ONE (13:27)
[2020-09-24] MEDS ORDERED: *HR* Propofol 200 MG/20 ML VIAL IVP ONE (13:45)
[2020-09-24] MEDS ORDERED: Ondansetron 4 MG/2 ML VIAL ONE (13:45)
[2020-09-24] MEDS ORDERED: Lidocaine -MPF 2% 2 ML VIAL ONE (13:45)
[2020-09-24] MEDS ORDERED: *HR* OxyCODONE Immed Rel 5 MG TABLET PO PRN ×2 (13:49→16:04)
[2020-09-24] MEDS ORDERED: *HR* FentaNYL (PF) 100 MCG/2 ML VIAL IVP PRN ×2 (13:49→16:04)
[2020-09-24] MEDS ORDERED: *HR* FentaNYL (PF) 100 MCG/2 ML VIAL ONE (14:40)
[2020-09-24] MEDS: Ondansetron 4 MG/2 ML VIAL IVP PRN (15:24)
[2020-09-24] MEDS ORDERED: Naloxone 0.4 MG/ML INJ IVP PRN (16:04)
[2020-09-24] MEDS ORDERED: Ondansetron 4 MG/2 ML VIAL IVP PRN (16:04)
[2020-09-24] MEDS ORDERED: *HR* LORazepam 0.5 MG TABLET PO PRN (16:04)
[2020-09-24] MEDS: Metoprolol XL (24 HR) Succ 50 MG TAB.ER.24H PO SCH (16:59)
[2020-09-24] MEDS ORDERED: Insulin LISPRO 300 UNITS/3 ML VIAL SUBQ SCH (18:00)
[2020-09-24] MEDS: Gabapentin 300 MG CAPSULE PO SCH (21:51)
[2020-09-24] MEDS: CeFAZolin 2 GM/120 ML BAG IVPB SCH (21:55)
[2020-09-24] MEDS: Ketorolac 30 MG/ML VIAL IVP PRN (21:59)
[2020-09-25 01:30] LABS: Hematocrit 30.3 % (35.3-44.9); Immature Granulocytes % 0.6 % (0-4); Lymphocytes # 0.4 K/mcL (0.6-4.6); Lymphocytes % 11.3 %; Mean Corpuscular HGB Conc 29.7 g/dL (31.6-35.5); Mean Corpuscular Hemoglobin 24.4 pg (28.0-33.3); Mean Corpuscular Volume 82.1 fL (83.0-100.0); Mean Platelet Volume 9.6 fL (9.4-12.4); Monocytes # 0.4 K/mcL (0.0-1.3); Monocytes % 10.8 %; Neutrophils # 2.8 K/mcL (1.6-8.9); Platelet Count 117 K/mcL (140-400); Red Blood Count 3.69 M/mcL (3.82-4.97); Red Cell Distribution Width 14.4 % (11.5-14.5); Segmented Neutrophils % 77.3 %; White Blood Count 3.6 K/mcL (4.3-11.1)
[2020-09-25 01:52] LABS: BUN/Creatinine Ratio 29 (6-26); Blood Urea Nitrogen 18 mg/dL (8-23); Calcium 8.1 mg/dL (8.6-10.3); Carbon Dioxide 25 mEq/L (23-29); Chloride 105 mEq/L (98-107); Glucose 142 mg/dL (70-105); Magnesium 1.8 mg/dL (1.6-2.6); Osmolality,Calculated 290 (280-300); Sodium 138 mEq/L (136-145); eGFR For African Americans > 60 (> 60); eGFR For Non-African Americans > 60 (> 60)
[2020-09-25] MEDS: CeFAZolin 2 GM/120 ML BAG IVPB SCH (05:24)
[2020-09-25] MEDS: Ketorolac 30 MG/ML VIAL IVP PRN ×2 (05:24→15:26)
[2020-09-25] MEDS ORDERED: Insulin LISPRO 300 UNITS/3 ML VIAL SUBQ SCH ×2 (07:30→21:00)
[2020-09-25] MEDS: Insulin LISPRO 300 UNITS/3 ML VIAL SUBQ SCH ×4 (07:51→19:53)
[2020-09-25] MEDS: Magnesium Oxide 400 MG TABLET PO SCH (08:13)
[2020-09-25] MEDS: Cyanocobalamin (B-12) 1,000 MCG TABLET PO SCH (08:13)
[2020-09-25] MEDS: DilTIAZem CD (24hr) 180 MG CAP.ER.24H PO SCH (08:13)
[2020-09-25] MEDS: Aspirin Enteric Coated 325 MG Tablet PO SCH (08:13)
[2020-09-25] MEDS: Metoprolol XL (24 HR) Succ 50 MG TAB.ER.24H PO SCH (08:14)
[2020-09-25] MEDS: clonazePAM 0.5 MG TABLET PO SCH (08:14)
[2020-09-25] MEDS ORDERED: Aspirin Enteric Coated 81 MG Tablet PO SCH (09:00)
[2020-09-25] MEDS: Gabapentin 300 MG CAPSULE PO SCH (20:01)
[2020-09-26] MEDS: Ketorolac 30 MG/ML VIAL IVP PRN ×2 (02:24→21:58)
[2020-09-26 03:42] LABS: Hematocrit 25.5 % (35.3-44.9); Immature Granulocytes % 0.4 % (0-4); Lymphocytes # 0.5 K/mcL (0.6-4.6); Mean Corpuscular Hemoglobin 24.1 pg (28.0-33.3); Mean Corpuscular Volume 83.1 fL (83.0-100.0); Mean Platelet Volume 10.1 fL (9.4-12.4); Monocytes # 0.3 K/mcL (0.0-1.3); Monocytes % 11.2 %; Platelet Count 116 K/mcL (140-400); Red Blood Count 3.07 M/mcL (3.82-4.97); Red Cell Distribution Width 14.5 % (11.5-14.5); Segmented Neutrophils % 71.4 %; White Blood Count 2.8 K/mcL (4.3-11.1)
[2020-09-26 03:44] LABS: Hemoglobin 7.4 g/dL (11.5-15.4)
[2020-09-26 06:53] LABS: Hematocrit 26.2 % (35.3-44.9); Hemoglobin 7.8 g/dL (11.5-15.4); Immature Granulocytes % 0.4 % (0-4); Lymphocytes # 0.5 K/mcL (0.6-4.6); Lymphocytes % 18.7 %; Mean Corpuscular HGB Conc 29.8 g/dL (31.6-35.5); Mean Corpuscular Hemoglobin 24.8 pg (28.0-33.3); Mean Corpuscular Volume 83.2 fL (83.0-100.0); Mean Platelet Volume 9.9 fL (9.4-12.4); Monocytes # 0.3 K/mcL (0.0-1.3); Monocytes % 12.2 %; Neutrophils # 1.8 K/mcL (1.6-8.9); Platelet Count 121 K/mcL (140-400); Red Blood Count 3.15 M/mcL (3.82-4.97); Red Cell Distribution Width 14.5 % (11.5-14.5); Segmented Neutrophils % 68.7 %; White Blood Count 2.6 K/mcL (4.3-11.1)
[2020-09-26] MEDS: Insulin LISPRO 300 UNITS/3 ML VIAL SUBQ SCH ×4 (07:47→19:35)
[2020-09-26] MEDS: Metoprolol XL (24 HR) Succ 50 MG TAB.ER.24H PO SCH (08:00)
[2020-09-26] MEDS: Aspirin Enteric Coated 325 MG Tablet PO SCH (08:00)
[2020-09-26] MEDS: Cyanocobalamin (B-12) 1,000 MCG TABLET PO SCH (08:00)
[2020-09-26] MEDS: clonazePAM 0.5 MG TABLET PO SCH (08:00)
[2020-09-26] MEDS: Magnesium Oxide 400 MG TABLET PO SCH (08:00)
[2020-09-26] MEDS: DilTIAZem CD (24hr) 180 MG CAP.ER.24H PO SCH (08:00)
[2020-09-26 12:25] LABS: Hematocrit 26.7 % (35.3-44.9); Hemoglobin 7.7 g/dL (11.5-15.4)
[2020-09-26] MEDS: Gabapentin 300 MG CAPSULE PO SCH (19:40)
[2020-09-27 01:25] LABS: Hemoglobin 7.6 g/dL (11.5-15.4); Immature Granulocytes % 0.4 % (0-4); Lymphocytes # 0.4 K/mcL (0.6-4.6); Lymphocytes % 15.6 %; Mean Corpuscular HGB Conc 29.2 g/dL (31.6-35.5); Mean Corpuscular Hemoglobin 24.1 pg (28.0-33.3); Mean Corpuscular Volume 82.3 fL (83.0-100.0); Mean Platelet Volume 9.6 fL (9.4-12.4); Monocytes # 0.3 K/mcL (0.0-1.3); Monocytes % 10.1 %; Neutrophils # 1.9 K/mcL (1.6-8.9); Platelet Count 131 K/mcL (140-400); Red Blood Count 3.16 M/mcL (3.82-4.97); Red Cell Distribution Width 14.3 % (11.5-14.5); Segmented Neutrophils % 73.9 %; White Blood Count 2.6 K/mcL (4.3-11.1)
[2020-09-27] MEDS: Insulin LISPRO 300 UNITS/3 ML VIAL SUBQ SCH ×4 (07:32→20:24)
[2020-09-27] MEDS: Metoprolol XL (24 HR) Succ 50 MG TAB.ER.24H PO SCH (09:17)
[2020-09-27] MEDS: clonazePAM 0.5 MG TABLET PO SCH (09:17)
[2020-09-27] MEDS: Magnesium Oxide 400 MG TABLET PO SCH (09:18)
[2020-09-27] MEDS: Aspirin Enteric Coated 325 MG Tablet PO SCH (09:18)
[2020-09-27] MEDS: Cyanocobalamin (B-12) 1,000 MCG TABLET PO SCH (09:18)
[2020-09-27] MEDS: DilTIAZem CD (24hr) 180 MG CAP.ER.24H PO SCH (09:18)
[2020-09-27] MEDS: Gabapentin 300 MG CAPSULE PO SCH (20:22)
[2020-09-28 05:10] LABS: Hematocrit 25.6 % (35.3-44.9); Hemoglobin 7.6 g/dL (11.5-15.4); Mean Corpuscular HGB Conc 29.7 g/dL (31.6-35.5); Mean Corpuscular Hemoglobin 24.5 pg (28.0-33.3); Mean Corpuscular Volume 82.6 fL (83.0-100.0); Mean Platelet Volume 9.8 fL (9.4-12.4); Platelet Count 147 K/mcL (140-400); Red Cell Distribution Width 14.6 % (11.5-14.5); White Blood Count 2.5 K/mcL (4.3-11.1)
[2020-09-28 05:27] LABS: BUN/Creatinine Ratio 43 (6-26); Blood Urea Nitrogen 24 mg/dL (8-23); Calcium 8.4 mg/dL (8.6-10.3); Carbon Dioxide 31 mEq/L (23-29); Chloride 101 mEq/L (98-107); Glucose 126 mg/dL (70-105); Osmolality,Calculated 288 (280-300); Potassium 4.3 mEq/L (3.5-5.1); Sodium 136 mEq/L (136-145); eGFR For African Americans > 60 (> 60); eGFR For Non-African Americans > 60 (> 60)
[2020-09-28] MEDS: Insulin LISPRO 300 UNITS/3 ML VIAL SUBQ SCH ×2 (08:38→12:02)
[2020-09-28] MEDS: DilTIAZem CD (24hr) 180 MG CAP.ER.24H PO SCH (08:39)
[2020-09-28] MEDS: Magnesium Oxide 400 MG TABLET PO SCH (08:39)
[2020-09-28] MEDS: clonazePAM 0.5 MG TABLET PO SCH (08:39)
[2020-09-28] MEDS: Metoprolol XL (24 HR) Succ 50 MG TAB.ER.24H PO SCH (08:40)
[2020-09-28] MEDS: Aspirin Enteric Coated 325 MG Tablet PO SCH (08:40)
[2020-09-28] MEDS: Cyanocobalamin (B-12) 1,000 MCG TABLET PO SCH (08:40)
[2020-09-28] MEDS ORDERED: Sennosides/Docusate Sodium TABLET PO PRN (09:16)
[2020-09-28 14:49] LABS: Adenovirus Not Detected (Not Detect); Bordetella Pertussis Not Detected (Not Detect); Chlamydophila pneumoniae Not Detected (Not Detect); Coronavirus 229E Not Detected (Not Detect); Coronavirus HKU1 Not Detected (Not Detect); Coronavirus NL63 Not Detected (Not Detect); Coronavirus OC43 Not Detected (Not Detect); Human Metapneumovirus Not Detected (Not Detect); Human Rhinovirus/Enterovirus Not Detected (Not Detect); Influenza A Subtype 2009 H1 Not Detected (Not Detect); Influenza B Not Detected (Not Detect); Mycoplasma pneumoniae Not Detected (Not Detect); Parainfluenza Virus 1 Not Detected (Not Detect); Parainfluenza Virus 2 Not Detected (Not Detect); Parainfluenza Virus 3 Not Detected (Not Detect); Parainfluenza Virus 4 Not Detected (Not Detect); Respiratory Syncytial Virus Not Detected (Not Detect); SARS-CoV-2 Not Detected (Not Detect)
[2020-09-28 15:31] VITALS: BP 148/72
== END 2020-09-28 15:47 | disposition other institution (70) | DRG 481 ==
LOC: 3NENU → OBSVTOIN 20:53
PROVIDERS: ADMIT Internal Medicine; ATTEND Internal Medicine

== ENCOUNTER 2020-11-15 13:03 | Observation (INO) ==
[2020-11-15] MEDS ORDERED: Ondansetron 4 MG/2 ML VIAL IVP ONE (13:24)
[2020-11-15] MEDS ORDERED: 0.9 % Sodium Chloride 1,000 ML IVC ONE (13:25)
[2020-11-15] MEDS ORDERED: Isovue-370 500 ML BOTTLE IVP ONE (13:28)
[2020-11-15 14:07] LABS: Basophils % 0.2 %; Hematocrit 30.4 % (35.3-44.9); Immature Granulocytes % 0.7 % (0-4); Lymphocytes # 0.5 K/mcL (0.6-4.6); Lymphocytes % 11.7 %; Mean Corpuscular HGB Conc 29.6 g/dL (31.6-35.5); Mean Corpuscular Hemoglobin 23.6 pg (28.0-33.3); Mean Corpuscular Volume 79.8 fL (83.0-100.0); Mean Platelet Volume 9.2 fL (9.4-12.4); Monocytes # 0.4 K/mcL (0.0-1.3); Monocytes % 8.3 %; Neutrophils # 3.5 K/mcL (1.6-8.9); Platelet Count 223 K/mcL (140-400); Red Blood Count 3.81 M/mcL (3.82-4.97); Red Cell Distribution Width 14.6 % (11.5-14.5); Segmented Neutrophils % 79.1 %; White Blood Count 4.5 K/mcL (4.3-11.1)
[2020-11-15 14:30] LABS: Alanine Aminotransferase 9 Units/L (7-52); Albumin/Globulin Ratio 0.8 (1.1-2.2); Alkaline Phosphatase 99 Units/L (34-104); Aspartate Amino Transferase 10 Units/L (13-39); BUN/Creatinine Ratio 31 (6-26); Bilirubin,Total 0.3 mg/dL (0.3-1.0); Blood Urea Nitrogen 25 mg/dL (8-23); Calcium 8.3 mg/dL (8.6-10.3); Carbon Dioxide 27 mEq/L (23-29); Chloride 102 mEq/L (98-107); Globulin 3.9 g/dL (2.4-3.5); Glucose 131 mg/dL (70-105); Lipase 22 Units/L (11-82); Osmolality,Calculated 288 (280-300); Sodium 136 mEq/L (136-145); Total Protein 6.9 g/dL (6.4-8.9); eGFR For African Americans > 60 (> 60); eGFR For Non-African Americans > 60 (> 60)
[2020-11-15 16:46] LABS: Bacteria,Urine Few per hpf (None-Few); Bilirubin,Urine Negative (Negative); Blood,Urine Small (Negative); Clarity,Urine Clear (Clear); Color,Urine Light-Yellow (Yellow); Glucose,Urine (UA) Normal (Normal); Hyaline Casts,Urine Few per lpf (None Seen); Ketones,Urine Negative (Negative); Leukocyte Esterase,Urine Large (Negative); Mucus,Urine Few per lpf (None-Few); Nitrite,Urine Negative (Negative); Protein,Urine 30 mg/dL (Neg-Trace); Specific Gravity,Urine 1.019 (1.010-1.025); Urobilinogen,Urine Normal (Normal); WBC,Urine 50-100 per hpf (0-3)
[2020-11-15] MEDS ORDERED: Piperacillin/Tazobactam 3.375 GM in 0.9 % Sodium Chloride Mini Bag 100 ML IVPB ONE (16:51)
[2020-11-15] MEDS ORDERED: *HR* HYDROcodone/Acet 5/325 mg TABLET PO ONE (20:36)
[2020-11-16] MEDS ORDERED: Ondansetron 4 MG/2 ML VIAL IVP PRN (01:36)
[2020-11-16] MEDS ORDERED: Naloxone 0.4 MG/ML INJ IVP PRN (01:36)
[2020-11-16] MEDS ORDERED: 0.9 % Sodium Chloride 1,000 ML IVC SCH (01:45)
[2020-11-16] MEDS ORDERED: *HR* LORazepam 2 MG/ML VIAL IVP ONE (02:43)
[2020-11-16] MEDS: Piperacillin/Tazobactam 3.375 GM in 0.9 % Sodium Chloride Mini Bag 100 ML IVPB SCH ×2 (02:44→08:39)
[2020-11-16] MEDS ORDERED: D5% in Water 1,000 ML IVC PRN (03:23)
[2020-11-16] MEDS ORDERED: *HR* Dextrose 50 % in Water (Vial) 50 ML VIAL IVP PRN (03:23)
[2020-11-16] MEDS ORDERED: Dextrose Gel 15 GM/37.5 ML TUBE PO PRN ×2 (03:23)
[2020-11-16 04:39] LABS: Hematocrit 30.4 % (35.3-44.9); Hemoglobin 9.2 g/dL (11.5-15.4); Mean Corpuscular HGB Conc 30.3 g/dL (31.6-35.5); Mean Corpuscular Hemoglobin 23.5 pg (28.0-33.3); Mean Corpuscular Volume 77.6 fL (83.0-100.0); Mean Platelet Volume 8.7 fL (9.4-12.4); Platelet Count 220 K/mcL (140-400); Red Blood Count 3.92 M/mcL (3.82-4.97); Red Cell Distribution Width 14.6 % (11.5-14.5); White Blood Count 4.6 K/mcL (4.3-11.1)
[2020-11-16 04:55] LABS: BUN/Creatinine Ratio 28 (6-26); Blood Urea Nitrogen 14 mg/dL (8-23); Calcium 8.4 mg/dL (8.6-10.3); Carbon Dioxide 27 mEq/L (23-29); Chloride 105 mEq/L (98-107); Glucose 100 mg/dL (70-105); Osmolality,Calculated 287 (280-300); Potassium 4.2 mEq/L (3.5-5.1); Sodium 138 mEq/L (136-145); eGFR For African Americans > 60 (> 60); eGFR For Non-African Americans > 60 (> 60)
[2020-11-16] MEDS ORDERED: *HR* Heparin 5,000 UNIT/ML VIAL SQ SCH (06:00)
[2020-11-16] MEDS ORDERED: Acetaminophen 325 MG TABLET PO ONE (06:23)
[2020-11-16] MEDS: Insulin LISPRO 300 UNITS/3 ML VIAL SUBQ SCH ×2 (08:40→12:28)
[2020-11-16 12:43] VITALS: BP 172/79
== END 2020-11-16 13:30 | disposition other institution (70) ==
LOC: CDU 13:03 → EMEROOARM 13:03 → CDU 11-16 01:59
PROVIDERS: ADMIT Family Medicine; ATTEND Family Medicine

== ENCOUNTER 2021-02-11 12:58 | Inpatient (IN) ==
[2021-02-11] MEDS ORDERED: Ondansetron 4 MG/2 ML VIAL IVP ONE (14:12)
[2021-02-11] MEDS ORDERED: Isovue-370 500 ML BOTTLE IVP ONE (14:12)
[2021-02-11] MEDS ORDERED: 0.9 % Sodium Chloride 1,000 ML IVC ONE (14:12)
[2021-02-11] MEDS ORDERED: *HR* HYDROcodone/Acet 5/325 mg TABLET PO ONE (14:31)
[2021-02-11] MEDS: Morphine Sulfate 2 MG/ML SYRINGE IVP ONE ×2 (14:31→18:02)
[2021-02-11 14:38] LABS: Bacteria,Urine Few per hpf (None-Few); Bilirubin,Urine Negative (Negative); Blood,Urine Large (Negative); Clarity,Urine Ex.Turbid (Clear); Color,Urine Dark-Yellow (Yellow); Glucose,Urine (UA) Normal (Normal); Ketones,Urine Negative (Negative); Leukocyte Esterase,Urine Large (Negative); Mucus,Urine Many per lpf (None-Few); Nitrite,Urine Negative (Negative); PH,Urine 6.5 pH Units (5.0-8.0); Protein,Urine >=300 mg/dL (Neg-Trace); RBC,Urine 50-100 per hpf (0-3); Specific Gravity,Urine 1.021 (1.010-1.025); Squamous Epithelial Cell,Urine Few per hpf (None-Few); Urobilinogen,Urine Normal (Normal); WBC,Urine TNTC per hpf (0-3)
[2021-02-11 14:54] LABS: Basophils % 0.2 %; Hematocrit 31.6 % (35.3-44.9); Hemoglobin 9.6 g/dL (11.5-15.4); Immature Granulocytes % 0.9 % (0-4); Lymphocytes # 0.4 K/mcL (0.6-4.6); Lymphocytes % 6.1 %; Mean Corpuscular HGB Conc 30.4 g/dL (31.6-35.5); Mean Corpuscular Hemoglobin 27.3 pg (28.0-33.3); Mean Corpuscular Volume 89.8 fL (83.0-100.0); Monocytes # 0.4 K/mcL (0.0-1.3); Monocytes % 6.2 %; Neutrophils # 5.7 K/mcL (1.6-8.9); Platelet Count 195 K/mcL (140-400); Red Blood Count 3.52 M/mcL (3.82-4.97); Red Cell Distribution Width 20.6 % (11.5-14.5); Segmented Neutrophils % 86.6 %; White Blood Count 6.6 K/mcL (4.3-11.1)
[2021-02-11 15:15] LABS: Alanine Aminotransferase 8 Units/L (7-52); Albumin/Globulin Ratio 0.6 (1.1-2.2); Alkaline Phosphatase 113 Units/L (34-104); Aspartate Amino Transferase 12 Units/L (13-39); BUN/Creatinine Ratio 30 (6-26); Bilirubin,Total 0.6 mg/dL (0.3-1.0); Blood Urea Nitrogen 17 mg/dL (8-23); Calcium 7.3 mg/dL (8.6-10.3); Carbon Dioxide 26 mEq/L (23-29); Chloride 106 mEq/L (98-107); Globulin 3.5 g/dL (2.4-3.5); Glucose 109 mg/dL (70-105); Osmolality,Calculated 288 (280-300); Potassium 3.5 mEq/L (3.5-5.1); Sodium 138 mEq/L (136-145); Total Protein 5.5 g/dL (6.4-8.9); eGFR For African Americans > 60 (> 60); eGFR For Non-African Americans > 60 (> 60)
[2021-02-11 15:16] LABS: Troponin I < 0.03 ng/mL (< 0.04)
[2021-02-11] MEDS ORDERED: cefTRIAXone 1,000 MG in Water for inj. (sterile) 10 ML IVP ONE (15:16)
[2021-02-11] MEDS ORDERED: Naloxone 0.4 MG/ML INJ IVP PRN (19:50)
[2021-02-11] MEDS ORDERED: Ondansetron 4 MG/2 ML VIAL IVP PRN (19:50)
[2021-02-11] MEDS ORDERED: *HR* Promethazine 25 MG/ML VIAL IM PRN (19:50)
[2021-02-11] MEDS ORDERED: D5% in Water 1,000 ML IVC PRN (19:53)
[2021-02-11] MEDS ORDERED: Dextrose Gel 15 GM/37.5 ML TUBE PO PRN ×2 (19:53)
[2021-02-11] MEDS ORDERED: *HR* Metoprolol 5 MG/5 ML VIAL IVP PRN ×2 (20:58→21:06)
[2021-02-11] MEDS ORDERED: *HR* LORazepam 2 MG/ML VIAL IVP PRN (21:00)
[2021-02-11] MEDS: 0.9 % Sodium Chloride 1,000 ML IVC SCH (22:04)
[2021-02-12 04:29] LABS: Hemoglobin 7.9 g/dL (11.5-15.4); Immature Granulocytes % 0.8 % (0-4); Lymphocytes # 0.5 K/mcL (0.6-4.6); Lymphocytes % 10.1 %; Mean Corpuscular HGB Conc 30.4 g/dL (31.6-35.5); Mean Corpuscular Hemoglobin 27.1 pg (28.0-33.3); Mean Corpuscular Volume 89.3 fL (83.0-100.0); Mean Platelet Volume 8.6 fL (9.4-12.4); Monocytes # 0.4 K/mcL (0.0-1.3); Monocytes % 8.9 %; Neutrophils # 3.9 K/mcL (1.6-8.9); Platelet Count 150 K/mcL (140-400); Red Blood Count 2.91 M/mcL (3.82-4.97); Red Cell Distribution Width 20.3 % (11.5-14.5); Segmented Neutrophils % 80.2 %; White Blood Count 4.8 K/mcL (4.3-11.1)
[2021-02-12 04:47] LABS: BUN/Creatinine Ratio 32 (6-26); Blood Urea Nitrogen 13 mg/dL (8-23); Carbon Dioxide 25 mEq/L (23-29); Chloride 109 mEq/L (98-107); Glucose 76 mg/dL (70-105); Osmolality,Calculated 287 (280-300); Potassium 3.4 mEq/L (3.5-5.1); Sodium 139 mEq/L (136-145); eGFR For African Americans > 60 (> 60); eGFR For Non-African Americans > 60 (> 60)
[2021-02-12] MEDS: *HR* Dextrose 50 % in Water (Vial) 50 ML VIAL IVP PRN (06:09)
[2021-02-12] MEDS ORDERED: Levothyroxine Sodium 100 MCG VIAL IVP SCH (06:30)
[2021-02-12] MEDS: cefTRIAXone 1,000 MG in Water for inj. (sterile) 10 ML IVP SCH (10:25)
[2021-02-12] MEDS: *HR* LORazepam 2 MG/ML VIAL IVP PRN ×2 (10:27→23:30)
[2021-02-12] MEDS ORDERED: *HR* LORazepam 2 MG/ML VIAL IVP SCH (15:00)
[2021-02-12] MEDS: 0.9 % Sodium Chloride 1,000 ML IVC SCH (17:03)
[2021-02-12] MEDS: *HR* Metoprolol 5 MG/5 ML VIAL IVP SCH ×2 (17:03→23:14)
[2021-02-12] MEDS ORDERED: Patient Taking Own Medication 1 EACH PO PRN (18:17)
[2021-02-12] MEDS ORDERED: Acetaminophen 325 MG TABLET PO PRN (18:17)
[2021-02-12] MEDS ORDERED: clonazePAM 0.5 MG TABLET PO PRN (18:40)
[2021-02-12] MEDS: Patient Taking Own Medication 1 EACH PO SCH (18:54)
[2021-02-12] MEDS ORDERED: Morphine Sulfate 2 MG/ML SYRINGE IVP ONE (20:46)
[2021-02-12] MEDS ORDERED: Gabapentin 300 MG CAPSULE PO SCH (21:00)
[2021-02-12] MEDS ORDERED: traZODone 50 MG TABLET PO SCH (21:00)
[2021-02-13] MEDS: *HR* Dextrose 50 % in Water (Vial) 50 ML VIAL IVP PRN ×2 (00:33→23:40)
[2021-02-13 03:23] LABS: Hematocrit 26.3 % (35.3-44.9); Immature Granulocytes % 0.7 % (0-4); Lymphocytes # 0.4 K/mcL (0.6-4.6); Mean Corpuscular HGB Conc 30.4 g/dL (31.6-35.5); Mean Corpuscular Hemoglobin 27.1 pg (28.0-33.3); Mean Corpuscular Volume 89.2 fL (83.0-100.0); Mean Platelet Volume 8.9 fL (9.4-12.4); Monocytes # 0.3 K/mcL (0.0-1.3); Monocytes % 7.7 %; Neutrophils # 3.6 K/mcL (1.6-8.9); Platelet Count 175 K/mcL (140-400); Red Blood Count 2.95 M/mcL (3.82-4.97); Red Cell Distribution Width 19.9 % (11.5-14.5); Segmented Neutrophils % 81.6 %; White Blood Count 4.4 K/mcL (4.3-11.1)
[2021-02-13 03:43] LABS: BUN/Creatinine Ratio 31 (6-26); Blood Urea Nitrogen 11 mg/dL (8-23); Calcium 7.2 mg/dL (8.6-10.3); Carbon Dioxide 24 mEq/L (23-29); Chloride 109 mEq/L (98-107); Glucose 88 mg/dL (70-105); Osmolality,Calculated 287 (280-300); Potassium 2.9 mEq/L (3.5-5.1); Sodium 139 mEq/L (136-145); eGFR For African Americans > 60 (> 60); eGFR For Non-African Americans > 60 (> 60)
[2021-02-13 03:46] LABS: Iron 13 mcg/dL (50-170); Transferrin < 75 mg/dL (203-362)
[2021-02-13 04:03] LABS: Ferritin 396 ng/mL (10-120)
[2021-02-13] MEDS: *HR* Metoprolol 5 MG/5 ML VIAL IVP SCH ×3 (06:19→18:00)
[2021-02-13] MEDS ORDERED: Cyanocobalamin (B-12) 1,000 MCG/ML VIAL SQ ONE (10:22)
[2021-02-13] MEDS: cefTRIAXone 1,000 MG in Water for inj. (sterile) 10 ML IVP SCH (10:33)
[2021-02-13] MEDS: *HR* LORazepam 2 MG/ML VIAL IVP PRN (11:57)
[2021-02-13] MEDS: Aspirin Enteric Coated 81 MG Tablet PO SCH (12:07)
[2021-02-13] MEDS: Cyanocobalamin (B-12) 1,000 MCG TABLET PO SCH (12:07)
[2021-02-13] MEDS ORDERED: *HR* FentaNYL (PF) 100 MCG/2 ML VIAL IVP ONE (14:58)
[2021-02-13] MEDS ORDERED: *HR* Midazolam HCl 2 MG/2 ML VIAL IVP ONE (14:58)
[2021-02-13] MEDS ORDERED: 0.9 % Sodium Chloride 500 ML ONE (15:07)
[2021-02-13] MEDS: 0.9 % Sodium Chloride 1,000 ML IVC SCH (17:59)
[2021-02-13] MEDS: Patient Taking Own Medication 1 EACH PO SCH (18:35)
[2021-02-13] MEDS: Ampicillin 2,000 MG in 0.9 % Sodium Chloride Mini Bag 100 ML IVPB SCH (19:19)
[2021-02-13] MEDS: traZODone 50 MG TABLET PO SCH (20:31)
[2021-02-13] MEDS: Gabapentin 300 MG CAPSULE PO SCH (20:31)
[2021-02-14] MEDS: *HR* Metoprolol 5 MG/5 ML VIAL IVP SCH ×4 (00:32→18:13)
[2021-02-14] MEDS: Ampicillin 2,000 MG in 0.9 % Sodium Chloride Mini Bag 100 ML IVPB SCH ×4 (01:07→18:13)
[2021-02-14 04:42] LABS: Hematocrit 27.9 % (35.3-44.9); Hemoglobin 8.4 g/dL (11.5-15.4); Immature Granulocytes % 0.5 % (0-4); Lymphocytes # 0.3 K/mcL (0.6-4.6); Lymphocytes % 7.4 %; Mean Corpuscular HGB Conc 30.1 g/dL (31.6-35.5); Mean Corpuscular Hemoglobin 27.2 pg (28.0-33.3); Mean Corpuscular Volume 90.3 fL (83.0-100.0); Mean Platelet Volume 9.1 fL (9.4-12.4); Monocytes # 0.3 K/mcL (0.0-1.3); Monocytes % 6.8 %; Neutrophils # 3.8 K/mcL (1.6-8.9); Platelet Count 181 K/mcL (140-400); Red Blood Count 3.09 M/mcL (3.82-4.97); Red Cell Distribution Width 19.4 % (11.5-14.5); Segmented Neutrophils % 85.3 %; White Blood Count 4.4 K/mcL (4.3-11.1)
[2021-02-14 05:01] LABS: BUN/Creatinine Ratio 29 (6-26); Blood Urea Nitrogen 9 mg/dL (8-23); Calcium 7.2 mg/dL (8.6-10.3); Carbon Dioxide 22 mEq/L (23-29); Chloride 112 mEq/L (98-107); Glucose 73 mg/dL (70-105); Osmolality,Calculated 293 (280-300); Potassium 2.8 mEq/L (3.5-5.1); Sodium 143 mEq/L (136-145); eGFR For African Americans > 60 (> 60); eGFR For Non-African Americans > 60 (> 60)
[2021-02-14] MEDS: 0.9 % Sodium Chloride 1,000 ML IVC SCH ×3 (07:13→18:18)
[2021-02-14] MEDS: Cyanocobalamin (B-12) 1,000 MCG TABLET PO SCH (07:15)
[2021-02-14] MEDS: Patient Taking Own Medication 1 EACH PO SCH (07:15)
[2021-02-14] MEDS: Aspirin Enteric Coated 81 MG Tablet PO SCH (07:15)
[2021-02-14] MEDS ORDERED: Potassium Chloride 40 MEQ, Lidocaine 1% 2 ML in 0.9 % Sodium Chloride 500 ML IVPB ONE (09:34)
[2021-02-14] MEDS: *HR* LORazepam 2 MG/ML VIAL IVP PRN (10:36)
[2021-02-14] MEDS ORDERED: *HR* FentaNYL (PF) 100 MCG/2 ML VIAL ONE (15:13)
[2021-02-14] MEDS ORDERED: 0.9 % Sodium Chloride 1,000 ML ONE (15:13)
[2021-02-14] MEDS ORDERED: *HR* Midazolam HCl 2 MG/2 ML VIAL ONE (15:13)
[2021-02-14] MEDS: traZODone 50 MG TABLET PO SCH (20:52)
[2021-02-14] MEDS: Gabapentin 300 MG CAPSULE PO SCH (20:52)
[2021-02-15] MEDS: *HR* Metoprolol 5 MG/5 ML VIAL IVP SCH ×3 (00:46→12:01)
[2021-02-15] MEDS: Ampicillin 2,000 MG in 0.9 % Sodium Chloride Mini Bag 100 ML IVPB SCH ×3 (00:47→12:01)
[2021-02-15 07:15] LABS: Hematocrit 25.8 % (35.3-44.9); Hemoglobin 7.7 g/dL (11.5-15.4); Mean Corpuscular HGB Conc 29.8 g/dL (31.6-35.5); Mean Corpuscular Volume 90.5 fL (83.0-100.0); Mean Platelet Volume 8.6 fL (9.4-12.4); Platelet Count 184 K/mcL (140-400); Red Blood Count 2.85 M/mcL (3.82-4.97); Red Cell Distribution Width 19.3 % (11.5-14.5); White Blood Count 3.1 K/mcL (4.3-11.1)
[2021-02-15] MEDS: Aspirin Enteric Coated 81 MG Tablet PO SCH (07:32)
[2021-02-15] MEDS: Cyanocobalamin (B-12) 1,000 MCG TABLET PO SCH (07:32)
[2021-02-15 08:16] LABS: BUN/Creatinine Ratio 25 (6-26); Blood Urea Nitrogen 9 mg/dL (8-23); Calcium 7.2 mg/dL (8.6-10.3); Carbon Dioxide 26 mEq/L (23-29); Chloride 109 mEq/L (98-107); Glucose 76 mg/dL (70-105); Osmolality,Calculated 285 (280-300); Potassium 3.1 mEq/L (3.5-5.1); Sodium 139 mEq/L (136-145); eGFR For African Americans > 60 (> 60); eGFR For Non-African Americans > 60 (> 60)
[2021-02-15] MEDS: *HR* LORazepam 2 MG/ML VIAL IVP PRN (10:22)
[2021-02-15] MEDS ORDERED: clonazePAM 0.5 MG TABLET PO PRN (16:01)
[2021-02-15] MEDS: Gabapentin 300 MG CAPSULE PO SCH ×2 (16:08→21:06)
[2021-02-15] MEDS: Amoxicillin 500 MG CAPSULE PO SCH ×2 (16:08→23:37)
[2021-02-15] MEDS: Patient Taking Own Medication 1 EACH PO SCH (16:58)
[2021-02-15] MEDS: traZODone 50 MG TABLET PO SCH (21:06)
[2021-02-16 02:20] LABS: Hematocrit 25.2 % (35.3-44.9); Hemoglobin 7.8 g/dL (11.5-15.4); Mean Corpuscular Hemoglobin 27.7 pg (28.0-33.3); Mean Corpuscular Volume 89.4 fL (83.0-100.0); Mean Platelet Volume 8.8 fL (9.4-12.4); Platelet Count 194 K/mcL (140-400); Red Blood Count 2.82 M/mcL (3.82-4.97); Red Cell Distribution Width 19.3 % (11.5-14.5); White Blood Count 3.3 K/mcL (4.3-11.1)
[2021-02-16 02:30] LABS: BUN/Creatinine Ratio 20 (6-26); Blood Urea Nitrogen 10 mg/dL (8-23); Calcium 7.1 mg/dL (8.6-10.3); Carbon Dioxide 27 mEq/L (23-29); Chloride 108 mEq/L (98-107); Glucose 125 mg/dL (70-105); Osmolality,Calculated 283 (280-300); Potassium 4.3 mEq/L (3.5-5.1); Sodium 136 mEq/L (136-145); eGFR For African Americans > 60 (> 60); eGFR For Non-African Americans > 60 (> 60)
[2021-02-16] MEDS ORDERED: Metoprolol XL (24 HR) Succ 50 MG TAB.ER.24H PO SCH (09:00)
[2021-02-16] MEDS: Amoxicillin 500 MG CAPSULE PO SCH ×2 (09:52→15:12)
[2021-02-16] MEDS: Aspirin Enteric Coated 81 MG Tablet PO SCH (09:52)
[2021-02-16] MEDS: Cyanocobalamin (B-12) 1,000 MCG TABLET PO SCH (09:52)
[2021-02-16] MEDS: Gabapentin 300 MG CAPSULE PO SCH ×2 (09:52→15:12)
[2021-02-16 11:30] VITALS: BP 131/80
[2021-02-16] MEDS ORDERED: dexAMETHasone 4 MG TABLET PO SCH (13:00)
== END 2021-02-16 16:09 | disposition home health service (06) | DRG 374 ==
LOC: EMEROOARM 12:58 → 3ANU 12:58 → SUATTDRO 18:40 → 3ANU 19:49
PROVIDERS: ADMIT Internal Medicine; ATTEND Internal Medicine

== ENCOUNTER 2021-03-02 20:00 | Inpatient (IN) ==
[2021-03-02] MEDS ORDERED: 0.9 % Sodium Chloride 1,000 ML IVC ONE (21:25)
[2021-03-02] MEDS ORDERED: Ondansetron 4 MG/2 ML VIAL IVP ONE (21:56)
[2021-03-02] MEDS ORDERED: Morphine Sulfate 2 MG/ML SYRINGE IVP ONE (21:56)
[2021-03-02] MEDS ORDERED: Isovue-370 500 ML BOTTLE IVP ONE (22:00)
[2021-03-02 22:13] LABS: Basophils % 0.1 %; Hematocrit 30.3 % (35.3-44.9); Hemoglobin 9.7 g/dL (11.5-15.4); Immature Granulocytes % 0.6 % (0-4); Lymphocytes # 0.4 K/mcL (0.6-4.6); Lymphocytes % 4.7 %; Mean Corpuscular Hemoglobin 29.5 pg (28.0-33.3); Mean Corpuscular Volume 92.1 fL (83.0-100.0); Mean Platelet Volume 9.2 fL (9.4-12.4); Monocytes # 0.3 K/mcL (0.0-1.3); Monocytes % 3.6 %; Neutrophils # 8.5 K/mcL (1.6-8.9); Platelet Count 214 K/mcL (140-400); Red Blood Count 3.29 M/mcL (3.82-4.97); Red Cell Distribution Width 16.4 % (11.5-14.5); White Blood Count 9.4 K/mcL (4.3-11.1)
[2021-03-02 22:37] LABS: Alanine Aminotransferase 7 Units/L (7-52); Albumin 1.9 g/dL (3.5-5.7); Albumin/Globulin Ratio 0.5 (1.1-2.2); Alkaline Phosphatase 112 Units/L (34-104); Aspartate Amino Transferase 12 Units/L (13-39); BUN/Creatinine Ratio 31 (6-26); Bilirubin,Direct 0.2 mg/dL (0.0-0.2); Bilirubin,Indirect 0.6 mg/dL (0.0-1.0); Bilirubin,Total 0.8 mg/dL (0.3-1.0); Blood Urea Nitrogen 16 mg/dL (8-23); Calcium 7.5 mg/dL (8.6-10.3); Carbon Dioxide 28 mEq/L (23-29); Chloride 99 mEq/L (98-107); Globulin 3.5 g/dL (2.4-3.5); Glucose 126 mg/dL (70-105); Lipase 12 Units/L (11-82); Osmolality,Calculated 287 (280-300); Potassium 4.1 mEq/L (3.5-5.1); Sodium 137 mEq/L (136-145); Total Protein 5.4 g/dL (6.4-8.9); eGFR For African Americans > 60 (> 60); eGFR For Non-African Americans > 60 (> 60)
[2021-03-02 22:45] LABS: Troponin I < 0.03 ng/mL (< 0.04)
[2021-03-03] MEDS ORDERED: Naloxone 0.4 MG/ML INJ IVP PRN (01:54)
[2021-03-03] MEDS ORDERED: Ondansetron 4 MG/2 ML VIAL IVP PRN (01:54)
[2021-03-03] MEDS ORDERED: Calcium Gluconate 1gm/50mL 1 GM/50 ML BAG IVPB ONE (01:55)
[2021-03-03 03:55] LABS: Bacteria,Urine Many per hpf (None-Few); Bilirubin,Urine Negative (Negative); Blood,Urine Large (Negative); Clarity,Urine Ex.Turbid (Clear); Color,Urine Orange (Yellow); Glucose,Urine (UA) Normal (Normal); Ketones,Urine Trace mg/dL (Negative); Leukocyte Esterase,Urine Large (Negative); Mucus,Urine Many per lpf (None-Few); Nitrite,Urine Negative (Negative); Protein,Urine 100 mg/dL (Neg-Trace); RBC,Urine 15-30 per hpf (0-3); Specific Gravity,Urine > 1.030 (1.010-1.025); Urobilinogen,Urine Normal (Normal); WBC,Urine TNTC per hpf (0-3)
[2021-03-03] MEDS: 0.9 % Sodium Chloride 1,000 ML IVC SCH ×2 (04:03→17:37)
[2021-03-03 07:27] LABS: Hematocrit 26.2 % (35.3-44.9); Immature Granulocytes % 0.6 % (0-4); Lymphocytes # 0.5 K/mcL (0.6-4.6); Lymphocytes % 9.5 %; Mean Corpuscular HGB Conc 30.2 g/dL (31.6-35.5); Mean Corpuscular Hemoglobin 28.5 pg (28.0-33.3); Mean Corpuscular Volume 94.6 fL (83.0-100.0); Mean Platelet Volume 8.9 fL (9.4-12.4); Monocytes # 0.3 K/mcL (0.0-1.3); Monocytes % 5.9 %; Platelet Count 154 K/mcL (140-400); Red Blood Count 2.77 M/mcL (3.82-4.97); Red Cell Distribution Width 16.4 % (11.5-14.5); White Blood Count 4.7 K/mcL (4.3-11.1)
[2021-03-03 07:31] LABS: INR 1.3; Prothrombin Time 14.7 Seconds (9.4-12.1)
[2021-03-03 07:34] LABS: Hemoglobin 7.9 g/dL (11.5-15.4)
[2021-03-03 07:43] LABS: BUN/Creatinine Ratio 38 (6-26); Blood Urea Nitrogen 14 mg/dL (8-23); Calcium 7.3 mg/dL (8.6-10.3); Carbon Dioxide 29 mEq/L (23-29); Chloride 106 mEq/L (98-107); Glucose 85 mg/dL (70-105); Magnesium 1.7 mg/dL (1.6-2.6); Osmolality,Calculated 284 (280-300); Potassium 3.7 mEq/L (3.5-5.1); Sodium 137 mEq/L (136-145); eGFR For African Americans > 60 (> 60); eGFR For Non-African Americans > 60 (> 60)
[2021-03-03] MEDS: Acetaminophen 325 MG TABLET PO PRN (11:02)
[2021-03-03] MEDS: cefTRIAXone 1,000 MG in Water for inj. (sterile) 10 ML IVP SCH (11:02)
[2021-03-03] MEDS ORDERED: Gabapentin 300 MG CAPSULE PO PRN (15:06)
[2021-03-03] MEDS: clonazePAM 0.5 MG TABLET PO SCH (21:08)
[2021-03-04] MEDS ORDERED: Dextrose Gel 15 GM/37.5 ML TUBE PO PRN ×2 (06:50)
[2021-03-04] MEDS ORDERED: D5% in Water 1,000 ML IVC PRN (06:50)
[2021-03-04] MEDS: *HR* Dextrose 50 % in Water (Vial) 50 ML VIAL IVP PRN ×2 (07:06→10:44)
[2021-03-04 07:31] LABS: Hematocrit 25.7 % (35.3-44.9); Hemoglobin 7.9 g/dL (11.5-15.4); Mean Corpuscular HGB Conc 30.7 g/dL (31.6-35.5); Mean Corpuscular Hemoglobin 28.9 pg (28.0-33.3); Mean Corpuscular Volume 94.1 fL (83.0-100.0); Mean Platelet Volume 9.1 fL (9.4-12.4); Platelet Count 148 K/mcL (140-400); Red Blood Count 2.73 M/mcL (3.82-4.97); Red Cell Distribution Width 16.1 % (11.5-14.5); White Blood Count 3.8 K/mcL (4.3-11.1)
[2021-03-04 07:50] LABS: BUN/Creatinine Ratio 33 (6-26); Blood Urea Nitrogen 9 mg/dL (8-23); Carbon Dioxide 24 mEq/L (23-29); Chloride 108 mEq/L (98-107); Glucose 62 mg/dL (70-105); Osmolality,Calculated 283 (280-300); Potassium 3.3 mEq/L (3.5-5.1); Sodium 138 mEq/L (136-145); eGFR For African Americans > 60 (> 60); eGFR For Non-African Americans > 60 (> 60)
[2021-03-04] MEDS ORDERED: Potassium Chloride 20 MEQ, Lidocaine 1% 2 ML in 0.9 % Sodium Chloride 250 ML IVPB ONE (07:56)
[2021-03-04] MEDS: cefTRIAXone 1,000 MG in Water for inj. (sterile) 10 ML IVP SCH (10:45)
[2021-03-04] MEDS: Aspirin Enteric Coated 81 MG Tablet PO SCH (10:46)
[2021-03-04] MEDS: Metoprolol XL (24 HR) Succ 25 MG TAB.ER.24H PO SCH (10:46)
[2021-03-04] MEDS: Metoprolol XL (24 HR) Succ 50 MG TAB.ER.24H PO SCH (10:46)
[2021-03-04] MEDS: clonazePAM 0.5 MG TABLET PO SCH (21:11)
[2021-03-05 04:40] LABS: Hematocrit 25.1 % (35.3-44.9); Hemoglobin 7.6 g/dL (11.5-15.4); Mean Corpuscular HGB Conc 30.3 g/dL (31.6-35.5); Mean Corpuscular Hemoglobin 28.3 pg (28.0-33.3); Mean Corpuscular Volume 93.3 fL (83.0-100.0); Mean Platelet Volume 8.7 fL (9.4-12.4); Platelet Count 164 K/mcL (140-400); Red Blood Count 2.69 M/mcL (3.82-4.97); Red Cell Distribution Width 15.7 % (11.5-14.5); White Blood Count 3.6 K/mcL (4.3-11.1)
[2021-03-05 04:54] LABS: BUN/Creatinine Ratio 24 (6-26); Blood Urea Nitrogen 9 mg/dL (8-23); Calcium 7.1 mg/dL (8.6-10.3); Carbon Dioxide 29 mEq/L (23-29); Chloride 106 mEq/L (98-107); Glucose 83 mg/dL (70-105); Osmolality,Calculated 286 (280-300); Sodium 139 mEq/L (136-145); eGFR For African Americans > 60 (> 60); eGFR For Non-African Americans > 60 (> 60)
[2021-03-05] MEDS ORDERED: Potassium Chloride 40 MEQ, Lidocaine 1% 2 ML in 0.9 % Sodium Chloride 500 ML IVPB ONE (07:49)
[2021-03-05 08:44] LABS: Magnesium 1.6 mg/dL (1.6-2.6)
[2021-03-05] MEDS: Aspirin Enteric Coated 81 MG Tablet PO SCH (09:31)
[2021-03-05] MEDS: Metoprolol XL (24 HR) Succ 50 MG TAB.ER.24H PO SCH (09:31)
[2021-03-05] MEDS: Metoprolol XL (24 HR) Succ 25 MG TAB.ER.24H PO SCH (09:31)
[2021-03-05] MEDS: cefTRIAXone 1,000 MG in Water for inj. (sterile) 10 ML IVP SCH (09:33)
[2021-03-05] MEDS: Amoxicillin 500 MG CAPSULE PO SCH ×3 (11:54→21:41)
[2021-03-05] MEDS ORDERED: Potassium Phosphate 44 MEQ in 0.9 % Sodium Chloride 250 ML IVPB ONE (13:57)
[2021-03-05] MEDS: Acetaminophen 325 MG TABLET PO PRN (21:41)
[2021-03-05] MEDS: clonazePAM 0.5 MG TABLET PO SCH (21:41)
[2021-03-06 01:48] LABS: Hematocrit 24.4 % (35.3-44.9); Hemoglobin 7.5 g/dL (11.5-15.4); Mean Corpuscular HGB Conc 30.7 g/dL (31.6-35.5); Mean Corpuscular Hemoglobin 28.7 pg (28.0-33.3); Mean Corpuscular Volume 93.5 fL (83.0-100.0); Mean Platelet Volume 8.7 fL (9.4-12.4); Platelet Count 148 K/mcL (140-400); Red Blood Count 2.61 M/mcL (3.82-4.97); Red Cell Distribution Width 15.6 % (11.5-14.5); White Blood Count 3.4 K/mcL (4.3-11.1)
[2021-03-06 02:00] LABS: BUN/Creatinine Ratio 16 (6-26); Blood Urea Nitrogen 7 mg/dL (8-23); Calcium 6.7 mg/dL (8.6-10.3); Carbon Dioxide 27 mEq/L (23-29); Chloride 105 mEq/L (98-107); Glucose 88 mg/dL (70-105); Osmolality,Calculated 283 (280-300); Potassium 3.9 mEq/L (3.5-5.1); Sodium 138 mEq/L (136-145); eGFR For African Americans > 60 (> 60); eGFR For Non-African Americans > 60 (> 60)
[2021-03-06 09:14] LABS: VBG Ionized Calcium 1.13 mmol/L (1.15-1.35)
[2021-03-06] MEDS: Aspirin Enteric Coated 81 MG Tablet PO SCH (09:34)
[2021-03-06] MEDS: Metoprolol XL (24 HR) Succ 50 MG TAB.ER.24H PO SCH (09:34)
[2021-03-06] MEDS: Metoprolol XL (24 HR) Succ 25 MG TAB.ER.24H PO SCH (09:34)
[2021-03-06] MEDS: Amoxicillin 500 MG CAPSULE PO SCH (09:39)
[2021-03-06 09:45] LABS: Magnesium 1.6 mg/dL (1.6-2.6); Phosphorous 2.9 mg/dL (2.7-4.5)
[2021-03-06 10:32] VITALS: BP 156/79
== END 2021-03-06 13:25 | disposition home health service (06) | DRG 375 ==
LOC: 3NENU 20:00 → EMEROOARM 20:00 → SUATTDRO 03-03 04:26 → 3NENU 03-03 05:50
PROVIDERS: ADMIT Student in an Organized Health Care Education/Training Program; ATTEND Family Medicine